=== PATIENT | male | born 1940 | race Caucasian/White ===

== ENCOUNTER 2017-06-03 12:07 | Emergency (ER) | payer MEDICARE, BC ==
[2017-06-03 12:39] VITALS: BP 119/81
--- NOTE | 2017-06-03 12:39 | ED Physician Documentation ---
PD HPI SKIN - Stated complaint Stated Complaint: IV PORT CHECK/REMOVAL - History obtained from History obtained from: Patient - History of Present Illness Timing - onset: How many days ago (couple days ago was at [facility] for other complaint and got discharged with right forearm IV still in place. Here to get it out.) Timing - details: Abrupt onset, Still present Location[place] [facility] [place] Review of Systems Unable to obtain: Unresponsive Constitutional: denies: Fever, Chills Ears: denies: Ear pain Nose: denies: Foreign Body Throat: denies: Sore throat Cardiac: denies: Chest pain / pressure Respiratory: reports: Wheezing. denies: Cough GI: reports: Vomiting Skin: denies: Rash, Lesions PD PAST MEDICAL HISTORY - Past Medical History Cardiovascular: None Respiratory: None - Allergies Allergies/Adverse Reactions: Allergies Allergy/AdvReac Type Severity Reaction Status Date / Time No Known Drug Allergies Allergy Verified 06/03/17 12:28 PD ED PE NORMAL - Vitals Vital signs reviewed: Yes - General General: Alert and oriented X 3, No acute distress, Well developed/nourished - Neck Neck: Supple, no meningeal sign, No bony TTP, No JVD, No bruit - Cardiac Cardiac: RRR, No murmur - Respiratory Respiratory: Clear bilaterally - Abdomen Abdomen: Soft, Non tender - Derm Derm: Normal color, Warm and dry - Neuro Neuro: Alert and oriented X 3, agricultural extension specialist 2-12 intact, No motor deficit, No sensory deficit Eye Opening: To Voice Motor: Localizes to Pain Verbal: Confused GCS Score: 12 Results - Vitals Vitals: Vital Signs - 24 hr 06/03/17 12:29 Temperature 36.6 C Heart Rate 97 Respiratory 18 Rate Blood Pressure 119/81 H O2 Saturation 98 Oxygen O2 Source Room air PD MEDICAL DECISION MAKING - ED course Complexity details: considered differential, d/w patient, d/w legal consultant Departure - Departure Disposition: 01 Home, Self Care Clinical Impression: Intravenous catheter in place Condition: Stable Record reviewed to determine appropriate education?: Yes Comments: Follow-up with your primary care regarding treatment plans from prior ER visit. Return as needed. Discharge Date/Time: 06/03/17 12:50
== END 2017-06-03 12:50 | disposition home or self-care (01) ==
LOC: ED 12:07
DX: Z45.2 Encounter for adjustment and management of vascular access device (principal)
CPT/HCPCS: 99282

== ENCOUNTER 2017-10-04 13:26 | Outpatient (CLI) | payer MEDICARE, BC ==
--- NOTE | 2017-10-04 14:28 | XRAY Report ---
THREE VIEW LEFT KNEE: 10/04/2017 CLINICAL INDICATION: Pain. FINDINGS: AP, lateral, sunrise views of the left knee demonstrate moderate osteoarthritis. There is no evidence of acute fracture. No effusion is present. IMPRESSION: MODERATE OSTEOARTHRITIS. TD: 10/04/2017 14:00
== END 2017-10-04 13:27 | disposition home or self-care (01) ==
LOC: DI 13:26
PROVIDERS: ATTEND Registered Nurse
DX: M25.562 Pain in left knee (principal); R29.898 Other symptoms and signs involving the musculoskeletal system; M17.12 Unilateral primary osteoarthritis, left knee

== ENCOUNTER 2017-11-25 08:32 | Outpatient (CLI) | payer MEDICARE, BC ==
--- NOTE | 2017-11-25 10:29 | Ultrasound Report ---
Procedure Date: 11/25/2017 Accession Number: [id number] / [id number] Procedure: US - Breast Unilateral Limited CPT Code: FULL RESULT: EXAM: Breast Unilateral Limited DATE: 11/25/2017 10:07 AM CLINICAL HISTORY: RIGHT BREAST TECHNIQUE: Real-time scanning, with metals sales representative static images obtained. COMPARISON: Mammogram same day FINDINGS: In the right subareolar region, gynecomastia is present. No suspicious mass or architectural distortion is seen. IMPRESSION: Benign findings, with right retroareolar gynecomastia. Recommendation: Continued clinical management. BI-RADS Category 2 benign findings.
--- NOTE | 2017-11-25 13:12 | Mammography Report ---
Procedure Date: 11/25/2017 Accession Number: [id number] / [id number] Procedure: JACKLYN - Diagnostic Dig Bilat CPT Code: FULL RESULT: EXAM: Diagnostic Dig Bilat DATE: 11/25/2017 9:03 AM CLINICAL HISTORY: Palpable abnormality right subareolar region, tender TECHNIQUE: Bilateral CC and MLO views. A marker was placed at the site of the palpable abnormality identified by the patient. COMPARISON: None FINDINGS: The breasts demonstrate diffuse fatty replacement bilaterally. There is asymmetric gynecomastia, right greater than left. No mass or architectural distortion is identified. Please also refer to right breast ultrasound of the same day. IMPRESSION: Benign findings RECOMMENDATION: Continued clinical management. BIRADS CATEGORY 2: Benign findings STANDARD QUALIFYING STATEMENTS: 1. This examination was reviewed with the aid of Computer-Aided Detection (CAD). 2. A negative or benign imaging report should not delay biopsy if clinically suspicious findings are present. Consider surgical consultation if warrented. More than 5% of cancers are not identified by imaging. 3. Dense breasts may obscure an underlying neoplasm.
== END 2017-11-25 08:33 | disposition home or self-care (01) ==
LOC: DI 08:32
PROVIDERS: ATTEND Registered Nurse
DX: N62 Hypertrophy of breast (principal)
CPT/HCPCS: 76642; 77066

== ENCOUNTER 2018-06-01 12:18 | Outpatient (CLI) | payer MEDICARE, BC | END 2018-06-01 12:19 | disposition home or self-care (01) | LOC: LAB.F 12:18 | PROVIDERS: ATTEND Registered Nurse | DX: Z79.01 Long term (current) use of anticoagulants (principal) | CPT/HCPCS: 85610 ==

== ENCOUNTER 2018-06-06 12:39 | Outpatient (CLI) | payer MEDICARE, BC | END 2018-06-06 12:40 | disposition home or self-care (01) | LOC: LAB 12:39 | PROVIDERS: ATTEND Registered Nurse | DX: Z79.01 Long term (current) use of anticoagulants (principal) | CPT/HCPCS: 85610 ==

== ENCOUNTER 2018-06-13 13:00 | Outpatient (CLI) | payer MEDICARE, BC | END 2018-06-13 13:01 | disposition home or self-care (01) | LOC: LAB 13:00 | PROVIDERS: ATTEND Registered Nurse | DX: Z79.01 Long term (current) use of anticoagulants (principal) | CPT/HCPCS: 85610 ==

== ENCOUNTER 2018-07-11 09:29 | Outpatient (CLI) | payer MEDICARE, BC ==
--- NOTE | 2018-07-11 15:13 | XRAY Report ---
Reason: PLEURODYNIA Procedure Date: 07/11/2018 Accession Number: [id number] / [id number] Procedure: XR - Ribs Bilat w/Chest 4 View CPT Code: FULL RESULT: EXAM: BILATERAL RIB RADIOGRAPHY EXAM DATE: 07/11/2018 11:48 AM. CLINICAL HISTORY: Pleurodynia. COMPARISON: None. TECHNIQUE: 1 view of the chest and 2 views of the ribs for each side. FINDINGS: Bones: Normal. No fracture or bone lesion. Lungs: There is a 0.8 cm nodule projecting over the lung apex on the right, possibly calcified. A separate 8 mm nodule is seen projecting over the right mid lung. No consolidation. No pneumothorax. No pleural effusions. Mediastinum: Heart and mediastinal contours are unremarkable. Other: None. IMPRESSION: No fracture is detected. Pulmonary nodules as described warrant chest CT. RADIA
== END 2018-07-11 09:30 | disposition home or self-care (01) ==
LOC: DI 09:29
PROVIDERS: ATTEND Nurse Practitioner Family
DX: R07.81 Pleurodynia (principal)
CPT/HCPCS: 71111

== ENCOUNTER 2018-07-13 11:27 | Outpatient (CLI) | payer MEDICARE, BC | END 2018-07-13 11:28 | disposition home or self-care (01) | LOC: LAB 11:27 | PROVIDERS: ATTEND Registered Nurse | DX: Z79.01 Long term (current) use of anticoagulants (principal) | CPT/HCPCS: 85610 ==

== ENCOUNTER 2018-08-15 13:30 | Outpatient (CLI) | payer MEDICARE, BC | END 2018-08-15 13:31 | disposition home or self-care (01) | LOC: LAB 13:30 | PROVIDERS: ATTEND Registered Nurse | DX: Z79.01 Long term (current) use of anticoagulants (principal) | CPT/HCPCS: 85610 ==

== ENCOUNTER 2018-08-31 12:34 | Outpatient (CLI) | payer MEDICARE, BC | END 2018-08-31 12:35 | disposition home or self-care (01) | LOC: LAB 12:34 | PROVIDERS: ATTEND Registered Nurse | DX: Z79.01 Long term (current) use of anticoagulants (principal) | CPT/HCPCS: 85610 ==

== ENCOUNTER 2018-10-10 12:54 | Outpatient (CLI) | payer MEDICARE, BC | END 2018-10-10 12:55 | disposition home or self-care (01) | LOC: LAB 12:54 | PROVIDERS: ATTEND Registered Nurse | DX: Z51.81 Encounter for therapeutic drug level monitoring (principal); Z79.01 Long term (current) use of anticoagulants | CPT/HCPCS: 85610 ==

== ENCOUNTER 2018-10-19 11:51 | Outpatient (CLI) | payer MEDICARE, BC | END 2018-10-19 11:52 | disposition home or self-care (01) | LOC: LAB 11:51 | PROVIDERS: ATTEND Registered Nurse | DX: Z79.01 Long term (current) use of anticoagulants (principal) | CPT/HCPCS: 85610 ==

== ENCOUNTER 2018-11-07 08:00 | Outpatient (CLI) | payer MEDICARE, BC | END 2018-11-07 23:19 | disposition home or self-care (01) | LOC: LAB 08:00 | PROVIDERS: ATTEND Registered Nurse | DX: Z51.81 Encounter for therapeutic drug level monitoring (principal); Z79.01 Long term (current) use of anticoagulants | CPT/HCPCS: 85610 ==

== ENCOUNTER 2018-11-28 14:30 | Outpatient (CLI) | payer MEDICARE, BC | END 2018-11-28 14:31 | disposition home or self-care (01) | LOC: LAB 14:30 | PROVIDERS: ATTEND Registered Nurse | DX: Z79.01 Long term (current) use of anticoagulants (principal) | CPT/HCPCS: 85610 ==

== ENCOUNTER 2019-01-16 14:00 | Outpatient (CLI) | payer MEDICARE, BC | END 2019-01-16 14:01 | disposition home or self-care (01) | LOC: LAB 14:00 | PROVIDERS: ATTEND Registered Nurse | DX: Z51.81 Encounter for therapeutic drug level monitoring (principal); Z79.01 Long term (current) use of anticoagulants | CPT/HCPCS: 85610 ==

== ENCOUNTER 2019-03-06 12:47 | Outpatient (CLI) | payer MEDICARE, BC | END 2019-03-06 12:48 | disposition home or self-care (01) | LOC: LAB 12:47 | PROVIDERS: ATTEND Registered Nurse | DX: Z79.01 Long term (current) use of anticoagulants (principal) | CPT/HCPCS: 85610 ==

== ENCOUNTER 2019-03-07 09:52 | Outpatient (CLI) | payer MEDICARE, BC ==
--- NOTE | 2019-03-08 05:16 | Ultrasound Report ---
Reason: LOWER URINARY TRACT SYMPTOMS DUE TO BENIGN PROSTAT Procedure Date: 03/07/2019 Accession Number: [id number] / [id number] Procedure: US - Bladder CPT Code: FULL RESULT: EXAM: PELVIS ULTRASOUND, LIMITED EXAM DATE: 03/07/2019 10:29 AM. CLINICAL HISTORY: LOWER URINARY TRACT SYMPTOMS DUE TO BENIGN PROSTAT. COMPARISON: None. TECHNIQUE: Real-time scanning was performed with static images obtained. FINDINGS: Bladder: Prevoid bladder volume measures 95.7 mL. Postvoid bladder volume measures 17.7 mL. No bladder mass. Thick-walled bladder with trabeculation Prostate: Measures 4.6 x 4.6 x 5.2 cm for an ellipsoid volume of 57.6 mL, with nodular mass-effect on the bladder apex, with a nodular protrusion at the apex measuring 2.4 x 1.6 x 1.7 cm. IMPRESSION: 1. Thick-walled bladder with trabeculation indicating chronic outlet obstruction. 2. Prostatomegaly with nodular mass-effect on the bladder apex RADIA
== END 2019-03-07 09:53 | disposition home or self-care (01) ==
LOC: DI 09:52
PROVIDERS: ATTEND Family Medicine
DX: N40.1 Benign prostatic hyperplasia with lower urinary tract symptoms (principal); R33.9 Retention of urine, unspecified; N32.89 Other specified disorders of bladder
CPT/HCPCS: 76857

== ENCOUNTER 2019-05-22 12:43 | Outpatient (CLI) | payer MEDICARE, BC | END 2019-05-22 12:44 | disposition home or self-care (01) | LOC: LAB 12:43 | PROVIDERS: ATTEND Registered Nurse | DX: Z79.01 Long term (current) use of anticoagulants (principal) | CPT/HCPCS: 85610 ==

== ENCOUNTER 2019-06-28 12:07 | Outpatient (CLI) | payer MEDICARE, BC | END 2019-06-28 12:08 | disposition home or self-care (01) | LOC: LAB 12:07 | PROVIDERS: ATTEND Registered Nurse | DX: Z79.01 Long term (current) use of anticoagulants (principal) | CPT/HCPCS: 85610 ==

== ENCOUNTER 2019-08-16 18:25 | Outpatient (CLI) | payer MEDICARE, BC | END 2019-08-16 23:59 | disposition EMS.NT | LOC: EMS 18:25 | PROVIDERS: ATTEND Surgery | DX: R42 Dizziness and giddiness (principal); R06.02 Shortness of breath; R20.2 Paresthesia of skin ==

== ENCOUNTER 2019-08-20 15:24 | Outpatient (CLI) | payer MEDICARE, BC | END 2019-08-20 15:25 | disposition EMS.NT | LOC: EMS 15:24 | PROVIDERS: ATTEND Surgery | DX: R46.89 Other symptoms and signs involving appearance and behavior (principal) ==

== ENCOUNTER 2019-08-20 16:28 | Emergency (ER) | payer MEDICARE, BC ==
--- NOTE | 2019-08-20 17:14 | ED Physician Documentation ---
History of Present Illness - Stated complaint Stated Complaint: UNRESPONSIVE, SHALLOW BREATHING - Chief complaint Chief Complaint: Neuro - Additonal information Additional information: Mr. Gomez is a 79 year old male with a history of a-fib and dementia. He is here with his sister who states she has POA. His sister states she found him standing in a hallway in her home leaning against a wall just prior to their arrival. His eyes were shut and he was not responding to questions, this lasted about 1-3 minutes. He was ambulating. Patient states he was in the home at that time. He states the area was dark and he felt confused at that time. He denies any recent illness. He denies any current symptoms. No falls or injuries. No recent illness. No headache or focal areas of weakness. No congestion, cough, or fevers. No chills. No chest pain or back pain. No abdominal pain, nausea, or vomiting. No urinary complaints. He lives home alone with his sister. He is on coumadin. Review of Systems Constitutional: denies: Fever, Chills, Myalgias, Fatigue, Weight Loss, Sweats, Other Eyes: denies: Loss of vision, Decreased vision, Photophobia, Discharge, Irritation, Reviewed and negative, Other Ears: denies: Loss of hearing, Ear pain, Drainage/discharge, Tinnitus/ringing, Foreign body, Reviewed and negative, Other Nose: denies: Rhinorrhea / runny nose, Congestion, Epistaxis, Sinus pressure / pain, Foreign Body, Reviewed and negative, Other Throat: denies: Dental pain / toothache, Oral lesions / sores, Sore throat, Swollen tonsils, Swallowed foreign body, Reviewed and negative, Other Cardiac: denies: Chest pain / pressure, Palpitations, Pedal edema, Calf pain, Reviewed and negative, Other Respiratory: denies: Dyspnea, Cough, Hemoptysis, Wheezing, Reviewed and negative, Other GI: denies: Abdominal Pain, Abdominal Swelling, Nausea, Vomiting, Constipation, Diarrhea, Hematemesis, Bloody / black stool, Reviewed and negative, Other : denies: Dysuria, Frequency, Hesitancy, Unable to Void, Incontinent, Hematuria, Discharge, LMP, Vaginal bleeding, Irregular menses, Missed period, Now EGA, Control, Hysterectomy, Testicular pain, Testicular mass, Morales Problem, Reviewed and negative, Other Musculoskeletal: denies: Neck pain, Back pain, Extremity pain, Joint pain, Extremity swelling, Joint swelling, Pain with weight bearing, Reviewed and ne pete, Other Neurologic: reports: Other (see HPI) PD PAST MEDICAL HISTORY - Past Medical History Cardiovascular: None Respiratory: None - Past Surgical History Past Surgical History: No - Present Medications Home Medications: Ambulatory Orders Medication Instructions Recorded Confirmed Citalopram [CeleXA] 10 mg PO ONCE 07/24/19 07/24/19 Diltiazem HCl [Diltiazem ER] 180 mg PO 07/24/19 LORazepam [Lorazepam] 1 - 2 mg PO QPM PRN #10 tablet 07/24/19 Lisinopril [Prinivil] 5 mg PO 07/24/19 Quetiapine Fumarate 25 mg PO 07/24/19 Tamsulosin [Flomax] 0.4 mg PO ONCE 07/24/19 07/24/19 Warfarin [Coumadin] 5 mg PO 1400 07/24/19 07/24/19 - Allergies Allergies/Adverse Reactions: Allergies Allergy/AdvReac Type Severity Reaction Status Date / Time No Known Drug Allergies Allergy Verified 07/24/19 19:42 - Social History Does the pt smoke?: No Smoking Status: Never smoker Does the pt drink ETOH?: No Does the pt have substance abuse?: No - Immunizations Immunizations are current?: No - POLST Patient has POLST: No PD ED PE NORMAL - Vitals Vital signs reviewed: Yes - General General: No acute distress, Other (Alert to self and situation. He thinks it is March. This is his baseline. ) - HEENT HEENT: Atraumatic, PERRL, Moist mucous membranes, Pharynx benign - Neck Neck: Supple, no meningeal sign - Cardiac Cardiac: No murmur, Strong equal pulses - Respiratory Respiratory: No respiratory distress, Clear bilaterally - Abdomen Abdomen: Non distended - Derm Derm: Normal color, Warm and dry - Extremities Extremities: No deformity - Neuro Neuro: ceo & founder 2-12 intact, No motor deficit, No sensory deficit, Normal speech Eye Opening: Spontaneous Motor: Obeys Commands Verbal: Oriented GCS Score: 15 - Psych Psych: Normal mood, Normal affect Results - Vitals Vitals: Vital Signs - 24 hr 08/20/19 08/20/19 16:36 16:43 Temperature 37.7 C H Heart Rate 81 79 Respiratory 16 18 Rate Blood Pressure 122/59 L 142/88 H O2 Saturation 98 97 Oxygen O2 Source Room air - Labs Labs: Laboratory Tests 08/20/19 08/20/19 08/20/19 16:55 17:00 17:00 WBC 4.3 L RBC 4.55 L Hgb 13.8 L Hct 39.7 L MCV 87.3 MCH 30.3 MCHC 34.8 RDW 12.7 Plt Count 185 MPV 9.2 Neut # (Auto) 2.8 Lymph # (Auto) 0.9 L [place] # (Auto) 0.5 Eos # (Auto) 0.0 Baso # (Auto) 0.0 Absolute Nucleated RBC 0.00 Nucleated RBC % 0.0 Sodium 133 L Potassium 3.9 Chloride 99 L Carbon Dioxide 25 Anion Gap 9.0 BUN 17 Creatinine 1.1 Estimated GFR (MDRD) 65 L Glucose 96 Lactic Acid Calcium 9.2 Total Bilirubin 1.3 H AST 19 ALT 15 Alkaline Phosphatase 58 Total Protein 7.1 Albumin 4.6 Globulin 2.5 Albumin/Globulin Ratio 1.8 Urine Color YELLOW Urine Clarity CLEAR Urine pH 6.0 Ur Specific [place] <=1.005 Urine Protein NEGATIVE Urine Glucose (UA) NEGATIVE Urine Ketones NEGATIVE Urine Occult Blood SMALL H Urine Nitrite NEGATIVE Urine Bilirubin NEGATIVE Urine Urobilinogen 0.2 (NORMAL) Ur Leukocyte Esterase NEGATIVE Urine RBC 0-5 Urine WBC 0-3 Ur Squamous Epith Cells NONE SEEN Urine Bacteria None Seen Urine Culture Comments NOT INDICATED 08/20/19 17:22 WBC RBC Hgb Hct MCV MCH MCHC RDW Plt Count MPV Neut # (Auto) Lymph # (Auto) [place] # (Auto) Eos # (Auto) Baso # (Auto) Absolute Nucleated RBC Nucleated RBC % Sodium Potassium Chloride Carbon Dioxide Anion Gap BUN Creatinine Estimated GFR (MDRD) Glucose Lactic Acid 1.1 Calcium Total Bilirubin AST ALT Alkaline Phosphatase Total Protein Albumin Globulin Albumin/Globulin Ratio Urine Color Urine Clarity Urine pH Ur Specific [place] Urine Protein Urine Glucose (UA) Urine Ketones Urine Occult Blood Urine Nitrite Urine Bilirubin Urine Urobilinogen Ur Leukocyte Esterase Urine RBC Urine WBC Ur Squamous Epith Cells Urine Bacteria Urine Culture Comments PD MEDICAL DECISION MAKING - ED course Complexity details: d/w family (Discussed work up results with Mr. Gomez and his sister. No intervention at this time. Dicussed contact precautions due to the covid outbreak. They will maintain hydration. Return for any emergent changes as needed ), other (discusse the differential diagnosis with patient and his sister. This included but was not limted to CVA, seizure, and infection. He is a DNR. We will perform minmal work up.) Departure - Departure Disposition: 01 Home, Self Care Clinical Impression: Altered mental status Condition: Stable Comments: Maintain oral hydration. Return for emergent changes or worsening symptoms needed.
[2019-08-20 17:23] LABS: BASOPHILS % (AUTO) 0.7 %; EOSINOPHILS % (AUTO) 0.7 %; HGB - HEMOGLOBIN 13.8 g/dL (14.0-18.0); LYMPHOCYTES # (AUTO) 0.9 10^3/uL (1.5-3.5); LYMPHOCYTES % (AUTO) 21.1 %; MEAN CORPUSCULAR HEMOGLOBIN 30.3 pg (27.0-31.0); MEAN CORPUSCULAR HGB CONC 34.8 g/dL (32.0-36.0); MEAN CORPUSCULAR VOLUME 87.3 fL (80.0-94.0); MEAN PLATELET VOLUME 9.2 fL (7.4-11.4); MONOCYTES # (AUTO) 0.5 10^3/uL (0.0-1.0); MONOCYTES % (AUTO) 11.8 %; NEUTROPHILS # (AUTO) 2.8 10^3/uL (1.5-6.6); NEUTROPHILS % (AUTO) 65.2 %; PLT - PLATELET COUNT 185 10^3/uL (130-450); RED BLOOD COUNT 4.55 10^6/uL (4.70-6.10); RED CELL DISTRIBUTION WIDTH 12.7 % (12.0-15.0); WHITE BLOOD COUNT 4.3 x10^3/uL (4.8-10.8)
[2019-08-20 17:28] LABS: BILIRUBIN,URINE NEGATIVE (NEGATIVE); GLUCOSE, URINE (UA) NEGATIVE (NEGATIVE); KETONES,URINE (UA) NEGATIVE (NEGATIVE); LEUKOCYTE ESTERASE, URINE NEGATIVE (NEGATIVE); NITRITE,URINE NEGATIVE (NEGATIVE); OCCULT BLOOD,URINE SMALL (NEGATIVE); PROTEIN,URINE NEGATIVE (NEGATIVE); UROBILINOGEN,URINE 0.2 (NORMAL) E.U./dL (NORMAL)
[2019-08-20 17:36] LABS: BACTERIA,URINE None Seen /HPF (None Seen); CLARITY,URINE CLEAR (CLEAR); RBC,URINE 0-5 /HPF (0-5); SQUAMOUS EPITHELIAL CELL,UR NONE SEEN (<= Few)
[2019-08-20 17:38] LABS: ALBUMIN 4.6 g/dL (3.2-5.5); ALBUMIN/GLOBULIN RATIO 1.8 (1.0-2.2); BILIRUBIN,TOTAL 1.3 mg/dL (0.2-1.0); CALCIUM 9.2 mg/dL (8.5-10.3); CREATININE 1.1 mg/dL (0.6-1.2); TOTAL PROTEIN 7.1 g/dL (6.7-8.2)
[2019-08-20 18:22] VITALS: BP 133/82
== END 2019-08-20 18:24 | disposition home or self-care (01) ==
LOC: ED 16:28
DX: R41.82 Altered mental status, unspecified (principal); F03.90 Unspecified dementia, unspecified severity, without behavioral disturbance, psychotic disturbance, mood disturbance, and anxiety
CPT/HCPCS: 36415; 80053; 81001; 83605; 85025; 87086; 99283; 99284

== ENCOUNTER 2019-08-25 11:05 | Outpatient (CLI) | payer MEDICARE, BC ==
--- NOTE | 2019-08-25 12:00 | CT Report ---
Reason: ALZHEIMER DISEASE Procedure Date: 08/25/2019 Accession Number: [id number] / [id number] Procedure: CT - HEAD WO CPT Code: Final Report FULL RESULT: EXAM: CT HEAD EXAM DATE: 08/25/2019 11:30 AM. CLINICAL HISTORY: 79-year-old man with Alzheimer's disease. COMPARISON: None. TECHNIQUE: Multiaxial CT images were obtained from the foramen magnum to the vertex. Reformats: Sagittal and coronal. IV contrast: None. In accordance with CT protocol optimization, one or more of the following dose reduction techniques were utilized for this exam: automated exposure control, adjustment of mA and/or KV based on patient size, or use of iterative reconstructive technique. FINDINGS: Parenchyma: No evidence of acute infarct, hemorrhage, or mass lesion. Parenchyma demonstrates moderate, patchy hypoattenuation in the deep cerebral white matter, most consistent with sequelae of chronic small vessel ischemic disease. Ventricles and Extra-axial Spaces: The ventricles are symmetric. No evidence of hydrocephalus, but there is prominent dilation of the temporal horns of the lateral ventricles bilaterally. No extra-axial hemorrhage or fluid collection. Orbits: Unremarkable except for bilateral lens replacement surgery. Sinuses: Scattered mucosal thickening is present in the visualized paranasal sinuses. Status post left sided mastoidectomy. Right mastoid air cells are clear. Extracranial Soft Tissues and Bones: Soft tissues are unremarkable. No fractures. IMPRESSION: 1. No acute intracranial abnormality. Specifically, no evidence of acute infarct, hemorrhage, or mass lesion. 2. Moderate white matter changes, most consistent with sequelae of chronic small vessel ischemic disease. 3. Temporal horn of the lateral ventricles are prominently dilated, consistent with temporal lobe volume loss greater than expected for age. RADIA
== END 2019-08-25 11:06 | disposition home or self-care (01) ==
LOC: DI 11:05
PROVIDERS: ATTEND Registered Nurse
DX: R41.82 Altered mental status, unspecified (principal)
CPT/HCPCS: 70450

== ENCOUNTER 2019-08-26 12:29 | Outpatient (CLI) | payer MEDICARE, BC | END 2019-08-26 12:30 | disposition EMS.NT | LOC: EMS 12:29 | PROVIDERS: ATTEND Surgery | DX: R45.1 Restlessness and agitation (principal); F41.9 Anxiety disorder, unspecified ==

== ENCOUNTER 2019-08-27 10:51 | Outpatient (CLI) | payer MEDICARE, BC | END 2019-08-27 10:52 | disposition EMS.NT | LOC: EMS 10:51 | PROVIDERS: ATTEND Surgery | DX: R56.9 Unspecified convulsions (principal) ==

== ENCOUNTER 2019-08-28 17:33 | Outpatient (CLI) | payer MEDICARE, BC | END 2019-08-28 23:59 | disposition EMS.NT | LOC: EMS 17:33 | PROVIDERS: ATTEND Surgery | DX: R06.89 Other abnormalities of breathing (principal) ==

== ENCOUNTER 2019-09-09 11:12 | Outpatient (CLI) | payer MEDICARE, BC | END 2019-09-09 11:13 | disposition critical access hospital (66) | LOC: EMS 11:12 | PROVIDERS: ATTEND Surgery | DX: R41.82 Altered mental status, unspecified (principal) ==

== ENCOUNTER 2019-09-09 11:25 | Emergency (ER) | payer MEDICARE, BC ==
--- NOTE | 2019-09-09 11:52 | ED Physician Documentation ---
PD HPI ALTERED MENTAL STATUS - Stated complaint Stated Complaint: AMS - Chief complaint Chief Complaint: Neuro - History obtained from History obtained from: Family, EMS - History of Present Illness Timing - onset: Enter time (2029), Last night Timing - duration: Hours Timing - details: Abrupt onset, Still present Quality / character: Less responsive, Disoriented Associated symptoms: Other (wandering last night) Contributing factors: Anticoagulated Basline status: Ambulatory, Confused Similar symptoms before: Has not had sx before Recently seen: Emergency Dept - Additional information Additional information: 79-year-old male who lives with his sister and has a history of advanced dementia was last seen in his room at 8:30 PM last night in his normal state of health and this morning the sister is found him outside wandering and confused. He was talking to the medics when they arrived he is no longer talking to us. Review of Systems Unable to obtain: Confused, Dementia PD PAST MEDICAL HISTORY - Past Medical History Cardiovascular: None Respiratory: None Neuro: Dementia Psych: Anxiety - Past Surgical History Past Surgical History: No - Present Medications Home Medications: Ambulatory Orders Medication Instructions Recorded Confirmed Citalopram [CeleXA] 10 mg PO DAILY 07/24/19 09/09/19 Diltiazem HCl [Diltiazem ER] 180 mg PO DAILY 07/24/19 09/09/19 Lisinopril [Prinivil] 5 mg PO DAILY 07/24/19 09/09/19 Tamsulosin [Flomax] 0.4 mg PO QPM 07/24/19 09/09/19 Warfarin [Coumadin] 5 mg PO 1400 07/24/19 09/09/19 LORazepam [Lorazepam] 1 mg PO DAILY PRN 09/09/19 09/09/19 Quetiapine Fumarate 50 mg PO BID 09/09/19 09/09/19 - Allergies Allergies/Adverse Reactions: Allergies Allergy/AdvReac Type Severity Reaction Status Date / Time No Known Drug Allergies Allergy Verified 07/24/19 19:42 - Social History Does the pt smoke?: No Smoking Status: Never smoker Does the pt drink ETOH?: No Does the pt have substance abuse?: No - Immunizations Immunizations are current?: No - POLST Patient has POLST: No PD ED PE NORMAL - Vitals Vital signs reviewed: Yes (tachy and hypertensive ) - General General: No acute distress, Well developed/nourished - HEENT HEENT: Atraumatic, PERRL, EOMI, Other (left TM is not visible secondary to debries in canal. ) - Neck Neck: Supple, no meningeal sign, No bony TTP - Cardiac Cardiac: No murmur, Other (Irregularly irregular tachycardic rate) - Respiratory Respiratory: No respiratory distress, Clear bilaterally - Abdomen Abdomen: Soft, Non tender - Back Back: No CVA TTP, No spinal TTP - Derm Derm: Normal color, Warm and dry, No rash, Other (There is an abrasion to the anterior abdominal wall suprapubic area. There are abrasions to both knees.) - Extremities Extremities: No deformity, Normal ROM s pain, No edema - Neuro Neuro: No motor deficit, No sensory deficit Eye Opening: To Voice Motor: Obeys Commands Verbal: Inappropriate GCS Score: 12 - Psych Psych: Other (withdrawn with flat affect. ) Results - Vitals Vitals: Vital Signs - 24 hr 09/09/19 09/09/19 09/09/19 11:29 12:22 13:28 Temperature 36 C L 37.1 C Heart Rate 135 H 85 111 H Respiratory 19 18 20 Rate Blood Pressure 144/95 H 139/79 H 129/85 H O2 Saturation 100 99 100 09/09/19 09/09/19 14:30 15:21 Temperature Heart Rate 114 H 124 H Respiratory 18 18 Rate Blood Pressure 122/74 130/87 H O2 Saturation 97 98 Oxygen O2 Source Room air - EKG (time done) 1136 Rate: Rate (enter#) (127) Rhythm: Atrial fibrillation [place]: LAD QRS: Low voltage Ischemia: Non specific changes Compare to prior EKG: Changed from prior EKG (SPT 08-28-2019 the rate has increased. ) Computer interpretation: Agree with computer - Labs Labs: Laboratory Tests 09/09/19 09/09/19 09/09/19 12:16 12:16 12:16 WBC 7.8 RBC 4.58 L Hgb 14.0 Hct 39.5 L MCV 86.2 MCH 30.6 MCHC 35.4 RDW 12.7 Plt Count 194 MPV 9.2 Neut # (Auto) 6.5 Lymph # (Auto) 0.4 L [place] # (Auto) 0.8 Eos # (Auto) 0.0 Baso # (Auto) 0.0 Absolute Nucleated RBC 0.00 Nucleated RBC % 0.0 PT INR Sodium 130 L Potassium 4.3 Chloride 99 L Carbon Dioxide 19 L Anion Gap 12.0 BUN 17 Creatinine 1.2 Estimated GFR (MDRD) 59 L Glucose 116 H Calcium 8.9 Total Bilirubin 2.4 H AST 25 ALT 16 Alkaline Phosphatase 60 Total Creatine Kinase CK-MB (CK-2) Troponin I High Sens 18.1 Total Protein 6.8 Albumin 4.3 Globulin 2.5 Albumin/Globulin Ratio 1.7 Lipase 25 09/09/19 09/09/19 09/09/19 12:16 12:16 12:16 WBC RBC Hgb Hct MCV MCH MCHC RDW Plt Count MPV Neut # (Auto) Lymph # (Auto) [place] # (Auto) Eos # (Auto) Baso # (Auto) Absolute Nucleated RBC Nucleated RBC % PT 22.2 H INR 2.0 H Sodium Potassium Chloride Carbon Dioxide Anion Gap BUN Creatinine Estimated GFR (MDRD) Glucose Calcium Total Bilirubin AST ALT Alkaline Phosphatase Total Creatine Kinase 452 H CK-MB (CK-2) 12.3 H Troponin I High Sens Total Protein Albumin Globulin Albumin/Globulin Ratio Lipase - Rads (name of study) CT head w/o Radiology: Prelim report reviewed (Impression: 1. No acute intracranial abnormality is identified. No acute fracture. 2. Parenchymal volume loss and chronic white matter changes with prominent temporal horns of the lateral ventricles stable.), EMP read indepedently, See rad report Procedures - IVC sono (time) 1145 Bedside IVC sono: IVC measures (cm) (1.47), Other (proximal vessel is enlarged consistent with reflux and elevated CVP) PD MEDICAL DECISION MAKING - ED course Complexity details: reviewed old records, reviewed results, re-evaluated patient, considered differential, d/w family ED course: 79-year-old male with advanced dementia has been wandering last night he arrives to the emergency department with diminished level of consciousness and atrial fibrillation with rapid ventricular rate with a rate in the 130 range. He does appear to have some intolerance to this rhythm and he is administered diltiazem 20 mg intravenously as well as saline. The patient remains with his eyes closed and minimal verbal response. He does seem to be able to cooperate with deep breathing. Despite nearly 4 hours in the emergency department the patient does not clear and eventually he does become agitated requiring sedation with Ativan. He is not able to stand even with assistance. I have asked our hospitalist Dr. Choi to evaluate the patient for admission for observation with intention of fci placement as the disposition. He is not a candidate to return home in his current state. We are not able to get urine from the patient he has urinary retention now and we were unsuccessful and multiple attempts at catheterization with coud of various sizes and various operators. I have contacted the urology PA at [facility] and she recommends we transfer the patient to the emergency department at [facility] for urologic consultation. The patient will still need further services as above. He is given a second dose of diltiazem intravenously. Arrangements are made for transfer to [facility] emergency department with Dr. Kee gaspar. Departure - Departure Disposition: 02 Transfer Acute Care Hosp Clinical Impression: Atrial fibrillation with RVR, Urinary retention Altered mental status Qualifiers: Altered mental status type: stupor Qualified Code(s): R40.1 - Stupor
[2019-09-09] MEDS ORDERED: DILTIAZEM 50 MG/10 ML VIAL ONE (11:54)
[2019-09-09] MEDS: diltiaZEM INJ 5 MG/ML VIAL IVP STA (12:27)
[2019-09-09] MEDS: SODIUM CHLORIDE 0.9% 1,000 ML IV ONE (12:28)
[2019-09-09 12:34] LABS: BASOPHILS % (AUTO) 0.3 %; LYMPHOCYTES # (AUTO) 0.4 10^3/uL (1.5-3.5); LYMPHOCYTES % (AUTO) 5.6 %; MEAN CORPUSCULAR HEMOGLOBIN 30.6 pg (27.0-31.0); MEAN CORPUSCULAR HGB CONC 35.4 g/dL (32.0-36.0); MEAN CORPUSCULAR VOLUME 86.2 fL (80.0-94.0); MEAN PLATELET VOLUME 9.2 fL (7.4-11.4); MONOCYTES # (AUTO) 0.8 10^3/uL (0.0-1.0); MONOCYTES % (AUTO) 10.4 %; NEUTROPHILS # (AUTO) 6.5 10^3/uL (1.5-6.6); NEUTROPHILS % (AUTO) 83.3 %; PLT - PLATELET COUNT 194 10^3/uL (130-450); RED BLOOD COUNT 4.58 10^6/uL (4.70-6.10); RED CELL DISTRIBUTION WIDTH 12.7 % (12.0-15.0); WHITE BLOOD COUNT 7.8 x10^3/uL (4.8-10.8)
[2019-09-09 12:46] LABS: PT - PROTHROMBIN TIME 22.2 secs (9.9-12.6)
[2019-09-09 12:49] LABS: ALBUMIN 4.3 g/dL (3.2-5.5); ALBUMIN/GLOBULIN RATIO 1.7 (1.0-2.2); BILIRUBIN,TOTAL 2.4 mg/dL (0.2-1.0); CALCIUM 8.9 mg/dL (8.5-10.3); CREATININE 1.2 mg/dL (0.6-1.2); TOTAL PROTEIN 6.8 g/dL (6.7-8.2)
--- NOTE | 2019-09-09 12:56 | CT Report ---
Reason: AMS on coumadin Procedure Date: 09/09/2019 Accession Number: [id number] / [id number] Procedure: CT - HEAD WO CPT Code: Final Report FULL RESULT: EXAM: CT HEAD EXAM DATE: 09/09/2019 12:10 PM. CLINICAL HISTORY: AMS on coumadin. COMPARISON: HEAD W/O 08/25/2019 11:25 AM. TECHNIQUE: Multiaxial CT images were obtained from the foramen magnum to the vertex. Reformats: Sagittal and coronal. IV contrast: None. In accordance with CT protocol optimization, one or more of the following dose reduction techniques were utilized for this exam: automated exposure control, adjustment of mA and/or KV based on patient size, or use of iterative reconstructive technique. FINDINGS: Parenchyma: No evidence of an acute vascular insult or acute parenchymal hemorrhage. No midline shift. No mass effect. Parenchymal volume loss with periventricular regions of low attenuation. Temporal lobe volume loss more focally again seen. Extraaxial Spaces: Extra-axial spaces are prominent, as before. No subdural or epidural collections identified. Ventricles: Prominent lateral ventricles. The temporal horns again seen without significant change. Sinuses and Orbits: Right maxillary sinus mucous retention cyst again seen with other mucous retention cyst present, as before. There is mild mucosal thickening. Left mastoidectomy again evident. Small right mastoid effusion. Bones: No evidence of fracture or calvarial defect. Other: Changes are seen from bilateral lens surgery. Vascular calcifications. IMPRESSION: 1. No acute intracranial abnormality is identified. 2. No acute fracture. 3. Parenchymal volume loss and chronic white matter changes with prominent temporal horns of the lateral ventricles, stable. RADIA
[2019-09-09] MEDS: LIDOCAINE 2% URO-JET 5 ML SYRINGE UR STA (14:25)
[2019-09-09] MEDS: LORazepam 1 MG TABLET PO STA (15:02)
[2019-09-09] MEDS ORDERED: diltiaZEM INJ 5 MG/ML VIAL IVP STA (16:01)
[2019-09-09] MEDS: DILTIAZEM 50 MG/10 ML VIAL IVP STA (16:40)
[2019-09-09] MEDS: MORPHINE 2 MG/ML CARPUJECT IVP STA (16:58)
[2019-09-09 17:22] VITALS: BP 140/74
== END 2019-09-09 17:23 | disposition short-term general hospital (02) ==
LOC: EDUNIT# → EDBD → ED 11:25
DX: I48.91 Unspecified atrial fibrillation (principal); Z79.01 Long term (current) use of anticoagulants; R33.9 Retention of urine, unspecified; F03.90 Unspecified dementia, unspecified severity, without behavioral disturbance, psychotic disturbance, mood disturbance, and anxiety; F41.9 Anxiety disorder, unspecified; R40.1 Stupor
CPT/HCPCS: 36415; 70450; 80053; 82550; 82553; 83690; 84484; 85025; 85610; 93005; 96361; 96374; 96375; 96376; 99284; 99285; J8499

== ENCOUNTER 2019-09-09 17:35 | Outpatient (CLI) | payer MEDICARE, BC | END 2019-09-09 17:36 | disposition short-term general hospital (02) | LOC: EMS 17:35 | PROVIDERS: ATTEND Surgery | DX: R41.82 Altered mental status, unspecified (principal); I48.91 Unspecified atrial fibrillation; R33.9 Retention of urine, unspecified; R53.83 Other fatigue | CPT/HCPCS: A0425; A0426; A0429 ==

== ENCOUNTER 2020-02-23 16:16 | Outpatient (CLI) | payer MEDICARE, BC | END 2020-02-23 16:17 | disposition critical access hospital (66) | LOC: EMS 16:16 | PROVIDERS: ATTEND Surgery | DX: R55 Syncope and collapse (principal); R10.9 Unspecified abdominal pain | CPT/HCPCS: A0425; A0429 ==

== ENCOUNTER 2020-02-23 16:36 | Emergency (ER) | payer MEDICARE, BC ==
--- NOTE | 2020-02-23 16:55 | ED Physician Documentation ---
History of Present Illness - Stated complaint Stated Complaint: ABD PAIN - Chief complaint Chief Complaint: Abd Pain - History obtained from History obtained from: Patient, EMS - Additonal information Additional information: Patient with a chronic indwelling Morales catheter. This was removed 2 days ago. Unable to urinate today. Nothing makes it better or worse. No fevers. No vomiting. Has frontotemporal dementia. Review of Systems Unable to obtain: Dementia Constitutional: denies: Fever, Chills GI: denies: Vomiting, Diarrhea Skin: denies: Rash Musculoskeletal: denies: Neck pain, Back pain Neurologic: denies: Headache PD PAST MEDICAL HISTORY - Past Medical History Cardiovascular: None Respiratory: None Neuro: Dementia Endocrine/Autoimmune: None GI: None Psych: Anxiety Derm: None - Past Surgical History Past Surgical History: No - Present Medications Home Medications: Ambulatory Orders Medication Instructions Recorded Confirmed Citalopram [CeleXA] 10 mg PO DAILY 07/24/19 09/09/19 Diltiazem HCl [Diltiazem ER] 180 mg PO DAILY 07/24/19 09/09/19 Lisinopril [Prinivil] 5 mg PO DAILY 07/24/19 09/09/19 Tamsulosin [Flomax] 0.4 mg PO QPM 07/24/19 09/09/19 Warfarin [Coumadin] 5 mg PO 1400 07/24/19 09/09/19 LORazepam [Lorazepam] 1 mg PO DAILY PRN 09/09/19 09/09/19 Quetiapine Fumarate 50 mg PO BID 09/09/19 09/09/19 - Allergies Allergies/Adverse Reactions: Allergies Allergy/AdvReac Type Severity Reaction Status Date / Time No Known Drug Allergies Allergy Verified 02/23/20 16:49 - Social History Does the pt smoke?: No Smoking Status: Never smoker Does the pt drink ETOH?: No Does the pt have substance abuse?: No - Immunizations Immunizations are current?: No - POLST Patient has POLST: No PD ED PE NORMAL - Vitals Vital signs reviewed: Yes - General General: No acute distress, Other (alert, oriented to person and place. not to time) - HEENT HEENT: Moist mucous membranes - Neck Neck: Supple, no meningeal sign - Cardiac Cardiac: RRR - Respiratory Respiratory: No respiratory distress, Clear bilaterally - Abdomen Abdomen: Other (TTP suprapubic) - Derm Derm: Warm and dry - Extremities Extremities: No calf tenderness / cord Results - Vitals Vitals: Vital Signs - 24 hr 02/23/20 16:36 Temperature 36.8 C Heart Rate 60 Respiratory 20 Rate Blood Pressure 115/74 O2 Saturation 99 Oxygen O2 Source Room air PD MEDICAL DECISION MAKING - ED course Complexity details: considered differential, d/w patient ED course: Symptoms resolved after Morales catheter placement. We will leave the catheter in place and have him follow-up with his doctor. This document was made in part using voice recognition software. While efforts are made to proofread this document, sound alike and grammatical errors may occur. Departure - Departure Disposition: 01 Home, Self Care Clinical Impression: Urinary retention Condition: Good Instructions: ED Catheter Care Morales Follow-Up: your,doctor in 1 week [Other] Comments: The catheter should be left in place. Return if you worsen.
--- NOTE | 2020-02-23 17:22 | ED Physician Documentation ---
ED Addendum - Addendum Addendum: 02/23/20 17:21 Brandi beckford called and reported several new complaints after the patient was discharged. The nurse states that they have noticed increased swelling in his feet. They are concerned about heart failure. He is not having any difficulty breathing. The nurse also states that he "passed out". There is no further detail available about this. She was not there. She did not witness the event. Unclear if he actually lost consciousness. Unclear if he was just lightheaded. Unclear if he was out unconscious for longer than a few seconds to a few minutes. Patient is unable to give any history regarding this. Therefore labs, EKG and chest x-ray were ordered. No acute findings on laboratory testing, chest x-ray, EKG. Minimal edema on examination of his lower extremities. No dyspnea. No hypoxia. We will have him follow-up with his doctor for further care. Patient was given Ativan for agitation, this is his normal medication. This document was made in part using voice recognition software. While efforts are made to proofread this document, sound alike and grammatical errors may occur. Departure - Departure Disposition: 01 Home, Self Care Clinical Impression: Urinary retention Condition: Good Instructions: ED Catheter Care Morales Follow-Up: your,doctor in 1 week [Other] Comments: The catheter should be left in place. Return if you worsen. He does not have any significant lab or EKG abnormalities today. He can follow- up with his doctor for further care. Discharge Date/Time: 02/23/20 20:05 Results - Vitals Vitals: Vital Signs - 24 hr 02/23/20 16:36 Temperature 36.8 C Heart Rate 60 Respiratory 20 Rate Blood Pressure 115/74 O2 Saturation 99 Oxygen O2 Source Room air - EKG (time done) 1718 Rate: Rate (enter#) (81) Rhythm: Atrial fibrillation [place]: Normal QRS: Normal Ischemia: Normal ST segments - Rads (name of study) cxr Radiology: Prelim report reviewed, EMP read contemporaneously, See rad report (no acute disease)
[2020-02-23 17:42] LABS: BASOPHILS % (AUTO) 0.8 %; EOSINOPHILS # (AUTO) 0.1 10^3/uL (0.0-0.7); EOSINOPHILS % (AUTO) 1.4 %; HGB - HEMOGLOBIN 12.5 g/dL (14.0-18.0); LYMPHOCYTES # (AUTO) 1.1 10^3/uL (1.5-3.5); LYMPHOCYTES % (AUTO) 31.8 %; MEAN CORPUSCULAR HEMOGLOBIN 30.3 pg (27.0-31.0); MEAN CORPUSCULAR HGB CONC 34.7 g/dL (32.0-36.0); MEAN CORPUSCULAR VOLUME 87.4 fL (80.0-94.0); MEAN PLATELET VOLUME 9.2 fL (7.4-11.4); MONOCYTES # (AUTO) 0.5 10^3/uL (0.0-1.0); MONOCYTES % (AUTO) 13.1 %; NEUTROPHILS # (AUTO) 1.9 10^3/uL (1.5-6.6); NEUTROPHILS % (AUTO) 52.9 %; PLT - PLATELET COUNT 167 10^3/uL (130-450); RED BLOOD COUNT 4.12 10^6/uL (4.70-6.10); RED CELL DISTRIBUTION WIDTH 12.3 % (12.0-15.0); WHITE BLOOD COUNT 3.6 x10^3/uL (4.8-10.8)
[2020-02-23 17:55] LABS: ALBUMIN 3.7 g/dL (3.2-5.5); ALBUMIN/GLOBULIN RATIO 1.4 (1.0-2.2); BILIRUBIN,TOTAL 1.8 mg/dL (0.2-1.0); CALCIUM 8.9 mg/dL (8.5-10.3); CREATININE 1.2 mg/dL (0.6-1.2); TOTAL PROTEIN 6.3 g/dL (6.7-8.2)
--- NOTE | 2020-02-23 18:08 | XRAY Report ---
PROCEDURE: Chest 1 View X-Ray INDICATIONS: syncope TECHNIQUE: One view of the chest was acquired. COMPARISON: Rib series dated 07/11/2018 FINDINGS: Surgical changes and devices: None. Lungs and pleura: No pleural effusions or pneumothorax. Lungs are clear. A stable hyperdense lesio n projecting over the right clavicle may represent a bone island or calcified granuloma. Mediastinum: Mediastinal contours appear normal. Heart size is normal. Bones and chest wall: No suspicious bony lesions. Overlying soft tissues appear unremarkable. Sever e degenerative changes are seen in the right glenohumeral joint. IMPRESSION: No acute cardiopulmonary abnormality. Reviewed by: Getachew Beck MD on 02/23/2020 6:07 PM PDT Approved by: Getachew Beck MD on 02/23/2020 6:07 PM PDT Station ID: [id number]
[2020-02-23] MEDS ORDERED: LORazepam 2 MG/ML VIAL IM STA (19:41)
[2020-02-23] MEDS ORDERED: LORazepam 2 MG/ML VIAL ONE (19:50)
[2020-02-23 20:06] VITALS: BP 126/70
== END 2020-02-23 20:05 | disposition home or self-care (01) ==
LOC: EDUNIT# → ED 16:36
DX: R33.9 Retention of urine, unspecified (principal); I48.91 Unspecified atrial fibrillation; Z79.01 Long term (current) use of anticoagulants; F03.90 Unspecified dementia, unspecified severity, without behavioral disturbance, psychotic disturbance, mood disturbance, and anxiety; R22.43 Localized swelling, mass and lump, lower limb, bilateral
CPT/HCPCS: 36415; 51702; 71045; 80053; 83690; 83880; 84484; 85025; 93005; 96372; 99282; 99284; J2060

== ENCOUNTER 2020-03-19 10:54 | Outpatient (CLI) | payer MEDICARE, BC | END 2020-03-19 10:55 | disposition critical access hospital (66) | LOC: EMS 10:54 | PROVIDERS: ATTEND Surgery | DX: R45.1 Restlessness and agitation (principal) | CPT/HCPCS: A0425; A0429 ==

== ENCOUNTER 2020-03-19 11:13 | Emergency (ER) | payer MEDICARE, BC ==
--- NOTE | 2020-03-19 11:18 | ED Physician Documentation ---
History of Present Illness - Stated complaint Stated Complaint: AGGITAED - History obtained from History obtained from: EMS - Additonal information Additional information: 79-year-old gentleman presents by ambulance for agitation. He has a history of frontotemporal dementia and is brought in from assisted living because over the last hour or 2 he has been agitated. He was briefly fighting with EMS on the way in. On arrival he is calm. He is oriented to person but not place or events. He is on quetiapine 3 times a day and his MAR says he did receive it this morning. Also he gets scheduled Ativan and as needed Ativan. He got his scheduled Ativan this morning but no as needed Ativan. He started cefdinir for UTI 2 days ago. Review of RN notes from [facility] show issues with agitation on and off for days. Review of Systems Unable to obtain: Dementia PD PAST MEDICAL HISTORY - Present Medications Home Medications: Ambulatory Orders Medication Instructions Recorded Confirmed Acetaminophen [Tylenol] 650 mg PO Q6H PRN 03/19/20 03/19/20 Bisacodyl Supp [Dulcolax Supp] 10 mg [place] PRN PRN 03/19/20 03/19/20 Cefdinir 300 mg PO BID 03/19/20 03/19/20 Citalopram [CeleXA] 10 mg PO DAILY 03/19/20 03/19/20 Diltiazem HCl [Diltiazem 12Hr ER] 240 mg PO QPM 03/19/20 03/19/20 LORazepam [Lorazepam] 0.5 mg PO Q8HR PRN 03/19/20 03/19/20 LORazepam [Lorazepam] 1 mg PO ONCE PRN 03/19/20 03/19/20 Lisinopril [Prinivil] 5 mg PO DAILY 03/19/20 03/19/20 Loperamide [Imodium] 2 mg PO QID PRN 03/19/20 03/19/20 Mag Hydrox/Aluminum Hyd/Simeth See Protocol PO Q4HR PRN 03/19/20 03/19/20 [Antacid-Antigas Suspension] Magnesium Hydroxide [Milk of 30 ml PO DAILY PRN 03/19/20 03/19/20 Magnesia] Melatonin 3 mg PO QPM 03/19/20 03/19/20 Memantine [Namenda] 5 mg PO QPM 03/19/20 03/19/20 Nitrofurantoin [Macrobid] 100 mg PO BID 03/19/20 03/19/20 Phenazopyridine [Pyridium] 100 mg PO TID 03/19/20 03/19/20 QUEtiapine [SEROquel] 25 mg PO TID 03/19/20 03/19/20 Tamsulosin [Flomax] 0.4 mg PO QPM 03/19/20 03/19/20 haloperidoL [Haloperidol] 2 mg PO BID #60 tablet 03/19/20 - Allergies Allergies/Adverse Reactions: Allergies Allergy/AdvReac Type Severity Reaction Status Date / Time No Known Drug Allergies Allergy Verified 03/19/20 11:25 PD ED PE NORMAL - Vitals Vital signs reviewed: Yes - General General: No acute distress, Other (A/O x1) - Neck Neck: Supple, no meningeal sign, No bony TTP - Cardiac Cardiac: Other (irregular) - Respiratory Respiratory: No respiratory distress, Clear bilaterally - Abdomen Abdomen: Non tender - Extremities Extremities: No deformity, No tenderness to palpate - Neuro Neuro: No motor deficit, No sensory deficit Eye Opening: Spontaneous Motor: Obeys Commands Verbal: Confused GCS Score: 14 Results - Vitals Vitals: Vital Signs - 24 hr 03/19/20 03/19/20 03/19/20 11:18 11:22 11:30 Temperature 36.6 C Heart Rate 76 115 H 82 Respiratory 20 18 19 Rate Blood Pressure 115/69 111/79 131/70 H O2 Saturation 95 100 03/19/20 03/19/20 03/19/20 12:00 12:46 14:14 Temperature 36.4 C L Heart Rate 100 86 103 H Respiratory 24 16 18 Rate Blood Pressure 114/74 109/68 129/79 O2 Saturation 99 96 98 Oxygen O2 Source Room air - EKG (time done) 1222 Rate: Rate (enter#) (96) Rhythm: Atrial fibrillation Intervals: Normal [place] QRS: Low voltage Ischemia: Normal ST segments Computer interpretation: Agree with computer - Labs Labs: Laboratory Tests 03/19/20 03/19/20 12:25 12:25 WBC 4.3 L RBC 4.35 L Hgb 12.9 L Hct 38.2 L MCV 87.8 MCH 29.7 MCHC 33.8 RDW 12.4 Plt Count 166 MPV 9.7 Neut # (Auto) 3.2 Lymph # (Auto) 0.8 L [place] # (Auto) 0.3 Eos # (Auto) 0.0 Baso # (Auto) 0.0 Absolute Nucleated RBC 0.00 Nucleated RBC % 0.0 Sodium 137 Potassium 3.6 Chloride 102 Carbon Dioxide 20 L Anion Gap 15.0 H BUN 22 H Creatinine 1.2 Estimated GFR (MDRD) 59 L Glucose 95 Calcium 9.2 PD MEDICAL DECISION MAKING - ED course ED course: 79-year-old gentleman just started antibiotics for UTI, he has a Morales catheter in place. He presents for agitation but here at least initially he is calm and cooperative. He did become agitated here and given ativan/haldol IM with improvement. Head CT NAD. Labs unremarkable. Telepsych done (Dr Hardy) for med review and recommends PRN haldol and less benzos. He seemed calm/cooperative p haldol Departure - Departure Disposition: 01 Home, Self Care Clinical Impression: Agitation due to dementia Atrial fibrillation Qualifiers: Atrial fibrillation type: longstanding persistent Qualified Code(s): I48.11 - Longstanding persistent atrial fibrillation Condition: Stable Record reviewed to determine appropriate education?: Yes Instructions: Atrial Fibrillation Dc, ED Dementia Alzheimer Prescriptions: haloperidoL [Haloperidol] 2 mg PO BID #60 tablet Comments: Telepsychiatric consult done. Recommends haldol as needed for agitation. Recommends less or no benzodiazepines (lorazepam). Return if worse.
[2020-03-19] MEDS ORDERED: LORazepam 2 MG/ML VIAL IM STA (11:22)
[2020-03-19] MEDS ORDERED: HALOPERIDOL 5 MG/ML VIAL IM STA (11:42)
[2020-03-19 12:28] LABS: BASOPHILS % (AUTO) 0.7 %; EOSINOPHILS % (AUTO) 0.2 %; HGB - HEMOGLOBIN 12.9 g/dL (14.0-18.0); LYMPHOCYTES # (AUTO) 0.8 10^3/uL (1.5-3.5); LYMPHOCYTES % (AUTO) 18.2 %; MEAN CORPUSCULAR HEMOGLOBIN 29.7 pg (27.0-31.0); MEAN CORPUSCULAR HGB CONC 33.8 g/dL (32.0-36.0); MEAN CORPUSCULAR VOLUME 87.8 fL (80.0-94.0); MEAN PLATELET VOLUME 9.7 fL (7.4-11.4); MONOCYTES # (AUTO) 0.3 10^3/uL (0.0-1.0); MONOCYTES % (AUTO) 7.8 %; NEUTROPHILS # (AUTO) 3.2 10^3/uL (1.5-6.6); NEUTROPHILS % (AUTO) 72.6 %; PLT - PLATELET COUNT 166 10^3/uL (130-450); RED BLOOD COUNT 4.35 10^6/uL (4.70-6.10); RED CELL DISTRIBUTION WIDTH 12.4 % (12.0-15.0); WHITE BLOOD COUNT 4.3 x10^3/uL (4.8-10.8)
[2020-03-19 12:38] LABS: CALCIUM 9.2 mg/dL (8.5-10.3); CREATININE 1.2 mg/dL (0.6-1.2)
--- NOTE | 2020-03-19 12:51 | CT Report ---
PROCEDURE: HEAD WO INDICATIONS: altered TECHNIQUE: Noncontrast 4.5 mm thick angled axial sections acquired from the foramen magnum to the vertex. For r adiation dose reduction, the following was used: automated exposure control, adjustment of mA and/or kV according to patient size. COMPARISON: 08/25/2019, 09/09/2019 FINDINGS: Image quality: Excellent. CSF spaces: Basal cisterns are patent. No extra-axial fluid collections. Ventricles are normal in size and shape. Brain: No midline shift. No intracranial masses or hemorrhage. Odonnell-white matter interface is norm al. Skull and face: Calvarium and visualized facial bones are intact, without suspicious lesions. Sinuses: There is partial visualization of a right maxillary sinus mucus retention cyst. Focal promi nent opacification can be seen involving a left lateral inferior posterior ethmoid air cell, with mil d to moderate mucosal thickening seen elsewhere within the ethmoid air cells. Small mucous retention cysts are seen involving the frontal sinuses. Visualized sinuses and mastoids are otherwise clear. IMPRESSION: Unremarkable intracranial study for age, with note made of brain parenchymal volume loss and chronic small vessel ischemic change. Paranasal sinus disease is noted. Reviewed by: Ted Jaime MD on 03/19/2020 11:50 AM JOVANNI Approved by: Ted Jaime MD on 03/19/2020 11:50 AM JOVANNI Station ID: [id number]
[2020-03-19] MEDS ORDERED: diltiaZEM 30 MG TABLET PO STA (13:04)
[2020-03-19 14:17] VITALS: BP 129/79
== END 2020-03-19 14:55 | disposition home or self-care (01) ==
LOC: MERGE 11:13 → ED 11:13
DX: F03.91 Unspecified dementia, unspecified severity, with behavioral disturbance (principal); R45.1 Restlessness and agitation; I48.11 Longstanding persistent atrial fibrillation
CPT/HCPCS: 36415; 70450; 80048; 85025; 93005; 96372; 99281; 99285; A9270; J2060

== ENCOUNTER 2020-03-19 14:57 | Outpatient (CLI) | payer MEDICARE, BC | END 2020-03-19 14:58 | disposition home or self-care (01) | LOC: EMS 14:57 | PROVIDERS: ATTEND Surgery | DX: F03.90 Unspecified dementia, unspecified severity, without behavioral disturbance, psychotic disturbance, mood disturbance, and anxiety (principal) | CPT/HCPCS: A0425; A0428 ==

== ENCOUNTER 2020-04-11 21:25 | Outpatient (CLI) | payer MEDICARE, BC | END 2020-04-11 21:26 | disposition critical access hospital (66) | LOC: EMS 21:25 | PROVIDERS: ATTEND Surgery | DX: T83.028A Displacement of other urinary catheter, initial encounter (principal) | CPT/HCPCS: A0425; A0429 ==

== ENCOUNTER 2020-04-11 21:42 | Emergency (ER) | payer MEDICARE, BC ==
--- NOTE | 2020-04-11 21:48 | ED Physician Documentation ---
History of Present Illness - Stated complaint Stated Complaint: CATH ISSUE - History obtained from History obtained from: EMS - Additonal information Additional information: 79-year-old man with history of Alzheimer's dementia and BPH pulled out his Morales catheter at his Alzheimer's skilled nursing. He was sent here for Morales replacement. No other issues at this time Review of Systems Unable to obtain: Dementia PD PAST MEDICAL HISTORY - Past Medical History Cardiovascular: Congestive heart failure, Hypertension Respiratory: None Neuro: Dementia Endocrine/Autoimmune: None GI: None Psych: Anxiety Derm: None - Past Surgical History Past Surgical History: No - Present Medications Home Medications: Ambulatory Orders Medication Instructions Recorded Confirmed Citalopram [CeleXA] 10 mg PO DAILY 07/24/19 09/09/19 Diltiazem HCl [Diltiazem ER] 180 mg PO DAILY 07/24/19 09/09/19 Lisinopril [Prinivil] 5 mg PO DAILY 07/24/19 09/09/19 Tamsulosin [Flomax] 0.4 mg PO QPM 07/24/19 09/09/19 Warfarin [Coumadin] 5 mg PO 1400 07/24/19 09/09/19 LORazepam [Lorazepam] 1 mg PO DAILY PRN 09/09/19 09/09/19 Quetiapine Fumarate 50 mg PO BID 09/09/19 09/09/19 Acetaminophen [Tylenol] 650 mg PO Q6H PRN 03/19/20 03/19/20 Bisacodyl Supp [Dulcolax Supp] 10 mg [place] PRN PRN 03/19/20 03/19/20 Cefdinir 300 mg PO BID 03/19/20 03/19/20 Citalopram [CeleXA] 10 mg PO DAILY 03/19/20 03/19/20 Diltiazem HCl [Diltiazem 12Hr ER] 240 mg PO QPM 03/19/20 03/19/20 LORazepam [Lorazepam] 0.5 mg PO Q8HR PRN 03/19/20 03/19/20 LORazepam [Lorazepam] 1 mg PO ONCE PRN 03/19/20 03/19/20 Lisinopril [Prinivil] 5 mg PO DAILY 03/19/20 03/19/20 Loperamide [Imodium] 2 mg PO QID PRN 03/19/20 03/19/20 Mag Hydrox/Aluminum Hyd/Simeth See Protocol PO Q4HR PRN 03/19/20 03/19/20 [Antacid-Antigas Suspension] Magnesium Hydroxide [Milk of 30 ml PO DAILY PRN 03/19/20 03/19/20 Magnesia] Melatonin 3 mg PO QPM 03/19/20 03/19/20 Memantine [Namenda] 5 mg PO QPM 03/19/20 03/19/20 Nitrofurantoin [Macrobid] 100 mg PO BID 03/19/20 03/19/20 Phenazopyridine [Pyridium] 100 mg PO TID 03/19/20 03/19/20 QUEtiapine [SEROquel] 25 mg PO TID 03/19/20 03/19/20 Tamsulosin [Flomax] 0.4 mg PO QPM 03/19/20 03/19/20 haloperidoL [Haloperidol] 2 mg PO BID #60 tablet 03/19/20 - Allergies Allergies/Adverse Reactions: Allergies Allergy/AdvReac Type Severity Reaction Status Date / Time No Known Drug Allergies Allergy Verified 03/21/20 09:12 - Social History Does the pt smoke?: No Smoking Status: Never smoker Does the pt drink ETOH?: No Does the pt have substance abuse?: No - Immunizations Immunizations are current?: No - POLST Patient has POLST: No PD ED PE NORMAL - Vitals Vital signs reviewed: Yes - General General: No acute distress - HEENT HEENT: Atraumatic, PERRL, EOMI - Abdomen Abdomen: Non tender (Normal external male genitalia. Bilateral cremaster's.) - Male Male : Other - Rectal Rectal: Deferred - Back Back: No CVA TTP - Derm Derm: Normal color, Warm and dry - Extremities Extremities: No deformity - Psych Psych: Other (Calm and cooperative) Results - Vitals Vitals: Oxygen O2 Source Room air PD MEDICAL DECISION MAKING - ED course ED course: 79-year-old man presented for Morales replacement. Morales replaced without issue. Sent back via BLS to skilled nursing. Departure - Departure Disposition: 01 Home, Self Care Clinical Impression: Morales catheter problem Condition: Good Instructions: Leg Bag Care Dc Comments: You have been seen for Morales catheter placement. Please follow-up with your primary doctor. Return for any new or worsening symptoms.
[2020-04-11 21:50] VITALS: BP 112/73
== END 2020-04-11 21:58 | disposition home or self-care (01) ==
LOC: EDUNIT# → EDBD → ED 21:42
DX: Z46.6 Encounter for fitting and adjustment of urinary device (principal); N40.1 Benign prostatic hyperplasia with lower urinary tract symptoms; R33.8 Other retention of urine; G30.9 Alzheimer's disease, unspecified; F02.80 Dementia in other diseases classified elsewhere, unspecified severity, without behavioral disturbance, psychotic disturbance, mood disturbance, and anxiety; I10 Essential (primary) hypertension; Z79.01 Long term (current) use of anticoagulants
CPT/HCPCS: 51702; 99281; 99283

== ENCOUNTER 2020-04-11 21:59 | Outpatient (CLI) | payer MEDICARE, BC | END 2020-04-11 22:00 | disposition home or self-care (01) | LOC: EMS 21:59 | PROVIDERS: ATTEND Surgery | DX: F03.90 Unspecified dementia, unspecified severity, without behavioral disturbance, psychotic disturbance, mood disturbance, and anxiety (principal) | CPT/HCPCS: A0425; A0428 ==

== ENCOUNTER 2020-05-22 08:50 | Outpatient (CLI) | payer MEDICARE, BC | END 2020-05-22 08:51 | disposition critical access hospital (66) | LOC: EMS 08:50 | PROVIDERS: ATTEND Surgery | DX: T83.021A Displacement of indwelling urethral catheter, initial encounter (principal) | CPT/HCPCS: A0425; A0429 ==

== ENCOUNTER 2020-05-22 09:08 | Emergency (ER) | payer MEDICARE, BC ==
[2020-05-22 09:18] VITALS: BP 120/74
--- NOTE | 2020-05-22 09:19 | ED Physician Documentation ---
History of Present Illness - Stated complaint Stated Complaint: CATHETER ISSUES - History obtained from History obtained from: Patient - Additonal information Additional information: Patient is brought to the emergency department by EMS after his catheter got pulled out at his assisted living facility. Patient has a history of Alzheimer's disease and is not able to give a clear history as to exactly what happened. He denies pain. No bleeding from his penis. No other complaints at this time. It is not clear why the patient has a chronic indwelling Morales catheter. Review of Systems Ten Systems: 10 systems reviewed and negative Constitutional: reports: Reviewed and negative Eyes: reports: Reviewed and negative Ears: reports: Reviewed and negative Nose: reports: Reviewed and negative Throat: reports: Reviewed and negative Cardiac: reports: Reviewed and negative Respiratory: reports: Reviewed and negative GI: reports: Reviewed and negative : reports: Reviewed and negative Skin: reports: Reviewed and negative Musculoskeletal: reports: Reviewed and negative Neurologic: reports: Reviewed and negative Psychiatric: reports: Reviewed and negative Endocrine: reports: Reviewed and negative Immunocompromised: reports: Reviewed and negative PD PAST MEDICAL HISTORY - Past Medical History Cardiovascular: Congestive heart failure, Hypertension Respiratory: None Neuro: Dementia Endocrine/Autoimmune: None GI: None Psych: Anxiety Derm: None - Past Surgical History Past Surgical History: No - Present Medications Home Medications: Ambulatory Orders Medication Instructions Recorded Confirmed Citalopram [CeleXA] 10 mg PO DAILY 07/24/19 09/09/19 Diltiazem HCl [Diltiazem ER] 180 mg PO DAILY 07/24/19 09/09/19 Lisinopril [Prinivil] 5 mg PO DAILY 07/24/19 09/09/19 Tamsulosin [Flomax] 0.4 mg PO QPM 07/24/19 09/09/19 Warfarin [Coumadin] 5 mg PO 1400 07/24/19 09/09/19 LORazepam [Lorazepam] 1 mg PO DAILY PRN 09/09/19 09/09/19 Quetiapine Fumarate 50 mg PO BID 09/09/19 09/09/19 Acetaminophen [Tylenol] 650 mg PO Q6H PRN 03/19/20 03/19/20 Bisacodyl Supp [Dulcolax Supp] 10 mg [place] PRN PRN 03/19/20 03/19/20 Cefdinir 300 mg PO BID 03/19/20 03/19/20 Citalopram [CeleXA] 10 mg PO DAILY 03/19/20 03/19/20 Diltiazem HCl [Diltiazem 12Hr ER] 240 mg PO QPM 03/19/20 03/19/20 LORazepam [Lorazepam] 0.5 mg PO Q8HR PRN 03/19/20 03/19/20 LORazepam [Lorazepam] 1 mg PO ONCE PRN 03/19/20 03/19/20 Lisinopril [Prinivil] 5 mg PO DAILY 03/19/20 03/19/20 Loperamide [Imodium] 2 mg PO QID PRN 03/19/20 03/19/20 Mag Hydrox/Aluminum Hyd/Simeth See Protocol PO Q4HR PRN 03/19/20 03/19/20 [Antacid-Antigas Suspension] Magnesium Hydroxide [Milk of 30 ml PO DAILY PRN 03/19/20 03/19/20 Magnesia] Melatonin 3 mg PO QPM 03/19/20 03/19/20 Memantine [Namenda] 5 mg PO QPM 03/19/20 03/19/20 Nitrofurantoin [Macrobid] 100 mg PO BID 03/19/20 03/19/20 Phenazopyridine [Pyridium] 100 mg PO TID 03/19/20 03/19/20 QUEtiapine [SEROquel] 25 mg PO TID 03/19/20 03/19/20 Tamsulosin [Flomax] 0.4 mg PO QPM 03/19/20 03/19/20 haloperidoL [Haloperidol] 2 mg PO BID #60 tablet 03/19/20 - Allergies Allergies/Adverse Reactions: Allergies Allergy/AdvReac Type Severity Reaction Status Date / Time No Known Drug Allergies Allergy Verified 04/11/20 21:49 - Social History Does the pt smoke?: No Smoking Status: Never smoker Does the pt drink ETOH?: No Does the pt have substance abuse?: No - Immunizations Immunizations are current?: No - POLST Patient has POLST: No PD ED PE NORMAL - Vitals Vital signs reviewed: Yes - General General: No acute distress, Other (Patient is alert and oriented to self.) - HEENT HEENT: PERRL - Neck Neck: Supple, no meningeal sign - Cardiac Cardiac: RRR, No murmur - Respiratory Respiratory: Clear bilaterally - Abdomen Abdomen: Soft, Non tender, Non distended - Male Male : Other (Normal male genitalia, circumcised. No periurethral trauma. No penile trauma that is evident. No tenderness around the base of the penis.) - Derm Derm: Normal color, Warm and dry, No rash - Extremities Extremities: No deformity, No edema - Neuro Neuro: Other (Alert and conversant; confused.) - Psych Psych: Normal mood, Normal affect Results - Vitals Vitals: Oxygen O2 Source Room air PD MEDICAL DECISION MAKING - ED course Complexity details: reviewed old records, considered differential, d/w patient ED course: Patient's Morales catheter was replaced without difficulty. Leg bag was placed. The patient was otherwise doing well and had no complaints, and I feel he was stable for discharge home. He was transferred back to his facility via ambulance. Departure - Departure Disposition: 01 Home, Self Care Clinical Impression: Morales catheter problem Qualifiers: Encounter type: initial encounter Qualified Code(s): T83.9XXA - Unspecified co mplication of genitourinary prosthetic device, implant and graft, initial encounter Condition: Stable Instructions: ED Catheter Care Morales
== END 2020-05-22 11:12 | disposition home or self-care (01) ==
LOC: EDUNIT# → ED 09:08
DX: T83.021A Displacement of indwelling urethral catheter, initial encounter (principal); Y84.6 Urinary catheterization as the cause of abnormal reaction of the patient, or of later complication, without mention of misadventure at the time of the procedure; Y92.099 Unspecified place in other non-institutional residence as the place of occurrence of the external cause; G30.9 Alzheimer's disease, unspecified; F02.80 Dementia in other diseases classified elsewhere, unspecified severity, without behavioral disturbance, psychotic disturbance, mood disturbance, and anxiety; I10 Essential (primary) hypertension; Z79.01 Long term (current) use of anticoagulants
CPT/HCPCS: 51702; 99282; 99283

== ENCOUNTER 2020-05-22 11:11 | Outpatient (CLI) | payer MEDICARE, BC | END 2020-05-22 11:12 | disposition home or self-care (01) | LOC: EMS 11:11 | PROVIDERS: ATTEND Surgery | DX: T83.021A Displacement of indwelling urethral catheter, initial encounter (principal); R53.83 Other fatigue; R41.0 Disorientation, unspecified | CPT/HCPCS: A0425; A0428 ==

== ENCOUNTER 2020-06-13 13:20 | Outpatient (CLI) | payer MEDICARE, BC ==
[2020-06-13 18:12] LABS: BILIRUBIN,URINE NEGATIVE (NEGATIVE); GLUCOSE, URINE (UA) NEGATIVE (NEGATIVE); KETONES,URINE (UA) NEGATIVE (NEGATIVE); LEUKOCYTE ESTERASE, URINE LARGE (NEGATIVE); NITRITE,URINE POSITIVE (NEGATIVE); OCCULT BLOOD,URINE MODERATE (NEGATIVE); PROTEIN,URINE TRACE mg/dL (NEGATIVE); UROBILINOGEN,URINE 1 (NORMAL) E.U./dL (NORMAL)
[2020-06-13 18:16] LABS: CLARITY,URINE HAZY (CLEAR)
[2020-06-13 18:38] LABS: BACTERIA,URINE Few /HPF (None Seen); SQUAMOUS EPITHELIAL CELL,UR RARE Squamous (<= Few)
== END 2020-06-13 23:59 | disposition home or self-care (01) ==
LOC: LAB.R 13:20
PROVIDERS: ATTEND Nurse Practitioner Adult Health
DX: N39.0 Urinary tract infection, site not specified (principal)
CPT/HCPCS: 81001; 81003; 87077; 87086; 87181

== ENCOUNTER 2020-07-30 11:30 | Outpatient (CLI) | payer MEDICARE, BC ==
[2020-07-30 19:44] LABS: BILIRUBIN,URINE NEGATIVE (NEGATIVE); GLUCOSE, URINE (UA) NEGATIVE (NEGATIVE); KETONES,URINE (UA) NEGATIVE (NEGATIVE); LEUKOCYTE ESTERASE, URINE SMALL (NEGATIVE); NITRITE,URINE NEGATIVE (NEGATIVE); OCCULT BLOOD,URINE TRACE-INTA (NEGATIVE); PH,URINE 6.5 PH (5.0-7.5); PROTEIN,URINE NEGATIVE (NEGATIVE); UROBILINOGEN,URINE 0.2 (NORMAL) E.U./dL (NORMAL)
[2020-07-30 19:47] LABS: CLARITY,URINE CLEAR (CLEAR)
[2020-07-30 20:07] LABS: BACTERIA,URINE Rare /HPF (None Seen); SQUAMOUS EPITHELIAL CELL,UR NONE SEEN (<= Few); WBC,URINE >25 /HPF (0-3)
== END 2020-07-30 23:59 | disposition home or self-care (01) ==
LOC: LAB.R 11:30
PROVIDERS: ATTEND Nurse Practitioner Adult Health
DX: N39.0 Urinary tract infection, site not specified (principal)
CPT/HCPCS: 81001; 81003; 87086

== ENCOUNTER 2020-10-26 13:10 | Outpatient (CLI) | payer MEDICARE, BC | END 2020-10-26 13:11 | disposition critical access hospital (66) | LOC: EMS 13:10 | DX: R45.1 Restlessness and agitation (principal) | CPT/HCPCS: A0425; A0429 ==

== ENCOUNTER 2020-10-26 13:27 | Emergency (ER) | payer MEDICARE, BC ==
[2020-10-26] MEDS ORDERED: OLANZapine ODT 5 MG TABLET TL STA (13:32)
--- NOTE | 2020-10-26 13:34 | ED Physician Documentation ---
History of Present Illness - Stated complaint Stated Complaint: CATH ISSUE - History obtained from History obtained from: Patient, EMS - Additonal information Additional information: 80-year-old gentleman with dementia presents by ambulance having pulled out his Morales catheter 3 times today. He has a chronic indwelling Morales catheter related to urinary retention. Patient is an unreliable historian but admits to suprapubic pressure. Does not remember pulling out his Morales. Review of Systems Unable to obtain: Dementia PD PAST MEDICAL HISTORY - Past Medical History Cardiovascular: Congestive heart failure, Hypertension Respiratory: None Neuro: Dementia Endocrine/Autoimmune: None GI: None : None HEENT: None Psych: Anxiety Musculoskeletal: None Derm: None - Past Surgical History Past Surgical History: No - Present Medications Home Medications: Ambulatory Orders Medication Instructions Recorded Confirmed Citalopram [CeleXA] 10 mg PO DAILY 07/24/19 09/09/19 Diltiazem HCl [Diltiazem ER] 180 mg PO DAILY 07/24/19 09/09/19 Tamsulosin [Flomax] 0.4 mg PO QPM 07/24/19 09/09/19 Warfarin [Coumadin] 5 mg PO 1400 07/24/19 09/09/19 lisinopriL [Prinivil] 5 mg PO DAILY 07/24/19 09/09/19 LORazepam [Lorazepam] 1 mg PO DAILY PRN 09/09/19 09/09/19 Quetiapine Fumarate 50 mg PO BID 09/09/19 09/09/19 Acetaminophen [Tylenol] 650 mg PO Q6H PRN 03/19/20 03/19/20 Bisacodyl Supp [Dulcolax Supp] 10 mg [place] PRN PRN 03/19/20 03/19/20 Cefdinir 300 mg PO BID 03/19/20 03/19/20 Citalopram [CeleXA] 10 mg PO DAILY 03/19/20 03/19/20 Diltiazem HCl [Diltiazem 12Hr ER] 240 mg PO QPM 03/19/20 03/19/20 LORazepam [Lorazepam] 0.5 mg PO Q8HR PRN 03/19/20 03/19/20 LORazepam [Lorazepam] 1 mg PO ONCE PRN 03/19/20 03/19/20 Loperamide [Imodium] 2 mg PO QID PRN 03/19/20 03/19/20 Mag Hydrox/Aluminum Hyd/Simeth See Protocol PO Q4HR PRN 03/19/20 03/19/20 [Antacid-Antigas Suspension] Magnesium Hydroxide [Milk of 30 ml PO DAILY PRN 03/19/20 03/19/20 Magnesia] Melatonin 3 mg PO QPM 03/19/20 03/19/20 Memantine [Namenda] 5 mg PO QPM 03/19/20 03/19/20 Nitrofurantoin [Macrobid] 100 mg PO BID 03/19/20 03/19/20 Phenazopyridine [Pyridium] 100 mg PO TID 03/19/20 03/19/20 QUEtiapine [SEROquel] 25 mg PO TID 03/19/20 03/19/20 Tamsulosin [Flomax] 0.4 mg PO QPM 03/19/20 03/19/20 haloperidoL [Haloperidol] 2 mg PO BID #60 tablet 03/19/20 lisinopriL [Prinivil] 5 mg PO DAILY 03/19/20 03/19/20 - Allergies Allergies/Adverse Reactions: Allergies Allergy/AdvReac Type Severity Reaction Status Date / Time No Known Drug Allergies Allergy Verified 10/26/20 13:33 - Social History Does the pt smoke?: No Smoking Status: Never smoker Does the pt drink ETOH?: No Does the pt have substance abuse?: No - Immunizations Immunizations are current?: No - POLST Patient has POLST: No PD ED PE NORMAL - Vitals Vital signs reviewed: Yes - General General: No acute distress, Well developed/nourished - Abdomen Abdomen: Normal bowel sounds, Soft, Other (Suprapubic fullness and tenderness consistent with full bladder) - Extremities Extremities: No edema, No calf tenderness / cord - Neuro Eye Opening: Spontaneous Motor: Obeys Commands Verbal: Confused GCS Score: 14 Results - Vitals Vitals: Vital Signs - 24 hr 10/26/20 13:33 Temperature 36.5 C Heart Rate 83 Respiratory 18 Rate Blood Pressure 102/74 O2 Saturation 98 Oxygen O2 Source Room air PD MEDICAL DECISION MAKING - ED course ED course: 80-year-old with dementia presents after pulling out his own Morales catheter. It was easily replaced by the nurse here and he was given Zyprexa prior to this being done. He is being given as needed Ativan at the memory care facility and I called and left a voicemail for his prescriber to discuss medication management as this may not be the best choice since that may make him paradoxically agitated. Departure - Departure Disposition: 01 Home, Self Care Clinical Impression: Urinary retention, Agitation due to dementia Condition: Stable Record reviewed to determine appropriate education?: Yes Instructions: ED Catheter Care Morales Comments: I left a voicemail for his prescriber to discuss medication management. She did not immediately call me back. From [employer]: "Drugs to avoid Benzodiazepines are not recommended for the management of neuropsychiatric symptoms of dementia. One randomized controlled trial of a benzodiazepine for neuropsychiatric symptoms of dementia found benefit for either intramuscular lorazepam or intramuscular olanzapine compared with placebo assessed two hours after treatment; the benefit of lorazepam was not sustained at 24 hours on one outcome scale [76]. Benzodiazepine side effects include worsening gait, potential paradoxic agitation, and possible physical dependence. Benzodiazepine use should be limited to brief stressful episodes, such as a change in residence or an anx iety-provoking medical event [77]. When used in this fashion, those with shorter half-lives should be preferred."
[2020-10-26] MEDS ORDERED: LIDOCAINE 2% URO-JET 5 ML SYRINGE UR STA (13:43)
[2020-10-26 14:51] VITALS: BP 110/72
== END 2020-10-26 14:50 | disposition home or self-care (01) ==
LOC: EDUNIT# → ED 13:27
DX: R33.9 Retention of urine, unspecified (principal); R45.1 Restlessness and agitation; F03.90 Unspecified dementia, unspecified severity, without behavioral disturbance, psychotic disturbance, mood disturbance, and anxiety; I10 Essential (primary) hypertension; Z79.01 Long term (current) use of anticoagulants
CPT/HCPCS: 51701; 99281; 99283; A9270

== ENCOUNTER 2020-10-26 14:50 | Outpatient (CLI) | payer MEDICARE, BC | END 2020-10-26 14:51 | disposition home or self-care (01) | LOC: EMS 14:50 | PROVIDERS: ATTEND Emergency Medicine | DX: F03.90 Unspecified dementia, unspecified severity, without behavioral disturbance, psychotic disturbance, mood disturbance, and anxiety (principal); R41.0 Disorientation, unspecified | CPT/HCPCS: A0425; A0428 ==

== ENCOUNTER 2020-10-27 09:21 | Outpatient (CLI) | payer MEDICARE, BC | END 2020-10-27 09:22 | disposition critical access hospital (66) | LOC: EMS 09:21 | DX: R46.89 Other symptoms and signs involving appearance and behavior (principal) | CPT/HCPCS: A0425; A0429 ==

== ENCOUNTER 2020-10-27 09:39 | Emergency (ER) | payer MEDICARE, BC ==
--- NOTE | 2020-10-27 09:48 | ED Physician Documentation ---
PD HPI MALE - Stated complaint Stated Complaint: PULLED CATH - History obtained from History obtained from: Patient, EMS - History of Present Illness Timing - onset: Today Timing - duration: Days (1) Pain level max: 0 Pain level now: 0 - Additional information Additional information: 80-year-old male with a longstanding history of dementia and chronic urinary retention requiring a chronic Morales catheter, presents to the emergency department after pulling out his catheter at home place today. No other complaints at this time. He was sent in for catheter replacement. Review of Systems Unable to obtain: Dementia PD PAST MEDICAL HISTORY - Past Medical History Cardiovascular: Congestive heart failure, Hypertension Respiratory: None Neuro: Dementia Endocrine/Autoimmune: None GI: None : None HEENT: None Psych: Anxiety Musculoskeletal: None Derm: None - Past Surgical History Past Surgical History: No - Present Medications Home Medications: Ambulatory Orders Medication Instructions Recorded Confirmed lisinopriL [Prinivil] 5 mg PO DAILY 07/24/19 10/27/20 Quetiapine Fumarate 50 mg PO TID 09/09/19 10/27/20 Acetaminophen [Tylenol] 650 mg PO Q6H PRN 03/19/20 10/27/20 Bisacodyl Supp [Dulcolax Supp] 10 mg IN PRN PRN 03/19/20 10/27/20 Diltiazem HCl [Diltiazem 12Hr ER] 240 mg PO QPM 03/19/20 10/27/20 LORazepam [Lorazepam] 0.5 mg PO Q8HR PRN 03/19/20 10/27/20 LORazepam [Lorazepam] 1 mg PO ONCE PRN 03/19/20 10/27/20 Loperamide [Imodium] 2 mg PO QID PRN 03/19/20 10/27/20 Mag Hydrox/Aluminum Hyd/Simeth See Protocol PO Q4HR PRN 03/19/20 10/27/20 [Antacid-Antigas Suspension] Magnesium Hydroxide [Milk of 30 ml PO DAILY PRN 03/19/20 10/27/20 Magnesia] Melatonin 3 mg PO QPM 03/19/20 10/27/20 Memantine [Namenda] 5 mg PO QPM 03/19/20 10/27/20 Tamsulosin [Flomax] 0.4 mg PO QPM 03/19/20 10/27/20 haloperidoL [Haloperidol] 2 mg PO BID #60 tablet 03/19/20 10/27/20 lisinopriL [Prinivil] 5 mg PO DAILY 03/19/20 10/27/20 Cyanocobalamin (Vitamin B-12) 1,000 mcg SL DAILY 10/27/20 10/27/20 [Vitamin B-12 (1000 mcg sublingual)] Divalproex Dr [Depakote Dr] 125 mg PO BID 10/27/20 10/27/20 Folic Acid 1 mg PO DAILY 10/27/20 10/27/20 Sulfamethox/Trimeth 800/160 1 tablet PO BID 10/27/20 10/27/20 [Bactrim Ds] - Allergies Allergies/Adverse Reactions: Allergies Allergy/AdvReac Type Severity Reaction Status Date / Time No Known Drug Allergies Allergy Verified 10/27/20 09:53 - Social History Does the pt smoke?: No Smoking Status: Never smoker Does the pt drink ETOH?: No Does the pt have substance abuse?: No - Immunizations Immunizations are current?: No - POLST Patient has POLST: No PD ED PE NORMAL - Vitals Vital signs reviewed: Yes - General General: No acute distress, Well developed/nourished, Other (alert) - HEENT HEENT: Moist mucous membranes - Neck Neck: Supple, no meningeal sign - Cardiac Cardiac: RRR - Respiratory Respiratory: No respiratory distress, Clear bilaterally - Abdomen Abdomen: Soft, Non tender, Non distended - Derm Derm: Warm and dry - Extremities Extremities: No calf tenderness / cord - Neuro Neuro: Other (alert, oriented to person only) Results - Vitals Vitals: Vital Signs - 24 hr 10/27/20 10/27/20 09:49 11:11 Temperature 37.0 C 36.4 C L Heart Rate 102 H 97 Respiratory 16 16 Rate Blood Pressure 111/70 113/80 O2 Saturation 97 95 Oxygen O2 Source Room air PD MEDICAL DECISION MAKING - ED course Complexity details: reviewed old records, considered differential, d/w patient ED course: Morales catheter was replaced. No complications. Patient to follow-up with PCP for further care. This document was made in part using voice recognition software. While efforts are made to proofread this document, sound alike and grammatical errors may occur. Departure - Departure Disposition: 01 Home, Self Care Clinical Impression: Morales catheter problem Qualifiers: Encounter type: initial encounter Qualified Code(s): T83.9XXA - Unspecified complication of genitourinary prosthetic device, implant and graft, initial encounter Condition: Good Instructions: ED Catheter Care Morales Follow-Up: your,doctor within 3 days [Other] Comments: The catheter was replaced. Follow-up with his doctor for any medication adjustments or further care. Discharge Date/Time: 10/27/20 11:16
[2020-10-27 11:12] VITALS: BP 113/80
== END 2020-10-27 11:16 | disposition home or self-care (01) ==
LOC: EDUNIT# → ED 09:39
DX: T83.028A Displacement of other urinary catheter, initial encounter (principal); Y84.6 Urinary catheterization as the cause of abnormal reaction of the patient, or of later complication, without mention of misadventure at the time of the procedure; Z46.6 Encounter for fitting and adjustment of urinary device; F03.90 Unspecified dementia, unspecified severity, without behavioral disturbance, psychotic disturbance, mood disturbance, and anxiety; I10 Essential (primary) hypertension
CPT/HCPCS: 51702; 99281; 99283

== ENCOUNTER 2020-10-27 11:16 | Outpatient (CLI) | payer MEDICARE, BC | END 2020-10-27 11:17 | disposition home or self-care (01) | LOC: EMS 11:16 | PROVIDERS: ATTEND Emergency Medicine | DX: F03.90 Unspecified dementia, unspecified severity, without behavioral disturbance, psychotic disturbance, mood disturbance, and anxiety (principal); R41.0 Disorientation, unspecified | CPT/HCPCS: A0425; A0428 ==

== ENCOUNTER 2020-10-28 17:34 | Outpatient (CLI) | payer MEDICARE, BC | END 2020-10-28 17:35 | disposition critical access hospital (66) | LOC: EMS 17:34 | DX: T83.028A Displacement of other urinary catheter, initial encounter (principal) | CPT/HCPCS: A0425; A0429 ==

== ENCOUNTER 2020-10-28 17:51 | Emergency (ER) | payer MEDICARE, BC ==
--- NOTE | 2020-10-28 17:55 | ED Physician Documentation ---
History of Present Illness - Stated complaint Stated Complaint: REMOVED CATH - History obtained from History obtained from: Patient, EMS - History of Present Illness Timing: Today Pain level max: 0 Pain level now: 0 - Additonal information Additional information: Patient with a chronic indwelling Morales catheter for chronic urinary retention. He pulled out his urinary catheter today. Sent in for replacement of the catheter. No other complaints. Review of Systems Unable to obtain: Dementia PD PAST MEDICAL HISTORY - Past Medical History Cardiovascular: Congestive heart failure, Hypertension Respiratory: None Neuro: Dementia Endocrine/Autoimmune: None GI: None : None HEENT: None Psych: Anxiety Musculoskeletal: None Derm: None - Past Surgical History Past Surgical History: No - Present Medications Home Medications: Ambulatory Orders Medication Instructions Recorded Confirmed lisinopriL [Prinivil] 5 mg PO DAILY 07/24/19 10/27/20 Quetiapine Fumarate 50 mg PO TID 09/09/19 10/27/20 Acetaminophen [Tylenol] 650 mg PO Q6H PRN 03/19/20 10/27/20 Bisacodyl Supp [Dulcolax Supp] 10 mg [place] PRN PRN 03/19/20 10/27/20 Diltiazem HCl [Diltiazem 12Hr ER] 240 mg PO QPM 03/19/20 10/27/20 LORazepam [Lorazepam] 0.5 mg PO Q8HR PRN 03/19/20 10/27/20 LORazepam [Lorazepam] 1 mg PO ONCE PRN 03/19/20 10/27/20 Loperamide [Imodium] 2 mg PO QID PRN 03/19/20 10/27/20 Mag Hydrox/Aluminum Hyd/Simeth See Protocol PO Q4HR PRN 03/19/20 10/27/20 [Antacid-Antigas Suspension] Magnesium Hydroxide [Milk of 30 ml PO DAILY PRN 03/19/20 10/27/20 Magnesia] Melatonin 3 mg PO QPM 03/19/20 10/27/20 Memantine [Namenda] 5 mg PO QPM 03/19/20 10/27/20 Tamsulosin [Flomax] 0.4 mg PO QPM 03/19/20 10/27/20 haloperidoL [Haloperidol] 2 mg PO BID #60 tablet 03/19/20 10/27/20 lisinopriL [Prinivil] 5 mg PO DAILY 03/19/20 10/27/20 Cyanocobalamin (Vitamin B-12) 1,000 mcg SL DAILY 10/27/20 10/27/20 [Vitamin B-12 (1000 mcg sublingual)] Divalproex Dr [Depakote Dr] 125 mg PO BID 10/27/20 10/27/20 Folic Acid 1 mg PO DAILY 10/27/20 10/27/20 Sulfamethox/Trimeth 800/160 1 tablet PO BID 10/27/20 10/27/20 [Bactrim Ds] - Allergies Allergies/Adverse Reactions: Allergies Allergy/AdvReac Type Severity Reaction Status Date / Time No Known Drug Allergies Allergy Verified 10/28/20 17:56 - Social History Does the pt smoke?: No Smoking Status: Never smoker Does the pt drink ETOH?: No Does the pt have substance abuse?: No - Immunizations Immunizations are current?: No - POLST Patient has POLST: No PD ED PE NORMAL - Vitals Vital signs reviewed: Yes - General General: No acute distress, Well developed/nourished - Cardiac Cardiac: RRR - Respiratory Respiratory: No respiratory distress, Clear bilaterally - Abdomen Abdomen: Soft, Non tender, Non distended - Male Male : Other (No blood at the urethral meatus) - Derm Derm: Warm and dry - Extremities Extremities: No edema - Neuro Neuro: Other (Alert, oriented to person only) Results - Vitals Vitals: Vital Signs - 24 hr 10/28/20 10/28/20 17:56 18:08 Temperature 37.2 C 37 C Heart Rate 60 63 Respiratory 16 18 Rate Blood Pressure 141/115 H 130/85 H O2 Saturation 97 100 Oxygen O2 Source Room air PD MEDICAL DECISION MAKING - ED course Complexity details: considered differential, d/w patient ED course: Morales catheter replaced. Patient will be discharged back to home place. This document was made in part using voice recognition software. While efforts are made to proofread this document, sound alike and grammatical errors may occur. Departure - Departure Disposition: 01 Home, Self Care Clinical Impression: Morales catheter problem Qualifiers: Encounter type: initial encounter Qualified Code(s): T83.9XXA - Unspecified complication of genitourinary prosthetic device, implant and graft, initial encounter Condition: Good Instructions: ED Catheter Care Morales Follow-Up: your,doctor in 1 week [Other] Comments: The catheter was replaced today. Discharge Date/Time: 10/28/20 18:11
[2020-10-28 18:09] VITALS: BP 130/85
== END 2020-10-28 18:11 | disposition home or self-care (01) ==
LOC: EDUNIT# → ED 17:51
DX: T83.028A Displacement of other urinary catheter, initial encounter (principal); Y84.6 Urinary catheterization as the cause of abnormal reaction of the patient, or of later complication, without mention of misadventure at the time of the procedure; Z46.6 Encounter for fitting and adjustment of urinary device; I10 Essential (primary) hypertension; F03.90 Unspecified dementia, unspecified severity, without behavioral disturbance, psychotic disturbance, mood disturbance, and anxiety
CPT/HCPCS: 51702; 99281; 99283

== ENCOUNTER 2020-10-28 18:25 | Outpatient (CLI) | payer MEDICARE, BC | END 2020-10-28 18:26 | disposition home or self-care (01) | LOC: EMS 18:25 | PROVIDERS: ATTEND Emergency Medicine | DX: F03.90 Unspecified dementia, unspecified severity, without behavioral disturbance, psychotic disturbance, mood disturbance, and anxiety (principal); R41.0 Disorientation, unspecified; Z74.01 Bed confinement status | CPT/HCPCS: A0425; A0428 ==

== ENCOUNTER 2020-10-31 16:41 | Outpatient (CLI) | payer MEDICARE, BC | END 2020-10-31 16:42 | disposition critical access hospital (66) | LOC: EMS 16:41 | DX: R45.1 Restlessness and agitation (principal) | CPT/HCPCS: A0425; A0429 ==

== ENCOUNTER 2020-10-31 17:00 | Emergency (ER) | payer MEDICARE, BC ==
--- OUTSIDE RECORDS SUMMARY | 2020-10-31 17:15 | EXTERNAL MEDICAL SUMMARY RPT | Continuity of Care Document ---
:1940 Demographics Phone Unavailable Preferred Language Unknown Marital Status Unknown L[employer] Affiliation Unknown Race Unknown Ethnic Group Unknown Author Organization [facility] Address [address] [place] [address] Phone Allergies Encounters Medications Problems Results
[2020-10-31 17:26] LABS: BASOPHILS % (AUTO) 0.4 %; EOSINOPHILS % (AUTO) 0.1 %; HCT - HEMATOCRIT 39.8 % (42.0-52.0); HGB - HEMOGLOBIN 13.5 g/dL (14.0-18.0); LYMPHOCYTES # (AUTO) 1.1 10^3/uL (1.5-3.5); LYMPHOCYTES % (AUTO) 15.3 %; MEAN CORPUSCULAR HEMOGLOBIN 30.8 pg (27.0-31.0); MEAN CORPUSCULAR HGB CONC 33.9 g/dL (32.0-36.0); MEAN CORPUSCULAR VOLUME 90.9 fL (80.0-94.0); MEAN PLATELET VOLUME 9.6 fL (7.4-11.4); MONOCYTES # (AUTO) 0.7 10^3/uL (0.0-1.0); MONOCYTES % (AUTO) 10.1 %; NEUTROPHILS # (AUTO) 5.1 10^3/uL (1.5-6.6); PLT - PLATELET COUNT 180 10^3/uL (130-450); RED BLOOD COUNT 4.38 10^6/uL (4.70-6.10); RED CELL DISTRIBUTION WIDTH 12.7 % (12.0-15.0); WHITE BLOOD COUNT 6.9 x10^3/uL (4.8-10.8)
[2020-10-31 17:39] LABS: INR 1.2 (0.8-1.2); PT - PROTHROMBIN TIME 12.8 secs (9.9-12.6)
--- NOTE | 2020-10-31 17:39 | ED Physician Documentation ---
History of Present Illness - Stated complaint Stated Complaint: AGITATION - Chief complaint Chief Complaint: MHE - Additonal information Additional information: 80-year-old gentleman who has a history of dementia presents the emergency department for evaluation of worsening agitation and increasingly combative behaviors while at his care facility. Per the [facility] care staff he has been locking hiumself in the bathroom, refusing meds and food, pulling at his low catheter which is in place due to chronic urianry obstruction. He has had 2 ER visits recently for Low catheter removal and placement. I spoke with his .nitric acid plant operator who reported that she has been tryng to manage his agitation with depakote, seroquel and PRN ativan. However his increasingly agitated behaviors have been make him unsafe to remain at [facility] therefore he was advised to come to the ER. It is reported to me that he also recently completed treatment for a urinary tract infection with a course of Bactrim. Due to his history of dementia he is unable to participate in history meaningfully. PT is a DNAR Does arrive with a POLST in place Past medical history: Dementia, heart failure with an EF of 35%, atrial fibrillation, hypertension, BPH, history of former alcoholism. Chronic urinary retention with Low catheter in place Meds include: Diltiazem, folic acid, lisinopril, melatonin, Flomax, vitamin B12, valproic acid, memantine, seroquel, prn ativan Review of Systems Unable to obtain: Dementia, Other (chart review, associate professor of psychology, [facility] staff) PD PAST MEDICAL HISTORY - Past Medical History Past Medical History: Yes Cardiovascular: Congestive heart failure, Hypertension Respiratory: None Neuro: Dementia Endocrine/Autoimmune: None GI: None : Indwelling catheter HEENT: None Psych: Anxiety Musculoskeletal: None Derm: None - Past Surgical History Past Surgical History: No - Present Medications Home Medications: Ambulatory Orders Medication Instructions Recorded Confirmed Quetiapine Fumarate 50 mg PO TID 09/09/19 10/31/20 Acetaminophen [Tylenol] 650 mg PO Q6H PRN 03/19/20 10/31/20 Bisacodyl Supp [Dulcolax Supp] 10 mg [place] PRN PRN 03/19/20 10/31/20 Diltiazem HCl [Diltiazem 12Hr ER] 240 mg PO QPM 03/19/20 10/31/20 LORazepam [Lorazepam] 0.5 mg PO Q8HR PRN 03/19/20 10/31/20 LORazepam [Lorazepam] 1 mg PO ONCE PRN 03/19/20 10/31/20 Loperamide [Imodium] 2 mg PO QID PRN 03/19/20 10/31/20 Mag Hydrox/Aluminum Hyd/Simeth See Protocol PO Q4HR PRN 03/19/20 10/31/20 [Antacid-Antigas Suspension] Magnesium Hydroxide [Milk of 30 ml PO DAILY PRN 03/19/20 10/31/20 Magnesia] Melatonin 3 mg PO QPM 03/19/20 10/31/20 Memantine [Namenda] 10 mg PO QPM 03/19/20 10/31/20 Tamsulosin [Flomax] 0.4 mg PO QPM 03/19/20 10/31/20 lisinopriL [Prinivil] 5 mg PO DAILY 03/19/20 10/31/20 Cyanocobalamin (Vitamin B-12) 1,000 mcg SL DAILY 10/27/20 10/31/20 [Vitamin B-12 (1000 mcg sublingual)] Divalproex Dr [Depakote Dr] 125 mg PO BID 10/27/20 10/31/20 Folic Acid 1 mg PO DAILY 10/27/20 10/31/20 - Allergies Allergies/Adverse Reactions: Allergies Allergy/AdvReac Type Severity Reaction Status Date / Time No Known Drug Allergies Allergy Verified 10/31/20 17:06 - Social History Does the pt smoke?: No Smoking Status: Never smoker Does the pt drink ETOH?: No Does the pt have substance abuse?: No - Immunizations Immunizations are current?: No - POLST Patient has POLST: No PD ED PE EXPANDED - General General: Alert, Well developed/nourished, Anxious - Cardiac Cardiac: Irregularly irregular, Murmur Present, Radial strong equal, Cap refill < 2 sec, Prolonged cap refill - Respiratory Respiratory: Clear to ausultation bandar. No: Distress, Labored - Abdomen Abdomen: Normal Bowel sounds. No: Tender to palpation - Male Male : Circumcised, Tenderness (Indwelling Low catheter with dark yellow urine.) - Derm Derm: Other (Skin tear to left forearm) - Extremities Extremities: Normal, Other (multipel superficial skin tears on BUR). No: Deformity, Tenderness - Neuro Neuro: Other (Follows commands without obvious cranial nerve deficit.) - GCS Eye Opening: To Voice Motor: Obeys Commands Verbal: Confused Total: 13 - Psych Psych: Other (dementia, confused) Results - Vitals Vitals: Vital Signs - 24 hr 10/31/20 10/31/20 10/31/20 17:03 18:45 19:10 Temperature 36.5 C Heart Rate 88 112 H 107 H Respiratory 16 20 20 Rate Blood Pressure 122/68 133/105 H 118/75 O2 Saturation 96 95 94 10/31/20 10/31/20 10/31/20 19:15 19:19 19:31 Temperature Heart Rate 97 100 104 H Respiratory 18 20 14 Rate Blood Pressure 117/76 113/79 113/79 O2 Saturation 95 98 96 10/31/20 10/31/20 10/31/20 19:55 20:19 20:25 Temperature Heart Rate 112 H 106 H 108 H Respiratory 24 21 24 Rate Blood Pressure 124/82 H 130/80 155/82 H O2 Saturation 96 99 96 10/31/20 10/31/20 10/31/20 20:55 21:30 22:46 Temperature Heart Rate 106 H 122 H 120 H Respiratory 25 H 19 21 Rate Blood Pressure 126/80 125/74 149/85 H O2 Saturation 99 99 100 10/31/20 10/31/20 10/31/20 23:01 23:30 23:53 Temperature Heart Rate 110 H 77 96 Respiratory 15 20 16 Rate Blood Pressure 124/97 H 133/87 H 131/74 H O2 Saturation 100 100 98 11/01/20 11/01/20 11/01/20 01:44 03:00 05:00 Temperature 36.4 C L 36.4 C L Heart Rate 109 H 108 H 95 Respiratory 17 24 17 Rate Blood Pressure 123/82 H 120/84 H 115/81 H O2 Saturation 100 100 100 11/01/20 06:56 Temperature Heart Rate 113 H Respiratory 20 Rate Blood Pressure 133/82 H O2 Saturation 95 Oxygen O2 Source Room air - EKG (time done) 1950 Rate: Rate (enter#) (132) Rhythm: Atrial fibrillation [place]: Other Intervals: Other QRS: Low voltage Ischemia: Normal ST segments Compare to prior EKG: Old EKG unavailable Computer interpretation: Agree with computer - Labs Labs: Laboratory Tests 10/31/20 10/31/20 10/31/20 17:20 17:20 17:20 WBC 6.9 RBC 4.38 L Hgb 13.5 L Hct 39.8 L MCV 90.9 MCH 30.8 MCHC 33.9 RDW 12.7 Plt Count 180 MPV 9.6 Neut # (Auto) 5.1 Lymph # (Auto) 1.1 L [place] # (Auto) 0.7 Eos # (Auto) 0.0 Baso # (Auto) 0.0 Absolute Nucleated RBC 0.00 Nucleated RBC % 0.0 PT 12.8 H INR 1.2 Sodium 137 Potassium 4.3 Chloride 103 Carbon Dioxide 24 Anion Gap 10.0 BUN 29 H Creatinine 1.4 H Estimated GFR (MDRD) 49 L Glucose 90 Calcium 9.3 Phosphorus 3.5 Magnesium 2.5 Total Bilirubin 1.6 H AST 20 ALT 14 Alkaline Phosphatase 66 B-Natriuretic Peptide Total Protein 7.0 Albumin 4.5 Globulin 2.5 Albumin/Globulin Ratio 1.8 Lipase 24 Last Dose Date Not Reportable Last Dose Time Not Reportable Valproic Acid 20.3 10/31/20 17:20 WBC RBC Hgb Hct MCV MCH MCHC RDW Plt Count MPV Neut # (Auto) Lymph # (Auto) [place] # (Auto) Eos # (Auto) Baso # (Auto) Absolute Nucleated RBC Nucleated RBC % PT INR Sodium Potassium Chloride Carbon Dioxide Anion Gap BUN Creatinine Estimated GFR (MDRD) Glucose Calcium Phosphorus Magnesium Total Bilirubin AST ALT Alkaline Phosphatase B-Natriuretic Peptide 91 Total Protein Albumin Globulin Albumin/Globulin Ratio Lipase Last Dose Date Last Dose Time Valproic Acid PD MEDICAL DECISION MAKING - ED course ED course: 80-year-old man who has a history of dementia, atrial fibrillation and chronic indwelling Low catheter secondary to urinary retention/BPH comes to the emergency department with worsening agitation and combative behavior at his care facility [facility]. Staff has reported he is locked himself in the bathroom, had been physically aggressive hitting them, refusing to take his medications, eat or drink. He was seen by associate professor of psychology who also requested ER evaluation and medical stabilization of his agitated behavior. There has been reported history of urinary tract infection for which she recently completed a course of Bactrim. On presentation this gentleman is confused but consistent with dementia he often needs to be redirected in the room and was noted to get aggressive with staff when they attempted to prevent him from exiting the bed. He did lash out flailing his arms. he also required chemical restraints as documented below. Screening labs revealed no significant leukocytosis. He does appear dehydrated as noted by dry mucous membranes, elevated BUN and creatinine. I have ordered a total of 2 L of IV fluids. Chest x-ray does not show any focal opacities. There is a question whether he may have pulmonary edema however pulmonary auscultation is unremarkable and BNP not elevated. There is no hypoxia. He does have a history of atrial fibrillation and this is noted on his EKG. He was given his p.m. dose of long-acting Cardizem. The source of his increased combative behaviors is not yet clear. This may be a long-term side effect of dementia. However benzodiazepine use in the elderly can certainly contribute to worsening behavior and cognitive issues. Though it is reported that he recently was treated for urinary tract infection, urinalysis has been deferred here in the ER as he has a chronic indwelling catheter and evaluating for urine Infection will be difficult at best. Reassuringly he has a normal male exam with a Low catheter. There is no fever or leukocytosis. No abdominal pain was elicited. Head CT is pending but needs to be timed appropriately based on his agitation. no obvious focal neuro deficits. I have also requested a telepsych consultation to help with medication adjustments. Pt will be signed out to [facility] time colleague Dr. Roberts to f/u on telepsych recs. Spocial work is pending for the am. Safe discharge has not yet been established. [facility] requesting medical stabilization of his behavior before returning Timing events below indicate when opt became agitated and medication ordered as well as repeat face to face evaluation. 1635: Notified by nurses the patient increasingly agitated and combative unable to be redirected pulling out Low catheter and disoriented. 2 mg of Haldol IM ordered under chemical restraint protocol. 1910: The patient appeared to initially respond to the 2 mg of Haldol given intramuscularly he quickly became agitated again attempting to crawl out of the bed and could not be redirected. 5 mg of Zyprexa ordered IM. Will reinitiate chemical restraints with [id number] evaluation. 1944: [id number] reassessment completed. Patient is asleep and calm at the bedside. Vital signs appear stable with an atrial fibrillation heart rate in the 110s. CT of the head is pending. 2109: Nursing staff has alerted to me that the patient has become acutely agitated unable to be redirected attempting to crawl out of bed. Went to the bedside and evaluated patient he appeared more lucid than before. Reported that he was nauseated and that his arms hurt at the site of his skin tear. CT of the head is pending. I will prescribe Droperidol for nausea. Pt is able to be redirected at this time. a 1:1 sitter has been ordered. He was able to take his night time dose of seroquel and cardizem. 2144: on reassessment, nausea has improved. pt remains intermittently agitated, needs frequent redirection. he will be calm and sleep for a few minutes, before rousing, attempting to get oout of bed and pull and low, IV line. 2208: non violent 4 point soft restraints ordered to help with agitation and reduce risk of pulling at IV, low catheter Face to Face for Restraints - Immediate Situation Face to Face Evaluation Date: 10/31/20 Face to Face Evaluation Time: 16:45 Restraint Situation: Chemical Patient's Reactions to the Intervention: Physically safe, Resting quietly - Behavioral Condition Attitude: Other Behavior: Other (sleeping) Orientation: Not oriented to person, place, time, and situation Mood: Other (dementia) Behavioral Condition Comments: history of dementia, worsening agitation recently, combative behaviors - Evaluation Review of Systems: increased agitation, combative behavior, refusal of meds in th esetting of dementia and recent UTI no cough, fevers, abdominal pain, vomiting Pertinent History/Illicit Drugs/Medications/Results: history of dementia, CHF - Plan Need to Continue or Terminate Violent or Chemical Restraint: continue to monitor. may need additional medication if behaviors worsens and can not be re-directed
[2020-10-31 17:50] LABS: ALBUMIN 4.5 g/dL (3.2-5.5); ALBUMIN/GLOBULIN RATIO 1.8 (1.0-2.2); ALKALINE PHOSPHATASE 66 IU/L (42-121); ALT ALANINE AMINOTRANSFERASE 14 IU/L (10-60); AST ASPARTATE AMINOTRANSFERASE 20 IU/L (10-42); BILIRUBIN,TOTAL 1.6 mg/dL (0.2-1.0); BUN - BLOOD UREA NITROGEN 29 mg/dL (6-20); CALCIUM 9.3 mg/dL (8.5-10.3); CARBON DIOXIDE - CO2 24 mmol/L (21-32); CHLORIDE 103 mmol/L (101-111); CREATININE 1.4 mg/dL (0.6-1.2); GFR - MDRD 49 (>89); GLUCOSE 90 mg/dL (70-100); LIPASE 24 U/L (22-51); MAGNESIUM 2.5 mg/dL (1.7-2.8); PHOSPHORUS 3.5 mg/dL (2.5-4.6); POTASSIUM 4.3 mmol/L (3.5-5.0); SODIUM 137 mmol/L (135-145); VALPROIC ACID (DEPAKOTE) 20.3 ug/mL
[2020-10-31] MEDS ORDERED: HALOPERIDOL 5 MG/ML VIAL IM STA (18:34)
[2020-10-31] MEDS ORDERED: OLANZapine 10 MG VIAL IM STA (19:10)
[2020-10-31] MEDS ORDERED: SODIUM CHLORIDE 0.9% 1,000 ML IV STA ×2 (19:13→21:44)
--- NOTE | 2020-10-31 20:02 | XRAY Report ---
PROCEDURE: Chest 1 View X-Ray INDICATIONS: chest pain TECHNIQUE: One view of the chest was acquired. COMPARISON: 02/23/2020 similar chest FINDINGS: Surgical changes and devices: None. Lungs and pleura: No pleural effusions or pneumothorax. Lungs are mildly edematous. Mediastinum: Mediastinal contours appear normal. Heart size is at the upper limits of normal. Bones and chest wall: No suspicious bony lesions. Overlying soft tissues appear unremarkable. IMPRESSION: Suspect cardiogenic pulmonary edema, mild in severity. Heart size is at the upper limits of normal. Reviewed by: Jorge Garcia MD on 10/31/2020 8:00 PM PDT Approved by: Jorge Garcia MD on 10/31/2020 8:00 PM PDT Station ID: [id number]
[2020-10-31] MEDS ORDERED: diltiaZEM CD 120 MG CAPSULE PO STA (20:50)
[2020-10-31] MEDS ORDERED: QUEtiapine 25 MG TABLET PO STA ×2 (20:50→22:22)
[2020-10-31] MEDS ORDERED: PROCHLORPERAZINE 10 MG/2 ML VIAL IVP STA (21:12)
[2020-10-31] MEDS ORDERED: HYDROmorphone 1 MG/ML CARPUJECT IVP STA (21:13)
[2020-10-31] MEDS ORDERED: DROPERIDOL 5 MG/2 ML VIAL IVP STA (21:17)
[2020-10-31] MEDS: MEMANTINE 5 MG TABLET PO SCH (23:26)
--- NOTE | 2020-11-01 03:19 | TELEPSYCH PHYS NOTE ---
Telepsych Note - CHIEF COMPLAINT/HX OF PRESENT ILLNESS Chief Complaint and History of Present Illness: 80y/o wm with h/o dementia [facility] due to increased agitation and aggression with staff. Pt reported to be combative, will lock himself in the bathroom, refuse meds and pull out his low cath. Pt recently treated for UTI, now medically cleared. Pt reported to be aggressive with staff, required prns and restraints for safety. Pt was sleeping and had difficult waking to participate in the assessment. STaff was at bedside to assist and pt would just mumble incoherently. Staff report pt able to ask for things such as a glass of water but is overall not communicating. - SI/HI/SELF HARM SI/HI/Self Harm Text (Current or History of):: Pt has been reported to be pulling on his low cath - VIOLENCE/LEGAL/COLLATERAL Violence - Legal - Collateral: PT reported to be increasingly combative and aggressive with staff. - PSYCHIATRIC HX/TREATMENT HX Psychiatric: Anxiety, Other Psychiatric/Treatment Hx Other: dementia Pt is seen by an PHYSICIAN'S AIDE who has been adjusting his meds. Pt remains aggressive and noncompliant with meds [facility]. - DRUG/ALCOHOL HX Substance use/abuse/alcohol text: Pt was reportedly an alcoholic in the past. - MEDICAL HX Does the pt have a hx of MRSA?: No Neurological History: Dementia Eyes, Ears, Nose, Throat: None Cardiovascular: Congestive heart failure, Hypertension Respiratory: None Skin: None Endocrine/Autoimmune: None Gastrointestinal: None Urinary: Indwelling catheter Musculoskeletal: None Blood Disorders: None PMH Other: Dementia, heart failure with an EF of 35%, atrial fibrillation, hypertension, BPH, history of former alcoholism. Chronic urinary retention with Low catheter in place - HOME MEDICATIONS Home Meds (as last confirmed): Patient History Medication Instructions Recorded Confirmed Quetiapine Fumarate 50 mg PO TID 09/09/19 10/31/20 Acetaminophen [Tylenol] 650 mg PO Q6H PRN 03/19/20 10/31/20 Bisacodyl Supp [Dulcolax Supp] 10 mg [place] PRN PRN 03/19/20 10/31/20 Diltiazem HCl [Diltiazem 12Hr ER] 240 mg PO QPM 03/19/20 10/31/20 LORazepam [Lorazepam] 0.5 mg PO Q8HR PRN 10/28/20 06/11/21 LORazepam [Lorazepam] 1 mg PO ONCE PRN 03/19/20 10/31/20 Loperamide [Imodium] 2 mg PO QID PRN 03/19/20 10/31/20 Mag Hydrox/Aluminum Hyd/Simeth See Protocol PO Q4HR PRN 03/19/20 10/31/20 [Antacid-Antigas Suspension] Magnesium Hydroxide [Milk of 30 ml PO DAILY PRN 03/19/20 10/31/20 Magnesia] Melatonin 3 mg PO QPM 03/19/20 10/31/20 Memantine [Namenda] 10 mg PO QPM 03/19/20 10/31/20 Tamsulosin [Flomax] 0.4 mg PO QPM 03/19/20 10/31/20 lisinopriL [Prinivil] 5 mg PO DAILY 03/19/20 10/31/20 Cyanocobalamin (Vitamin B-12) 1,000 mcg SL DAILY 10/27/20 10/31/20 [Vitamin B-12 (1000 mcg sublingual)] Divalproex Dr [Depakote Dr] 125 mg PO BID 10/27/20 10/31/20 Folic Acid 1 mg PO DAILY 10/27/20 10/31/20 - ALLERGIES Allergies (as last confirmed): Allergies Allergy/AdvReac Type Severity Reaction Status Date / Time No Known Drug Allergies Allergy Verified 10/31/20 17:06 - FAMILY PSYCH/SUICIDE/SOCIAL HX-MENTAL Family - Suicide - Social Hx and Mental Status Exam: FH: unknown and patient unable to provide SH: [facility]. No further hx known MSE: Pt was in bed, groggy and difficult to awaken. He did not open his eyes with prompting from staff but was mumbling incoherent. Pt was thin and unkempt. insight and judgment were poor - TREATMENT/PHARMACOLOGICAL RECOMMENDATION Treatment - Pharmacological - Therapy Recommendations: Pt is a 80y/o wm with h/o dementia who was [facility] due to noncompliance with meds, agitation, aggression and self harm in the form of pulling out his low. Pt unable to participate in the assessment due to cognitive decline. He presented as thin, unkempt and mumbling incoherently. He had been aggressive with staff and required prns and soft restraints per records. given self harm, agitation, aggression with others, pt would meet criteria for inpatient care. 1. Recommend d/c ativan as benzo's may be disinhibiting further contributing to aggression and falls 2. Hepatic enzymes normal wnl and VPA level low at 20.3 Recommend increase Depakote to 125mg po qam and 250mg po qhs. continue to monitor LFTs and slowly titrate to VPA of 50 3. continue Seroquel at 50mg po tid 4. Seroquel 12.5mg po tid prn agitation 5. Zyprexa 2.5mg IM q 4h prn agitation/aggression with noncompliant with PO meds. 6. Maintain consistent staff and routine as much as possible. Keep room free of clutter and noise. Provide routine exercise to limit boredom. - TIME SPENT & PROVIDER LOCATION Telepsych consultation conducted via videoconferencing: Yes List names and roles of persons who participated in consult: Nursing staff, Padilla and Dr carrera Telepsych Provider Location: [place] Time Telepsych consult began: 06:00 Time Telepsych consult completed: 06:45
--- NOTE | 2020-11-01 06:05 | ED Physician Documentation ---
ED Addendum - Addendum Addendum: Talked with TelePsychiatry during the night and they listed some recommendations. Patient calm during the night without problems. I ordered the most jaramillo daily meds for today as scheduled. To discontinue use of benzos. His MAR showed regular use of Ativan, so I initially have BID dosing of Zyprexa, rather than the PRN per telepsych, as expect will need it. 11/01/20 06:03
[2020-11-01] MEDS ORDERED: lisinopriL 5 MG TABLET PO SCH (09:00)
[2020-11-01] MEDS ORDERED: OLANZapine ODT 5 MG TABLET TL SCH (09:00)
[2020-11-01 10:58] LABS: MUDS CUTOFF CONCENTRATIONS CUTOFF CONC BELOW:
[2020-11-01 11:13] LABS: BILIRUBIN,URINE NEGATIVE (NEGATIVE); GLUCOSE, URINE (UA) NEGATIVE (NEGATIVE); KETONES,URINE (UA) 40 mg/dL (NEGATIVE); LEUKOCYTE ESTERASE, URINE SMALL (NEGATIVE); NITRITE,URINE POSITIVE (NEGATIVE); OCCULT BLOOD,URINE LARGE (NEGATIVE); PROTEIN,URINE NEGATIVE (NEGATIVE); UROBILINOGEN,URINE 1 (NORMAL) E.U./dL (NORMAL)
[2020-11-01] MEDS: QUEtiapine 25 MG TABLET PO SCH ×2 (11:20→16:30)
[2020-11-01] MEDS: MEMANTINE 5 MG TABLET PO SCH (11:21)
[2020-11-01] MEDS: DIVALPROEX DR 125 MG TABLET PO SCH ×2 (11:21→11:22)
[2020-11-01 11:25] LABS: CLARITY,URINE SL. CLOUDY (CLEAR)
[2020-11-01 11:26] LABS: AMPHETAMINE SCREEN,URINE NEGATIVE (NEGATIVE); BACTERIA,URINE Rare /HPF (None Seen); BARBITURATE SCREEN,UR NEGATIVE (NEGATIVE); BENZODIAZEPINES SCREEN, URINE NEGATIVE (NEGATIVE); COCAINE SCREEN URINE NEGATIVE (NEGATIVE); METHADONE SCREEN, URINE NEGATIVE (NEGATIVE); METHAMPHETAMINES SCREEN, URINE NEGATIVE (NEGATIVE); OPIATE SCREEN, URINE NEGATIVE (NEGATIVE); OXYCODONE SCREEN, URINE NEGATIVE (NEGATIVE); SQUAMOUS EPITHELIAL CELL,UR NONE SEEN (<= Few); THC CANNABINOID SCREEN, URINE NEGATIVE (NEGATIVE); TRICYCLIC ANTIDEPRESSANT,URINE NEGATIVE (NEGATIVE)
[2020-11-01 11:27] LABS: PROPOXYPHENE SCREEN, URINE NEGATIVE (NEGATIVE)
[2020-11-01] MEDS ORDERED: cefTRIAXone 1 GM in SODIUM CHLORIDE 0.9% MINIBAG 100 ML IV STA (11:41)
--- NOTE | 2020-11-01 11:44 | ED Physician Documentation ---
ED Addendum - Addendum Addendum: 11/01/20 11:42 Patient has remained in the emergency department overnight. He has been seen by telepsych who made medication recommendations including a scheduled increased doses of his valproic acid. Currently Zyprexa is being scheduled twice daily. Ultimately a urine was obtained by the overnight and a.m. providers. Unfortunately Evita chronically catheterized male the urine is difficult to interpret for infection but in evaluation of it it does suggest chronic infection. Because social work is attempting to find new placement for this gentleman and his Morales catheter continues to be a source of discomfort the decision is now being made to treat the urine. I have ordered ceftriaxone to be given intravenously. I was notified by nursing staff that the patient pulled his Morales catheter out about 1 hour ago. I instructed the nursing staff that if the patient is unable to void on his own in 4 hours that the Morales is to be replaced. Patient has been evaluated by social work please refer to those notes. Throughout the course of the day the patient's agitation has been better controlled and was easily redirected. He has been able to require no extra doses of medication. His Morales catheter did suggest infection and he was given 1 g of ceftriaxone. When the catheter was replaced a repeat urinalysis was completed and it to suggest infection therefore he will be discharged with a prescription of cephalexin. [facility] has agreed to receive the patient back as his agitation has been improved here in the ER. They would like new prescriptions written for the Seroquel Zyprexa as well as the valproic acid.
[2020-11-01 12:18] LABS: B. PARAPERTUSSIS- RESP PCR PAN NOT DETECTED; B. PERTUSSIS- RESP PCR PANEL NOT DETECTED; C. PNEUMONIAE- RESP PCR PANEL NOT DETECTED; CORONAVIRUS 229E-RESP PCR NOT DETECTED; CORONAVIRUS HKU1-RESP PCR NOT DETECTED; CORONAVIRUS NL63-RESP PCR NOT DETECTED; CORONAVIRUS OC43-RESP PCR NOT DETECTED; HUMAN METAPNEUMOVIRUS NOT DETECTED; INFLUENZA A- RESP PCR PANEL NOT DETECTED; INFLUENZA B - RESP PCR PANEL NOT DETECTED; M. PNEUMONIAE- RESP PCR PANEL NOT DETECTED; PARAINFLUENZA VIRUS 1 NOT DETECTED; PARAINFLUENZA VIRUS 2 NOT DETECTED; PARAINFLUENZA VIRUS 3 NOT DETECTED; PARAINFLUENZA VIRUS 4 NOT DETECTED; RHINOVIRUS/ENTEROVIRUS NOT DETECTED; RSV- RESP PCR PANEL NOT DETECTED; SARS-CoV-2 -RESP PCR PANEL NOT DETECTED
[2020-11-01] MEDS ORDERED: diltiaZEM CD 240 MG CAPSULE PO ONE (17:00)
[2020-11-01 17:22] LABS: BILIRUBIN,URINE NEGATIVE (NEGATIVE); CLARITY,URINE CLOUDY (CLEAR); GLUCOSE, URINE (UA) NEGATIVE (NEGATIVE); KETONES,URINE (UA) 15 mg/dL (NEGATIVE); LEUKOCYTE ESTERASE, URINE MODERATE (NEGATIVE); NITRITE,URINE POSITIVE (NEGATIVE); OCCULT BLOOD,URINE MODERATE (NEGATIVE); PH,URINE 6.5 PH (5.0-7.5); PROTEIN,URINE TRACE mg/dL (NEGATIVE); UROBILINOGEN,URINE 2 E.U./dL (NORMAL)
[2020-11-01 17:36] LABS: BACTERIA,URINE Moderate /HPF (None Seen); SQUAMOUS EPITHELIAL CELL,UR FEW Squamous (<= Few); WBC,URINE >25 /HPF (0-3)
[2020-11-01 19:03] VITALS: BP 112/66
[2020-11-01] MEDS ORDERED: DIVALPROEX DR 250 MG TABLET PO SCH (21:00)
== END 2020-11-01 19:35 | disposition home or self-care (01) ==
LOC: EDUNIT# → SUPCPDRO 17:00 → ED 17:00
DX: F03.91 Unspecified dementia, unspecified severity, with behavioral disturbance (principal); Z78.1 Physical restraint status; T83.518A Infection and inflammatory reaction due to other urinary catheter, initial encounter; T83.021A Displacement of indwelling urethral catheter, initial encounter; Y84.6 Urinary catheterization as the cause of abnormal reaction of the patient, or of later complication, without mention of misadventure at the time of the procedure; E86.0 Dehydration; Z20.822 Contact with and (suspected) exposure to COVID-19; I48.91 Unspecified atrial fibrillation; I11.0 Hypertensive heart disease with heart failure; I50.9 Heart failure, unspecified; N40.1 Benign prostatic hyperplasia with lower urinary tract symptoms; R33.8 Other retention of urine; S51.812A Laceration without foreign body of left forearm, initial encounter; X58.XXXA Exposure to other specified factors, initial encounter; R01.1 Cardiac murmur, unspecified; Z66 Do not resuscitate; F10.21 Alcohol dependence, in remission
CPT/HCPCS: 36415; 51702; 71045; 80053; 80164; 80306; 81001; 83690; 83735; 83880; 84100; 85025; 85610; 87086; 87181; 87631; 93005; 96365; 96372; 96375; 99285; A9270; G0425; Q3014; 0202U; 81003; 87077

== ENCOUNTER 2020-11-01 19:39 | Outpatient (CLI) | payer MEDICARE, BC | END 2020-11-01 19:40 | disposition home or self-care (01) | LOC: EMS 19:39 | DX: F03.90 Unspecified dementia, unspecified severity, without behavioral disturbance, psychotic disturbance, mood disturbance, and anxiety (principal); R41.0 Disorientation, unspecified | CPT/HCPCS: A0425; A0428 ==

== ENCOUNTER 2021-03-05 15:12 | Outpatient (CLI) | payer MEDICARE, BC | END 2021-03-05 15:13 | disposition critical access hospital (66) | LOC: EMS 15:12 | DX: R45.6 Violent behavior (principal) | CPT/HCPCS: A0425; A0429 ==

== ENCOUNTER 2021-03-05 15:30 | Inpatient (IN) | payer MEDICARE, BC ==
[2021-03-05] MEDS ORDERED: OLANZapine 10 MG VIAL IM STA ×2 (15:37→23:52)
--- NOTE | 2021-03-05 15:44 | ED Physician Documentation ---
History of Present Illness - Stated complaint Stated Complaint: AMS - History obtained from History obtained from: Patient - History of Present Illness Timing: Today Pain level max: 0 Pain level now: 0 - Additonal information Additional information: Patient is a 80-year-old male brought in by medics for increasingly combative behavior at his memory care facility today. This is happened several times in the past. Unclear if the patient was in getting his medications as prescribed or not. Unclear if he has been utilizing any as needed medications from the [facility] that they have sent with the patient. No other history is available. Review of Systems Unable to obtain: Dementia, Uncooperative PD PAST MEDICAL HISTORY - Past Medical History Cardiovascular: Congestive heart failure, Hypertension Respiratory: None Neuro: Dementia Endocrine/Autoimmune: None GI: None : Indwelling catheter HEENT: None Psych: Anxiety Musculoskeletal: None Derm: None - Past Surgical History Past Surgical History: No - Present Medications Home Medications: Ambulatory Orders Medication Instructions Recorded Confirmed Quetiapine Fumarate 50 mg PO TID 09/09/19 10/31/20 Acetaminophen [Tylenol] 650 mg PO Q6H PRN 03/19/20 10/31/20 Bisacodyl Supp [Dulcolax Supp] [address] PRN PRN 03/19/20 10/31/20 Diltiazem HCl [Diltiazem 12Hr ER] 240 mg PO QPM 03/19/20 10/31/20 LORazepam [Lorazepam] 0.5 mg PO Q8HR PRN 03/19/20 10/31/20 LORazepam [Lorazepam] 1 mg PO ONCE PRN 03/19/20 10/31/20 Loperamide [Imodium] 2 mg PO QID PRN 03/19/20 10/31/20 Mag Hydrox/Aluminum Hyd/Simeth See Protocol PO Q4HR PRN 03/19/20 10/31/20 [Antacid-Antigas Suspension] Magnesium Hydroxide [Milk of 30 ml PO DAILY PRN 03/19/20 10/31/20 Magnesia] Melatonin 3 mg PO QPM 03/19/20 10/31/20 Memantine [Namenda] 10 mg PO QPM 03/19/20 10/31/20 Tamsulosin [Flomax] 0.4 mg PO QPM 03/19/20 10/31/20 lisinopriL [Prinivil] 5 mg PO DAILY 03/19/20 10/31/20 Cyanocobalamin (Vitamin B-12) 1,000 mcg SL DAILY 10/27/20 10/31/20 [Vitamin B-12 (1000 mcg sublingual)] Divalproex [Carlie Mims] 125 mg PO BID 10/27/20 10/31/20 Folic Acid 1 mg PO DAILY 10/27/20 10/31/20 Divalproex [Carlie Mims] 125 mg PO DAILY #30 tablet 11/01/[address] [Joete Dr] 250 mg PO DAILY #30 tablet 11/01/20 QUEtiapine [SEROquel] 12.5 mg PO TID #20 tablet 11/01/20 Quetiapine Fumarate [Seroquel] 50 mg PO TID #90 tablet 11/01/20 cephALEXin [Keflex] 500 mg PO Q8H #21 11/01/20 - Allergies Allergies/Adverse Reactions: Allergies Allergy/AdvReac Type Severity Reaction Status Date / Time No Known Drug Allergies Allergy Verified 03/05/21 15:38 - Social History Does the pt smoke?: No Smoking Status: Never smoker Does the pt drink ETOH?: No Does the pt have substance abuse?: No - Immunizations Immunizations are current?: No - POLST Patient has POLST: No PD ED PE NORMAL - Vitals Vital signs reviewed: Yes - General General: No acute distress, Other (alert, restless) - HEENT HEENT: Atraumatic, PERRL, Moist mucous membranes - Neck Neck: Supple, no meningeal sign - Cardiac Cardiac: RRR - Respiratory Respiratory: No respiratory distress, Clear bilaterally - Abdomen Abdomen: Soft, Non tender, Non distended - Back Back: No spinal TTP - Derm Derm: Warm and dry - Extremities Extremities: Other (MAEE) - Neuro Neuro: Other (alert) Results - Vitals Vitals: Vital Signs - 24 hr 03/05/21 03/05/21 15:50 15:58 Temperature 37.0 C Heart Rate 87 87 Respiratory 22 22 Rate Blood Pressure 96/64 96/64 O2 Saturation 100 100 Oxygen O2 Source Nasal cannula - Labs Labs: Laboratory Tests 03/05/21 03/05/21 03/05/21 16:17 16:17 16:17 WBC 6.4 RBC 4.36 L Hgb 13.6 L Hct 40.5 L MCV 92.9 MCH 31.2 H MCHC 33.6 RDW 12.2 Plt Count 154 MPV 10.0 Neut # (Auto) 4.3 Lymph # (Auto) 1.2 L Bel[place]ami # (Auto) 0.8 Eos # (Auto) 0.0 Baso # (Auto) 0.0 Absolute Nucleated RBC 0.00 Nucleated RBC % 0.0 Sodium 138 Potassium 4.3 Chloride 100 L Carbon Dioxide 25 Anion Gap 13.0 BUN 26 H Creatinine 1.2 Estimated GFR (MDRD) 59 L Glucose 119 H Calcium 9.5 Total Bilirubin 1.4 H AST 18 ALT 16 Alkaline Phosphatase 70 Total Protein 7.1 Albumin 4.1 Globulin 3.0 Albumin/Globulin Ratio 1.4 Lipase 23 TSH 4.80 Salicylates < 6.0 Urine Opiates Screen Ur Oxycodone Screen Urine Methadone Screen Ur Propoxyphene Screen Acetaminophen < 10 L Ur Barbiturates Screen Ur Tricyclics Screen Ur Phencyclidine Scrn Ur Amphetamine Screen U Methamphetamines Scrn U Benzodiazepines Scrn Urine Cocaine Screen U Cannabinoids Screen Ethyl Alcohol < 5.0 03/05/21 17:36 WBC RBC Hgb Hct MCV MCH MCHC RDW Plt Count MPV Neut # (Auto) Lymph # (Auto) Beltrami # (Auto) Eos # (Auto) Baso # (Auto) Absolute Nucleated RBC Nucleated RBC % Sodium Potassium Chloride Carbon Dioxide Anion Gap BUN Creatinine Estimated GFR (MDRD) Glucose Calcium Total Bilirubin AST ALT Alkaline Phosphatase Total Protein Albumin Globulin Albumin/Globulin Ratio Lipase TSH Salicylates Urine Opiates Screen NEGATIVE Ur Oxycodone Screen NEGATIVE Urine Methadone Screen NEGATIVE Ur Propoxyphene Screen NEGATIVE Acetaminophen Ur Barbiturates Screen NEGATIVE Ur Tricyclics Screen NEGATIVE Ur Phencyclidine Scrn NEGATIVE Ur Amphetamine Screen NEGATIVE U Methamphetamines Scrn NEGATIVE U Benzodiazepines Scrn NEGATIVE Urine Cocaine Screen NEGATIVE U Cannabinoids Screen NEGATIVE Ethyl Alcohol PD MEDICAL DECISION MAKING - ED course Complexity details: reviewed old records, reviewed results, re-evaluated patient, considered differential, d/w patient ED course: Patient is uncooperative in the emergency department. Aggressive towards staff. He was restrained for his safety and that of the staff. Given Zyprexa and Seroquel. Patient remained agitated for several hours. Awaiting telepsychiatry consult for possible medication adjustment. It does appear that he had been on Seroquel in the past but this was stopped for an unknown reason. Patient will be signed out to the oncoming emergency department physician for telepsychiatry consult for medication adjustment, if this is performed and patient remained stable, he appears stable to be discharged back to his memory care facility. This document was made in part using voice recognition software. While efforts are made to proofread this document, sound alike and grammatical errors may occur. Departure - Departure Clinical Impression: Agitation due to dementia Condition: Stable
[2021-03-05] MEDS: QUEtiapine 25 MG TABLET PO STA (16:03)
[2021-03-05 16:27] LABS: BASOPHILS % (AUTO) 0.6 %; EOSINOPHILS % (AUTO) 0.2 %; HCT - HEMATOCRIT 40.5 % (42.0-52.0); HGB - HEMOGLOBIN 13.6 g/dL (14.0-18.0); LYMPHOCYTES # (AUTO) 1.2 10^3/uL (1.5-3.5); LYMPHOCYTES % (AUTO) 19.3 %; MEAN CORPUSCULAR HEMOGLOBIN 31.2 pg (27.0-31.0); MEAN CORPUSCULAR HGB CONC 33.6 g/dL (32.0-36.0); MEAN CORPUSCULAR VOLUME 92.9 fL (80.0-94.0); MONOCYTES # (AUTO) 0.8 10^3/uL (0.0-1.0); MONOCYTES % (AUTO) 11.8 %; NEUTROPHILS # (AUTO) 4.3 10^3/uL (1.5-6.6); NEUTROPHILS % (AUTO) 67.8 %; PLT - PLATELET COUNT 154 10^3/uL (130-450); RED BLOOD COUNT 4.36 10^6/uL (4.70-6.10); RED CELL DISTRIBUTION WIDTH 12.2 % (12.0-15.0); WHITE BLOOD COUNT 6.4 x10^3/uL (4.8-10.8)
[2021-03-05 16:37] LABS: ACETAMINOPHEN < 10 ug/mL (10-30); ALBUMIN 4.1 g/dL (3.2-5.5); ALBUMIN/GLOBULIN RATIO 1.4 (1.0-2.2); ALKALINE PHOSPHATASE 70 IU/L (42-121); ALT ALANINE AMINOTRANSFERASE 16 IU/L (10-60); AST ASPARTATE AMINOTRANSFERASE 18 IU/L (10-42); BILIRUBIN,TOTAL 1.4 mg/dL (0.2-1.0); BUN - BLOOD UREA NITROGEN 26 mg/dL (6-20); CALCIUM 9.5 mg/dL (8.5-10.3); CARBON DIOXIDE - CO2 25 mmol/L (21-32); CHLORIDE 100 mmol/L (101-111); CREATININE 1.2 mg/dL (0.6-1.2); ETOH - ETHANOL < 5.0 mg/dL; GFR - MDRD 59 (>89); GLUCOSE 119 mg/dL (70-100); LIPASE 23 U/L (22-51); POTASSIUM 4.3 mmol/L (3.5-5.0); SALICYLATE < 6.0 mg/dL; SODIUM 138 mmol/L (135-145); TOTAL PROTEIN 7.1 g/dL (6.7-8.2)
--- NOTE | 2021-03-05 16:46 | ED Physician Documentation ---
Face to Face for Restraints - Immediate Situation Face to Face Evaluation Date: 03/05/21 Face to Face Evaluation Time: 16:44 Restraint Situation: Locking (soft restraints) Patient's Reactions to the Intervention: Physically safe, Fighting restraints, Other (restless, agitated) - Behavioral Condition Attitude: Indifferent Behavior: Uncooperative, Agitated Orientation: Not oriented to person, place, time, and situation (dementia) Mood: Angry - Evaluation Review of Systems: see chart Pertinent History/Illicit Drugs/Medications/Results: see chart - Plan Need to Continue or Terminate Violent or Chemical Restraint: continue until cooperative and calm
[2021-03-05 18:09] LABS: MUDS CUTOFF CONCENTRATIONS CUTOFF CONC BELOW:
[2021-03-05 18:24] LABS: AMPHETAMINE SCREEN,URINE NEGATIVE (NEGATIVE); BARBITURATE SCREEN,UR NEGATIVE (NEGATIVE); BENZODIAZEPINES SCREEN, URINE NEGATIVE (NEGATIVE); COCAINE SCREEN URINE NEGATIVE (NEGATIVE); METHADONE SCREEN, URINE NEGATIVE (NEGATIVE); METHAMPHETAMINES SCREEN, URINE NEGATIVE (NEGATIVE); OPIATE SCREEN, URINE NEGATIVE (NEGATIVE); OXYCODONE SCREEN, URINE NEGATIVE (NEGATIVE); PROPOXYPHENE SCREEN, URINE NEGATIVE (NEGATIVE); THC CANNABINOID SCREEN, URINE NEGATIVE (NEGATIVE); TRICYCLIC ANTIDEPRESSANT,URINE NEGATIVE (NEGATIVE)
--- NOTE | 2021-03-05 22:30 | ED Physician Documentation ---
ED Addendum - Addendum Addendum: 03/05/21 22:29 Dr. Paulson with telepsych recommends continuing 2.5mg zyprexa once a day prn and to increase the standing zyprexa from 5 bid to 7.5 bid. 03/05/21 23:53 Patient pulling at restraints, still mildly agitated. ordered IM zyprexa and will reevaluate to see if we can remove restraints shortly. 03/06/21 01:14 patient still agitated. attempted to remove restraints and was agitated and attempting to leave, confused, given oral zyprexa but then he tried to kick staff. Patient is back in physical restraints. 03/06/21 03:04 Patient febrile 100.3 rectal per staff cytotechnologist. will send u/a, cultures, treat with fluids, tylenol. mildly tachycardic. still confused, agitated intermittently yelling, requiring restraints. 03/06/21 03:13 EKG 121 afib with RVR. 03/06/21 03:54 patient HR dropping to 40s and then back up to 100s on monitor worker. d/w Dr. Charles for admission for urosepsis. will obtain CT abd/cxr to r/o septic stones or other pathology. 03/06/21 04:19 patient unable to stay still for CT. Bedside POCUS kidneys without evidence of hydronephrosis. 03/06/21 05:05 Impression 1. afib with RVR 2. sepsis 3. urinary tract infection 4. delirium 03/06/21 05:23 d/w telepsych who is providing updated recs given medical issues.
--- NOTE | 2021-03-05 23:10 | TELEPSYCH PHYS NOTE ---
Telepsych Note - CHIEF COMPLAINT/HX OF PRESENT ILLNESS Chief Complaint and History of Present Illness: Chief Complaint: SI HPI: The patient is a 80-year-old male with a history of dementia who was sent to the ER from his memory care unit due to agitation. The memory care unit would not ask the patient back without a psychiatric evaluation. When interviewed, the patient was confused and oriented only to self. He denied hallucinations, SI, or HI. Patient stated he felt safe in the ER but did not know he was in hospital until told by the psychiatrist. The patient was evaluated in the ER weeks ago and was prescribed Zyprexa and pauma at that time. The reason are unclear, pauma was removed the patient is currently prescribed Zyprexa only. - SI/HI/SELF HARM SI/HI/Self Harm Text (Current or History of):: none - VIOLENCE/LEGAL/COLLATERAL Violence - Legal - Collateral: Violence: Patient was aggressive in the ER and at one point placed in restraints. He responded to Zyprexa 5 mg PO . Legal: Patient denies Collateral: Unavailable - PSYCHIATRIC HX/TREATMENT HX Psychiatric: Anxiety Psychiatric/Treatment Hx Other: No prior inpatient treatment - DRUG/ALCOHOL HX Substance use/abuse/alcohol text: none - MEDICAL HX Does the pt have a hx of MRSA?: No Neurological History: Dementia Eyes, Ears, Nose, Throat: None Cardiovascular: Congestive heart failure, Hypertension Respiratory: None Skin: None Endocrine/Autoimmune: None Gastrointestinal: None Urinary: Indwelling catheter Musculoskeletal: None Blood Disorders: None - HOME MEDICATIONS Home Meds (as last confirmed): Patient History Medication Instructions Recorded Confirmed Quetiapine Fumarate 50 mg PO TID 09/09/19 10/31/20 Acetaminophen [Tylenol] 650 mg PO Q6H PRN 03/19/20 10/31/20 Bisacodyl Supp [Dulcolax Supp] 10 mg HI PRN PRN 03/19/20 10/31/20 Diltiazem HCl [Diltiazem 12Hr ER] 240 mg PO QPM 03/19/20 10/31/20 LORazepam [Lorazepam] 0.5 mg PO Q8HR PRN 03/19/20 10/31/20 LORazepam [Lorazepam] 1 mg PO ONCE PRN 03/19/20 10/31/20 Loperamide [Imodium] 2 mg PO QID PRN 03/19/20 10/31/20 Mag Hydrox/Aluminum Hyd/Simeth See Protocol PO Q4HR PRN 03/19/20 10/31/20 [Antacid-Antigas Suspension] Magnesium Hydroxide [Milk of 30 ml PO DAILY PRN 03/19/20 10/31/20 Magnesia] Melatonin 3 mg PO QPM 03/19/20 10/31/20 Memantine [Namenda] 10 mg PO QPM 03/19/20 10/31/20 Tamsulosin [Flomax] 0.4 mg PO QPM 03/19/20 10/31/20 lisinopriL [Prinivil] 5 mg PO DAILY 03/19/20 10/31/20 Cyanocobalamin (Vitamin B-12) 1,000 mcg SL DAILY 10/27/20 10/31/20 [Vitamin B-12 (1000 mcg sublingual)] Divalproex Dr [Depakote Dr] 125 mg PO BID 10/27/20 10/31/20 Folic Acid 1 mg PO DAILY 10/27/20 10/31/20 - ALLERGIES Allergies (as last confirmed): Allergies Allergy/AdvReac Type Severity Reaction Status Date / Time No Known Drug Allergies Allergy Verified 03/05/21 15:38 - FAMILY PSYCH/SUICIDE/SOCIAL HX-MENTAL Family - Suicide - Social Hx and Mental Status Exam: Family Psychiatric History: Unknown Social History: Single Employment: retired Education: High school grad, no college Stressors: see HPI History: none Abuse: Unknown Mental Status Examination: Attitude and behavior: cooperative Speech: WNL Affect and mood: flat affect and ok mood Association and thought processes: [place] Thought content: no delusions, no SI, no HI Perception: hallucinations Sensorium, memory, and orientation: AAOx1 Intellectual functioning: average Insight and judgment: impaired - PATIENT PROBLEM LIST (1) Adjustment disorder Qualifiers: Adjustment disorder type: unspecified type Qualified Code(s): F43.20 - Adjustment disorder, unspecified Impression: Patient is a 80-year-old male with history of dementia who presented to the ER due to agitation. Patient shows no signs of psychosis and he responded well to PO medication. There is no indication inpatient psychiatric care. Outpatient care recommended. - TREATMENT/PHARMACOLOGICAL RECOMMENDATION Treatment - Pharmacological - Therapy Recommendations: Start Zyprexa 7.5 mg PO BID. Continue Zyprexa 2.5 mg PO daily PRN agitation. Refer back to memory care unit. - TIME SPENT & PROVIDER LOCATION Telepsych consultation conducted via videoconferencing: Yes List names and roles of persons who participated in consult: Guillermo Paulson M.D. [facility] Telepsych Provider Location: [place] Time Telepsych consult began: 22:10 Time Telepsych consult completed: 22:35
--- NOTE | 2021-03-05 23:56 | ED Physician Documentation ---
Face to Face for Restraints - Immediate Situation Face to Face Evaluation Date: 03/05/21 Face to Face Evaluation Time: 11:55 Restraint Situation: Chemical Patient's Reactions to the Intervention: Physically safe, Resting quietly - Behavioral Condition Attitude: Other (dementia) Behavior: Agitated Orientation: Not oriented to person, place, time, and situation (disoriented, dementia at baseline) Mood: Other (moderate agitation) - Evaluation Review of Systems: see chart Pertinent History/Illicit Drugs/Medications/Results: see chart - Plan Need to Continue or Terminate Violent or Chemical Restraint: need to continue physical restraints for now. redosing chemical restraints and will reevaluate.
[2021-03-06] MEDS: QUEtiapine 25 MG TABLET PO STA (00:14)
[2021-03-06] MEDS ORDERED: OLANZapine ODT 5 MG TABLET TL ONE (00:49)
[2021-03-06] MEDS ORDERED: SODIUM CHLORIDE 0.9% 500 ML IV STA (02:40)
[2021-03-06 02:59] LABS: BILIRUBIN,URINE NEGATIVE (NEGATIVE); GLUCOSE, URINE (UA) NEGATIVE (NEGATIVE); KETONES,URINE (UA) 15 mg/dL (NEGATIVE); LEUKOCYTE ESTERASE, URINE LARGE (NEGATIVE); NITRITE,URINE POSITIVE (NEGATIVE); OCCULT BLOOD,URINE LARGE (NEGATIVE); PROTEIN,URINE 30 mg/dL (NEGATIVE); UROBILINOGEN,URINE 0.2 (NORMAL) E.U./dL (NORMAL)
[2021-03-06 03:01] LABS: CLARITY,URINE SL. CLOUDY (CLEAR)
[2021-03-06 03:06] LABS: BACTERIA,URINE Few /HPF (None Seen); SQUAMOUS EPITHELIAL CELL,UR RARE Squamous (<= Few); WBC,URINE >25 /HPF (0-3)
[2021-03-06] MEDS ORDERED: cefTRIAXone 1 GM in SODIUM CHLORIDE 0.9% MINIBAG 100 ML IV STA (03:12)
[2021-03-06] MEDS ORDERED: ACETAMINOPHEN 325 MG TABLET PO STA (03:13)
[2021-03-06] MEDS ORDERED: cefTRIAXone 1 GM VIAL ONE (03:24)
[2021-03-06 05:12] LABS: B. PARAPERTUSSIS- RESP PCR PAN NOT DETECTED; B. PERTUSSIS- RESP PCR PANEL NOT DETECTED; C. PNEUMONIAE- RESP PCR PANEL NOT DETECTED; CORONAVIRUS 229E-RESP PCR NOT DETECTED; CORONAVIRUS HKU1-RESP PCR NOT DETECTED; CORONAVIRUS NL63-RESP PCR NOT DETECTED; CORONAVIRUS OC43-RESP PCR NOT DETECTED; HUMAN METAPNEUMOVIRUS NOT DETECTED; INFLUENZA A- RESP PCR PANEL NOT DETECTED; INFLUENZA B - RESP PCR PANEL NOT DETECTED; M. PNEUMONIAE- RESP PCR PANEL NOT DETECTED; PARAINFLUENZA VIRUS 1 NOT DETECTED; PARAINFLUENZA VIRUS 2 NOT DETECTED; PARAINFLUENZA VIRUS 3 NOT DETECTED; PARAINFLUENZA VIRUS 4 NOT DETECTED; RHINOVIRUS/ENTEROVIRUS NOT DETECTED; RSV- RESP PCR PANEL NOT DETECTED; SARS-CoV-2 -RESP PCR PANEL NOT DETECTED
[2021-03-06] MEDS ORDERED: ONDANSETRON 4 MG/2 ML VIAL IVP PRN (05:22)
[2021-03-06] MEDS ORDERED: SODIUM CHLORIDE FLUSH 0.9% 10 ML SYRINGE IVP PRN (05:22)
[2021-03-06] MEDS ORDERED: ONDANSETRON ODT 4 MG TABLET TL PRN (05:22)
[2021-03-06] MEDS ORDERED: ACETAMINOPHEN 325 MG TABLET PO PRN (05:22)
--- NOTE | 2021-03-06 05:29 | TELEPSYCH PHYS NOTE ---
Telepsych Consultation Note Consult: [employer] Name: Padilla Gomez :1940 Date: 03/06/21 Time:07:59 Location of patient: [facility] ED Location of doctor:[facility] Length of consult:20min This evaluation was conducted via telepsychiatry with the assistance of onsite staff. Reason for consult: AMS/Agitation Follow Up Requested by: ED Attending History of Present Illness: 80yo male with unspecified dementia and anxiety disorder who was admitted from SNF/Memory Care due to AMS with increased agitation. He is found to have UTI in the setting of having an indwelling Morales catheter. UDS is negative. Patient is known per initial evaluation by Dr. Paulson yesterday (please see his note for further detailed histories), and routine follow up is requested today. Per his RN, he has been rather agitated, paranoid, and overly confused. He feels like people are out to kill him and responding to internal stimuli. Mr. Gomez states that he is not good. When asked if he was feeling depressed, he states right now I do. Well Im just working on it. Collateral contacted (Y/N) NO. Mental Status Exam: Appearance and attire: CM appearing stated age, lying in bed Attitude and behavior: minimally cooperative Speech: spontaneous, fluent Affect and mood: confused Association and thought processes: + disorganized Thought content: no paranoia or delusions Safety: UNABLE TO FULLY ASSESS Perception: UNABLE TO FULLY ASSESS Sensorium, memory, and orientation: ALERT, POOR ATTENTION Intellectual functioning: SEVERE IMPAIRMENT Insight and judgment: POOR Impression/Risk Assessment: Current Suicide Risk (Elevated? Y/N): NO Current Violence Risk (Elevated? Y/N): NO Ability to care for self: Y/N NO Summary: 80yo male with dementia and anxiety admitted from Memory Care due to delirium r/t UTI resulting in increased agitation. Anticipate some mental status improvement will occur with treatment for UTI. However, he should be reevaluated once medically cleared for need for behavioral health admission. Diagnosis: Delirium due to Another Medical Condition, Acute, with Mixed Level of Activity Major Neurocognitive Disorder, likely Vascular, with Behavioral Disturbance CPT code: 83081 Treatment Plan Level of Care: CONTINUE CURRENT CARE Psychiatric Clearance: Y/N - NO, WILL NEED REEVALUATION ONCE MEDICALLY CLEARED. Observation level 1:1 needed?: Y/N, N/A Pharmacological: Scheduled: STOP ZYPREXA. INITIATE SEROQUEL 25MG TID. PRN: FOR MILD AGITATION, USE SEROQUEL 50MG Q8 HOURS. FOR SEVERE AGITATION, USE HALDOL 2MG Q6 HOURS NEEDED. Patient psychotic? Y/N if Y was standing antipsychotic medication started Y/N Y/Y Therapy: SUPPORTIVE Follow up needed while in hospital?: Y/N/NA if Y then frequency Y, UPON MEDICAL CLEARANCE Discussed plan with onsite produce team lead, who? (Y/N): ED ATTENDING. SPOKE WITH DR. PAULSON. PATIENT NOW HAS FEVER ALONG WITH UTI, HE WILL BE MEDICALLY ADMITTED. Thank you for allowing us to participate in the care of this patient. List names and roles of persons who participated in consult: Ike Johnson MD, MPH
[2021-03-06] MEDS ORDERED: VANCOMYCIN INJ 1.25 GM in SODIUM CHLORIDE 0.9% 250 ML IV SCH (06:00)
--- NOTE | 2021-03-06 06:05 | ED Physician Documentation ---
Face to Face for Restraints - Immediate Situation Face to Face Evaluation Date: 03/06/21 Face to Face Evaluation Time: 04:00 Restraint Situation: Locking Patient's Reactions to the Intervention: Physically safe - Behavioral Condition Attitude: Other (agitated) Behavior: Agitated Orientation: Not oriented to person, place, time, and situation Mood: Other (delirious) - Evaluation Review of Systems: see chart Pertinent History/Illicit Drugs/Medications/Results: see chart - Plan Need to Continue or Terminate Violent or Chemical Restraint: attempted to dc restraints but patient tried to assault staff therefore had to continue restraints.
--- NOTE | 2021-03-06 07:02 | HISTORY & PHYSICAL EXAMINATION ---
Chief Complaint - Chief Complaint Chief Complaint: Agitation History of Present Illness - Admitted From Admitted From:: ER - History Obtained From Records Reviewed: Yes History obtained from: ER Physician, EMR Exam Limitations: Patient is demented and unable to provide a history. - History of Present Illness HPI Comment/Other: This is a 80-year-old male with a history of dementia with behavioral disturbance, chronic indwelling Morales catheter, ablation who presented to the emergency department yesterday due to increasing agitation and combative behavior. He was reportedly using issue in Morales catheter bag to hit staff. Per the emergency department physician, the patient was reportedly taking Seroquel but this was recently switched to Zyprexa. Telepsych was consulted yesterday evening who recommended continuing Zyprexa and increasing the dose to 7.5 mg twice daily and to add 2.5 mg as needed. The patient was still quite agitated and pulling at restraints. It was then noted overnight that the patient became febrile with a temperature of 100.4 degrees. Labs revealed no white count and normal lactic acid. A urine was obtained which is of infection although the patient does have a chronic indwelling Morales catheter. Given his worsening agitation and fever, the concern was for a urinary tract infection co ntributing to his agitation. Telepsych was contacted again by the emergency department who recommended discontinuing Zyprexa and starting him on Seroquel. Given this, medicine was consulted for admission. The patient himself is unable to verbalize how he is feeling. When asked where he is or if he has pain, he just mumbles. I am unable to discuss goals of care the patient due to his dementia/altered mental status. Review of prior records reveal that he has a POLST form stating he is a DNR. History - Past Medical History Cardiovascular: reports: Congestive heart failure, Hypertension Respiratory: reports: None Neuro: reports: Dementia Endocrine/Autoimmune: reports: None GI: reports: None : reports: Indwelling catheter HEENT: reports: None Psych: reports: Anxiety Musculoskeletal: reports: None Derm: reports: None MRSA Hx?: No Other Past Medical History: Unable to complete thoroughly as patient is severely confused. - Family & Social History Family History Comment/Other: Unable to obtain due to his dementia/altered mental status. Social History Notes: Unable to obtain due to his dementia/altered mental status. - POLST Patient has POLST: No Meds/Allgy - Home Medications Home Medications: Ambulatory Orders Medication Instructions Recorded Confirmed Bisacodyl Supp [Dulcolax Supp] 10 mg UT PRN PRN 03/19/20 03/06/21 Loperamide [Imodium] 2 mg PO QID PRN 03/19/20 03/06/21 Mag Hydrox/Aluminum Hyd/Simeth 30 ml PO Q4HR PRN 03/19/20 03/06/21 [Antacid-Antigas Suspension] Magnesium Hydroxide [Milk of 30 ml PO DAILY PRN 03/19/20 03/06/21 Magnesia] Melatonin 3 mg PO QPM 03/19/20 03/06/21 Memantine [Namenda] 10 mg PO QPM 03/19/20 03/06/21 Tamsulosin [Flomax] 0.4 mg PO QPM 03/19/20 03/06/21 lisinopriL [Prinivil] 5 mg PO DAILY 03/19/20 03/06/21 Cyanocobalamin (Vitamin B-12) 1,000 mcg SL DAILY 10/27/20 03/06/21 [Vitamin B-12 (1000 mcg sublingual)] Folic Acid 1 mg PO DAILY 10/27/20 03/06/21 Acetaminophen [Acetaminophen Extra 1,000 mg PO BID 03/06/21 03/06/21 Strength] Acetaminophen [Acetaminophen Extra 500 mg PO BID PRN 03/06/21 03/06/21 Strength] Divalproex [Carlie Mims] 125 mg PO QDLUNCH 03/06/21 03/06/[address] Susi Mims] 375 mg PO BID 03/06/21 03/06/21 OLANZapine [Zyprexa] 2.5 mg PO DAILY PRN 03/06/21 03/06/21 OLANZapine [Zyprexa] 5 mg PO BID 03/06/21 03/06/21 dilTIAZem HCL [Diltiazem 24Hr ER 240 mg PO QPM 03/06/21 03/06/21 (Xr)] - Allergies Allergies/Adverse Reactions: Allergies Allergy/AdvReac Type Severity Reaction Status Date / Time No Known Drug Allergies Allergy Verified 03/05/21 15:38 Review of Systems - All Other Systems All Other Systems: reports: Other (Unable to obtain due to dementia/altered mental status.) Prior Level of Functionality: He is dependent on his ADL's. Exam - Vital Signs Reviewed Vital Signs: Yes Vital Signs: Vital Signs x48h Temp Pulse Resp BP Pulse Ox 03/06/21 04:59 38.0 C H 110 H 03/06/21 02:56 37.9 C 110 H 03/06/21 01:50 37.8 C 03/06/21 00:06 105 H 17 114/61 100 - Physical Exam General Appearance: positive: Other (He appears in mild distress and is restless at times.) Eyes Bilateral: positive: Conjunctivae nml ENT: positive: ENT inspection nml Neck: positive: Nml inspection Respiratory: positive: No respiratory distress. negative: Wheezes, Rales Cardiovascular: positive: Irregularly irregular. negative: Tachycardia, Systolic murmur Abdomen: positive: Non-tender, No distention. negative: Tenderness Skin: positive: Warm, Dry Extremities: positive: No pedal edema, Other (In four point restraints.) Neurologic/Psychiatric: positive: Other (He is unable to follow commands and I am unable to perform a neurologic exam. He is moving all 4 extremities although they are in restraints.) Conclusion/Plan - Problem List (1) Catheter-associated urinary tract infection Conclusion/Plan: Concern is for an infection given he is now febrile. His white count is normal as well as lactic acid so there is is no concern for sepsis. He is demented/altered unable to provide a history and this may potentially be colonization but given the fever, we will treat presumptively. Prior cultures grew Enterococcus and Pseudomonas. We will place him on cefepime and vancomycin. We will follow up blood cultures and urine culture. We will replace the Morales catheter. We will monitor for further fevers and trend his white count to ensure it does not rise. (2) Altered mental status Conclusion/Plan: He has dementia with behavioral disturbance at baseline and now he appears more altered likely due to sedatives he received. He had been receiving Zyprexa. He was seen by telepsych who recommended holding the Zyprexa initiating Seroquel. I suspect his delirium may be related to his underlying behavioral disturbance and potentially compounded by sedatives and the potential infection. We will try to limit the use of sedatives and we will start him on Seroquel 25 mg 3 times daily as recommended by psychiatry. Qualifiers: Altered mental status type: delirium Qualified Code(s): R41.0 - Diso rientation, unspecified (3) Dementia with behavioral disturbance Conclusion/Plan: He has dementia with behavioral disturbance at baseline and was recently changed from Seroquel to Zyprexa. I believe this change may have contributed to his worsening agitation. He was seen by psychiatry who recommended discontinuing Zyprexa and starting him on Seroquel as we will initiate this. We will continue two-point restraints as he is a harm to himself and staff. We will look to discontinue the restraints over the next 24 hours. (4) Atrial fibrillation with RVR Conclusion/Plan: His rates have been labile ranging from the 80s up to the 120s. This is not a new diagnosis for him and he is on diltiazem at home. Currently appears to be rate controlled with rates in the 80s she will monitor for the time being. We will look to resume his oral diltiazem if he can take p.o. consistently otherwise he will need IV diltiazem or Lopressor to control his heart rate. (5) Chronic indwelling Morales catheter Conclusion/Plan: He is a chronic indwelling Morales catheter for chronic urinary retention. This will be replaced given the concern for catheter associated UTI. - Lab Results Lab results reviewed: Yes Nic Bones: 03/06/21 08:52 03/06/21 08:52 - Diagnostic Imaging Results Diagnostic Imaging Results: positive: Prelim report reviewed Core Measures - Anticipated LOS I expect patient to be DC'd or transferred within 96 hours.: Yes - Issues Hospital Issues and Management Plan: 80-year-old male with history of dementia and behavioral disturbances presents today with agitation found to have a fever and concern for potential UTI. Will be admitted for IV antibiotics and we will adjust his home medications. - DVT/VTE - Prophylaxis VTE/DVT Device ordered at admit?: Yes VTE/DVT Prophylaxis med ordered at admit?: Yes
[2021-03-06] MEDS: LACTATED RINGERS 1,000 ML IV SCH (07:45)
--- NOTE | 2021-03-06 07:51 | XRAY Report ---
PROCEDURE: Chest 1 View X-Ray INDICATIONS: fever, tachycardia TECHNIQUE: One view of the chest was acquired. COMPARISON: October 31, 2020 FINDINGS: SUPPORT DEVICES: None. LUNG/PLEURA: Mildly coarsened interstitial markings with evidence of granulomatous change. No focal c onsolidation or pulmonary edema. No pleural effusion or space-occupying pneumothorax. MEDIASTINUM: Enlargement the cardiac silhouette, partially exaggerated by technique. BONES/SOFT TISSUES: No acute abnormality. IMPRESSION: 1.No acute cardiopulmonary abnormality. Concordant interpretation with the pulmonary report. Reviewed by: Inocencio Porter MD on 03/06/2021 7:50 AM PDT Approved by: Inocencio Porter MD on 03/06/2021 7:50 AM PDT Station ID: [id number]
[2021-03-06] MEDS ORDERED: VANCOMYCIN INJ 2 GM in SODIUM CHLORIDE 0.9% 500 ML IV SCH (09:00)
[2021-03-06 09:11] LABS: BASOPHILS % (AUTO) 0.3 %; CALCIUM 8.7 mg/dL (8.5-10.3); CREATININE 1.1 mg/dL (0.6-1.2); EOSINOPHILS % (AUTO) 0.2 %; HCT - HEMATOCRIT 37.8 % (42.0-52.0); HGB - HEMOGLOBIN 12.9 g/dL (14.0-18.0); LYMPHOCYTES # (AUTO) 0.6 10^3/uL (1.5-3.5); MEAN CORPUSCULAR HEMOGLOBIN 31.8 pg (27.0-31.0); MEAN CORPUSCULAR HGB CONC 34.1 g/dL (32.0-36.0); MEAN CORPUSCULAR VOLUME 93.1 fL (80.0-94.0); MONOCYTES # (AUTO) 0.9 10^3/uL (0.0-1.0); MONOCYTES % (AUTO) 13.2 %; NEUTROPHILS # (AUTO) 4.9 10^3/uL (1.5-6.6); NEUTROPHILS % (AUTO) 75.8 %; PLT - PLATELET COUNT 125 10^3/uL (130-450); POTASSIUM 3.8 mmol/L (3.5-5.0); RED BLOOD COUNT 4.06 10^6/uL (4.70-6.10); RED CELL DISTRIBUTION WIDTH 12.3 % (12.0-15.0); WHITE BLOOD COUNT 6.4 x10^3/uL (4.8-10.8)
[2021-03-06] MEDS: CEFEPIME 2 GM in SODIUM CHLORIDE 0.9% MINIBAG 100 ML IV SCH ×2 (09:14→21:11)
[2021-03-06] MEDS: ENOXAPARIN 40 MG/0.4 ML SYRINGE SUBQ SCH (09:18)
--- NOTE | 2021-03-06 09:26 | Ultrasound Report ---
PROCEDURE: Retroperitoneal INDICATIONS: UTI. Fever. Chronic low. TECHNIQUE: Real-time scanning was performed of the retroperitoneal organs, with image documentation. COMPARISON: None. FINDINGS: Kidneys: Kidneys are normal in size. Right kidney measures 11.4 cm long; left kidney measures 11.7 cm long. Right renal cortical thickness is 0.8 cm; left renal cortical thickness is 1.4 cm. No andree d masses, hydronephrosis, or nephrolithiasis. 1.5 x 1.4 x 1.2 cm simple cyst is seen in lower pole o f right kidney. Low catheter is seen in a decompressed urinary bladder. Prostate gland is enlarged and measures 5.4 x 4.3 x 5.5 cm in size with volume of 65 cc. IMPRESSION: 1. Small right renal cyst. No solid-appearing renal lesion. No hydronephrosis or nephrolithiasis. 2. Enlarged prostate gland with mass effect on the floor of urinary bladder. Low catheter in a deco mpressed urinary bladder. Reviewed by: Dewayne Rubi MD on 03/06/2021 9:24 AM PDT Approved by: Dewayne Rubi MD on 03/06/2021 9:24 AM PDT Station ID: [id number]
[2021-03-06] MEDS: SODIUM CHLORIDE FLUSH 0.9% 10 ML SYRINGE IVP SCH ×2 (09:27→18:40)
[2021-03-06] MEDS: QUEtiapine 25 MG TABLET PO SCH ×3 (09:27→21:19)
[2021-03-06] MEDS: diltiaZEM CD 240 MG CAPSULE PO SCH (11:02)
--- NOTE | 2021-03-06 11:08 | PHARMACY PROGRESS NOTE ---
- Therapy Status Vancomycin regimen day #: 1 Therapy status: Awaiting steady state Basis for treatment: Empirical Treatment indication: Catheter associated UTI; suspected multi-drug resistant organism Trough goal: 15-20 Concurrent antibiotics: Cefepime - MAGALI Risk Risk level for Acute Kidney Injury: Moderate Acute Kidney Injury risk factors: Goal trough >15, Chronic baseline hypertension - Monitoring and Recommendation Clinical response to treatment: I&O Previous 24 hours 03/04/21 03/05/21 03/06/21 23:59 23:59 23:59 Intake Total 700 Balance 700 Lab Results 03/06/21 03/05/21 08:52 16:17 BUN 24 H 26 H Creatinine 1.1 1.2 Estimated GFR (MDRD) 65 L 59 L Cultures 03/06/21 02:52 Urine,Clean Catch Urine Culture - Preliminary CULTURE IN PROGRESS. RESULTS TO FOLLOW. Monitoring plan: Daily serum creatinine, Suggest ongoing fluid replacement Next trough due prior to maintenance dose #: 4 Next trough due (date/time): 03/09/21 @ 0930 Areas for additional monitoring: IV to PO when appropriate, Therapy de- escalation based on culture results Pharmacy recommendation: Continue current regime
--- NOTE | 2021-03-06 12:29 | PHARMACY PROGRESS NOTE ---
- Best Possible Medication History Admit Date and Time: 03/06/21 0522 Processed by: Pharmacy Medication History completed: Yes Patient Interview: Pt unable to participate Secondary Source(s): Facility MAR as ONLY source As the person ultimately responsible for medication therapy, providers are able to order a medication from an existing home medication list in [facility] via the "Reconcile Routine" prior to Confirmation of that medication by office support clerk. Such practice is discouraged except when the physician, in their clinical judgment, deems that a medical need exists for a medication without regard to previous use.
[2021-03-06] MEDS ORDERED: QUEtiapine 25 MG TABLET PO PRN (16:11)
[2021-03-07] MEDS: VANCOMYCIN INJ 1 GM in SODIUM CHLORIDE 0.9% 250 ML IV SCH ×2 (05:01→21:23)
[2021-03-07] MEDS: SODIUM CHLORIDE FLUSH 0.9% 10 ML SYRINGE IVP SCH ×3 (05:02→15:55)
[2021-03-07 05:09] LABS: BASOPHILS # (AUTO) 0.1 10^3/uL (0.0-0.1); BASOPHILS % (AUTO) 0.8 %; EOSINOPHILS # (AUTO) 0.1 10^3/uL (0.0-0.7); EOSINOPHILS % (AUTO) 1.1 %; HCT - HEMATOCRIT 42.5 % (42.0-52.0); HGB - HEMOGLOBIN 14.9 g/dL (14.0-18.0); LYMPHOCYTES # (AUTO) 2.2 10^3/uL (1.5-3.5); LYMPHOCYTES % (AUTO) 33.3 %; MEAN CORPUSCULAR HEMOGLOBIN 31.8 pg (27.0-31.0); MEAN CORPUSCULAR HGB CONC 35.1 g/dL (32.0-36.0); MEAN CORPUSCULAR VOLUME 90.6 fL (80.0-94.0); MEAN PLATELET VOLUME 9.9 fL (7.4-11.4); MONOCYTES # (AUTO) 0.9 10^3/uL (0.0-1.0); MONOCYTES % (AUTO) 14.4 %; NEUTROPHILS # (AUTO) 3.2 10^3/uL (1.5-6.6); NEUTROPHILS % (AUTO) 50.1 %; PLT - PLATELET COUNT 145 10^3/uL (130-450); RED BLOOD COUNT 4.69 10^6/uL (4.70-6.10); RED CELL DISTRIBUTION WIDTH 12.4 % (12.0-15.0); WHITE BLOOD COUNT 6.5 x10^3/uL (4.8-10.8)
[2021-03-07 05:14] LABS: CALCIUM 8.9 mg/dL (8.5-10.3); CREATININE 1.1 mg/dL (0.6-1.2); POTASSIUM 3.7 mmol/L (3.5-5.0)
[2021-03-07] MEDS: LACTATED RINGERS 1,000 ML IV SCH (06:43)
[2021-03-07] MEDS: QUEtiapine 25 MG TABLET PO SCH ×3 (06:48→21:23)
[2021-03-07] MEDS: DIVALPROEX DR 125 MG TABLET PO SCH ×3 (09:08→20:35)
[2021-03-07] MEDS: CEFEPIME 2 GM in SODIUM CHLORIDE 0.9% MINIBAG 100 ML IV SCH ×2 (09:08→20:35)
[2021-03-07] MEDS: diltiaZEM CD 240 MG CAPSULE PO SCH (09:08)
[2021-03-07] MEDS: DIVALPROEX DR 250 MG TABLET PO SCH ×2 (09:08→20:36)
[2021-03-07] MEDS: ENOXAPARIN 40 MG/0.4 ML SYRINGE SUBQ SCH (09:08)
[2021-03-07] MEDS ORDERED: HALOPERIDOL 5 MG/ML VIAL IVP ONE (15:39)
--- NOTE | 2021-03-07 17:40 | PROVIDER PROGRESS NOTE ---
Subjective - Prog Note Date Prog Note Date: 03/07/21 Prog Note Time: 17:33 Current Medications - Current Medications Current Medications: Active Medications Acetaminophen (Acetaminophen 325 Mg Tablet) 650 mg PO Q4HR PRN PRN Reason: Pain 1 to 4 Diltiazem HCl (Diltiazem Cd 240 Mg Capsule) 240 mg PO DAILY [facility] Last Admin: 03/07/21 09:08 Dose: 240 mg Documented by: Divalproex Sodium (Divalproex Dr 125 Mg Tablet) 125 mg PO 0900,1200,2100 [facility] Last Admin: 03/07/21 12:10 Dose: 125 mg Documented by: Divalproex Sodium (Divalproex Dr 250 Mg Tablet) 250 mg PO BID [facility] Last Admin: 03/07/21 09:08 Dose: 250 mg Documented by: Enoxaparin Sodium (Enoxaparin 40 Mg/0.4 Ml Syringe) 40 mg SUBQ DAILY [facility] Last Admin: 03/07/21 09:08 Dose: 40 mg Documented by: Cefepime HCl 2 gm/ Sodium (Chloride) 100 mls @ 200 mls/hr IV BID [facility] Last Infusion: 03/07/21 09:41 Dose: Infused Documented by: Vancomycin HCl 1 gm/ Sodium (Chloride) 250 mls @ 167 mls/hr IV Q18H [facility] Last Admin: 03/07/21 05:01 Dose: 167 mls/hr Documented by: Ondansetron HCl (Ondansetron Odt 4 Mg Tablet) 4 mg TL Q6HR PRN PRN Reason: Nausea / Vomiting Ondansetron HCl (Ondansetron 4 Mg/2 Ml Vial) 4 mg IVP Q6HR PRN PRN Reason: Nausea / Vomiting Quetiapine Fumarate (Quetiapine 25 Mg Tablet) 50 mg PO TID PRN PRN Reason: Agitation Last Admin: 03/06/21 16:32 Dose: 50 mg Documented by: Quetiapine Fumarate (Quetiapine 25 Mg Tablet) 25 mg PO TID [facility] Last Admin: 03/07/21 14:18 Dose: 25 mg Documented by: Sodium Chloride (Sodium Chloride Flush 0.9% 10 Ml Syringe) 10 ml IVP PRN PRN PRN Reason: NEEDED PER PROVIDER ORDERS Sodium Chloride (Sodium Chloride Flush 0.9% 10 Ml Syringe) 10 ml IVP 0100,0900,1700 [facility] Last Admin: 03/07/21 15:55 Dose: 10 ml Documented by: Bisacodyl Supp [Dulcolax Supp] 10 mg MS PRN PRN 03/19/20 Loperamide [Imodium] 2 mg PO QID PRN 03/19/20 Mag Hydrox/Aluminum Hyd/Simeth [Antacid-Antigas Suspension] 30 ml PO Q4HR PRN 03/19/20 Magnesium Hydroxide [Milk of Magnesia] 30 ml PO DAILY PRN 03/19/20 Melatonin 3 mg PO QPM 03/19/20 Memantine [Namenda] 10 mg PO QPM 03/19/20 Tamsulosin [Flomax] 0.4 mg PO QPM 03/19/20 lisinopriL [Prinivil] 5 mg PO DAILY 03/19/20 Cyanocobalamin (Vitamin B-12) [Vitamin B-12 (1000 mcg sublingual)] 1,000 mcg SL DAILY 10/27/20 Folic Acid 1 mg PO DAILY 10/27/20 Acetaminophen [Acetaminophen Extra Strength] 1,000 mg PO BID 03/06/21 Acetaminophen [Acetaminophen Extra Strength] 500 mg PO BID PRN 03/06/21 Divalproex [Carlie Mims] 125 mg PO QDLUNCH 03/06/21 Divalproex [Carlie Mims] 375 mg PO BID 03/06/21 OLANZapine [Zyprexa] 2.5 mg PO DAILY PRN 03/06/21 OLANZapine [Zyprexa] 5 mg PO BID 03/06/21 dilTIAZem HCL [Diltiazem 24Hr ER (Xr)] 240 mg PO QPM 03/06/21 Objective - Vital Signs/Intake & Output Reviewed Vital Signs: Yes Vital Signs: Vital Signs x48h Temp Pulse Resp BP BP Pulse Ox 03/07/21 16:56 36.2 C L 56 L 127/71 100 03/07/21 13:00 36.6 C 96 21 119/77 95 Intake & Output: Intake & Output 03/04/21 03/05/21 03/06/21 03/07/21 23:59 23:59 23:59 23:59 Intake Total 2440 540 Output Total 2150 2425 Balance 290 -1885 - Objective General Appearance: positive: Alert, Other (In lanky elderly gentleman. This morning sitting up in bed, eating breakfast as the aide fed him. Over the course of the day I examined him twice as he was taken around [facility] in a wheelchair. Alert, completely disoriented but very happy to be out and about in the hallways) Eyes Bilateral: positive: PERRL ENT: positive: No signs of dehydration Neck: positive: No JVD. negative: Stiff neck Respiratory: positive: No respiratory distress. negative: Wheezes, Rales, Rhonchi Cardiovascular: positive: Regular rate & rhythm. negative: Gallop/S4, Friction rub Abdomen: positive: Non-tender, No organomegaly, Nml bowel sounds, No distention Skin: positive: Warm, Dry Extremities: positive: No pedal edema Neurologic/Psychiatric: positive: CN's nml (2-12), Motor nml, Disoriented to person, Disoriented to place, Disoriented to time, Other (Speech is truncated. I will ask him a question such as where he is from and he will answer [place]. I will ask him what he did for living and he will be they can say "this and that". I asked him how he got here and he does not know. He does not know where he is, what day it is. Cannot tell me if) - Lab Results Fish Bones: 03/07/21 04:59 03/07/21 04:59 Other Labs: Lab Results x24hrs 03/07/21 03/07/21 Range/Units 04:59 04:59 WBC 6.5 (4.8-10.8) x10^3/uL RBC 4.69 L (4.70-6.10) 10^6/uL Hgb 14.9 (14.0-18.0) g/dL Hct 42.5 (42.0-52.0) % MCV 90.6 (80.0-94.0) fL MCH 31.8 H (27.0-31.0) pg MCHC 35.1 (32.0-36.0) g/dL RDW 12.4 (12.0-15.0) % Plt Count 145 (130-450) 10^3/uL MPV 9.9 (7.4-11.4) fL Neut # (Auto) 3.2 (1.5-6.6) 10^3/uL Lymph # (Auto) 2.2 (1.5-3.5) 10^3/uL Young # (Auto) 0.9 (0.0-1.0) 10^3/uL Eos # (Auto) 0.1 (0.0-0.7) 10^3/uL Baso # (Auto) 0.1 (0.0-0.1) 10^3/uL Absolute Nucleated RBC 0.00 x10^3/uL Nucleated RBC % 0.0 /100WBC Sodium 144 (135-145) mmol/L Potassium 3.7 (3.5-5.0) mmol/L Chloride 107 (101-111) mmol/L Carbon Dioxide 24 (21-32) mmol/L Anion Gap 13.0 (6-13) BUN 16 (6-20) mg/dL Creatinine 1.1 (0.6-1.2) mg/dL Estimated GFR (MDRD) 65 L (>89) Glucose 101 H (70-100) mg/dL Calcium 8.9 (8.5-10.3) mg/dL ABX Reporting Has patient been on IV antibiotics over the past 48 hours?: Yes Assessment/Plan - Problem List (1) Catheter-associated urinary tract infection Impression: He was in the emergency room for 24 hours with in retrospect was most likely acute delirium. He has chronic cognitive deficit with behavioral disorder and is on Seroquel. Failed Zyprexa in the outpatient setting. Taken to the emergency room. Once in the emergency room was on Zyprexa but also spiked a fever and has a probable UTI. Concern is for an infection given was febrile. His white count was normal as well as lactic acid so there was no concern for sepsis. He is demented/altered unable to provide a history and this may potentially be colonization but given the fever, we will treat presumptively. Prior cultures grew Enterococcus and Pseudomonas. We have replaced the Morales catheter. Start of antibiotics. He had actually started to clear by yesterday evening so that restraints were down to 2 upper extremity restraints. Today he was out of restraints completely. He was very happy to be put in a wheelchair and taken around [facility] to look out the window, to interact with everyone else. No behavioral issues until late this afternoon when he again started yelling, becoming belligerent, threatening staff.I had to give him Haldol. Plan: We have place him on cefepime and vancomycin. Day #2 Follow up blood cultures and urine culture. We will monitor for further fevers and trend his white count to ensure it does not rise. (2) acute delirium superimposed on dementis with behavioral disturbance. Conclusion/Plan: He has dementia with behavioral disturbance at baseline and now he appears more altered likely due to sedatives he received. He had been receiving Zyprexa. He was seen by telepsych who recommended holding the Zyprexa initiating Seroquel. Suspect his delirium may be related to his underlying behavioral disturbance and potentially compounded by sedatives and the potential infection. We will try to limit the use of sedatives and we started him on Seroquel 25 mg 3 times daily as recommended by psychiatry. Also with 50 mg tid prn. I have given one dose of haldol for this afternoon's outburst. Qualifiers: Altered mental status type: delirium Qualified Code(s): R41.0 - Disorienta tion, unspecified (3) Dementia with behavioral disturbance Conclusion/Plan: He has dementia with behavioral disturbance at baseline and was recently changed from Seroquel to Zyprexa. I believe this change may have contributed to his worsening agitation. He was seen by psychiatry who recommended discontinuing Zyprexa and starting him on Seroquel as we will initiate this. We will continue two-point restraints as he is a harm to himself and staff. We did discontinue the restraints but will need to resume this afternoon. try again in 12 hours to see how he does. (4) Atrial fibrillation with RVR Conclusion/Plan: His rates range from the 80s up to the 120s. This is not a new diagnosis for him and he is on diltiazem at home. Currently appears to be rate controlled with rates in the 80s we will continue to monitor for the time being. We will look to resume his oral diltiazem if he can take p.o. consistently otherwise he will need IV diltiazem or Lopressor to control his heart rate. (5) Chronic indwelling Morales catheter Conclusion/Plan: He is a chronic indwelling Morales catheter for chronic urinary retention. This was replaced given the concern for catheter associated UTI.
[2021-03-08] MEDS: SODIUM CHLORIDE FLUSH 0.9% 10 ML SYRINGE IVP SCH ×3 (01:16→17:41)
[2021-03-08] MEDS: QUEtiapine 25 MG TABLET PO SCH ×3 (06:05→21:36)
[2021-03-08 06:24] LABS: BASOPHILS % (AUTO) 0.7 %; EOSINOPHILS # (AUTO) 0.1 10^3/uL (0.0-0.7); HCT - HEMATOCRIT 38.3 % (42.0-52.0); HGB - HEMOGLOBIN 13.2 g/dL (14.0-18.0); LYMPHOCYTES # (AUTO) 1.3 10^3/uL (1.5-3.5); LYMPHOCYTES % (AUTO) 23.7 %; MEAN CORPUSCULAR HEMOGLOBIN 32.1 pg (27.0-31.0); MEAN CORPUSCULAR HGB CONC 34.5 g/dL (32.0-36.0); MEAN CORPUSCULAR VOLUME 93.2 fL (80.0-94.0); MONOCYTES # (AUTO) 0.8 10^3/uL (0.0-1.0); NEUTROPHILS # (AUTO) 3.2 10^3/uL (1.5-6.6); NEUTROPHILS % (AUTO) 58.4 %; PLT - PLATELET COUNT 125 10^3/uL (130-450); RED BLOOD COUNT 4.11 10^6/uL (4.70-6.10); RED CELL DISTRIBUTION WIDTH 12.3 % (12.0-15.0); WHITE BLOOD COUNT 5.5 x10^3/uL (4.8-10.8)
[2021-03-08 06:31] LABS: CALCIUM 8.7 mg/dL (8.5-10.3); POTASSIUM 3.5 mmol/L (3.5-5.0)
[2021-03-08] MEDS: ENOXAPARIN 40 MG/0.4 ML SYRINGE SUBQ SCH (08:22)
[2021-03-08] MEDS: CEFEPIME 2 GM in SODIUM CHLORIDE 0.9% MINIBAG 100 ML IV SCH ×2 (08:22→21:35)
[2021-03-08] MEDS: DIVALPROEX DR 250 MG TABLET PO SCH ×2 (10:41→21:36)
[2021-03-08] MEDS: DIVALPROEX DR 125 MG TABLET PO SCH ×3 (10:41→21:36)
[2021-03-08] MEDS: diltiaZEM CD 240 MG CAPSULE PO SCH (10:41)
--- NOTE | 2021-03-08 18:55 | PROVIDER PROGRESS NOTE ---
Subjective - Prog Note Date Prog Note Date: 03/08/21 Prog Note Time: 18:51 - Subjective Subjective: He does not have much appetite today. But he has been getting up and sitting in a chair. Quite. Has not needed restraints today. Current Medications - Current Medications Current Medications: Active Medications Acetaminophen (Acetaminophen 325 Mg Tablet) 650 mg PO Q4HR PRN PRN Reason: Pain 1 to 4 Last Admin: 03/07/21 22:58 Dose: 650 mg Documented by: Diltiazem HCl (Diltiazem Cd 240 Mg Capsule) 240 mg PO DAILY [facility] Last Admin: 03/08/21 10:41 Dose: 240 mg Documented by: Divalproex Sodium (Divalproex Dr 125 Mg Tablet) 125 mg PO 0900,1200,2100 [facility] Last Admin: 03/08/21 12:20 Dose: 125 mg Documented by: Divalproex Sodium (Divalproex Dr 250 Mg Tablet) 250 mg PO BID [facility] Last Admin: 03/08/21 10:41 Dose: 250 mg Documented by: Enoxaparin Sodium (Enoxaparin 40 Mg/0.4 Ml Syringe) 40 mg SUBQ DAILY [facility] Last Admin: 03/08/21 08:22 Dose: 40 mg Documented by: Cefepime HCl 2 gm/ Sodium (Chloride) 100 mls @ 200 mls/hr IV BID [facility] Last Infusion: 03/08/21 08:59 Dose: Infused Documented by: Ondansetron HCl (Ondansetron Odt 4 Mg Tablet) 4 mg TL Q6HR PRN PRN Reason: Nausea / Vomiting Ondansetron HCl (Ondansetron 4 Mg/2 Ml Vial) 4 mg IVP Q6HR PRN PRN Reason: Nausea / Vomiting Quetiapine Fumarate (Quetiapine 25 Mg Tablet) 50 mg PO TID PRN PRN Reason: Agitation Last Admin: 03/06/21 16:32 Dose: 50 mg Documented by: Quetiapine Fumarate (Quetiapine 25 Mg Tablet) 25 mg PO TID [facility] Last Admin: 03/08/21 13:02 Dose: 25 mg Documented by: Sodium Chloride (Sodium Chloride Flush 0.9% 10 Ml Syringe) 10 ml IVP PRN PRN PRN Reason: NEEDED PER PROVIDER ORDERS Sodium Chloride (Sodium Chloride Flush 0.9% 10 Ml Syringe) 10 ml IVP 0100,0900,1700 [facility] Last Admin: 03/08/21 17:41 Dose: 10 ml Documented by: Bisacodyl Supp [Dulcolax Supp] 10 mg [place] PRN PRN 03/19/20 Loperamide [Imodium] 2 mg PO QID PRN 03/19/20 Mag Hydrox/Aluminum Hyd/Simeth [Antacid-Antigas Suspension] 30 ml PO Q4HR PRN 03/19/20 Magnesium Hydroxide [Milk of Magnesia] 30 ml PO DAILY PRN 03/19/20 Melatonin 3 mg PO QPM 03/19/20 Memantine [Namenda] 10 mg PO QPM 03/19/20 Tamsulosin [Flomax] 0.4 mg PO QPM 03/19/20 lisinopriL [Prinivil] 5 mg PO DAILY 03/19/20 Cyanocobalamin (Vitamin B-12) [Vitamin B-12 (1000 mcg sublingual)] 1,000 mcg SL DAILY 10/27/20 Folic Acid 1 mg PO DAILY 10/27/20 Acetaminophen [Acetaminophen Extra Strength] 1,000 mg PO BID 03/06/21 Acetaminophen [Acetaminophen Extra Strength] 500 mg PO BID PRN 03/06/21 Divalproex [Carlie Mims] 125 mg PO QDLUNCH 03/06/21 Divalproex [Carlie Mims] 375 mg PO BID 03/06/21 OLANZapine [Zyprexa] 2.5 mg PO DAILY PRN 03/06/21 OLANZapine [Zyprexa] 5 mg PO BID 03/06/21 dilTIAZem HCL [Diltiazem 24Hr ER (Xr)] 240 mg PO QPM 03/06/21 Objective - Vital Signs/Intake & Output Reviewed Vital Signs: Yes Vital Signs: Vital Signs x48h Temp Pulse Resp BP Pulse Ox 03/08/21 14:00 36.8 C 68 18 109/61 98 Intake & Output: Intake & Output 03/05/21 03/06/21 03/07/21 03/08/21 23:59 23:59 23:59 23:59 Intake Total 2440 1580 1420 Output Total 2150 2775 1800 Balance 290 -1195 -380 - Objective General Appearance: positive: No acute distress, Alert, Other (Does not make any sense. Does not know where he is, why he is here. But he is cooperative. Smiling.) Eyes Bilateral: positive: PERRL, EOMI ENT: positive: No signs of dehydration Neck: positive: No JVD Respiratory: positive: No respiratory distress. negative: Wheezes, Rales, Rhonchi Cardiovascular: positive: Regular rate & rhythm. negative: Gallop/S4, Friction rub Abdomen: positive: Non-tender, No organomegaly, Nml bowel sounds, No distention Skin: positive: Warm, Dry Extremities: positive: Non-tender, Full ROM, No pedal edema Neurologic/Psychiatric: positive: CN's nml (2-12), Disoriented to person, Disoriented to place, Disoriented to time, Other (Ataxia, off balance.). negative: Motor nml - Lab Results Fish Bones: 03/08/21 05:50 03/08/21 05:50 Other Labs: Lab Results x24hrs 03/08/21 03/08/21 Range/Units 05:50 05:50 WBC 5.5 (4.8-10.8) x10^3/uL RBC 4.11 L (4.70-6.10) 10^6/uL Hgb 13.2 L (14.0-18.0) g/dL Hct 38.3 L (42.0-52.0) % MCV 93.2 (80.0-94.0) fL MCH 32.1 H (27.0-31.0) pg MCHC 34.5 (32.0-36.0) g/dL RDW 12.3 (12.0-15.0) % Plt Count 125 L (130-450) 10^3/uL MPV 10.0 (7.4-11.4) fL Neut # (Auto) 3.2 (1.5-6.6) 10^3/uL Lymph # (Auto) 1.3 L (1.5-3.5) 10^3/uL Davis # (Auto) 0.8 (0.0-1.0) 10^3/uL Eos # (Auto) 0.1 (0.0-0.7) 10^3/uL Baso # (Auto) 0.0 (0.0-0.1) 10^3/uL Absolute Nucleated RBC 0.00 x10^3/uL Nucleated RBC % 0.0 /100WBC Sodium 141 (135-145) mmol/L Potassium 3.5 (3.5-5.0) mmol/L Chloride 105 (101-111) mmol/L Carbon Dioxide 28 (21-32) mmol/L Anion Gap 8.0 (6-13) BUN 11 (6-20) mg/dL Creatinine 1.0 (0.6-1.2) mg/dL Estimated GFR (MDRD) 72 L (>89) Glucose 85 (70-100) mg/dL Calcium 8.7 (8.5-10.3) mg/dL ABX Reporting Has patient been on IV antibiotics over the past 48 hours?: Yes Assessment/Plan - Problem List (1) Catheter-associated urinary tract infection Impression: He was in the emergency room for 24 hours with in retrospect was most likely acute delirium. He has chronic cognitive deficit with behavioral disorder and is on Seroquel. Failed Zyprexa in the outpatient setting. Taken to the emergency room. Once in the emergency room was on Zyprexa but also spiked a fever and has a probable UTI. Concern is for an infection given was febrile. His white count was normal as well as lactic acid so there was no concern for sepsis. He is demented/altered unable to provide a history and this may potentially be colonization but given the fever, we will treat presumptively. Prior cultures grew Enterococcus and Pseudomonas. We have replaced the Morales catheter. Start of antibiotics. He is urine grew out ESBL E. coli. Resistant to ampicillin, cefazolin, ceftriaxone, ciprofloxacin, levofloxacin, nitrofurantoin. It is sensitive to Bactrim, imipenem, ertapenem, cefepime, and Unasyn. Plan: Vancomycin stopped, Day #3 of Cefipime There is no good coverage for him. His skin have to be cefepime for probably 5 to 7 days. (2) acute delirium superimposed on dementis with behavioral disturbance. Conclusion/Plan: He has dementia with behavioral disturbance at baseline and now he appears more altered likely due to sedatives he received. He had been receiving Zyprexa. He was seen by telepsych who recommended holding the Zyprexa initiating Seroquel. Suspect his delirium may be related to his underlying behavioral disturbance and potentially compounded by sedatives and the potential infection. We will try to limit the use of sedatives and we started him on Seroquel 25 mg 3 times daily as recommended by psychiatry. Also with 50 mg tid prn. He had actually started to clear by 03/06 evening so that restraints were down to 2 upper extremity restraints. 03/07 he was out of restraints completely. He was very happy to be put in a wheelchair and taken around [facility] to look out the window, to interact with everyone else. No behavioral issues until late in afternoon when he again started yelling, becoming belligerent, threatening staff.I had to give him Haldol. He slept the night and this am was sleepy but arouseable. NO problems in behavior today. Plan is to continue seroquel. Qualifiers: Altered mental status type: delirium Qualified Code(s): R41.0 - Disorientation, unspecified (3) Dementia with behavioral disturbance Conclusion/Plan: He has dementia with behavioral disturbance at baseline and was recently changed from Seroquel to Zyprexa. I believe this change may have contributed to his worsening agitation. He was seen by psychiatry who recommended discontinuing Zyprexa and starting him on Seroquel as we will initiate this. We will continue two-point restraints as he is a harm to himself and staff. We did discontinue the restraints but will need to resume Wrist restraints on March 07 afternoon. (4) Atrial fibrillation with RVR Conclusion/Plan: His rates range from the 80s up to the 120s. This is not a new diagnosis for him and he is on diltiazem at home. Currently appears to be rate controlled with rates in the 80s we will continue to monitor for the time being. He is resumed on diltiazem p.o. Rate is controlled. (5) Chronic indwelling Morales catheter Conclusion/Plan: He is a chronic indwelling Morales catheter for chronic urinary retention. This was replaced given the concern for catheter associated UTI.
[2021-03-09] MEDS: SODIUM CHLORIDE FLUSH 0.9% 10 ML SYRINGE IVP SCH ×3 (00:50→17:09)
[2021-03-09 05:43] LABS: BASOPHILS % (AUTO) 0.6 %; EOSINOPHILS # (AUTO) 0.1 10^3/uL (0.0-0.7); EOSINOPHILS % (AUTO) 2.5 %; HCT - HEMATOCRIT 38.6 % (42.0-52.0); HGB - HEMOGLOBIN 13.5 g/dL (14.0-18.0); LYMPHOCYTES # (AUTO) 1.3 10^3/uL (1.5-3.5); MEAN CORPUSCULAR HEMOGLOBIN 32.1 pg (27.0-31.0); MEAN CORPUSCULAR VOLUME 91.7 fL (80.0-94.0); MEAN PLATELET VOLUME 9.8 fL (7.4-11.4); MONOCYTES # (AUTO) 0.6 10^3/uL (0.0-1.0); MONOCYTES % (AUTO) 11.6 %; NEUTROPHILS # (AUTO) 3.2 10^3/uL (1.5-6.6); NEUTROPHILS % (AUTO) 60.9 %; PLT - PLATELET COUNT 140 10^3/uL (130-450); RED BLOOD COUNT 4.21 10^6/uL (4.70-6.10); RED CELL DISTRIBUTION WIDTH 12.4 % (12.0-15.0); WHITE BLOOD COUNT 5.3 x10^3/uL (4.8-10.8)
[2021-03-09 05:54] LABS: CALCIUM 8.9 mg/dL (8.5-10.3); CREATININE 0.9 mg/dL (0.6-1.2); POTASSIUM 3.8 mmol/L (3.5-5.0)
[2021-03-09] MEDS: QUEtiapine 25 MG TABLET PO SCH ×3 (05:58→20:35)
[2021-03-09] MEDS: CEFEPIME 2 GM in SODIUM CHLORIDE 0.9% MINIBAG 100 ML IV SCH ×2 (09:30→20:21)
[2021-03-09] MEDS: diltiaZEM CD 240 MG CAPSULE PO SCH ×2 (09:44→11:09)
[2021-03-09] MEDS: DIVALPROEX DR 250 MG TABLET PO SCH ×3 (09:44→20:35)
[2021-03-09] MEDS: ENOXAPARIN 40 MG/0.4 ML SYRINGE SUBQ SCH (09:44)
[2021-03-09] MEDS: DIVALPROEX DR 125 MG TABLET PO SCH ×4 (09:44→20:35)
[2021-03-09 10:23] LABS: VANCOMYCIN,TROUGH 7.4 ug/mL (10.0-20.0)
--- NOTE | 2021-03-09 18:42 | PROVIDER PROGRESS NOTE ---
Progress Note March 09, 2021 6:35 PM He has been very sleepy today. Has not needed more restraints. But very impulsive. Walks around the room, system of the chair, gets back in bed. Then gets up and does it all over again. Active Medications Acetaminophen (Acetaminophen 325 Mg Tablet) 650 mg PO Q4HR PRN PRN Reason: Pain 1 to 4 Last Admin: 03/07/21 22:58 Dose: 650 mg Documented by: Diltiazem HCl (Diltiazem Cd 240 Mg Capsule) 240 mg PO DAILY [facility] Last Admin: 03/09/21 11:09 Dose: Not Given Documented by: Divalproex Sodium (Divalproex Dr 125 Mg Tablet) 125 mg PO 0900,1200,2100 [facility] Last Admin: 03/09/21 13:28 Dose: 125 mg Documented by: Divalproex Sodium (Divalproex Dr 250 Mg Tablet) 250 mg PO BID [facility] Last Admin: 03/09/21 11:10 Dose: Not Given Documented by: Enoxaparin Sodium (Enoxaparin 40 Mg/0.4 Ml Syringe) 40 mg SUBQ DAILY [facility] Last Admin: 03/09/21 09:44 Dose: 40 mg Documented by: Cefepime HCl 2 gm/ Sodium (Chloride) 100 mls @ 200 mls/hr IV BID [facility] Last Infusion: 03/09/21 10:00 Dose: Infused Documented by: Ondansetron HCl (Ondansetron Odt 4 Mg Tablet) 4 mg TL Q6HR PRN PRN Reason: Nausea / Vomiting Ondansetron HCl (Ondansetron 4 Mg/2 Ml Vial) 4 mg IVP Q6HR PRN PRN Reason: Nausea / Vomiting Quetiapine Fumarate (Quetiapine 25 Mg Tablet) 50 mg PO TID PRN PRN Reason: Agitation Last Admin: 03/06/21 16:32 Dose: 50 mg Documented by: Quetiapine Fumarate (Quetiapine 25 Mg Tablet) 25 mg PO TID [facility] Last Admin: 03/09/21 14:35 Dose: 25 mg Documented by: Sodium Chloride (Sodium Chloride Flush 0.9% 10 Ml Syringe) 10 ml IVP PRN PRN PRN Reason: NEEDED PER PROVIDER ORDERS Sodium Chloride (Sodium Chloride Flush 0.9% 10 Ml Syringe) 10 ml IVP 0100,0900,1700 [facility] Last Admin: 03/09/21 17:09 Dose: 10 ml Documented by: Bisacodyl Supp [Dulcolax Supp] 10 mg [place] PRN PRN 03/19/20 Loperamide [Imodium] 2 mg PO QID PRN 03/19/20 Mag Hydrox/Aluminum Hyd/Simeth [Antacid-Antigas Suspension] 30 ml PO Q4HR PRN 03/19/20 Magnesium Hydroxide [Milk of Magnesia] 30 ml PO DAILY PRN 03/19/20 Melatonin 3 mg PO QPM 03/19/20 Memantine [Namenda] 10 mg PO QPM 03/19/20 Tamsulosin [Flomax] 0.4 mg PO QPM 03/19/20 lisinopriL [Prinivil] 5 mg PO DAILY 03/19/20 Cyanocobalamin (Vitamin B-12) [Vitamin B-12 (1000 mcg sublingual)] 1,000 mcg SL DAILY 10/27/20 Folic Acid 1 mg PO DAILY 10/27/20 Acetaminophen [Acetaminophen Extra Strength] 1,000 mg PO BID 03/06/21 Acetaminophen [Acetaminophen Extra Strength] 500 mg PO BID PRN 03/06/21 Divalproex [Carlie Mims] 125 mg PO QDLUNCH 03/06/21 Divalproex [Carlie Mims] 375 mg PO BID 03/06/21 OLANZapine [Zyprexa] 2.5 mg PO DAILY PRN 03/06/21 OLANZapine [Zyprexa] 5 mg PO BID 03/06/21 dilTIAZem HCL [Diltiazem 24Hr ER (Xr)] 240 mg PO QPM 03/06/21 Temperature is 36.7. Heart rate 60. Blood pressure 113/73. Respirations 18. 98% on room air. Alert elderly male, cooperative. Completely disoriented. While words are distinct, he cannot string them together to make sense in a sentence. He is from "somewhere". I am here "because". He does tell me he is not in any pain. Neck is supple. Lungs are clear. No respiratory distress. No crackles rhonchi wheezing. Abdomen is nontender, no fluid wave, normal bowel sounds. Skin is warm and dry No pedal edema Completely disoriented. He cannot tell me where he is, why he is here, who we are. Cranial nerves appear intact. He can be ataxic and get off balance and needs constant one-on-one setting. CMP is normal today. CBC is normal except for slight drop in hemoglobin of 13.5. Urine culture from admission is ESBL E. coli sensitive to cefepime. While it is sensitive to certain oral antibiotics such as Bactrim probably not a good choice. Assessment/plan 1. catheter associated urinary tract infection. He has a chronic indwelling Morales catheter present on admission. Plan: Was started on vancomycin on admission. He is is also started on cefepime. Vancomycin was stopped March 08 and today is day 4 of cefepime. Will need 5 to 7 days to clear his current urinary tract infection and then he can return to his intermediate facility. 2. Acute delirium superimposed on dementia with behavioral disturbance. Resolved. He did need extremity restraints at times, Zyprexa, Seroquel. We did a telepsych consult. Currently we are following telepsych recommendations with Patricio. 3. Dementia with behavioral disturbance. Treatment as above. 4. A. fib with RVR. Rate has been in the 60s to 80s all day long. Currently controlled. 5. History of seizure disorder on Depakote. That is currently being used.
[2021-03-10] MEDS: SODIUM CHLORIDE FLUSH 0.9% 10 ML SYRINGE IVP SCH ×2 (02:42→08:33)
[2021-03-10 05:47] LABS: BASOPHILS % (AUTO) 0.4 %; EOSINOPHILS # (AUTO) 0.1 10^3/uL (0.0-0.7); EOSINOPHILS % (AUTO) 2.2 %; HCT - HEMATOCRIT 40.6 % (42.0-52.0); LYMPHOCYTES # (AUTO) 1.2 10^3/uL (1.5-3.5); LYMPHOCYTES % (AUTO) 24.9 %; MEAN CORPUSCULAR HEMOGLOBIN 31.6 pg (27.0-31.0); MEAN CORPUSCULAR HGB CONC 34.5 g/dL (32.0-36.0); MEAN CORPUSCULAR VOLUME 91.6 fL (80.0-94.0); MEAN PLATELET VOLUME 9.6 fL (7.4-11.4); MONOCYTES # (AUTO) 0.7 10^3/uL (0.0-1.0); MONOCYTES % (AUTO) 13.5 %; NEUTROPHILS # (AUTO) 2.9 10^3/uL (1.5-6.6); NEUTROPHILS % (AUTO) 58.6 %; PLT - PLATELET COUNT 143 10^3/uL (130-450); RED BLOOD COUNT 4.43 10^6/uL (4.70-6.10); RED CELL DISTRIBUTION WIDTH 12.2 % (12.0-15.0)
[2021-03-10 05:56] LABS: CALCIUM 8.9 mg/dL (8.5-10.3); CREATININE 0.9 mg/dL (0.6-1.2); POTASSIUM 3.8 mmol/L (3.5-5.0)
[2021-03-10] MEDS: QUEtiapine 25 MG TABLET PO SCH (05:58)
[2021-03-10 07:37] VITALS: BP 121/78
[2021-03-10] MEDS: DIVALPROEX DR 250 MG TABLET PO SCH (08:21)
[2021-03-10] MEDS: DIVALPROEX DR 125 MG TABLET PO SCH (08:21)
[2021-03-10] MEDS: diltiaZEM CD 240 MG CAPSULE PO SCH (08:21)
[2021-03-10] MEDS: CEFEPIME 2 GM in SODIUM CHLORIDE 0.9% MINIBAG 100 ML IV SCH (08:30)
[2021-03-10] MEDS: ENOXAPARIN 40 MG/0.4 ML SYRINGE SUBQ SCH (08:37)
[2021-03-10] MEDS ORDERED: polyethylene glycoL 3350 17 GM PACKET PO SCH (09:00)
[2021-03-10 12:09] LABS: CORONAVIRUS 229E-RESP PCR NOT DETECTED; CORONAVIRUS HKU1-RESP PCR NOT DETECTED; CORONAVIRUS NL63-RESP PCR NOT DETECTED; CORONAVIRUS OC43-RESP PCR NOT DETECTED; HUMAN METAPNEUMOVIRUS NOT DETECTED; INFLUENZA A- RESP PCR PANEL NOT DETECTED; INFLUENZA B - RESP PCR PANEL NOT DETECTED; PARAINFLUENZA VIRUS 1 NOT DETECTED; PARAINFLUENZA VIRUS 2 NOT DETECTED; PARAINFLUENZA VIRUS 3 NOT DETECTED; PARAINFLUENZA VIRUS 4 NOT DETECTED; RHINOVIRUS/ENTEROVIRUS NOT DETECTED; SARS-CoV-2 -RESP PCR PANEL NOT DETECTED
[2021-03-10 12:10] LABS: B. PARAPERTUSSIS- RESP PCR PAN NOT DETECTED; B. PERTUSSIS- RESP PCR PANEL NOT DETECTED; C. PNEUMONIAE- RESP PCR PANEL NOT DETECTED; M. PNEUMONIAE- RESP PCR PANEL NOT DETECTED; RSV- RESP PCR PANEL NOT DETECTED
--- NOTE | 2021-03-10 13:11 | Discharge Plan ---
Discharge Plan Problem Reviewed?: Yes Disposition: Home, Self Care Condition: Stable Prescriptions: QUEtiapine [SEROquel] 50 mg PO TID PRN #60 tablet PRN Reason: Agitation QUEtiapine [SEROquel] 25 mg PO TID #60 tablet Diet: Regular Activity Restrictions: Activity as Tolerated Shower Restrictions: No (fall precaution) Instruction Topics: Quetiapine tablets, Delirium Care, UTI, Delirium Health Concerns: UTI, Delirium Plan of Treatment: pt Was found to have UTI. patient finished treatment course in hospital. pt may Continue catheter care, Follow-up with urologist as outpatient. Patient was found to have acute delirium in the hospital. Patient had tele psychiatrist consulted in the hospital. Patient is prescribed a new medicine Seroquel. Per psychiatrist's recommendation, hold his ZYPREXA. now patient return to his baseline. Patient may continue to have nurse support and nursing care in [facility], Patient may follow-up with his PCP to continue medical management, Patient may follow-up with psychiatrist as outpatient. Care Goals: Stabilization and improvement of his medical conditions Additional Instructions or Follow Up instructions: Patient may follow-up with his PCP in 1 week, Patient may follow-up with psyc hiatrist and urologist as outpatient. No Smoking: If you smoke, Please STOP! Call for help. Follow-up with: Sayra Branch ARNP [Primary Care Provider] -
--- NOTE | 2021-03-10 13:30 | DISCHARGE SUMMARY ---
"Discharge Summary Admit Date: 03/06/21 Discharge Date: 03/10/21 Discharging Provider: Rigo Gandara Primary Care Provider: Sayra Moody Condition at Discharge: Stable Discharge Disposition: 01 Home, Self Care Discharge Facility Name: [facility] - DIAGNOSES Discharge Diagnoses with Status of Each Condition: (1) Catheter-associated urinary tract infection pt finished the treatment course for his UTI in hospital. Pt Was found to have ESBL Urinary tract infection. (2) acute delirium superimposed on dementis with behavioral disturbance. return to pt's basal line. pt's acute delirium is controlled and resolved. pt was consulted with tele psychiatrist. pt is prescribed Seroquel per tele psychiatrist's Recommendation. Patient's home medication Zyprexa Is hold now. Patient may follow-up with psychiatrist as outpatient (3) Dementia with behavioral disturbance As patient's baseline, patient may follow-up with his PCP to continue management (4) Atrial fibrillation with RVR Stable, HR Rate is controlled. Resume home medications (5) Chronic indwelling Morales catheter Patient's Morales catheter was replaced given the concern for catheter associated UTI In hospital, Patient may continue to have Morales care in nurse facility and follow-up with urologist as outpatient - HPI History of Present Illness: refer from Dr. Charles's HPI on 03/06/21 This is a 80-year-old male with a history of dementia with behavioral disturbance, chronic indwelling Morales catheter, ablation who presented to the emergency department yesterday due to increasing agitation and combative behavior. He was reportedly using issue in Morales catheter bag to hit staff. Per the emergency department physician, the patient was reportedly taking Seroquel but this was recently switched to Zyprexa. Telepsych was consulted yesterday evening who recommended continuing Zyprexa and increasing the dose to 7.5 mg twice daily and to add 2.5 mg as needed. The patient was still quite agitated and pulling at restraints. It was then noted overnight that the patient became febrile with a temperature of 100.4 degrees. Labs revealed no white count and normal lactic acid. A urine was obtained which is of infection although the patient does have a chronic indwelling Morales catheter. Given his worsening agitation and fever, the concern was for a urinary tract infection contributing to his agitation. [facility] was contacted again by the emergency department who recommended discontinuing Zyprexa and starting him on Seroquel. Given this, medicine was consulted for admission. The patient himself is unable to verbalize how he is feeling. When asked where he is or if he has pain, he just mumbles. I am unable to discuss goals of care the patient due to his dementia/altered mental status. Review of prior records reveal that he has a POLST form stating he is a DNR. - CONSULTS | PROCEDURES Consultations: Tele psychiatrist consult - HOSPITAL COURSE Hospital Course: Patient was admitted for increasing agitation and combative behavior. Patient was found to have urinary tract infection As well. Patient had tele psychiatrist consult. Seroquel medication was recommended by telemetry psychiatrist for patient. Patient was found to have ESBL urinary tract infection. Patient was treated with intravenous antibiotics according to sensitivity study. Patient finished the antibiotics treatment course. After treatment patient's acute delirium and agitation is controlled, Patient's behaviours return to his baseline.Patient was discharged and [facility] to [facility]. - ALLERGIES Allergies/Adverse Reactions: Allergies Allergy/AdvReac Type Severity Reaction Status Date / Time No Known Drug Allergies Allergy Verified 03/05/21 15:38 - MEDICATIONS Home Medications: Ambulatory Orders Medication Instructions Recorded Confirmed Bisacodyl Supp [Dulcolax Supp] 10 mg [place] PRN PRN 03/19/20 03/06/21 Loperamide [Imodium] 2 mg PO QID PRN 03/19/20 03/06/21 Mag Hydrox/Aluminum Hyd/Simeth 30 ml PO Q4HR PRN 03/19/20 03/06/21 [Antacid-Antigas Suspension] Magnesium Hydroxide [Milk of 30 ml PO DAILY PRN 03/19/20 03/06/21 Magnesia] Melatonin 3 mg PO QPM 03/19/20 03/06/21 Memantine [Namenda] 10 mg PO QPM 03/19/20 03/06/21 Tamsulosin [Flomax] 0.4 mg PO QPM 03/19/20 03/06/21 lisinopriL [Prinivil] 5 mg PO DAILY 03/19/20 03/06/21 Cyanocobalamin (Vitamin B-12) 1,000 mcg SL DAILY 10/27/20 03/06/21 [Vitamin B-12 (1000 mcg sublingual)] Folic Acid 1 mg PO DAILY 10/27/20 03/06/21 Acetaminophen [Acetaminophen Extra 1,000 mg PO BID 03/06/21 03/06/21 Strength] Acetaminophen [Acetaminophen Extra 500 mg PO BID PRN 03/06/21 03/06/21 Strength] Divalproex [Carlie Mims] 125 mg PO QDLUNCH 03/06/21 03/06/21 Divalproex [Carlie Mims] 375 mg PO BID 03/06/21 03/06/21 dilTIAZem HCL [Diltiazem 24Hr ER 240 mg PO QPM 03/06/21 03/06/21 (Xr)] QUEtiapine [SEROquel] 25 mg PO TID #60 tablet 03/10/21 QUEtiapine [SEROquel] 50 mg PO TID PRN #60 tablet 03/10/21 - PHYSICAL EXAM AT DISCHARGE General Appearance: positive: No acute distress, Alert. negative: Lethargic Eyes Bilateral: positive: Normal inspection, No lid inflammation ENT: positive: ENT inspection nml, No signs of dehydration. negative: Purulent nasal drainage Neck: positive: Nml inspection, Trachea midline. negative: Thyromegaly, Tracheal deviation Respiratory: positive: Chest non-tender, No respiratory distress. negative: Wheezes Cardiovascular: positive: Regular rate & rhythm, No murmur. negative: Tachycardia, Bradycardia, Systolic murmur Peripheral Pulses: positive: 2+ Abdomen: positive: Non-tender, Nml bowel sounds, No distention. negative: Tenderness Back: positive: Nml inspection Skin: positive: Color nml, Warm, Dry. negative: Cyanosis Extremities: positive: Non-tender, Full ROM, Nml appearance. negative: Calf tenderness Neurologic/Psychiatric: positive: Motor nml, Sensation nml. negative: Weakness, Sensory loss, Facial droop, Slurred/abnml speech - LABS Result Diagrams: 03/10/21 05:39 03/10/21 05:39 - FOLLOW UP Follow Up: pt Was found to have UTI. patient finished treatment course in hospital. pt may Continue catheter care, Follow-up with urologist as outpatient. Patient was found to have acute delirium in the hospital. Patient had tele psychiatrist consulted in the hospital. Patient is prescribed a new medicine Seroquel. Per psychiatrist's recommendation, hold his ZYPREXA. now patient return to his baseline. Patient may continue to have nurse support and nursing care in [facility], Patient may follow-up with his PCP to continue medical management, Patient may follow-up with psychiatrist as outpatient. Patient may follow-up with his PCP in 1 week, Patient may follow-up with psychiatrist and urologist as outpatient. - TIME SPENT Time Spent in Discharge (Minutes): 30"
[2021-03-10 13:58] LABS: VALPROIC ACID (DEPAKOTE) 47.2 ug/mL
== END 2021-03-10 14:47 | disposition home or self-care (01) | DRG 699 ==
LOC: EDBD → EDUNIT# → SUPCPDRO 15:30 → ED 15:30 → ICU 03-06 05:22 → MS3 03-07 14:32 → OBSVTOIN 03-07 17:32
PROVIDERS: ADMIT Internal Medicine; ATTEND Nurse Practitioner Gerontology
DX: T83.518A Infection and inflammatory reaction due to other urinary catheter, initial encounter (principal); F03.91 Unspecified dementia, unspecified severity, with behavioral disturbance; F05 Delirium due to known physiological condition; N39.0 Urinary tract infection, site not specified; I48.91 Unspecified atrial fibrillation; I11.0 Hypertensive heart disease with heart failure; I50.9 Heart failure, unspecified; B96.20 Unspecified Escherichia coli [E. coli] as the cause of diseases classified elsewhere; Z20.822 Contact with and (suspected) exposure to COVID-19; F41.9 Anxiety disorder, unspecified; Z66 Do not resuscitate; Z78.1 Physical restraint status; Z79.899 Other long term (current) drug therapy
CPT/HCPCS: 36415; 71045; 76770; 80048; 80053; 80164; 80202; 80306; 80307; 81001; 83605; 83690; 84443; 85025; 87040; 87086; 87181; 87631; 93005; 96365; 96366; 96367; 96372; 96375; 96376; 99285; A9270; G0378; G0425; G0480; J1650; J3370; Q3014; 0202U; 80320; 80329

== ENCOUNTER 2021-03-10 14:45 | Outpatient (CLI) | payer MEDICARE, BC | END 2021-03-10 14:46 | disposition home or self-care (01) | LOC: EMS 14:45 | PROVIDERS: ATTEND Nurse Practitioner Gerontology | DX: R41.0 Disorientation, unspecified (principal) | CPT/HCPCS: A0425; A0428 ==

== ENCOUNTER 2021-04-10 21:53 | Outpatient (CLI) | payer MEDICARE, BC | END 2021-04-10 21:54 | disposition critical access hospital (66) | LOC: EMS 21:53 | DX: T83.091A Other mechanical complication of indwelling urethral catheter, initial encounter (principal); R33.9 Retention of urine, unspecified | CPT/HCPCS: A0425; A0429 ==

== ENCOUNTER 2021-04-10 22:09 | Emergency (ER) | payer MEDICARE, BC ==
[2021-04-10 22:22] VITALS: BP 116/66
--- NOTE | 2021-04-10 22:29 | ED Physician Documentation ---
History of Present Illness - Stated complaint Stated Complaint: - Chief complaint Chief Complaint: Abd Pain - History obtained from History obtained from: Patient, EMS - History of Present Illness Timing: Today Pain level max: 0 Pain level now: 0 - Additonal information Additional information: Patient with dementia sent over from the [facility] today for no urine output from his Morales catheter for the past 12 hours. They do not have anyone there to change the catheter tonight. Patient has no complaints. Review of Systems Unable to obtain: Dementia PD PAST MEDICAL HISTORY - Past Medical History Past Medical History: Yes Cardiovascular: Congestive heart failure, Hypertension Respiratory: None Neuro: Dementia Endocrine/Autoimmune: None GI: None : Indwelling catheter HEENT: None Psych: Anxiety Musculoskeletal: None Derm: None - Past Surgical History Past Surgical History: No - Present Medications Home Medications: Ambulatory Orders Medication Instructions Recorded Confirmed Melatonin 3 mg PO QPM 03/19/20 04/10/21 Memantine [Namenda] 10 mg PO QPM 03/19/20 04/10/21 Tamsulosin [Flomax] 0.4 mg PO QPM 03/19/20 04/10/21 lisinopriL [Prinivil] 5 mg PO DAILY 03/19/20 04/10/21 Cyanocobalamin (Vitamin B-12) 1,000 mcg SL DAILY 10/27/20 04/10/21 [Vitamin B-12 (1000 mcg sublingual)] Folic Acid 1 mg PO DAILY 10/27/20 04/10/21 Acetaminophen [Acetaminophen Extra 1,000 mg PO BID 03/06/21 04/10/21 Strength] Divalproex Dr Susi Mims] 125 mg PO QDLUNCH 03/06/21 04/10/[address] Susi Mims] 375 mg PO BID 03/06/21 04/10/21 dilTIAZem HCL [Diltiazem 24Hr ER 240 mg PO QPM 03/06/21 04/10/21 (Xr)] QUEtiapine [SEROquel] 25 mg PO TID #60 tablet 03/10/21 04/10/21 Furosemide [Lasix] 20 mg PO DAILY 04/10/21 04/10/21 - Allergies Allergies/Adverse Reactions: Allergies Allergy/AdvReac Type Severity Reaction Status Date / Time No Known Drug Allergies Allergy Verified 03/05/21 15:38 - Social History Does the pt smoke?: No Smoking Status: Never smoker Does the pt drink ETOH?: No Does the pt have substance abuse?: No - Immunizations Immunizations are current?: No - POLST Patient has POLST: No PD ED PE NORMAL - Vitals Vital signs reviewed: Yes - General General: No acute distress, Well developed/nourished - HEENT HEENT: PERRL - Cardiac Cardiac: RRR - Respiratory Respiratory: No respiratory distress, Clear bilaterally - Abdomen Abdomen: Soft, Non tender, Non distended - Derm Derm: Warm and dry - Extremities Extremities: No edema Results - Vitals Vitals: Vital Signs - 24 hr 04/10/21 22:16 Temperature 36 C L Heart Rate 54 L Respiratory 18 Rate Blood Pressure 116/66 O2 Saturation 100 Oxygen O2 Source Room air PD MEDICAL DECISION MAKING - ED course Complexity details: considered differential ED course: Morales catheter was replaced. Draining urine freely. The old catheter appeared to be clogged. This document was made in part using voice recognition software. While efforts are made to proofread this document, sound alike and grammatical errors may occur. Departure - Departure Disposition: 01 Home, Self Care Clinical Impression: Urinary retention Morales catheter problem Qualifiers: Encounter type: initial encounter Qualified Code(s): T83.9XXA - Unspecified complication of genitourinary prosthetic device, implant and graft, initial encounter Condition: Good Instructions: ED Catheter Care Morales Follow-Up: your,doctor as needed [Other] Comments: Your catheter was replaced tonight. Please follow-up with your doctor as needed for further care. Discharge Date/Time: 04/10/21 22:45
== END 2021-04-10 22:45 | disposition home or self-care (01) ==
LOC: EDUNIT# → ED 22:09
DX: R33.9 Retention of urine, unspecified (principal); T83.091A Other mechanical complication of indwelling urethral catheter, initial encounter
CPT/HCPCS: 51702; 99281; 99283

== ENCOUNTER 2021-04-10 22:43 | Outpatient (CLI) | payer MEDICARE, BC | END 2021-04-10 22:44 | disposition home or self-care (01) | LOC: EMS 22:43 | PROVIDERS: ATTEND Emergency Medicine | DX: F03.90 Unspecified dementia, unspecified severity, without behavioral disturbance, psychotic disturbance, mood disturbance, and anxiety (principal) | CPT/HCPCS: A0425; A0428 ==

== ENCOUNTER 2021-05-03 14:47 | Outpatient (CLI) | payer MEDICARE, BC | END 2021-05-03 14:48 | disposition critical access hospital (66) | LOC: EMS 14:47 | DX: R45.6 Violent behavior (principal) | CPT/HCPCS: A0425; A0429 ==

== ENCOUNTER 2021-05-03 15:12 | Emergency (ER) | payer MEDICARE, BC ==
--- NOTE | 2021-05-03 15:36 | ED Physician Documentation ---
PD HPI ALTERED MENTAL STATUS - Stated complaint Stated Complaint: AGGRESSIVE - History obtained from History obtained from: Patient, Caregiver - History of Present Illness Timing - onset: Today (per report to medics from [facility], the patient was aggressive and seemed unhappy, threw a chair to the side. Was not given any extra medications from his PRN list.) Timing - details: Gradual onset (reportedly he was irritable and verbal to staff today.), Waxing and waning Quality / character: Memory Loss (chronic due to dementia), Agitated (today), Combative Associated symptoms: No: Fever, Headache, NVD Contributing factors: No: Anticoagulated, Recent med change, Recent illness Basline status: Ambulatory, Confused Treatment [employer]: Accucheck Similar symptoms before: Diagnosis (dementia with some behavioral disturbance. On regular meds. No reported change.) Recently seen: Emergency Dept (couple months ago with some trouble with low.) Review of Systems Unable to obtain: Dementia (though is aware of and can verbalize current symptoms), Other (info from [facility] delivered through EMS) Constitutional: denies: Fever Cardiac: denies: Chest pain / pressure Respiratory: denies: Cough GI: reports: Abdominal Pain (cramping pain lower abd midline.). denies: Vomiting Neurologic: denies: Near syncope, Headache PD PAST MEDICAL HISTORY - Past Medical History Cardiovascular: Congestive heart failure, Hypertension Respiratory: None Neuro: Dementia Endocrine/Autoimmune: None GI: None : Indwelling catheter HEENT: None Psych: Anxiety Musculoskeletal: None Derm: None - Past Surgical History Past Surgical History: No - Present Medications Home Medications: Ambulatory Orders Medication Instructions Recorded Confirmed Melatonin 3 mg PO QPM 03/19/20 04/10/21 Memantine [Namenda] 10 mg PO QPM 03/19/20 04/10/21 Tamsulosin [Flomax] 0.4 mg PO QPM 03/19/20 04/10/21 lisinopriL [Prinivil] 5 mg PO DAILY 03/19/20 04/10/21 Cyanocobalamin (Vitamin B-12) 1,000 mcg SL DAILY 10/27/20 04/10/21 [Vitamin B-12 (1000 mcg sublingual)] Folic Acid 1 mg PO DAILY 10/27/20 04/10/21 Acetaminophen [Acetaminophen Extra 1,000 mg PO BID 03/06/21 04/10/21 Strength] Divalproex [Depana luisate ] 125 mg PO QDLUNCH 03/06/21 04/10/[address] [Depakote ] 375 mg PO BID 03/06/21 04/10/21 dilTIAZem HCL [Diltiazem 24Hr ER 240 mg PO QPM 03/06/21 04/10/21 (Xr)] QUEtiapine [SEROquel] 25 mg PO TID #60 tablet 03/10/21 04/10/21 Furosemide [Lasix] 20 mg PO DAILY 04/10/21 04/10/21 Sulfamethox/Trimeth 800/160 1 each PO BID 5 Days #10 tablet 05/03/21 [Bactrim Ds 800/160] - Allergies Allergies/Adverse Reactions: Allergies Allergy/AdvReac Type Severity Reaction Status Date / Time No Known Drug Allergies Allergy Verified 05/03/21 15:51 - Social History Does the pt smoke?: No Smoking Status: Never smoker Does the pt drink ETOH?: No Does the pt have substance abuse?: No - Immunizations Immunizations are current?: No - POLST Patient has POLST: No PD ED PE NORMAL - Vitals Vital signs reviewed: Yes - General General: No: Alert and oriented X 3 (alert and conversant. Not oriented to place nor time. Present in the moment so able to give current symptoms. ) - Neck Neck: Supple, no meningeal sign, No adenopathy - Cardiac Cardiac: RRR, No murmur - Respiratory Respiratory: Clear bilaterally - Abdomen Abdomen: Normal bowel sounds, Soft, Non distended, No organomegaly, Other (some tenderness lower abd in suprapubic area. No guarding nor percussion tenderness. Low from penis and appears draining to legbag well. ) - Male Male : Other (normal genitalia with low in place. ) - Rectal Rectal: Deferred - Back Back: No CVA TTP - Derm Derm: Normal color, Warm and dry - Extremities Extremities: Normal ROM s pain, No edema - Neuro Neuro: No motor deficit, Normal speech - Psych Psych: No: Normal mood (he seems fidgety and wanting to walk around in room. Cooperative here and follow directions easily. Does seem a bit grumpy to me. ) Results - Vitals Vitals: Vital Signs - 24 hr 05/03/21 15:51 Temperature 36.4 C L Heart Rate 63 Respiratory 18 Rate Blood Pressure 156/82 H O2 Saturation 100 Oxygen O2 Source Room air - Labs Labs: Laboratory Tests 05/03/21 05/03/21 05/03/21 16:00 16:00 16:00 WBC 4.9 RBC 4.21 L Hgb 13.3 L Hct 38.9 L MCV 92.4 MCH 31.6 H MCHC 34.2 RDW 12.5 Plt Count 146 MPV 9.5 Neut # (Auto) 3.5 Lymph # (Auto) 0.8 L [place] # (Auto) 0.5 Eos # (Auto) 0.0 Baso # (Auto) 0.0 Absolute Nucleated RBC 0.00 Nucleated RBC % 0.0 Sodium 137 Potassium 4.4 Chloride 101 Carbon Dioxide 26 Anion Gap 10.0 BUN 32 H Creatinine 1.5 H Estimated GFR (MDRD) 45 L Glucose 108 H Calcium 9.2 Magnesium 2.2 Total Bilirubin 1.1 H AST 14 ALT 16 Alkaline Phosphatase 69 Total Protein 7.1 Albumin 4.0 Globulin 3.1 Albumin/Globulin Ratio 1.3 Lipase 26 TSH 5.18 Urine Color Urine Clarity Urine pH Ur Specific [place] Urine Protein Urine Glucose (UA) Urine Ketones Urine Occult Blood Urine Nitrite Urine Bilirubin Urine Urobilinogen Ur Leukocyte Esterase Urine RBC Urine WBC Ur Squamous Epith Cells Urine Bacteria Urine Mucus Ur Microscopic Review Urine Culture Comments Last Dose Date Last Dose Time Valproic Acid 05/03/21 05/03/21 16:00 16:00 WBC RBC Hgb Hct MCV MCH MCHC RDW Plt Count MPV Neut # (Auto) Lymph # (Auto) [place] # (Auto) Eos # (Auto) Baso # (Auto) Absolute Nucleated RBC Nucleated RBC % Sodium Potassium Chloride Carbon Dioxide Anion Gap BUN Creatinine Estimated GFR (MDRD) Glucose Calcium Magnesium Total Bilirubin AST ALT Alkaline Phosphatase Total Protein Albumin Globulin Albumin/Globulin Ratio Lipase TSH Urine Color DARK YELLOW Urine Clarity HAZY Urine pH 6.0 Ur Specific [place] >=1.030 H Urine Protein TRACE Urine Glucose (UA) NEGATIVE Urine Ketones TRACE Urine Occult Blood MODERATE H Urine Nitrite POSITIVE H Urine Bilirubin NEGATIVE Urine Urobilinogen 0.2 (NORMAL) Ur Leukocyte Esterase SMALL H Urine RBC 11-25 H Urine WBC >25 H Ur Squamous Epith Cells RARE Squamous Urine Bacteria Moderate H Urine Mucus Moderate Strands Ur Microscopic Review INDICATED Urine Culture Comments INDICATED Last Dose Date Not Reportable Last Dose Time Not Reportable Valproic Acid 49.3 PD MEDICAL DECISION MAKING - ED course Complexity details: reviewed results (has catheter and prior frequent UTIs/positive cultures. Got UA mainly due to complain of lower abd cramping and some "grumpy" mood. ), considered differential (reportedly aggressive earlier. Was not given any extra meds. He also seemed uncomfortable with lower abd discomfort. He is cooperative here though wanting to wander in room/herrera. ), d/w patient Departure - Departure Disposition: 01 Home, Self Care Clinical Impression: Catheter-associated urinary tract infection, Dementia with behavioral disturbance Condition: Stable Prescriptions: Sulfamethox/Trimeth 800/160 [Bactrim Ds 800/160] 1 each PO BID 5 Days #10 tablet Comments: Continue your usual medications. There is a as needed order for Seroquel that could be used if needed for agitation. We gave that dose of the medicine here and he seems to be doing more relaxed. He does have suggestion of urinary tract infection. This is fairly common within indwelling Low but given his behavior change and also some complaint of lower abdominal cramping, we can treat it with an antibiotic Bactrim twice daily for 5 days. He should have his basic chemistry panel of electrolytes and kidney function reassessed in 3 to 5 days. Discharge Date/Time: 05/03/21 18:47
[2021-05-03] MEDS ORDERED: QUEtiapine 25 MG TABLET PO STA (15:49)
[2021-05-03 15:53] VITALS: BP 156/82
[2021-05-03 16:08] LABS: BASOPHILS % (AUTO) 0.8 %; EOSINOPHILS % (AUTO) 0.4 %; HCT - HEMATOCRIT 38.9 % (42.0-52.0); HGB - HEMOGLOBIN 13.3 g/dL (14.0-18.0); LYMPHOCYTES # (AUTO) 0.8 10^3/uL (1.5-3.5); LYMPHOCYTES % (AUTO) 16.4 %; MEAN CORPUSCULAR HEMOGLOBIN 31.6 pg (27.0-31.0); MEAN CORPUSCULAR HGB CONC 34.2 g/dL (32.0-36.0); MEAN CORPUSCULAR VOLUME 92.4 fL (80.0-94.0); MEAN PLATELET VOLUME 9.5 fL (7.4-11.4); MONOCYTES # (AUTO) 0.5 10^3/uL (0.0-1.0); MONOCYTES % (AUTO) 10.9 %; NEUTROPHILS # (AUTO) 3.5 10^3/uL (1.5-6.6); NEUTROPHILS % (AUTO) 71.3 %; PLT - PLATELET COUNT 146 10^3/uL (130-450); RED BLOOD COUNT 4.21 10^6/uL (4.70-6.10); RED CELL DISTRIBUTION WIDTH 12.5 % (12.0-15.0); WHITE BLOOD COUNT 4.9 x10^3/uL (4.8-10.8)
[2021-05-03 16:16] LABS: BILIRUBIN,URINE NEGATIVE (NEGATIVE); GLUCOSE, URINE (UA) NEGATIVE (NEGATIVE); KETONES,URINE (UA) TRACE mg/dL (NEGATIVE); LEUKOCYTE ESTERASE, URINE SMALL (NEGATIVE); NITRITE,URINE POSITIVE (NEGATIVE); OCCULT BLOOD,URINE MODERATE (NEGATIVE); PROTEIN,URINE TRACE mg/dL (NEGATIVE); UROBILINOGEN,URINE 0.2 (NORMAL) E.U./dL (NORMAL)
[2021-05-03 16:22] LABS: ALBUMIN/GLOBULIN RATIO 1.3 (1.0-2.2); BILIRUBIN,TOTAL 1.1 mg/dL (0.2-1.0); CALCIUM 9.2 mg/dL (8.5-10.3); CREATININE 1.5 mg/dL (0.6-1.2); MAGNESIUM 2.2 mg/dL (1.7-2.8); POTASSIUM 4.4 mmol/L (3.5-5.0); TOTAL PROTEIN 7.1 g/dL (6.7-8.2)
[2021-05-03 16:24] LABS: CLARITY,URINE HAZY (CLEAR)
[2021-05-03 16:31] LABS: BACTERIA,URINE Moderate /HPF (None Seen); MUCUS,URINE Moderate Strands; SQUAMOUS EPITHELIAL CELL,UR RARE Squamous (<= Few); WBC,URINE >25 /HPF (0-3)
[2021-05-03 16:34] LABS: VALPROIC ACID (DEPAKOTE) 49.3 ug/mL
[2021-05-03] MEDS ORDERED: SULFAMETH/TRIMETH DS 800/160 MG TABLET PO STA (16:38)
== END 2021-05-03 18:47 | disposition home or self-care (01) ==
LOC: ED 15:12
DX: T83.511A Infection and inflammatory reaction due to indwelling urethral catheter, initial encounter (principal); N39.0 Urinary tract infection, site not specified; F03.91 Unspecified dementia, unspecified severity, with behavioral disturbance; I10 Essential (primary) hypertension
CPT/HCPCS: 36415; 80053; 80164; 81001; 83690; 83735; 84443; 85025; 87086; 87181; 99283; A9270; 81003

== ENCOUNTER 2021-05-03 18:36 | Outpatient (CLI) | payer MEDICARE, BC | END 2021-05-03 18:37 | disposition home or self-care (01) | LOC: EMS 18:36 | PROVIDERS: ATTEND Emergency Medicine | DX: F03.90 Unspecified dementia, unspecified severity, without behavioral disturbance, psychotic disturbance, mood disturbance, and anxiety (principal); R41.0 Disorientation, unspecified | CPT/HCPCS: A0425; A0428 ==

== ENCOUNTER 2021-07-27 19:20 | Outpatient (CLI) | payer MEDICARE, BC | END 2021-07-27 19:21 | disposition critical access hospital (66) | LOC: EMS 19:20 | DX: R46.89 Other symptoms and signs involving appearance and behavior (principal) | CPT/HCPCS: A0425; A0429 ==

== ENCOUNTER 2021-07-27 19:38 | Inpatient (IN) | payer MEDICARE, BC ==
[2021-07-27] MEDS ORDERED: QUEtiapine 25 MG TABLET PO STA (20:52)
[2021-07-27 20:58] LABS: BILIRUBIN,URINE NEGATIVE (NEGATIVE); GLUCOSE, URINE (UA) NEGATIVE (NEGATIVE); KETONES,URINE (UA) TRACE mg/dL (NEGATIVE); LEUKOCYTE ESTERASE, URINE LARGE (NEGATIVE); NITRITE,URINE POSITIVE (NEGATIVE); OCCULT BLOOD,URINE SMALL (NEGATIVE); PROTEIN,URINE 30 mg/dL (NEGATIVE); UROBILINOGEN,URINE 1 (NORMAL) E.U./dL (NORMAL)
[2021-07-27] MEDS ORDERED: diltiaZEM INJ 5 MG/ML VIAL IVP STA ×2 (21:21→22:44)
[2021-07-27 21:22] LABS: BACTERIA,URINE Many /HPF (None Seen); CLARITY,URINE SL. CLOUDY (CLEAR); SQUAMOUS EPITHELIAL CELL,UR RARE Squamous (<= Few); WBC,URINE >25 /HPF (0-3)
[2021-07-27] MEDS ORDERED: SODIUM CHLORIDE 0.9% 500 ML IV STA (21:30)
--- NOTE | 2021-07-27 21:31 | ED Physician Documentation ---
History of Present Illness - Stated complaint Stated Complaint: AGITATED/UTI - Chief complaint Chief Complaint: MHE - History obtained from History obtained from: EMS - Additonal information Additional information: Patient presenting for evaluation for increased agitation this evening. He has a history of dementia and resides at a memory care unit. Per triage note, patient became agitated at the facility and they were unable to redirect him or give him a as needed dose of his Seroquel.He has had previous ED visits for similar presentations. He does have a chronic indwelling Morales and does have a history of recurrent UTIs. Patient is not able to provide any history. Patient's RN, no other concerns were noted from EMS. Review of Systems Unable to obtain: Dementia PD PAST MEDICAL HISTORY - Past Medical History Cardiovascular: Congestive heart failure, Hypertension Respiratory: None Neuro: Dementia Endocrine/Autoimmune: None GI: None : Indwelling catheter HEENT: None Psych: Anxiety Musculoskeletal: None Derm: None - Past Surgical History Past Surgical History: No - Present Medications Home Medications: Ambulatory Orders Medication Instructions Recorded Confirmed Melatonin 3 mg PO QPM 03/19/20 04/10/21 Memantine [Namenda] 10 mg PO QPM 03/19/20 04/10/21 Tamsulosin [Flomax] 0.4 mg PO QPM 03/19/20 04/10/21 lisinopriL [Prinivil] 5 mg PO DAILY 03/19/20 04/10/21 Cyanocobalamin (Vitamin B-12) 1,000 mcg SL DAILY 10/27/20 04/10/21 [Vitamin B-12 (1000 mcg sublingual)] Folic Acid 1 mg PO DAILY 10/27/20 04/10/21 Acetaminophen [Acetaminophen Extra 1,000 mg PO BID 03/06/21 04/10/21 Strength] Divalproex [Carlie Mims] 125 mg PO QDLUNCH 03/06/21 04/10/21 Divalproex [Carlie Mims] 375 mg PO BID 03/06/21 04/10/21 dilTIAZem HCL [Diltiazem 24Hr ER 240 mg PO QPM 03/06/21 04/10/21 (Xr)] QUEtiapine [SEROquel] 25 mg PO TID #60 tablet 03/10/21 04/10/21 Furosemide [Lasix] 20 mg PO DAILY 04/10/21 04/10/21 Sulfamethox/Trimeth 800/160 1 each PO BID 5 Days #10 tablet 05/03/21 [Bactrim Ds 800/160] - Allergies Allergies/Adverse Reactions: Allergies Allergy/AdvReac Type Severity Reaction Status Date / Time No Known Drug Allergies Allergy Verified 07/27/21 19:56 - Social History Does the pt smoke?: No Smoking Status: Never smoker Does the pt drink ETOH?: No Does the pt have substance abuse?: No - Immunizations Immunizations are current?: No - POLST Patient has POLST: No PD ED PE NORMAL - General General: No acute distress, Well developed/nourished, Other (Soft wrist restraints) - HEENT HEENT: Atraumatic, PERRL - Neck Neck: Supple, no meningeal sign - Cardiac Cardiac: No murmur, Other (Tachycardic, irregularly irregular) - Respiratory Respiratory: No respiratory distress, Clear bilaterally - Abdomen Abdomen: Normal bowel sounds, Soft, Non tender - Male Male : Other (Morales catheter present) - Extremities Extremities: No deformity - Neuro Neuro: Other (Clear speech when he does answer a question although he is minimally cooperative, moves all extremities) Eye Opening: Spontaneous Results - Vitals Vitals: Vital Signs - 24 hr 07/27/21 07/27/21 07/27/21 19:45 19:50 21:48 Temperature 36.2 C L Heart Rate 92 120 H 106 H Respiratory 20 16 20 Rate Blood Pressure 134/86 H 134/86 H 133/98 H O2 Saturation 100 98 97 07/27/21 22:33 Temperature Heart Rate 150 H Respiratory Rate Blood Pressure O2 Saturation Oxygen O2 Source Room air - EKG (time done) 2104 Rate: Rate (enter#) (148) Rhythm: Atrial fibrillation Ischemia: No: ST elevation c/w ischemia - Labs Labs: Laboratory Tests 07/27/21 07/27/21 07/27/21 20:38 20:47 20:47 WBC 5.4 RBC 4.46 L Hgb 14.1 Hct 41.2 L MCV 92.4 MCH 31.6 H MCHC 34.2 RDW 12.8 Plt Count 172 MPV 10.4 Neut # (Auto) 3.8 Lymph # (Auto) 1.0 L [place] # (Auto) 0.5 Eos # (Auto) 0.0 Baso # (Auto) 0.0 Absolute Nucleated RBC 0.00 Nucleated RBC % 0.0 Sodium Potassium Chloride Carbon Dioxide Anion Gap BUN Creatinine Estimated GFR (MDRD) Glucose Calcium Magnesium Total Bilirubin AST ALT Alkaline Phosphatase Troponin I High Sens Total Protein Albumin Globulin Albumin/Globulin Ratio TSH 5.91 H Urine Color YELLOW Urine Clarity SL. CLOUDY Urine pH 7.0 Ur Specific [place] 1.020 Urine Protein 30 H Urine Glucose (UA) NEGATIVE Urine Ketones TRACE Urine Occult Blood SMALL H Urine Nitrite POSITIVE H Urine Bilirubin NEGATIVE Urine Urobilinogen 1 (NORMAL) Ur Leukocyte Esterase LARGE H Urine RBC 6-10 H Urine WBC >25 H Ur Squamous Epith Cells RARE Squamous Urine Bacteria Many H Ur Microscopic Review INDICATED Urine Culture Comments INDICATED 07/27/21 07/27/21 07/27/21 20:47 20:47 22:46 WBC RBC Hgb Hct MCV MCH MCHC RDW Plt Count MPV Neut # (Auto) Lymph # (Auto) [place] # (Auto) Eos # (Auto) Baso # (Auto) Absolute Nucleated RBC Nucleated RBC % Sodium 140 Potassium 4.0 Chloride 103 Carbon Dioxide 23 Anion Gap 14.0 H BUN 26 H Creatinine 1.1 Estimated GFR (MDRD) 65 L Glucose 108 H Calcium 9.3 Magnesium 2.1 Total Bilirubin 1.5 H AST 17 ALT 14 Alkaline Phosphatase 61 Troponin I High Sens 10.5 10.8 Total Protein 6.8 Albumin 4.0 Globulin 2.8 Albumin/Globulin Ratio 1.4 TSH Urine Color Urine Clarity Urine pH Ur Specific [place] Urine Protein Urine Glucose (UA) Urine Ketones Urine Occult Blood Urine Nitrite Urine Bilirubin Urine Urobilinogen Ur Leukocyte Esterase Urine RBC Urine WBC Ur Squamous Epith Cells Urine Bacteria Ur Microscopic Review Urine Culture Comments PD MEDICAL DECISION MAKING - ED course ED course: Patient with advanced dementia presenting for Increased agitation And refusing his home medications. Initial vital signs were stable But patient been noted to be in A. fib with RVR with rates up into the 150s. Patient was given a dose of IV Cardizem and fluids which he did respond to, however Heart rate went back up.Patient appeared to be more cooperative and was drinking water Answering a few questions from the nurse with one-word answers.I attempted to give him a dose of his home Cardizem which she is due for but he spit out the pills. Patient was additionally given Seroquel earlier but also spit these pills out. He was given 2 mg of IV Haldol as he was at times trying to swing at his nurse Despite wrist restraints and still pulling at his restraints and other monitoring devices. He was given a second bolus of IV CardizemDid not achieve rate control. I then discussed the case with the hospitalist who will admit the patient for observation for Atrial fibrillation with RVR and agitation. Dr. Barrera agrees that patient does not require a head CT at this time as his neurologic exam is nonfocal.I also do not suspect That he has a true urinary tract infection based on the appearance of the urine in the bag and lack of other symptoms. 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 - Critical Care Time(min): 31 Time Includes: Direct patient care, Review records, Reassess patient, Document care, Coordinate care Departure - Departure Disposition: ED Place in Observation Clinical Impression: Agitation due to dementia, Atrial fibrillation with RVR, Chronic indwelling Morales catheter Condition: Serious Discharge Date/Time: 07/28/21 00:07
[2021-07-27 21:40] LABS: BASOPHILS % (AUTO) 0.6 %; EOSINOPHILS % (AUTO) 0.7 %; HCT - HEMATOCRIT 41.2 % (42.0-52.0); HGB - HEMOGLOBIN 14.1 g/dL (14.0-18.0); LYMPHOCYTES % (AUTO) 18.8 %; MEAN CORPUSCULAR HEMOGLOBIN 31.6 pg (27.0-31.0); MEAN CORPUSCULAR HGB CONC 34.2 g/dL (32.0-36.0); MEAN CORPUSCULAR VOLUME 92.4 fL (80.0-94.0); MEAN PLATELET VOLUME 10.4 fL (7.4-11.4); MONOCYTES # (AUTO) 0.5 10^3/uL (0.0-1.0); MONOCYTES % (AUTO) 9.8 %; NEUTROPHILS # (AUTO) 3.8 10^3/uL (1.5-6.6); NEUTROPHILS % (AUTO) 69.7 %; PLT - PLATELET COUNT 172 10^3/uL (130-450); RED BLOOD COUNT 4.46 10^6/uL (4.70-6.10); RED CELL DISTRIBUTION WIDTH 12.8 % (12.0-15.0); WHITE BLOOD COUNT 5.4 x10^3/uL (4.8-10.8)
[2021-07-27 21:55] LABS: ALBUMIN/GLOBULIN RATIO 1.4 (1.0-2.2); BILIRUBIN,TOTAL 1.5 mg/dL (0.2-1.0); CALCIUM 9.3 mg/dL (8.5-10.3); CREATININE 1.1 mg/dL (0.6-1.2); MAGNESIUM 2.1 mg/dL (1.7-2.8); TOTAL PROTEIN 6.8 g/dL (6.7-8.2)
[2021-07-27] MEDS ORDERED: HALOPERIDOL 5 MG/ML VIAL IVP ONE (22:16)
--- NOTE | 2021-07-27 22:18 | ED Physician Documentation ---
Face to Face for Restraints - Immediate Situation Face to Face Evaluation Date: 07/27/21 Face to Face Evaluation Time: 22:18 Restraint Situation: Chemical Patient's Reactions to the Intervention: Fighting restraints - Behavioral Condition Attitude: Indifferent Behavior: Uncooperative Orientation: Not oriented to person, place, time, and situation Mood: Labile - Evaluation Review of Systems: Unable to obtain due to dementia Pertinent History/Illicit Drugs/Medications/Results: Advanced dementia - Plan Need to Continue or Terminate Violent or Chemical Restraint: Continue soft restraints and monitor effectiveness of chemical sedation. We will make attempts to remove soft restraints when clinically appropriate.
--- NOTE | 2021-07-27 22:25 | XRAY Report ---
PROCEDURE: Chest 1 View X-Ray INDICATIONS: AMS TECHNIQUE: One view of the chest was acquired. COMPARISON: 03/06/2021 FINDINGS: Surgical changes and devices: None. Lungs and pleura: No pleural effusions or pneumothorax. Lungs are clear. Mediastinum: Mediastinal contours appear normal. Heart size is borderline enlarged, which may be ex aggerated by portable supine technique. Bones and chest wall: No suspicious bony lesions. Overlying soft tissues appear unremarkable. Divya re right glenohumeral degenerative changes. IMPRESSION: No acute cardiopulmonary abnormality. Reviewed by: Getachew Beck MD on 07/27/2021 10:24 PM [facility] Approved by: Getachew Beck MD on 07/27/2021 10:24 PM [facility] Station ID: [id number]
[2021-07-27] MEDS: diltiaZEM CD 120 MG CAPSULE PO STA ×2 (22:36→22:40)
[2021-07-27] MEDS ORDERED: diltiaZEM INJ 125 MG in DEXTROSE 5% 100 ML IV STA (22:46)
[2021-07-27] MEDS ORDERED: ACETAMINOPHEN 325 MG TABLET PO PRN (23:25)
[2021-07-27] MEDS ORDERED: SODIUM CHLORIDE FLUSH 0.9% 10 ML SYRINGE IVP PRN (23:25)
[2021-07-27] MEDS ORDERED: ONDANSETRON ODT 4 MG TABLET TL PRN (23:25)
--- NOTE | 2021-07-27 23:33 | HISTORY & PHYSICAL EXAMINATION ---
Chief Complaint - Chief Complaint Chief Complaint: Agitation. History of Present Illness - Admitted From Admitted From:: Memory Care Unit - History Obtained From Records Reviewed: [facility] History obtained from: ER Physician, EMR Exam Limitations: Patient is demented and unable to provide a history. - History of Present Illness HPI Comment/Other: This is a 81-year-old male with a past medical history significant for dementia with behavioral disturbance, chronic indwelling Morales catheter, atrial fibrillation who presents today from memory care unit due to increasing agitation. He reportedly would not take his evening dose of Seroquel today. He has had similar episodes in the past which were attributed to urinary tract infection and so he was brought into the emergency department today for evaluation. The patient is unable to bite a history due to his dementia. Per the emergency department physician, the patient would not take his Seroquel or any p.o. medications. They tried Haldol in the emergency department without improvement in his agitation. He then went into atrial fibrillation with rapid ventricular response. They try to administer his oral diltiazem but the patient refused this. He was given diltiazem 10 mg IV followed by 15 mg IV but he remained tachycardic with heart rates in the 130s. Given this, medicine was consulted for admission. I am unable to discuss goals of care with the patient due to his dementia but prior review of records reveal that he has a POLST form stating he is a DNR. History - Past Medical History Cardiovascular: reports: Congestive heart failure, Hypertension, Atrial fibrillation Respiratory: reports: None Neuro: reports: Dementia Endocrine/Autoimmune: reports: None GI: reports: None : reports: Indwelling catheter HEENT: reports: None Psych: reports: Anxiety Musculoskeletal: reports: None Derm: reports: None MRSA Hx?: No - Family & Social History Family History Comment/Other: Unable to obtain due to his dementia. Social History Notes: Unable to obtain due to his dementia. - POLST Patient has POLST: No Meds/Allgy - Home Medications Home Medications: Ambulatory Orders Medication Instructions Recorded Confirmed Melatonin 3 mg PO QPM 03/19/20 04/10/21 Memantine [Namenda] 10 mg PO QPM 03/19/20 04/10/21 Tamsulosin [Flomax] 0.4 mg PO QPM 03/19/20 04/10/21 lisinopriL [Prinivil] 5 mg PO DAILY 03/19/20 04/10/21 Cyanocobalamin (Vitamin B-12) 1,000 mcg SL DAILY 10/27/20 04/10/21 [Vitamin B-12 (1000 mcg sublingual)] Folic Acid 1 mg PO DAILY 10/27/20 04/10/21 Acetaminophen [Acetaminophen Extra 1,000 mg PO BID 03/06/21 04/10/21 Strength] Divalproex [Carlie Mims] 125 mg PO QDLUNCH 03/06/21 04/10/21 Divalproex [Carlie Mims] 375 mg PO BID 03/06/21 04/10/21 dilTIAZem HCL [Diltiazem 24Hr ER 240 mg PO QPM 03/06/21 04/10/21 (Xr)] QUEtiapine [SEROquel] 25 mg PO TID #60 tablet 03/10/21 04/10/21 Furosemide [Lasix] 20 mg PO DAILY 04/10/21 04/10/21 Sulfamethox/Trimeth 800/160 1 each PO BID 5 Days #10 tablet 05/03/21 [Bactrim Ds 800/160] - Allergies Allergies/Adverse Reactions: Allergies Allergy/AdvReac Type Severity Reaction Status Date / Time No Known Drug Allergies Allergy Verified 07/27/21 19:56 Review of Systems - All Other Systems All Other Systems: reports: Other (Unable to obtain due to dementia.) Prior Level of Functionality: He is dependent on his ADL's. Exam - Vital Signs Reviewed Vital Signs: Yes Vital Signs: Vital Signs x48h Temp Pulse Resp BP Pulse Ox 07/27/21 22:33 150 H 07/27/21 21:48 106 H 20 133/98 H 97 07/27/21 19:50 120 H 16 134/86 H 98 07/27/21 19:45 36.2 C L 92 20 134/86 H 100 - Physical Exam General Appearance: positive: No acute distress, Alert, Other (He is awake but will not answer questions. Will sit in bed quietly. Appears comfortable and in no distress.) Eyes Bilateral: positive: Normal inspection, Conjunctivae nml ENT: positive: ENT inspection nml Neck: positive: Nml inspection Respiratory: positive: No respiratory distress. negative: Wheezes, Rales Cardiovascular: positive: Irregularly irregular. negative: Tachycardia, Systolic murmur Abdomen: positive: Non-tender, No distention. negative: Tenderness Skin: positive: Warm, Dry Extremities: positive: Pedal edema (+1 pitting edema in bilateral lower extremities.) Neurologic/Psychiatric: positive: Other (He will not follow commands but not appear to have any focal deficits.) Conclusion/Plan - Problem List (1) Atrial fibrillation with RVR Conclusion/Plan: This is likely secondary to him not taking his usual dose of diltiazem. His heart rate is improved in the 120s after receiving IV diltiazem. We we'll look to resume oral diltiazem 60 mg every 6 hours. If he still not willing to take p.o. then we will use IV Lopressor or diltiazem scheduled. Monitor on telemetry. (2) Dementia with behavioral disturbance Conclusion/Plan: This has been an ongoing problem for him and he resides at a memory care unit. He is now refusing his medications. This has been attributed in the past to urinary tract infections but at this time, I do not believe he has an infection. His urinalysis is abnormal but he has a chronic indwelling Morales catheter and I suspect is likely colonization. He has no white blood cell count or fever. We'll hold off on antibiotics for the time being. We will resume his oral Seroquel but if he does not take this we'll need to consider the use of IM Zyprexa. We will also need to consider a telepsych consult if there is no improvement. We did not order a CT of the head as he has no focal deficits. If he is a harm to himself or staff then he will need chemical sedation and restra ints but we will look to hold off on this as he is cooperative as of now. (3) Chronic indwelling Morales catheter Conclusion/Plan: He has a chronic indwelling Morales catheter and has been treated in the past for urinary tract infections. Prior cultures grew Enterococcus and Pseudomonas. Although his urinalysis is abnormal, we do not suspect infection as he has no fever or white blood cell count is likely colonization. We'll hold off on antibiotics unless his white blood cell count begins to increase or he were to become febrile. We have resumed home Flomax. - Lab Results Lab results reviewed: Yes Fish Bones: 07/28/21 04:31 07/28/21 04:31 - Diagnostic Imaging Results Diagnostic Imaging Results: positive: Final report reviewed - EKG Results EKG Interpreted Independently: Yes EKG Findings: EKG shows atrial fibrillation with rapid ventricular response with a heart rate in the 140s. Core Measures - Anticipated LOS I expect patient to be DC'd or transferred within 96 hours.: Yes - Issues Hospital Issues and Management Plan: 81-year-old male with a history of dementia behavioral disturbance, atrial fibrillation who presents today with increased agitation. He has been declining medications in the emergency department and is now in A. fib with RVR. He will be placed in observation to manage his agitation and RVR. - DVT/VTE - Prophylaxis VTE/DVT Device ordered at admit?: Yes VTE/DVT Prophylaxis med ordered at admit?: Yes
[2021-07-27] MEDS ORDERED: LACTATED RINGERS 1,000 ML IV SCH (23:45)
[2021-07-28] MEDS ORDERED: METOPROLOL 5 MG/5 ML VIAL IVP PRN ×2 (00:41→08:43)
[2021-07-28] MEDS: SODIUM CHLORIDE FLUSH 0.9% 10 ML SYRINGE IVP SCH ×3 (02:15→17:13)
[2021-07-28] MEDS: NYSTATIN POWDER 15 GM TOP SCH ×4 (02:35→22:03)
[2021-07-28 05:40] LABS: BASOPHILS % (AUTO) 0.4 %; EOSINOPHILS % (AUTO) 0.6 %; HGB - HEMOGLOBIN 13.3 g/dL (14.0-18.0); LYMPHOCYTES # (AUTO) 1.3 10^3/uL (1.5-3.5); MEAN CORPUSCULAR HEMOGLOBIN 31.7 pg (27.0-31.0); MEAN CORPUSCULAR HGB CONC 34.1 g/dL (32.0-36.0); MEAN CORPUSCULAR VOLUME 92.9 fL (80.0-94.0); MEAN PLATELET VOLUME 10.2 fL (7.4-11.4); MONOCYTES # (AUTO) 0.6 10^3/uL (0.0-1.0); MONOCYTES % (AUTO) 11.8 %; NEUTROPHILS # (AUTO) 3.5 10^3/uL (1.5-6.6); PLT - PLATELET COUNT 139 10^3/uL (130-450); RED CELL DISTRIBUTION WIDTH 12.6 % (12.0-15.0); WHITE BLOOD COUNT 5.4 x10^3/uL (4.8-10.8)
[2021-07-28 05:50] LABS: CALCIUM 8.7 mg/dL (8.5-10.3); POTASSIUM 3.8 mmol/L (3.5-5.0)
[2021-07-28] MEDS: QUEtiapine 25 MG TABLET PO SCH ×3 (07:55→22:03)
[2021-07-28] MEDS ORDERED: HALOPERIDOL 5 MG/ML VIAL IM STA (08:36)
[2021-07-28] MEDS ORDERED: MEROPENEM 1 GM in SODIUM CHLORIDE 0.9% MINIBAG 100 ML IV SCH (09:00)
[2021-07-28] MEDS ORDERED: DIVALPROEX DR 125 MG TABLET PO SCH ×2 (09:00→12:00)
[2021-07-28] MEDS ORDERED: HALOPERIDOL 5 MG/ML VIAL IM PRN ×2 (09:30→14:00)
[2021-07-28] MEDS ORDERED: FOSFOMYCIN TROMETHAMINE 3 GM PACKET PO ONE (10:00)
[2021-07-28] MEDS: FOLIC ACID 1 MG TABLET PO SCH ×2 (10:22→11:22)
[2021-07-28] MEDS: ENOXAPARIN 40 MG/0.4 ML SYRINGE SUBQ SCH ×2 (10:22→11:22)
--- NOTE | 2021-07-28 11:54 | PROVIDER PROGRESS NOTE ---
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 pt has hx of dementia with behaviour disturbance, now pt has UTI. pt has hx of UTI with Pseudomonas and ESBL infection, and chronic indwelling low catheter. after pt was given twice total 6mg haldol, his acute agitation is under control now. Plan: treat underline of UTI infection with PO fosfomycin once. resume home Seroque dosage to 50mg tid, depakote and check depakote serum dosage, and home dosage of memantin. PRN with low dosage of haldol now. EKG show QTCB 476. Unfortunately patient pulled off his telemetry. he also pulled off his IV line. we will add new IV line for pt. (2) Atrial fibrillation with RVR HR is controlled at 67 now. we will resume home Cardizem and add Metoprolol as needed. Unfortunately patient pulled off his telemetry because his confused. (3) UTI pt has hx of multiple times of UTI with Pseudomonas and ESBL infection which likely caused to his acute mental status change and agitation. pt has also hx of chronic indwelling low catheter. pt has PO fosfomycin once. (4) Chronic indwelling Low catheter Conclusion/Plan: we will continue Low care. - Current Meds Current Meds: Current Medications Generic Name Dose Route Start Last Admin Trade Name Freq PRN Reason Stop Dose Admin Diltiazem HCl 60 mg 07/28/21 00:00 07/28/21 07:55 Diltiazem 60 Mg Tablet PO 60 mg Q6HR ADALBERTO Administration Enoxaparin Sodium 40 mg 07/28/21 09:00 07/28/21 11:22 Enoxaparin 40 Mg/0.4 Ml Syringe SUBQ Not Given DAILY ADALBERTO Folic Acid 1 mg 07/28/21 09:00 07/28/21 11:22 Folic Acid 1 Mg Tablet PO Not Given DAILY ADALBERTO Nystatin 1 applic 07/28/21 01:00 07/28/21 11:22 Nystatin Powder 15 Gm TOP Not Given BID ADALBERTO Quetiapine Fumarate 25 mg 07/28/21 06:00 07/28/21 07:55 Quetiapine 25 Mg Tablet PO 25 mg TID ADALBERTO Administration Sodium Chloride 10 ml 07/28/21 01:00 07/28/21 10:23 Sodium Chloride Flush 0.9% 10 Ml Syringe IVP Not Given 0100,0900,1700 ADALBERTO - Lab Result Fish Bone Diagrams: 07/28/21 04:31 07/28/21 04:31 - Additional Planning My Orders: My Active Orders 07/28/21 08:43 Metoprolol Inj [Lopressor Inj] 5 mg IVP Q6H PRN 07/28/21 10:24 Admit [Admit \ Transfer \ Status] [RC] .ONCE 07/28/21 10:26 Neuro Check [RC] Q4H 07/28/21 14:00 Haloperidol Inj [Haldol Inj] 1 mg IM Q4H PRN Subjective - Subjective Nursing Reports: Confused Objective Vital Signs: Vital Signs - 24 hr 07/27/21 07/27/21 07/27/21 19:45 19:50 21:48 Temperature 36.2 C L Heart Rate 92 120 H 106 H Heart Rate [ Brachial] Heart Rate [ Monitoring electrodes] Respiratory 20 16 20 Rate Blood Pressure 134/86 H 134/86 H 133/98 H Blood Pressure [Right Brachial artery] O2 Saturation 100 98 97 07/27/21 07/28/21 07/28/21 22:33 00:30 04:37 Temperature 36.6 C 36.4 C L Heart Rate 150 H Heart Rate [ 83 Brachial] Heart Rate [ 108 H Monitoring electrodes] Respiratory 16 16 Rate Blood Pressure Blood Pressure 120/76 128/83 H [Right Brachial artery] O2 Saturation 98 98 07/28/21 07/28/21 07:51 07:55 Temperature 36.2 C L Heart Rate Heart Rate [ 104 H Brachial] Heart Rate [ Monitoring electrodes] Respiratory 20 Rate Blood Pressure 134/68 H Blood Pressure 134/68 H [Right Brachial artery] O2 Saturation 99 Oxygen O2 Source Room air I&O (Last 24 Hrs): Intake and Output Totals x24h 07/26/21 07/27/21 07/28/21 23:59 23:59 23:59 Intake Total 500 1263.333 Output Total 500 Balance 500 763.333 General: Alert, Other (confused.) HEENT: Atraumatic Neck: Supple Lymphatic: no adenopathy Neuro: Alert, Non Focal Cardiovascular: Regular rate, Normal S1, Normal S2 Respiratory: Chest non-tender, No respiratory distress Abdomen: Normal bowel sounds, Soft Extremities: Normal pulses - Results Results: Laboratory Results WBC 5.4 x10^3/uL (4.8-10.8) 07/28/21 04:31 RBC 4.20 10^6/uL (4.70-6.10) L 07/28/21 04:31 Hgb 13.3 g/dL (14.0-18.0) L 07/28/21 04:31 Hct 39.0 % (42.0-52.0) L 07/28/21 04:31 MCV 92.9 fL (80.0-94.0) 07/28/21 04:31 MCH 31.7 pg (27.0-31.0) H 07/28/21 04:31 MCHC 34.1 g/dL (32.0-36.0) 07/28/21 04:31 RDW 12.6 % (12.0-15.0) 07/28/21 04:31 Plt Count 139 10^3/uL (130-450) 07/28/21 04:31 MPV 10.2 fL (7.4-11.4) 07/28/21 04:31 Neut # (Auto) 3.5 10^3/uL (1.5-6.6) 07/28/21 04:31 Lymph # (Auto) 1.3 10^3/uL (1.5-3.5) L 07/28/21 04:31 Pratt # (Auto) 0.6 10^3/uL (0.0-1.0) 07/28/21 04:31 Eos # (Auto) 0.0 10^3/uL (0.0-0.7) 07/28/21 04:31 Baso # (Auto) 0.0 10^3/uL (0.0-0.1) 07/28/21 04:31 Absolute Nucleated RBC 0.00 x10^3/uL 07/28/21 04:31 Nucleated RBC % 0.0 /100WBC 07/28/21 04:31 Sodium 138 mmol/L (135-145) 07/28/21 04:31 Potassium 3.8 mmol/L (3.5-5.0) 07/28/21 04:31 Chloride 103 mmol/L (101-111) 07/28/21 04:31 Carbon Dioxide 25 mmol/L (21-32) 07/28/21 04:31 Anion Gap 10.0 (6-13) 07/28/21 04:31 BUN 23 mg/dL (6-20) H 07/28/21 04:31 Creatinine 1.0 mg/dL (0.6-1.2) 07/28/21 04:31 Estimated GFR (MDRD) 72 (>89) L 07/28/21 04:31 Glucose 78 mg/dL (70-100) 07/28/21 04:31 Calcium 8.7 mg/dL (8.5-10.3) 07/28/21 04:31 Magnesium 2.1 mg/dL (1.7-2.8) 07/27/21 20:47 Total Bilirubin 1.5 mg/dL (0.2-1.0) H 07/27/21 20:47 AST 17 IU/L (10-42) 07/27/21 20:47 ALT 14 IU/L (10-60) 07/27/21 20:47 Alkaline Phosphatase 61 IU/L (42-121) 07/27/21 20:47 Troponin I High Sens 10.8 ng/L (2.3-19.7) 07/27/21 22:46 Total Protein 6.8 g/dL (6.7-8.2) 07/27/21 20:47 Albumin 4.0 g/dL (3.2-5.5) 07/27/21 20:47 Globulin 2.8 g/dL (2.1-4.2) 07/27/21 20:47 Albumin/Globulin Ratio 1.4 (1.0-2.2) 07/27/21 20:47 Vitamin B12 839 pg/mL (180-914) 07/28/21 04:31 TSH 5.91 uIU/mL (0.34-5.60) H 07/27/21 20:47 Urine Color YELLOW 07/27/21 20:38 Urine Clarity SL. CLOUDY (CLEAR) 07/27/21 20:38 Urine pH 7.0 PH (5.0-7.5) 07/27/21 20:38 Ur Specific [place] 1.020 (1.002-1.030) 07/27/21 20:38 Urine Protein 30 mg/dL (NEGATIVE) H 07/27/21 20:38 Urine Glucose (UA) NEGATIVE mg/dL (NEGATIVE) 07/27/21 20:38 Urine Ketones TRACE mg/dL (NEGATIVE) 07/27/21 20:38 Urine Occult Blood SMALL (NEGATIVE) H 07/27/21 20:38 Urine Nitrite POSITIVE (NEGATIVE) H 07/27/21 20:38 Urine Bilirubin NEGATIVE (NEGATIVE) 07/27/21 20:38 Urine Urobilinogen 1 (NORMAL) E.U./dL (NORMAL) 07/27/21 20:38 Ur Leukocyte Esterase LARGE (NEGATIVE) H 07/27/21 20:38 Urine RBC 6-10 /HPF (0-5) H 07/27/21 20:38 Urine WBC >25 /HPF (0-3) H 07/27/21 20:38 Ur Squamous Epith Cells RARE Squamous (<= Few) 07/27/21 20:38 Urine Bacteria Many /HPF (None Seen) H 07/27/21 20:38 Ur Microscopic Review INDICATED 07/27/21 20:38 Urine Culture Comments INDICATED 07/27/21 20:38 SARS-CoV-2 (PCR) NOT DETECTED 07/27/21 23:26 ABX Reporting Has patient been on IV antibiotics over the past 48 hours?: Yes Current Medications - Current Medications Current Medications: Active Medications Acetaminophen (Acetaminophen 500 Mg Tablet) 1,000 mg PO BID [facility] Diltiazem HCl (Diltiazem Cd 240 Mg Capsule) 240 mg PO DAILY [facility] Enoxaparin Sodium (Enoxaparin 40 Mg/0.4 Ml Syringe) 40 mg SUBQ DAILY [facility] Last Admin: 07/28/21 11:22 Dose: Not Given Folic Acid (Folic Acid 1 Mg Tablet) 1 mg PO DAILY [facility] Last Admin: 07/28/21 11:22 Dose: Not Given Haloperidol (Haloperidol 5 Mg/Ml Vial) 1 mg IM Q4H PRN PRN Reason: Agitation Memantine (Memantine 5 Mg Tablet) 10 mg PO BID [facility] Metoprolol Tartrate (Metoprolol 5 Mg/5 Ml Vial) 5 mg IVP Q6H PRN PRN Reason: NEEDED PER PROVIDER ORDERS Non-Formulary Medication (Melatonin [Melatonin]) 3 mg PO QPM [facility] Nystatin (Nystatin Powder 15 Gm) 1 applic TOP BID [facility] Last Admin: 07/28/21 11:22 Dose: Not Given Ondansetron HCl (Ondansetron Odt 4 Mg Tablet) 4 mg TL Q6HR PRN PRN Reason: Nausea / Vomiting Quetiapine Fumarate (Quetiapine 25 Mg Tablet) 50 mg PO TID [facility] Sodium Chloride (Sodium Chloride Flush 0.9% 10 Ml Syringe) 10 ml IVP PRN PRN PRN Reason: NEEDED PER PROVIDER ORDERS Sodium Chloride (Sodium Chloride Flush 0.9% 10 Ml Syringe) 10 ml IVP 0100,0900,1700 [facility] Last Admin: 07/28/21 10:23 Dose: Not Given Tamsulosin HCl (Tamsulosin 0.4 Mg Capsule) 0.4 mg PO QPM [facility] Valproic Acid (Valproate 250 Mg/5 Ml Solution Udc) 375 mg PO BID [facility] Valproic Acid (Valproate 250 Mg/5 Ml Solution Udc) 125 mg PO QDLUNCH [facility] Memantine [Namenda] 10 mg PO BID 03/19/20 Tamsulosin [Flomax] 0.4 mg PO QPM 03/19/20 Cyanocobalamin (Vitamin B-12) [Vitamin B-12 (1000 mcg sublingual)] 1,000 mcg SL DAILY 10/27/20 Folic Acid 1 mg PO DAILY 10/27/20 Acetaminophen [Acetaminophen Extra Strength] 1,000 mg PO BID 03/06/21 Divalproex [Carlie Mims] 125 mg PO QDLUNCH 03/06/21 Divalproex [Carlie Mims] 375 mg PO BID 03/06/21 dilTIAZem HCL [Diltiazem 24Hr ER (Xr)] 240 mg PO QPM 03/06/21 Melatonin 3 mg PO QPM 07/28/21 QUEtiapine [SEROquel] 25 mg PO 1400,2000 07/28/21 QUEtiapine [SEROquel] 50 mg PO 0800 07/28/21 QUEtiapine [SEROquel] 50 mg PO TID PRN 07/28/21
[2021-07-28] MEDS ORDERED: VALPROATE 250 MG/5 ML SOLUTION UDC PO SCH (12:00)
--- NOTE | 2021-07-28 12:06 | PHARMACY PROGRESS NOTE ---
- Best Possible Medication History Admit Date and Time: 07/28/21 1024 Processed by: Pharmacy Medication History completed: Yes Patient Interview: Pt unable to participate Secondary Source(s): Facility MAR as ONLY source As the person ultimately responsible for medication therapy, providers are able to order a medication from an existing home medication list in [facility] via the "Reconcile Routine" prior to Confirmation of that medication by user support analyst supervisor. Such practice is discouraged except when the physician, in their clinical judgment, deems that a medical need exists for a medication without regard to previous use.
[2021-07-28] MEDS ORDERED: VALPROATE 250 MG/5 ML SOLUTION UDC PO ONE (13:30)
[2021-07-28 14:57] LABS: VALPROIC ACID (DEPAKOTE) 42.2 ug/mL
[2021-07-28] MEDS ORDERED: MEMANTINE 5 MG TABLET PO SCH (21:00)
[2021-07-28] MEDS ORDERED: DILTIAZEM HCL 240 MG PO SCH (21:00)
[2021-07-28] MEDS: ACETAMINOPHEN 500 MG TABLET PO SCH (22:03)
[2021-07-28] MEDS: TAMSULOSIN 0.4 MG CAPSULE PO SCH (22:03)
[2021-07-28] MEDS: diltiaZEM CD 240 MG CAPSULE PO SCH (22:03)
[2021-07-28] MEDS: MEMANTINE 5 MG TABLET PO SCH (22:03)
[2021-07-28] MEDS: VALPROATE 250 MG/5 ML SOLUTION UDC PO SCH (22:04)
[2021-07-29] MEDS: SODIUM CHLORIDE FLUSH 0.9% 10 ML SYRINGE IVP SCH ×4 (04:26→23:17)
[2021-07-29] MEDS: QUEtiapine 25 MG TABLET PO SCH ×3 (06:35→20:19)
[2021-07-29 09:07] LABS: BASOPHILS % (AUTO) 0.7 %; EOSINOPHILS # (AUTO) 0.1 10^3/uL (0.0-0.7); EOSINOPHILS % (AUTO) 1.8 %; HGB - HEMOGLOBIN 15.7 g/dL (14.0-18.0); LYMPHOCYTES # (AUTO) 1.8 10^3/uL (1.5-3.5); LYMPHOCYTES % (AUTO) 41.2 %; MEAN CORPUSCULAR HEMOGLOBIN 31.4 pg (27.0-31.0); MEAN CORPUSCULAR HGB CONC 34.1 g/dL (32.0-36.0); MEAN PLATELET VOLUME 9.9 fL (7.4-11.4); MONOCYTES # (AUTO) 0.5 10^3/uL (0.0-1.0); MONOCYTES % (AUTO) 10.8 %; NEUTROPHILS % (AUTO) 45.3 %; PLT - PLATELET COUNT 144 10^3/uL (130-450); RED CELL DISTRIBUTION WIDTH 12.7 % (12.0-15.0); WHITE BLOOD COUNT 4.4 x10^3/uL (4.8-10.8)
[2021-07-29 09:15] LABS: CALCIUM 9.4 mg/dL (8.5-10.3); POTASSIUM 4.4 mmol/L (3.5-5.0)
[2021-07-29] MEDS: MEMANTINE 5 MG TABLET PO SCH ×2 (09:24→20:19)
[2021-07-29] MEDS: VALPROATE 250 MG/5 ML SOLUTION UDC PO SCH ×3 (09:25→20:19)
[2021-07-29] MEDS: ACETAMINOPHEN 500 MG TABLET PO SCH ×2 (09:25→20:19)
[2021-07-29] MEDS: FOLIC ACID 1 MG TABLET PO SCH (09:25)
[2021-07-29] MEDS: diltiaZEM CD 240 MG CAPSULE PO SCH (09:25)
[2021-07-29] MEDS: ENOXAPARIN 40 MG/0.4 ML SYRINGE SUBQ SCH (09:25)
[2021-07-29] MEDS: NYSTATIN POWDER 15 GM TOP SCH ×2 (09:26→20:19)
--- NOTE | 2021-07-29 10:10 | PROVIDER PROGRESS NOTE ---
Assessment/Plan - Problem List (1) Dementia with behavioral disturbance Assessment/Plan: 07/29 improved. pt is comfortable sleep at the rn documentation specialist. Nurse report he then ate 100% of his breakfast. we will resume exact his home seroque, depakote, memantin dosage, continue monitor pt if he take his meds, because it is his chief complaints for admission. 07/28 pt is still confused and agitated at rn documentation specialist. pt has hx of dementia with behaviour disturbance, now pt has UTI. pt has hx of UTI with Pseudomonas and ESBL infection, and chronic indwelling low catheter. after pt was given twice total 6mg haldol, his acute agitation is under control now. Plan: treat underline of UTI infection with PO fosfomycin once. resume home Seroque dosage to 50mg tid, depakote and check depakote serum dosage, and home dosage of memantin. PRN with low dosage of haldol now. EKG show QTCB 476. Unfortunately patient pulled off his telemetry. he also pulled off his IV line. we will add new IV line for pt. (2) Atrial fibrillation with RVR 07/29 pt's HR 44 at morning when he is at sleep. pt pulled off his tele on yesterday. today pt's mental status is improved. we will put tele monitor back for pt, and reduce his Cardizem dosage to 180mb daily. pt may followup with his field technician as out-pt. HR is controlled at 67 now. we will resume home Cardizem and add Metoprolol as needed. Unfortunately patient pulled off his telemetry because his confused. (3) UTI pt has hx of multiple times of UTI with Pseudomonas and ESBL infection which likely caused to his acute mental status change and agitation. pt has also hx of chronic indwelling low catheter. pt has PO fosfomycin once at hospital. (4) Chronic indwelling Low catheter Conclusion/Plan: we will continue Low care. - Current Meds Current Meds: Current Medications Generic Name Dose Route Start Last Admin Trade Name Freq PRN Reason Stop Dose Admin Acetaminophen 1,000 mg 07/28/21 21:00 07/29/21 09:25 Acetaminophen 500 Mg Tablet PO 1,000 mg BID ADALBERTO Administration Diltiazem HCl 240 mg 07/28/21 21:00 07/29/21 09:25 Diltiazem Cd 240 Mg Capsule PO 240 mg DAILY ADALBERTO Administration Enoxaparin Sodium 40 mg 07/28/21 09:00 07/29/21 09:25 Enoxaparin 40 Mg/0.4 Ml Syringe SUBQ 40 mg DAILY ADALBERTO Administration Folic Acid 1 mg 07/28/21 09:00 07/29/21 09:25 Folic Acid 1 Mg Tablet PO 1 mg DAILY ADALBERTO Administration Memantine 10 mg 07/28/21 21:00 07/29/21 09:24 Memantine 5 Mg Tablet PO 10 mg BID ADALBERTO Administration Nystatin 1 applic 07/28/21 01:00 07/29/21 09:26 Nystatin Powder 15 Gm TOP 1 applic BID ADALBERTO Administration Melatonin 3 Mg 1 each 07/28/21 21:00 07/28/21 22:03 Tablet PO Not Given QPM ADALBERTO Sodium Chloride 10 ml 07/28/21 01:00 07/29/21 09:26 Sodium Chloride Flush 0.9% 10 Ml Syringe IVP 10 ml 0100,0900,1700 ADALBERTO Administration Tamsulosin HCl 0.4 mg 07/28/21 21:00 07/28/21 22:03 Tamsulosin 0.4 Mg Capsule PO 0.4 mg QPM ADALBERTO Administration Valproic Acid 375 mg 07/28/21 21:00 07/29/21 09:25 Valproate 250 Mg/5 Ml Solution Udc PO 375 mg BID ADALBERTO Administration - Lab Result Fish Bone Diagrams: 07/29/21 08:58 07/29/21 08:58 - Additional Planning My Orders: My Active Orders 07/28/21 10:26 Neuro Check [RC] Q4H 07/28/21 21:00 Acetaminophen [Tylenol] 1,000 mg PO BID Memantine [Namenda] 10 mg PO BID Patient Own Med [Patient Own Medication] 1 each PO QPM diltiaZEM CD [Cardizem Cd] 240 mg PO DAILY 07/29/21 14:00 QUEtiapine [SEROquel] 25 mg PO 1399,199907/30/21 08:00 QUEtiapine [SEROquel] 50 mg PO 0800 Subjective - Subjective Patient Reports: Resting Comfortably Objective Vital Signs: Vital Signs - 24 hr 07/28/21 07/28/21 07/28/21 12:43 12:47 16:23 Temperature 36.2 C L 36.7 C Heart Rate [ 67 95 Brachial] Respiratory 16 18 Rate Blood Pressure 144/87 H Blood Pressure 144/87 H 112/77 [Left Brachial artery] Blood Pressure [Right Brachial artery] O2 Saturation 99 97 07/29/21 08:25 Temperature 36.2 C L Heart Rate [ 44 L Brachial] Respiratory 18 Rate Blood Pressure Blood Pressure [Left Brachial artery] Blood Pressure 118/76 [Right Brachial artery] O2 Saturation 98 Oxygen O2 Source Room air I&O (Last 24 Hrs): Intake and Output Totals x24h 07/27/21 07/28/21 07/29/21 23:59 23:59 23:59 Intake Total 500 1581.333 400 Output Total 2175 1025 Balance 500 -593.667 -625 General: Alert, Cooperative, No acute distress HEENT: Atraumatic Neck: Supple Lymphatic: no adenopathy Neuro: Alert, Non Focal Cardiovascular: Regular rate, Normal S1, Normal S2 Respiratory: Chest non-tender, No respiratory distress Abdomen: Normal bowel sounds, Soft Extremities: Normal pulses - Results Results: Laboratory Results WBC 4.4 x10^3/uL (4.8-10.8) L 07/29/21 08:58 RBC 5.00 10^6/uL (4.70-6.10) 07/29/21 08:58 Hgb 15.7 g/dL (14.0-18.0) 07/29/21 08:58 Hct 46.0 % (42.0-52.0) 07/29/21 08:58 MCV 92.0 fL (80.0-94.0) 07/29/21 08:58 MCH 31.4 pg (27.0-31.0) H 07/29/21 08:58 MCHC 34.1 g/dL (32.0-36.0) 07/29/21 08:58 RDW 12.7 % (12.0-15.0) 07/29/21 08:58 Plt Count 144 10^3/uL (130-450) 07/29/21 08:58 MPV 9.9 fL (7.4-11.4) 07/29/21 08:58 Neut # (Auto) 2.0 10^3/uL (1.5-6.6) 07/29/21 08:58 Lymph # (Auto) 1.8 10^3/uL (1.5-3.5) 07/29/21 08:58 Mayes # (Auto) 0.5 10^3/uL (0.0-1.0) 07/29/21 08:58 Eos # (Auto) 0.1 10^3/uL (0.0-0.7) 07/29/21 08:58 Baso # (Auto) 0.0 10^3/uL (0.0-0.1) 07/29/21 08:58 Absolute Nucleated RBC 0.00 x10^3/uL 07/29/21 08:58 Nucleated RBC % 0.0 /100WBC 07/29/21 08:58 Sodium 143 mmol/L (135-145) 07/29/21 08:58 Potassium 4.4 mmol/L (3.5-5.0) 07/29/21 08:58 Chloride 105 mmol/L (101-111) 07/29/21 08:58 Carbon Dioxide 27 mmol/L (21-32) 07/29/21 08:58 Anion Gap 11.0 (6-13) 07/29/21 08:58 BUN 17 mg/dL (6-20) 07/29/21 08:58 Creatinine 1.0 mg/dL (0.6-1.2) 07/29/21 08:58 Estimated GFR (MDRD) 72 (>89) L 07/29/21 08:58 Glucose 90 mg/dL (70-100) 07/29/21 08:58 Calcium 9.4 mg/dL (8.5-10.3) 07/29/21 08:58 Magnesium 2.1 mg/dL (1.7-2.8) 07/27/21 20:47 Total Bilirubin 1.5 mg/dL (0.2-1.0) H 07/27/21 20:47 AST 17 IU/L (10-42) 07/27/21 20:47 ALT 14 IU/L (10-60) 07/27/21 20:47 Alkaline Phosphatase 61 IU/L (42-121) 07/27/21 20:47 Troponin I High Sens 10.8 ng/L (2.3-19.7) 07/27/21 22:46 Total Protein 6.8 g/dL (6.7-8.2) 07/27/21 20:47 Albumin 4.0 g/dL (3.2-5.5) 07/27/21 20:47 Globulin 2.8 g/dL (2.1-4.2) 07/27/21 20:47 Albumin/Globulin Ratio 1.4 (1.0-2.2) 07/27/21 20:47 Vitamin B12 839 pg/mL (180-914) 07/28/21 04:31 TSH 5.91 uIU/mL (0.34-5.60) H 07/27/21 20:47 Free T4 1.08 ng/dL (0.58-1.64) 07/29/21 08:58 Urine Color YELLOW 07/27/21 20:38 Urine Clarity SL. CLOUDY (CLEAR) 07/27/21 20:38 Urine pH 7.0 PH (5.0-7.5) 07/27/21 20:38 Ur Specific [place] 1.020 (1.002-1.030) 07/27/21 20:38 Urine Protein 30 mg/dL (NEGATIVE) H 07/27/21 20:38 Urine Glucose (UA) NEGATIVE mg/dL (NEGATIVE) 07/27/21 20:38 Urine Ketones TRACE mg/dL (NEGATIVE) 07/27/21 20:38 Urine Occult Blood SMALL (NEGATIVE) H 07/27/21 20:38 Urine Nitrite POSITIVE (NEGATIVE) H 07/27/21 20:38 Urine Bilirubin NEGATIVE (NEGATIVE) 07/27/21 20:38 Urine Urobilinogen 1 (NORMAL) E.U./dL (NORMAL) 07/27/21 20:38 Ur Leukocyte Esterase LARGE (NEGATIVE) H 07/27/21 20:38 Urine RBC 6-10 /HPF (0-5) H 07/27/21 20:38 Urine WBC >25 /HPF (0-3) H 07/27/21 20:38 Ur Squamous Epith Cells RARE Squamous (<= Few) 07/27/21 20:38 Urine Bacteria Many /HPF (None Seen) H 07/27/21 20:38 Ur Microscopic Review INDICATED 07/27/21 20:38 Urine Culture Comments INDICATED 07/27/21 20:38 Last Dose Date 07-28-2021 07/28/21 14:35 Last Dose Time 132907/28/21 14:35 Valproic Acid 42.2 ug/mL 07/28/21 14:35 SARS-CoV-2 (PCR) NOT DETECTED 07/27/21 23:26 ABX Reporting Has patient been on IV antibiotics over the past 48 hours?: No Current Medications - Current Medications Current Medications: Active Medications Acetaminophen (Acetaminophen 500 Mg Tablet) 1,000 mg PO BID [facility] Last Admin: 07/29/21 09:25 Dose: 1,000 mg Diltiazem HCl (Diltiazem Cd 180 Mg Capsule) 180 mg PO DAILY [facility] Enoxaparin Sodium (Enoxaparin 40 Mg/0.4 Ml Syringe) 40 mg SUBQ DAILY [facility] Last Admin: 07/29/21 09:25 Dose: 40 mg Folic Acid (Folic Acid 1 Mg Tablet) 1 mg PO DAILY [facility] Last Admin: 07/29/21 09:25 Dose: 1 mg Memantine (Memantine 5 Mg Tablet) 10 mg PO BID [facility] Last Admin: 07/29/21 09:24 Dose: 10 mg Metoprolol Tartrate (Metoprolol 5 Mg/5 Ml Vial) 5 mg IVP Q6H PRN PRN Reason: NEEDED PER PROVIDER ORDERS Nystatin (Nystatin Powder 15 Gm) 1 applic TOP BID [facility] Last Admin: 07/29/21 09:26 Dose: 1 applic Ondansetron HCl (Ondansetron Odt 4 Mg Tablet) 4 mg TL Q6HR PRN PRN Reason: Nausea / Vomiting Melatonin 3 Mg (Tablet) 1 each PO QPM [facility] Last Admin: 07/28/21 22:03 Dose: Not Given Quetiapine Fumarate (Quetiapine 25 Mg Tablet) 25 mg PO 1400,2000 [facility] Quetiapine Fumarate (Quetiapine 25 Mg Tablet) 50 mg PO 0800 [facility] Sodium Chloride (Sodium Chloride Flush 0.9% 10 Ml Syringe) 10 ml IVP PRN PRN PRN Reason: NEEDED PER PROVIDER ORDERS Sodium Chloride (Sodium Chloride Flush 0.9% 10 Ml Syringe) 10 ml IVP 0100,0900,1700 [facility] Last Admin: 07/29/21 09:26 Dose: 10 ml Tamsulosin HCl (Tamsulosin 0.4 Mg Capsule) 0.4 mg PO QPM [facility] Last Admin: 07/28/21 22:03 Dose: 0.4 mg Valproic Acid (Valproate 250 Mg/5 Ml Solution Ud) 375 mg PO BID [facility] Last Admin: 07/29/21 09:25 Dose: 375 mg Valproic Acid (Valproate 250 Mg/5 Ml Solution Udc) 125 mg PO QDLUNCH [facility] Memantine [Namenda] 10 mg PO BID 03/19/20 Tamsulosin [Flomax] 0.4 mg PO QPM 03/19/20 Cyanocobalamin (Vitamin B-12) [Vitamin B-12 (1000 mcg sublingual)] 1,000 mcg SL DAILY 10/27/20 Folic Acid 1 mg PO DAILY 10/27/20 Acetaminophen [Acetaminophen Extra Strength] 1,000 mg PO BID 03/06/21 Divalproex [Carlie Mims] 125 mg PO QDLUNCH 03/06/21 Divalproex [Carlie Mims] 375 mg PO BID 03/06/21 dilTIAZem HCL [Diltiazem 24Hr ER (Xr)] 240 mg PO QPM 03/06/21 Melatonin 3 mg PO QPM 07/28/21 QUEtiapine [SEROquel] 25 mg PO 1400,2000 07/28/21 QUEtiapine [SEROquel] 50 mg PO 0800 07/28/21 QUEtiapine [SEROquel] 50 mg PO TID PRN 07/28/21
[2021-07-29] MEDS: TAMSULOSIN 0.4 MG CAPSULE PO SCH (20:19)
[2021-07-29] MEDS ORDERED: diltiaZEM CD 240 MG CAPSULE PO SCH (21:00)
[2021-07-30 06:08] LABS: BASOPHILS % (AUTO) 0.5 %; EOSINOPHILS # (AUTO) 0.1 10^3/uL (0.0-0.7); EOSINOPHILS % (AUTO) 2.7 %; HCT - HEMATOCRIT 39.7 % (42.0-52.0); HGB - HEMOGLOBIN 13.7 g/dL (14.0-18.0); LYMPHOCYTES # (AUTO) 1.5 10^3/uL (1.5-3.5); LYMPHOCYTES % (AUTO) 37.4 %; MEAN CORPUSCULAR HEMOGLOBIN 31.5 pg (27.0-31.0); MEAN CORPUSCULAR HGB CONC 34.5 g/dL (32.0-36.0); MEAN CORPUSCULAR VOLUME 91.3 fL (80.0-94.0); MEAN PLATELET VOLUME 10.1 fL (7.4-11.4); MONOCYTES # (AUTO) 0.5 10^3/uL (0.0-1.0); MONOCYTES % (AUTO) 12.8 %; NEUTROPHILS # (AUTO) 1.9 10^3/uL (1.5-6.6); NEUTROPHILS % (AUTO) 46.4 %; PLT - PLATELET COUNT 135 10^3/uL (130-450); RED BLOOD COUNT 4.35 10^6/uL (4.70-6.10); RED CELL DISTRIBUTION WIDTH 12.7 % (12.0-15.0); WHITE BLOOD COUNT 4.1 x10^3/uL (4.8-10.8)
[2021-07-30 06:16] LABS: CALCIUM 8.7 mg/dL (8.5-10.3); CREATININE 1.1 mg/dL (0.6-1.2); POTASSIUM 3.9 mmol/L (3.5-5.0)
[2021-07-30] MEDS ORDERED: QUEtiapine 25 MG TABLET PO SCH (08:00)
[2021-07-30] MEDS: ENOXAPARIN 40 MG/0.4 ML SYRINGE SUBQ SCH (08:21)
[2021-07-30] MEDS: MEMANTINE 5 MG TABLET PO SCH (08:21)
[2021-07-30] MEDS: ACETAMINOPHEN 500 MG TABLET PO SCH (08:21)
[2021-07-30] MEDS: VALPROATE 250 MG/5 ML SOLUTION UDC PO SCH ×2 (08:22→11:17)
[2021-07-30] MEDS: FOLIC ACID 1 MG TABLET PO SCH (08:22)
[2021-07-30] MEDS: NYSTATIN POWDER 15 GM TOP SCH (08:23)
[2021-07-30] MEDS: SODIUM CHLORIDE FLUSH 0.9% 10 ML SYRINGE IVP SCH (08:23)
[2021-07-30] MEDS ORDERED: diltiaZEM CD 180 MG CAPSULE PO SCH ×2 (09:00)
[2021-07-30] MEDS ORDERED: diltiaZEM CD 240 MG CAPSULE PO SCH (09:00)
--- NOTE | 2021-07-30 11:05 | Discharge Plan ---
"Discharge Plan for SNF / [facility] - Discharge Plan And Transition Orders Problem Reviewed?: Yes Disposition: 03 SNF DC/Xfer Condition: Stable Allergies and Adverse Reactions: Allergies Allergy/AdvReac Type Severity Reaction Status Date / Time No Known Drug Allergies Allergy Verified 07/27/21 19:56 Health Concerns: Dementia with behavioral disturbance, UTI with chronic indwelling Morales catheter Plan of Treatment: pt's acute behavioral disturbance is resolved. pt ate, and take all his medications now. pt follow all commands now. please keep pt hydration. Patient was found urinary tract infection. Patient finished antibiotic treatment in the hospital. Please keep pt hydration, continue Morales care and patient's personal hygiene in the nurse facility To prevent of urinary tract infection. May resume pt's home meds Care Goals: Stabilization and improvement of patient's medical conditions - SNF / [facility] Transition Orders Admit to (Facility): [facility] Under the care of (Name): Provider of home place Discharge Diagnosis: Dementia with behavioral disturbances, atrial fibrillation with RVR, UTI, chronic indwelling Morales catheter Medicare Certification Statement: I do not certify that [facility] prison care is medically necessary on a continuing basis for any of the conditions for which she/he is receiving care during hospitalization. Notify PCP of admission and forward orders to primary provider for signature. Weight on admission and: Weekly Call PCP immediately if weight increases by: 2 kg Other Notification Orders: Call PCP immediately if patient develops dyspnea, chest pain/tightness or edema. House Bowel Program: Yes Additional Bowel Program Orders: If no BM after 2 days, nurse may give M.O.M. 30ml PO PRN and/or ducolax Supp 1 MA and/or THOM 250mg P.O., and/or senna 1-2 tabs PO. On day 3 nurse may give repeat above order until residents constipation is resolved. Annual Influenza Vaccine (between Jan 21 and August 20): Yes Two-step PPD per [facility] [phone] or approved exception documents: Yes Treatments & Other Orders: pt's acute behavioral disturbance is resolved. pt ate, and take all his medications now. pt follow all commands now. please keep pt hydration. Patient was found urinary tract infection. Patient finished antibiotic treatment in the hospital. Please keep pt hydration, continue Morales care and patient's personal hygiene in the nurse facility To prevent of urinary tract infection. May resume pt's home meds Medication Orders: PLEASE REFER TO THE DISCHARGE MEDICATION LIST. Insulin Orders?: No - Diet Type: Geriatric Texture: Regular Liquids: Thin May have monthly special meal: Yes - Therapies | Activity Activity: Activity as Tolerated"
--- NOTE | 2021-07-30 11:11 | DISCHARGE SUMMARY ---
Discharge Summary Admit Date: 07/27/21 Discharge Date: 07/30/21 Discharging Provider: Rigo Gandara Condition at Discharge: Stable Discharge Disposition: SNF DC/Xfer Discharge Facility Name: [facility] - DIAGNOSES Discharge Diagnoses with Status of Each Condition: (1) Dementia with behavioral disturbance pt has no more behavioral disturbance. pt ate his meal by himself, took his scheduled medication. It was likely caused by pt's acute UTI infection. pt was treated with antibiotics for his UTI in the hospital (2) Atrial fibrillation with RVR stable and controlled. resume home (3) UTI UA culture is positive for Pseudomonas. Patient was treated with fosfomycin. (4) Chronic indwelling Low catheter pt refused to have new low catheter. RN informed [facility]. (5)Covid 19 positive pt's covid 19 test is positive. pt is Asymptomatic and No respiratory distress. patient walk in the hallway many times. Social work informed home place, patient was Covid 19 positive in the May 2021 - [facility] History of Present Illness: refer from Dr. Charles's HPI on 07/27/21 This is a 81-year-old male with a past medical history significant for dementia with behavioral disturbance, chronic indwelling Low catheter, atrial fibrillation who presents today from memory care unit due to increasing agitation. He reportedly would not take his evening dose of Seroquel today. He has had similar episodes in the past which were attributed to urinary tract infection and so he was brought into the emergency department today for evaluation. The patient is unable to bite a history due to his dementia. Per the emergency department physician, the patient would not take his Seroquel or any p.o. medications. They tried Haldol in the emergency department without improvement in his agitation. He then went into atrial fibrillation with rapid ventricular response. They try to administer his oral diltiazem but the patient refused this. He was given diltiazem 10 mg IV followed by 15 mg IV but he remained tachycardic with heart rates in the 130s. Given this, medicine was consulted for admission. I am unable to discuss goals of care with the patient due to his dementia but prior review of records reveal that he has a POLST form stating he is a DNR. - ALLERGIES Allergies/Adverse Reactions: Allergies Allergy/AdvReac Type Severity Reaction Status Date / Time No Known Drug Allergies Allergy Verified 07/27/21 19:56 - MEDICATIONS Home Medications: Ambulatory Orders Medication Instructions Recorded Confirmed Memantine [Namenda] 10 mg PO BID 03/19/20 07/28/21 Tamsulosin [Flomax] 0.4 mg PO QPM 03/19/20 07/28/21 Cyanocobalamin (Vitamin B-12) 1,000 mcg SL DAILY 10/27/20 07/28/21 [Vitamin B-12 (1000 mcg sublingual)] Folic Acid 1 mg PO DAILY 10/27/20 07/28/21 Acetaminophen [Acetaminophen Extra 1,000 mg PO BID 03/06/21 07/28/21 Strength] Divalproex [Carlie Mims] 125 mg PO QDLUNCH 03/06/21 07/28/21 Divalproex [Carlie Mims] 375 mg PO BID 03/06/21 07/28/21 dilTIAZem HCL [Diltiazem 24Hr ER 240 mg PO QPM 03/06/21 07/28/21 (Xr)] Melatonin 3 mg PO QPM 07/28/21 07/28/21 QUEtiapine [SEROquel] 25 mg PO 1400,2000 07/28/21 07/28/21 QUEtiapine [SEROquel] 50 mg PO 0800 07/28/21 07/28/21 QUEtiapine [SEROquel] 50 mg PO TID PRN 07/28/21 07/28/21 - PHYSICAL EXAM AT DISCHARGE General Appearance: positive: No acute distress, Alert. negative: Lethargic Eyes Bilateral: positive: Normal inspection, No lid inflammation ENT: positive: ENT inspection nml, No signs of dehydration Neck: positive: Nml inspection, Trachea midline. negative: Tracheal deviation Respiratory: positive: Chest non-tender, No respiratory distress. negative: Wheezes, Rales Cardiovascular: positive: Regular rate & rhythm. negative: Tachycardia, Bradycardia, Systolic murmur Peripheral Pulses: positive: 2+ Abdomen: positive: Non-tender, Nml bowel sounds, No distention. negative: Tenderness Back: positive: Nml inspection Skin: positive: Color nml, Warm, Dry. negative: Cyanosis Extremities: positive: Non-tender, Full ROM, Nml appearance Neurologic/Psychiatric: positive: Motor nml, Sensation nml. negative: Weakness, Sensory loss, Facial droop, Slurred/abnml speech - LABS Result Diagrams: 07/30/21 05:27 07/30/21 05:27 - FOLLOW UP Follow Up: pt's acute behavioral disturbance is resolved. pt ate, and take all his medications now. please keep pt hydration. Patient was found urinary tract infection. Patient finished antibiotic treatment in the hospital. Please keep pt hydration, continue Low care and patient's personal hygiene in the nurse facility To prevent of urinary tract infection. May resume pt's home meds - TIME SPENT Time Spent in Discharge (Minutes): 30
[2021-07-30 11:38] LABS: B. PARAPERTUSSIS- RESP PCR PAN NOT DETECTED; B. PERTUSSIS- RESP PCR PANEL NOT DETECTED; C. PNEUMONIAE- RESP PCR PANEL NOT DETECTED; CORONAVIRUS 229E-RESP PCR NOT DETECTED; CORONAVIRUS HKU1-RESP PCR NOT DETECTED; CORONAVIRUS NL63-RESP PCR NOT DETECTED; CORONAVIRUS OC43-RESP PCR NOT DETECTED; HUMAN METAPNEUMOVIRUS NOT DETECTED; INFLUENZA A- RESP PCR PANEL NOT DETECTED; INFLUENZA B - RESP PCR PANEL NOT DETECTED; M. PNEUMONIAE- RESP PCR PANEL NOT DETECTED; PARAINFLUENZA VIRUS 1 NOT DETECTED; PARAINFLUENZA VIRUS 2 NOT DETECTED; PARAINFLUENZA VIRUS 3 NOT DETECTED; PARAINFLUENZA VIRUS 4 NOT DETECTED; RHINOVIRUS/ENTEROVIRUS NOT DETECTED; RSV- RESP PCR PANEL NOT DETECTED
[2021-07-30 11:44] LABS: SARS-CoV-2 -RESP PCR PANEL DETECTED
[2021-07-30 11:57] VITALS: BP 123/73
[2021-07-30] MEDS: QUEtiapine 25 MG TABLET PO SCH (13:17)
== END 2021-07-30 14:10 | DRG 689 ==
LOC: EDUNIT# → ED 19:38 → MS2 23:25 → OBSVTOIN 07-28 10:24
PROVIDERS: ADMIT Internal Medicine; ATTEND Nurse Practitioner Gerontology
DX: N39.0 Urinary tract infection, site not specified (principal); U07.1 COVID-19; Z78.1 Physical restraint status; F03.91 Unspecified dementia, unspecified severity, with behavioral disturbance; I48.91 Unspecified atrial fibrillation; B96.5 Pseudomonas (aeruginosa) (mallei) (pseudomallei) as the cause of diseases classified elsewhere; Z87.440 Personal history of urinary (tract) infections; Z96.0 Presence of urogenital implants; Z20.822 Contact with and (suspected) exposure to COVID-19; Z66 Do not resuscitate; I11.0 Hypertensive heart disease with heart failure; I50.9 Heart failure, unspecified
CPT/HCPCS: 36415; 71045; 80048; 80053; 80164; 81001; 82607; 82746; 83735; 84439; 84443; 84484; 85025; 87077; 87086; 87181; 87631; 87635; 93005; 96372; 96374; 96375; 96376; 99285; 99291; A9270; G0378; J1650; J3490; J7120; J8499; 0202U; 81003; 81599

== ENCOUNTER 2021-07-30 13:58 | Outpatient (CLI) | payer MEDICARE, BC | END 2021-07-30 13:59 | disposition home or self-care (01) | LOC: EMS 13:58 | PROVIDERS: ATTEND Nurse Practitioner Gerontology | DX: F03.91 Unspecified dementia, unspecified severity, with behavioral disturbance (principal); N39.0 Urinary tract infection, site not specified | CPT/HCPCS: A0425; A0428 ==

== ENCOUNTER 2021-08-14 19:46 | Outpatient (CLI) | payer MEDICARE, BC | END 2021-08-14 19:47 | disposition critical access hospital (66) | LOC: EMS 19:46 | DX: R31.9 Hematuria, unspecified (principal); R45.1 Restlessness and agitation | CPT/HCPCS: A0425; A0429 ==

== ENCOUNTER 2021-08-14 20:03 | Emergency (ER) | payer MEDICARE, BC ==
[2021-08-14 20:34] LABS: BILIRUBIN,URINE NEGATIVE (NEGATIVE); GLUCOSE, URINE (UA) NEGATIVE (NEGATIVE); KETONES,URINE (UA) NEGATIVE (NEGATIVE); LEUKOCYTE ESTERASE, URINE LARGE (NEGATIVE); NITRITE,URINE POSITIVE (NEGATIVE); OCCULT BLOOD,URINE LARGE (NEGATIVE); PH,URINE 7.5 PH (5.0-7.5); PROTEIN,URINE 30 mg/dL (NEGATIVE); UROBILINOGEN,URINE 0.2 (NORMAL) E.U./dL (NORMAL)
[2021-08-14 20:35] LABS: CLARITY,URINE CLOUDY (CLEAR)
[2021-08-14 20:42] LABS: BACTERIA,URINE Few /HPF (None Seen); RBC,URINE 0-5 /HPF (0-5); SQUAMOUS EPITHELIAL CELL,UR NONE SEEN (<= Few); WBC,URINE >25 /HPF (0-3)
[2021-08-14 20:45] VITALS: BP 96/49
--- NOTE | 2021-08-14 20:52 | ED Physician Documentation ---
PD HPI MALE - Stated complaint Stated Complaint: MALE - Chief complaint Chief Complaint: Abd Pain - History obtained from History obtained from: EMS - Additional information Additional information: Patient is a 81-year-old male with a history of needing chronic Morales catheter Presenting for evaluation of difficult Morales insertion. [facility] and staff there was trying to change his Morales. They were unable to replace the Morales catheter and noted blood at his urethra and therefore he was transported to the emergency department. Patient has a history of Alzheimer's and does not talk much. Per report given he appears to be at his baseline. He is not currently answering any of my questions. Therefore history is very limited. Review of Systems Unable to obtain: Dementia PD PAST MEDICAL HISTORY - Past Medical History Past Medical History: Yes Cardiovascular: Congestive heart failure, Hypertension, Atrial fibrillation Respiratory: None Neuro: Dementia Endocrine/Autoimmune: None GI: None : Indwelling catheter HEENT: None Psych: Anxiety Musculoskeletal: None Derm: None - Past Surgical History Past Surgical History: No - Present Medications Home Medications: Ambulatory Orders Medication Instructions Recorded Confirmed Memantine [Namenda] 10 mg PO BID 03/19/20 07/28/21 Tamsulosin [Flomax] 0.4 mg PO QPM 03/19/20 07/28/21 Cyanocobalamin (Vitamin B-12) 1,000 mcg SL DAILY 10/27/20 07/28/21 [Vitamin B-12 (1000 mcg sublingual)] Folic Acid 1 mg PO DAILY 10/27/20 07/28/21 Acetaminophen [Acetaminophen Extra 1,000 mg PO BID 03/06/21 07/28/21 Strength] Divalproex Dr Susi Mims] 125 mg PO QDLUNCH 03/06/21 07/28/[address] Susi iMms] 375 mg PO BID 03/06/21 07/28/21 dilTIAZem HCL [Diltiazem 24Hr ER 240 mg PO QPM 03/06/21 07/28/21 (Xr)] Melatonin 3 mg PO QPM 07/28/21 07/28/21 QUEtiapine [SEROquel] 25 mg PO 1400,2000 07/28/21 07/28/21 QUEtiapine [SEROquel] 50 mg PO 0800 07/28/21 07/28/21 QUEtiapine [SEROquel] 50 mg PO TID PRN 07/28/21 07/28/21 Cefdinir 300 mg PO BID #14 cap 08/14/21 - Allergies Allergies/Adverse Reactions: Allergies Allergy/AdvReac Type Severity Reaction Status Date / Time No Known Drug Allergies Allergy Verified 08/14/21 20:13 - Social History Does the pt smoke?: No Smoking Status: Never smoker Does the pt drink ETOH?: No Does the pt have substance abuse?: No - Immunizations Immunizations are current?: No - POLST Patient has POLST: No PD ED PE NORMAL - General General: No acute distress, Other (Elderly, frail-appearing) - HEENT HEENT: Atraumatic - Neck Neck: Supple, no meningeal sign - Cardiac Cardiac: RRR, Strong equal pulses - Respiratory Respiratory: No respiratory distress, Clear bilaterally - Abdomen Abdomen: Normal bowel sounds, Soft, Non distended, Other (Mild suprapubic tenderness) - Derm Derm: Normal color - Extremities Extremities: No edema - Neuro Neuro: No motor deficit Results - Vitals Vitals: Vital Signs - 24 hr 08/14/21 08/14/21 20:00 20:44 Temperature 37.5 C Heart Rate 74 78 Respiratory 16 20 Rate Blood Pressure 106/62 96/49 L O2 Saturation 98 98 Oxygen O2 Source Room air - Labs Labs: Laboratory Tests 08/14/21 20:25 Urine Color YELLOW Urine Clarity CLOUDY Urine pH 7.5 Ur Specific [place] 1.020 Urine Protein 30 H Urine Glucose (UA) NEGATIVE Urine Ketones NEGATIVE Urine Occult Blood LARGE H Urine Nitrite POSITIVE H Urine Bilirubin NEGATIVE Urine Urobilinogen 0.2 (NORMAL) Ur Leukocyte Esterase LARGE H Urine RBC 0-5 Urine WBC >25 H Ur Squamous Epith Cells NONE SEEN Urine Bacteria Few Ur Microscopic Review INDICATED Urine Culture Comments INDICATED PD MEDICAL DECISION MAKING - ED course ED course: Patient with issue regarding his Morales catheter. Morales catheter was placed without difficulty. There was no blood noted. His bladder scan only had 75 mL in it. Urine obtained appeared cloudy. He did have mild suprapubic tenderness. As patient is a limited historian is difficult to ascertain whether he is having true UTI symptoms. Given the appearance of his urine from a new Morales and presence of suprapubic tenderness I will err on the side of caution and initiate treatment of possible urinary tract infection. Based on previous cultures I will initiate treatment with cefdinir.Patient does not appear septic or altered from his baseline. Departure - Departure Disposition: 01 Home, Self Care Clinical Impression: Morales catheter problem Qualifiers: Encounter type: initial encounter Qualified Code(s): T83.9XXA - Unspecified complication of genitourinary prosthetic device, implant and graft, initial encounter Condition: Stable Instructions: ED Catheter Care Morales, ED UTI Cystitis Male Prescriptions: Cefdinir 300 mg PO BID #14 cap Comments: Your Morales catheter was replaced today without a problem and is draining appropriately. There may be signs of an infection in your urine so you will be started on an antibiotic pending a urine culture. Please take the antibiotic as prescribed.A paper copy will also be provided to you if you are not able to get it from your pharmacy. Discharge Date/Time: 08/14/21 21:33
[2021-08-14] MEDS: CEFPODOXIME PROXETIL 100 MG TABLET PO ONE (21:33)
== END 2021-08-14 21:33 | disposition home or self-care (01) ==
LOC: EDUNIT# → ED 20:03
DX: T83.091A Other mechanical complication of indwelling urethral catheter, initial encounter (principal); Y84.9 Medical procedure, unspecified as the cause of abnormal reaction of the patient, or of later complication, without mention of misadventure at the time of the procedure; I11.0 Hypertensive heart disease with heart failure; I50.9 Heart failure, unspecified; I48.91 Unspecified atrial fibrillation
CPT/HCPCS: 51702; 51798; 81001; 81003; 87086; 87181; 99281; 99283

== ENCOUNTER 2021-08-14 21:38 | Outpatient (CLI) | payer MEDICARE, BC | END 2021-08-14 21:39 | disposition home or self-care (01) | LOC: EMS 21:38 | PROVIDERS: ATTEND Emergency Medicine | DX: N39.0 Urinary tract infection, site not specified (principal); G30.9 Alzheimer's disease, unspecified; F02.80 Dementia in other diseases classified elsewhere, unspecified severity, without behavioral disturbance, psychotic disturbance, mood disturbance, and anxiety | CPT/HCPCS: A0425; A0428 ==

== ENCOUNTER 2021-08-28 17:32 | Outpatient (CLI) | payer MEDICARE, BC | END 2021-08-28 17:33 | disposition critical access hospital (66) | LOC: EMS 17:32 | DX: N50.89 Other specified disorders of the male genital organs (principal) | CPT/HCPCS: A0425; A0429 ==

== ENCOUNTER 2021-08-28 17:48 | Inpatient (IN) | payer MEDICARE, BC ==
[2021-08-28] MEDS ORDERED: diltiaZEM INJ 5 MG/ML VIAL IVP STA ×2 (18:29→19:01)
--- NOTE | 2021-08-28 18:34 | ED Physician Documentation ---
History of Present Illness - Stated complaint Stated Complaint: SWOLLEN TESTES - Chief complaint Chief Complaint: Fever - Additonal information Additional information: 81-year-old male was brought To the emergency department from home place for evaluation of scrotal swelling edema and erythema of his perineal area. History is limited from the patient due to dementia. He does have a history of atrial fibrillation as well as hypertension. He has BPH and chronic urinary retention for which he has an indwelling Morales catheter. The staff was attempting to change the Morales and irrigate it but due to pain they were unable to. He presents alert though he is in A. fib with RVR sometimes approaching 170-180. He does have palpable pulses. He is maintaining his own airway. Modest temperature elevation 37.8. In review of chart it does appear that he has history of chronic congestive heart failure with a known EF of 35%. He arrives with paperwork indicating that he is a do not attempt resuscitation with limited interventions and selective treatment including sparing of antibiotics Review of Systems Unable to obtain: Dementia Constitutional: reports: Fever : reports: Unable to Void, Testicular pain PD PAST MEDICAL HISTORY - Past Medical History Cardiovascular: Congestive heart failure, Hypertension, Atrial fibrillation Respiratory: None Neuro: Dementia Endocrine/Autoimmune: None GI: None : Indwelling catheter HEENT: None Psych: Anxiety Musculoskeletal: None Derm: None - Past Surgical History Past Surgical History: No - Present Medications Home Medications: Ambulatory Orders Medication Instructions Recorded Confirmed Memantine [Namenda] 10 mg PO BID 03/19/20 07/28/21 Tamsulosin [Flomax] 0.4 mg PO QPM 03/19/20 07/28/21 Cyanocobalamin (Vitamin B-12) 1,000 mcg SL DAILY 10/27/20 07/28/21 [Vitamin B-12 (1000 mcg sublingual)] Folic Acid 1 mg PO DAILY 10/27/20 07/28/21 Acetaminophen [Acetaminophen Extra 1,000 mg PO BID 03/06/21 07/28/21 Strength] Divalproex [Carlie Mims] 125 mg PO QDLUNCH 03/06/21 07/28/21 Divalproex [Carlie Mims] 375 mg PO BID 03/06/21 07/28/21 dilTIAZem HCL [Diltiazem 24Hr ER 240 mg PO QPM 03/06/21 07/28/21 (Xr)] Melatonin 3 mg PO QPM 07/28/21 07/28/21 QUEtiapine [SEROquel] 25 mg PO 1400,2000 07/28/21 07/28/21 QUEtiapine [SEROquel] 50 mg PO 0800 07/28/21 07/28/21 QUEtiapine [SEROquel] 50 mg PO TID PRN 07/28/21 07/28/21 Cefdinir 300 mg PO BID #14 cap 08/14/21 - Allergies Allergies/Adverse Reactions: Allergies Allergy/AdvReac Type Severity Reaction Status Date / Time No Known Drug Allergies Allergy Verified 08/14/21 20:13 - Social History Does the pt smoke?: No Smoking Status: Never smoker Does the pt drink ETOH?: No Does the pt have substance abuse?: No - Immunizations Immunizations are current?: No - POLST Patient has POLST: No PD ED PE EXPANDED - General General: Alert, Disheveled, poorly kept - Cardiac Cardiac: Tachy, Irregularly irregular, Murmur Present, Other (2+ pitting edema bilateral lower extremities). No: Radial strong equal, Pedal strong equal (1+ pulses in radial and pedal. Brisk cap refill.) - Respiratory Respiratory: Clear to ausultation bandar. No: Distress, Labored - Abdomen Abdomen: Normal Bowel sounds. No: Tender to palpation - Male Male : Other (Indwelling Morales catheter with yellow sediment urine draining. Significant swelling and erythema of both scrotum and testes though left greater than right. Erythema extends into the left inguinal and perineal area) - Derm Derm: Warm and dry - Extremities Extremities: Pedal edema bilateral (2+ pedal edema bilateral lower extremities), Pedal Pulses Present. No: Deformity, Tenderness - Neuro Neuro: Alert and Oriented X 3, CNII-XII intact - GCS Eye Opening: Spontaneous Motor: Obeys Commands Verbal: Oriented Total: 15 Results - Vitals Vitals: Vital Signs - 24 hr 08/28/21 08/28/21 08/28/21 18:08 18:28 18:30 Temperature 37.8 C Heart Rate 160 H 153 H 149 H Respiratory 24 28 H 25 H Rate Blood Pressure 125/103 H 125/106 H 141/74 H O2 Saturation 98 100 99 08/28/21 08/28/21 08/28/21 18:34 18:35 18:40 Temperature Heart Rate 146 H 140 H 114 H Respiratory 25 H 27 H 23 Rate Blood Pressure 126/80 116/97 H 121/79 O2 Saturation 99 98 98 08/28/21 08/28/21 08/28/21 18:45 18:50 19:13 Temperature Heart Rate 119 H 125 H 113 H Respiratory 23 23 22 Rate Blood Pressure 118/77 135/88 H 132/75 H O2 Saturation 96 98 97 08/28/21 08/28/21 08/28/21 20:00 20:30 21:00 Temperature 37.9 C 38.0 C H Heart Rate 122 H 120 H 122 H Respiratory 22 20 20 Rate Blood Pressure 131/82 H 131/73 H 130/72 O2 Saturation 100 100 100 08/28/21 21:30 Temperature 36.8 C Heart Rate 120 H Respiratory 20 Rate Blood Pressure 120/60 O2 Saturation 100 Oxygen O2 Source Room air - EKG (time done) 1817 Rate: Rate (enter#) (148) Rhythm: Atrial fibrillation Intervals: Normal FL QRS: Low voltage Ischemia: ST elevation c/w repol Compare to prior EKG: Unchanged from prior EKG Computer interpretation: Agree with computer - Labs Labs: Laboratory Tests 08/28/21 08/28/21 08/28/21 18:25 18:25 18:25 WBC 11.2 H RBC 3.90 L Hgb 12.6 L Hct 36.2 L MCV 92.8 MCH 32.3 H MCHC 34.8 RDW 12.9 Plt Count 125 L MPV 10.1 Neut # (Auto) 8.8 H Lymph # (Auto) 1.1 L [place] # (Auto) 1.2 H Eos # (Auto) 0.0 Baso # (Auto) 0.0 Absolute Nucleated RBC 0.00 Nucleated RBC % 0.0 Sodium 137 Potassium 3.8 Chloride 102 Carbon Dioxide 24 Anion Gap 11.0 BUN 29 H Creatinine 1.1 Estimated GFR (MDRD) 65 L Glucose 95 Lactic Acid 1.6 Calcium 8.5 Total Bilirubin 1.8 H AST 12 ALT 11 Alkaline Phosphatase 52 Troponin I High Sens B-Natriuretic Peptide Total Protein 6.7 Albumin 3.5 Globulin 3.2 Albumin/Globulin Ratio 1.1 TSH Thyroxine (T4) Urine Color Urine Clarity Urine pH Ur Specific Queen Urine Protein Urine Glucose (UA) Urine Ketones Urine Occult Blood Urine Nitrite Urine Bilirubin Urine Urobilinogen Ur Leukocyte Esterase Urine RBC Urine WBC Ur Squamous Epith Cells Urine Bacteria Urine Culture Comments SARS-CoV-2 (PCR) 08/28/21 08/28/21 08/28/21 18:25 18:25 18:25 WBC RBC Hgb Hct MCV MCH MCHC RDW Plt Count MPV Neut # (Auto) Lymph # (Auto) [place] # (Auto) Eos # (Auto) Baso # (Auto) Absolute Nucleated RBC Nucleated RBC % Sodium Potassium Chloride Carbon Dioxide Anion Gap BUN Creatinine Estimated GFR (MDRD) Glucose Lactic Acid Calcium Total Bilirubin AST ALT Alkaline Phosphatase Troponin I High Sens 10.6 B-Natriuretic Peptide 187 H Total Protein Albumin Globulin Albumin/Globulin Ratio TSH 4.70 Thyroxine (T4) 7.88 Urine Color Urine Clarity Urine pH Ur Specific Queen Urine Protein Urine Glucose (UA) Urine Ketones Urine Occult Blood Urine Nitrite Urine Bilirubin Urine Urobilinogen Ur Leukocyte Esterase Urine RBC Urine WBC Ur Squamous Epith Cells Urine Bacteria Urine Culture Comments SARS-CoV-2 (PCR) 08/28/21 08/28/21 19:50 19:55 WBC RBC Hgb Hct MCV MCH MCHC RDW Plt Count MPV Neut # (Auto) Lymph # (Auto) [place] # (Auto) Eos # (Auto) Baso # (Auto) Absolute Nucleated RBC Nucleated RBC % Sodium Potassium Chloride Carbon Dioxide Anion Gap BUN Creatinine Estimated GFR (MDRD) Glucose Lactic Acid Calcium Total Bilirubin AST ALT Alkaline Phosphatase Troponin I High Sens B-Natriuretic Peptide Total Protein Albumin Globulin Albumin/Globulin Ratio TSH Thyroxine (T4) Urine Color YELLOW Urine Clarity HAZY Urine pH 6.0 Ur Specific Queen 1.020 Urine Protein 30 H Urine Glucose (UA) NEGATIVE Urine Ketones TRACE Urine Occult Blood MODERATE H Urine Nitrite POSITIVE H Urine Bilirubin NEGATIVE Urine Urobilinogen 0.2 (NORMAL) Ur Leukocyte Esterase MODERATE H Urine RBC 11-25 H Urine WBC >25 H Ur Squamous Epith Cells NONE SEEN Urine Bacteria Many H Urine Culture Comments INDICATED SARS-CoV-2 (PCR) DETECTED A - Rads (name of study) limited scrotal US Radiology: Final report received (No testicular torsion. Complex left scrotal fluid collection which represents a complex hydrocele versus pyocele. Trace right sided simple scrotal hydrocele. Left follow-up epididymitis.) cxr Radiology: Final report received (No acute cardiopulmonary process) abd CT Radiology: Final report received (Diffuse subcutaneous edema and skin thickening involving left scrotum consistent with cellulitis. No discrete abscess soft tissue gas identified. Small to moderate left hydrocele with asymmetric enhancement the left testicle and left hemiscrotum suggestive for epididymo orchitis. ) PD MEDICAL DECISION MAKING - ED course Complexity details: reviewed old records, reviewed results, re-evaluated patient, considered differential, d/w patient, d/w family, d/w [employer] consultant ([facility]) ED course: 81-year-old male who has a history of dementia as well as atrial fibrillation and chronic indwelling Morales catheter secondary to obstruction presents to the emergency department for evaluation of left scrotal edema erythema and pain that the care staff at home place noted when they were attempting to exchange his Morales catheter. On presentation to the emergency department he had a low-grade temperature elevation of 37.8 but presented in A. fib with RVR with a rapid rate approaching 170-180. Initially he was given 10 mg of Cardizem which only briefly slowed his heart rate. He was then repeated with an additional 10 mg of Cardizem which successfully slowed his heart rate into the 120-140 range. He remained normotensive. Sepsis screening work-up was implemented given the concern for sepsis. His white blood cell count was modestly elevated at 11.2. Lactate was negative. Subsequent ultrasound imaging of the left scrotum and testy do indicate the patient has developed left epididymitis as well as a hydrocele or early pyocele. A CT of the abdomen and pelvis confirms left scrotal cellulitis with left epididymo orchitis. This case was discussed with the on-call urologist Dr. Reid through [facility]. She suspects that the pyocele or hydrocele is reactive secondary to the epididymitis. At this time she did not feel the patient warranted emergent transfer but she would recommend broad- spectrum antibiotics be initiated with cefepime. If there is no clinical improvement after 48 to 72 hours she would recommend repeat ultrasound and reev aluation or consultation. Patient's UA appears to be consistent with infection and the CT scan does show cystitis of the bladder. However the patient's Morales catheter was not exchanged today as there was fear that we would not be able to reinsert the catheter given the erythema and swelling in the genital area. It will likely need to be replaced once the infection begins to resolve I did discuss with the patient's EDY Kerr (sister) ([phone]) the plan to admit the patient to the hospital for IV antibiotics and the treatment of scrotal cellulitis, epididymitis and hydrocele. Though he is a DNR the POLST form also indicates selective treatment and antibiotics. She is comfortable with the plan for admission here. She requests that we call her with any questions or concerns I discussed this case with our nighttime hospitalist Dr. Herzog who graciously agrees to admit the patient. Unfortunately COVID-19 screen is positive. Patient appears asymptomatic from a respiratory standpoint without any cough or abnormal lung findings on chest x-ray. - Critical Care Time(min): 15 Time Includes: Direct patient care, Review records Data interpretation: Prior EKG, See progress note (cc time induding initial management and evaluatuion fo a fib with rvr requiring repeat dosing of cardizem for HR control) Departure - Departure Disposition: 66 [facility] DC/Xfer Clinical Impression: Cellulitis of scrotum, Epididymitis, left, Left hydrocele, Atrial fibrillation with rapid ventricular response, COVID-19 Dementia Qualifiers: Dementia type: unspecified type Dementia behavioral disturbance: with behavioral disturbance Qualified Code(s): F03.91 - Unspecified dementia with behavioral disturbance Discharge Date/Time: 08/28/21 22:23
[2021-08-28 18:37] LABS: BASOPHILS % (AUTO) 0.2 %; EOSINOPHILS % (AUTO) 0.2 %; HCT - HEMATOCRIT 36.2 % (42.0-52.0); HGB - HEMOGLOBIN 12.6 g/dL (14.0-18.0); LYMPHOCYTES # (AUTO) 1.1 10^3/uL (1.5-3.5); LYMPHOCYTES % (AUTO) 9.4 %; MEAN CORPUSCULAR HEMOGLOBIN 32.3 pg (27.0-31.0); MEAN CORPUSCULAR HGB CONC 34.8 g/dL (32.0-36.0); MEAN CORPUSCULAR VOLUME 92.8 fL (80.0-94.0); MEAN PLATELET VOLUME 10.1 fL (7.4-11.4); MONOCYTES # (AUTO) 1.2 10^3/uL (0.0-1.0); MONOCYTES % (AUTO) 11.1 %; NEUTROPHILS # (AUTO) 8.8 10^3/uL (1.5-6.6); NEUTROPHILS % (AUTO) 78.6 %; PLT - PLATELET COUNT 125 10^3/uL (130-450); RED CELL DISTRIBUTION WIDTH 12.9 % (12.0-15.0); WHITE BLOOD COUNT 11.2 x10^3/uL (4.8-10.8)
[2021-08-28] MEDS ORDERED: IOVERSOL 320 100 ML VIAL IVP ONE ×2 (18:42→19:41)
[2021-08-28 18:56] LABS: ALBUMIN 3.5 g/dL (3.2-5.5); ALBUMIN/GLOBULIN RATIO 1.1 (1.0-2.2); BILIRUBIN,TOTAL 1.8 mg/dL (0.2-1.0); CALCIUM 8.5 mg/dL (8.5-10.3); CREATININE 1.1 mg/dL (0.6-1.2); POTASSIUM 3.8 mmol/L (3.5-5.0); TOTAL PROTEIN 6.7 g/dL (6.7-8.2)
[2021-08-28 19:08] LABS: T4 (THYROXINE) 7.88 ug/dL (6.09-12.23)
[2021-08-28 19:12] LABS: THYROID STIMULATING HORMONE 4.7 uIU/mL (0.34-5.60)
--- NOTE | 2021-08-28 19:36 | Ultrasound Report ---
PROCEDURE: Testicle w/Doppler Limited INDICATIONS: Scrotal swelling and edema L>R TECHNIQUE: Real-time scanning was performed of the scrotum and testicles, with image documentation. Color and p ulse Doppler interrogation was performed of both testicles. COMPARISON: None. FINDINGS: Image quality degraded by uncooperative patient and patient motion. Right: Testicle is normal in size at 4.7 x 2.9 x 2 point cm, and homogenous in echotexture. Epididy mis is normal in overall size and morphology. Trace right-sided hydrocele. No varicoceles. Overlyin g scrotal skin is thickened. Left: Testicle is normal in size at 4.3 x 2.9 x 2.5 cm, and homogeneous in echotexture. Epididymis is mildly enlarged and heterogeneous in echotexture. There is increased vascularity left epididymis. Moderate left scrotal complex fluid collection is noted which may represent complex hydrocele or pyoc prabhu. No varicoceles. Overlying scrotal skin is thickened. Doppler: Color and pulse Doppler demonstrate normal and symmetric arterial flow in both testicles. IMPRESSION: 1. No evidence of testicular torsion. Please note ultrasound cannot exclude intermittent testicular t orsion. 2. Complex left scrotal fluid collection which represent a complex hydrocele versus pyocele. 3. Trace right-sided simple scrotal hydrocele. 4. Left epididymitis. 5. Scrotal thickening. Finding is nonspecific but can be related to infectious cellulitis. Reviewed by: Kassandra Larkin MD, PhD on 08/28/2021 7:34 PM PDT Approved by: Kassandra Larkin MD, PhD on 08/28/2021 7:34 PM PDT Station ID: [id number]
--- NOTE | 2021-08-28 19:37 | XRAY Report ---
PROCEDURE: Chest 1 View X-Ray INDICATIONS: chest pain TECHNIQUE: One view of the chest was acquired. COMPARISON: FINDINGS: Surgical changes and devices: None. Lungs and pleura: No pleural effusions or pneumothorax. Lungs are clear. Mediastinum: Mediastinal contours appear normal. Heart size is normal. Bones and chest wall: No suspicious bony lesions. Overlying soft tissues appear unremarkable. IMPRESSION: No acute cardiopulmonary disease process. Reviewed by: Kassandra Larkin MD, PhD on 08/28/2021 7:36 PM PDT Approved by: Kassandra Larkin MD, PhD on 08/28/2021 7:36 PM PDT Station ID: [id number]
[2021-08-28 20:01] LABS: BILIRUBIN,URINE NEGATIVE (NEGATIVE); GLUCOSE, URINE (UA) NEGATIVE (NEGATIVE); KETONES,URINE (UA) TRACE mg/dL (NEGATIVE); LEUKOCYTE ESTERASE, URINE MODERATE (NEGATIVE); NITRITE,URINE POSITIVE (NEGATIVE); OCCULT BLOOD,URINE MODERATE (NEGATIVE); PROTEIN,URINE 30 mg/dL (NEGATIVE); UROBILINOGEN,URINE 0.2 (NORMAL) E.U./dL (NORMAL)
[2021-08-28] MEDS ORDERED: QUEtiapine 25 MG TABLET PO STA (20:04)
[2021-08-28 20:09] LABS: BACTERIA,URINE Many /HPF (None Seen); CLARITY,URINE HAZY (CLEAR); SQUAMOUS EPITHELIAL CELL,UR NONE SEEN (<= Few); WBC,URINE >25 /HPF (0-3)
--- NOTE | 2021-08-28 20:22 | CT Report ---
PROCEDURE: Abdomen/Pelvis W INDICATIONS: scrotal edema/cellulitis CONTRAST: IV CONTRAST: Optiray 320 ml: 100 PO CONTRAST: *NO PO CONTRAST TECHNIQUE: After the administration of intravenous contrast, 5 mm thick sections acquired from the diaphragms to the symphysis. 5 mm thick coronal and sagittal reformats were acquired. For radiation dose reducti on, the following was used: automated exposure control, adjustment of mA and/or kV according to raul ent size. COMPARISON: None. FINDINGS: Image quality: There is mild motion artifact and beam hardening artifact from patient's upper extremi ties. ABDOMEN: Lung bases: There is mild scarring and atelectasis in the lung bases. Within the inferior right middl e lobe, there are 2 small nodules on series 4 image 13 measuring up to 0.4 cm and 0.3 cm. Heart size is enlarged. Solid organs: There is a cyst in the left hepatic lobe. Gallbladder appears within normal limits with out calcified gallstones. Biliary system is non dilated. The spleen is normal in size. Multiple punc hawkins calcifications are demonstrated within the spleen consistent sequelae of old granulomatous disea se. Pancreas enhances normally without peripancreatic fat stranding or fluid collections. No adrenal nodules. Kidneys demonstrate no hydronephrosis. There are a few bilateral renal cysts as well as sm aller low-density foci in the kidneys which are too small to characterize but likely represent cysts. Peritoneum and bowel: Bowel loops demonstrate normal wall thickness and caliber. The appendix is nor mal in appearance. No free fluid or air. Nodes and vessels: No retroperitoneal or mesenteric adenopathy by size criteria. Aorta and inferior vena cava are normal in size. Miscellaneous: No ventral hernias. PELVIS: Genitourinary: There is a Morales catheter within a partially distended urinary bladder. There is paul ntric bladder wall thickening. Miscellaneous: There is diffuse subcutaneous edema and skin thickening along the scrotum. There is a small to moderate left hydrocele with asymmetric enhancement of the left hemiscrotum and left testic le suggestive of epididymoorchitis. No soft tissue gas identified. No discrete subcutaneous abscess. No inguinal hernias or adenopathy. Bones: No suspicious bony lesions. No vertebral body compression fractures. There are bilateral par s defects with grade 1 anterolisthesis at L5-S1 measuring approximately 0.7 cm. IMPRESSION: 1. Diffuse subcutaneous edema and skin thickening involving the left scrotum consistent with history of cellulitis. No discrete subcutaneous abscess or soft tissue gas identified. 2. Small to moderate left hydrocele with asymmetric enhancement of the left testicle and left hemiscr otum suggestive of epididymoorchitis. 3. Concentric bladder wall thickening suggestive of a cystitis. Reviewed by: Blu Amin MD on 08/28/2021 8:20 PM PDT Approved by: Blu Amin MD on 08/28/2021 8:20 PM PDT Station ID: [id number]
[2021-08-28] MEDS ORDERED: CEFEPIME 2 GM in SODIUM CHLORIDE 0.9% MINIBAG 100 ML IV STA (20:25)
[2021-08-28] MEDS ORDERED: ACETAMINOPHEN 325 MG TABLET PO PRN (21:35)
[2021-08-28] MEDS ORDERED: ONDANSETRON 4 MG/2 ML VIAL IVP PRN (21:35)
[2021-08-28] MEDS ORDERED: QUEtiapine 25 MG TABLET PO PRN (21:40)
[2021-08-28] MEDS ORDERED: ACETAMINOPHEN/CODEINE 300 MG/30 MG TABLET PO PRN (21:46)
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
[2021-08-28] MEDS: LACTATED RINGERS 1,000 ML IV SCH (22:56)
[2021-08-29] MEDS ORDERED: diltiaZEM INJ 5 MG/ML VIAL IVP ONE (00:06)
[2021-08-29] MEDS: MEMANTINE 5 MG TABLET PO SCH ×3 (00:44→21:04)
[2021-08-29] MEDS: TAMSULOSIN 0.4 MG CAPSULE PO SCH ×2 (00:44→20:53)
[2021-08-29] MEDS: METOPROLOL SUCCINATE 25 MG TABLET PO SCH ×3 (00:45→20:54)
[2021-08-29] MEDS: QUEtiapine 25 MG TABLET PO SCH ×4 (00:45→20:53)
[2021-08-29] MEDS: SODIUM CHLORIDE FLUSH 0.9% 10 ML SYRINGE IVP SCH ×3 (05:54→16:57)
[2021-08-29 06:14] LABS: BASOPHILS % (AUTO) 0.3 %; EOSINOPHILS % (AUTO) 0.4 %; HCT - HEMATOCRIT 35.5 % (42.0-52.0); HGB - HEMOGLOBIN 12.1 g/dL (14.0-18.0); LYMPHOCYTES # (AUTO) 0.9 10^3/uL (1.5-3.5); LYMPHOCYTES % (AUTO) 9.2 %; MEAN CORPUSCULAR HEMOGLOBIN 31.5 pg (27.0-31.0); MEAN CORPUSCULAR HGB CONC 34.1 g/dL (32.0-36.0); MEAN CORPUSCULAR VOLUME 92.4 fL (80.0-94.0); MEAN PLATELET VOLUME 10.1 fL (7.4-11.4); MONOCYTES # (AUTO) 1.1 10^3/uL (0.0-1.0); MONOCYTES % (AUTO) 11.2 %; NEUTROPHILS # (AUTO) 7.6 10^3/uL (1.5-6.6); NEUTROPHILS % (AUTO) 78.6 %; PLT - PLATELET COUNT 121 10^3/uL (130-450); RED BLOOD COUNT 3.84 10^6/uL (4.70-6.10); RED CELL DISTRIBUTION WIDTH 12.8 % (12.0-15.0); WHITE BLOOD COUNT 9.7 x10^3/uL (4.8-10.8)
[2021-08-29 06:23] LABS: CALCIUM 8.2 mg/dL (8.5-10.3); CREATININE 0.9 mg/dL (0.6-1.2); MAGNESIUM 1.9 mg/dL (1.7-2.8); PHOSPHORUS 3.1 mg/dL (2.5-4.6); POTASSIUM 3.5 mmol/L (3.5-5.0)
[2021-08-29] MEDS: CYANOCOBALAMIN 500 MCG TABLET PO SCH (08:51)
[2021-08-29] MEDS: CEFEPIME 2 GM in SODIUM CHLORIDE 0.9% MINIBAG 100 ML IV SCH ×2 (08:54→20:54)
[2021-08-29] MEDS: FOLIC ACID 1 MG TABLET PO SCH (08:55)
[2021-08-29] MEDS: DIVALPROEX DR 125 MG TABLET PO SCH ×3 (08:55→20:53)
[2021-08-29] MEDS ORDERED: [UNRECOGNIZED DRUG - OTHER] SL SCH (09:00)
[2021-08-29] MEDS ORDERED: CYANOCOBALAMIN SL SCH (09:00)
[2021-08-29] MEDS: LACTATED RINGERS 1,000 ML IV SCH ×2 (11:25→21:04)
--- NOTE | 2021-08-29 12:25 | PHARMACY PROGRESS NOTE ---
- Best Possible Medication History Admit Date and Time: 08/28/217 Processed by: Pharmacy Medication History completed: Yes Secondary Source(s): Previous admit records As the person ultimately responsible for medication therapy, providers are able to order a medication from an existing home medication list in [facility] via the "Reconcile Routine" prior to Confirmation of that medication by clinical support associate. Such practice is discouraged except when the physician, in their clinical judgment, deems that a medical need exists for a medication without regard to previous use.
--- NOTE | 2021-08-29 17:36 | PROVIDER PROGRESS NOTE ---
Assessment/Plan - Problem List (1) Epididymitis, left Assessment/Plan: CT of the abdomen pelvis showed diffuse subcutaneous edema and skin thickening involving the left scrotum consistent with cellulitis. There was no discrete subcutaneous abscess or soft tissue gas identified. It also reported small to moderate left hydrocele with asymmetric enhancement of the left testicle and left hemiscrotum suggestive of epididymorchitis. Concentric bladder wall thickening suggestive of cystitis Patient is on cefepime 2 g IV twice daily. Blood and urine cultures are no growth to date. Gentle IV hydration with lactated Ringer at 80 mL/h WBC improved from 11.2 down to 9.7. (2) Catheter-associated urinary tract infection Assessment/Plan: CT of the abdomen pelvis showed diffuse subcutaneous edema and skin thickening involving the left scrotum consistent with cellulitis. There was no discrete subcutaneous abscess or soft tissue gas identified. It also reported small to moderate left hydrocele with asymmetric enhancement of the left testicle and left hemiscrotum suggestive of epididymorchitis. Concentric bladder wall thickening suggestive of cystitis Patient is on cefepime 2 g IV twice daily. Blood and urine cultures are no growth to date. Gentle IV hydration with lactated Ringer at 80 mL/h WBC improved from 11.2 down to 9.7. Morales catheter was left in place for concern about urinary tract obstruction if removed. Urology concurred with decision to leave it in place for now. (3) Cellulitis of scrotum Assessment/Plan: CT of the abdomen pelvis showed diffuse subcutaneous edema and skin thickening involving the left scrotum consistent with cellulitis. There was no discrete subcutaneous abscess or soft tissue gas identified. It also reported small to moderate left hydrocele with asymmetric enhancement of the left testicle and left hemiscrotum suggestive of epididymorchitis. Concentric bladder wall thickening suggestive of cystitis Patient is on cefepime 2 g IV twice daily. Blood and urine cultures are no growth to date. Gentle IV hydration with lactated Ringer at 80 mL/h WBC improved from 11.2 down to 9.7. (4) Atrial fibrillation with RVR Assessment/Plan: On metoprolol succinate 25 mg p.o. twice daily. Diltiazem 60 mg p.o. 4 times daily. Heart rate this is a Test afternoon was 89. (5) Chronic systolic heart failure Assessment/Plan: Not in exacerbation. On metoprolol succinate 25 mg p.o. twice daily. Not on any diuretic. 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 On Namenda 10 mg p.o. twice daily. Seroquel 50 mg p.o. 3 times daily as needed, 50 mg p.o. q. 8 AM and 25 mg p.o. at 2 PM and 8 PM (7) Seizure disorder Assessment/Plan: On Depakote 375 mg p.o. twice daily and 125 mg p.o. q. lunch. (8) COVID-19 Assessment/Plan: Patient does not have acute disease. He does not have any respiratory or GI symptoms. He continues to test positive from an infection in May 2021. - Current Meds Current Meds: Current Medications Generic Name Dose Route Start Last Admin Trade Name Grahamq PRN Reason Stop Dose Admin Cyanocobalamin 1,000 mcg 08/29/21 09:00 08/29/21 08:51 Cyanocobalamin 500 Mcg Tablet PO 1,000 mcg DAILY ADALBERTO Administration Diltiazem HCl 60 mg 08/28/21 22:00 08/29/21 17:08 Diltiazem 60 Mg Tablet PO 60 mg QID ADALBERTO Administration Divalproex Sodium 125 mg 08/29/21 12:00 08/29/21 12:[address] 125 Mg Tablet PO 125 mg QDLUNCH ADALBERTO Administration Divalproex Sodium 375 mg 08/29/21 09:00 08/29/21 08:[address] 125 Mg Tablet PO 375 mg BID ADALBERTO Administration Folic Acid 1 mg 08/29/21 09:00 08/29/21 08:55 Folic Acid 1 Mg Tablet PO 1 mg DAILY ADALBERTO Administration Lactated Ringer's 1,000 mls @ 80 mls/hr 08/28/21 22:00 08/29/21 11:25 Lr IV 80 mls/hr .[id number] ADALBERTO Administration Cefepime HCl 2 gm/ Sodium 100 mls @ 200 mls/hr 08/29/21 09:00 08/29/21 09:34 Chloride IV Infused BID ADALBERTO Infusion Memantine 10 mg 08/28/21 22:00 08/29/21 12:13 Memantine 5 Mg Tablet PO 10 mg BID ADALBERTO Administration Metoprolol Succinate 25 mg 08/28/21 23:00 08/29/21 08:54 Metoprolol Succinate 25 Mg Tablet PO 25 mg BID ADALBERTO Administration Quetiapine Fumarate 25 mg 08/28/21 22:00 08/29/21 13:56 Quetiapine 25 Mg Tablet PO 25 mg 1400,2000 ADALBERTO Administration Quetiapine Fumarate 50 mg 08/29/21 08:00 08/29/21 08:51 Quetiapine 25 Mg Tablet PO 50 mg 0800 ADALBERTO Administration Sodium Chloride 10 ml 08/29/21 01:00 08/29/21 16:57 Sodium Chloride Flush 0.9% 10 Ml Syringe IVP Not Given 0100,0900,1700 [facility] Tamsulosin HCl 0.4 mg 08/28/21 21:42 08/29/21 00:44 Tamsulosin 0.4 Mg Capsule PO Not Given QPM ADALBERTO - Lab Result Fish Bone Diagrams: 08/29/21 06:03 08/29/21 06:03 - Additional Planning My Orders: My Active Orders 08/29/21 Lunch Soft Mechanical Diet [DIET] Subjective - Subjective Patient Reports: Other (He was resting comfortably in bed at time of exam. He w as awake but would not respond to any questions asked.) Objective Vital Signs: Vital Signs - 24 hr 08/28/21 08/28/21 08/28/21 18:08 18:28 18:30 Temperature 37.8 C Heart Rate 160 H 153 H 149 H Heart Rate [ Brachial] Respiratory 24 28 H 25 H Rate Blood Pressure 125/103 H 125/106 H 141/74 H Blood Pressure [Left Brachial artery] O2 Saturation 98 100 99 08/28/21 08/28/21 08/28/21 18:34 18:35 18:40 Temperature Heart Rate 146 H 140 H 114 H Heart Rate [ Brachial] Respiratory 25 H 27 H 23 Rate Blood Pressure 126/80 116/97 H 121/79 Blood Pressure [Left Brachial artery] O2 Saturation 99 98 98 08/28/21 08/28/21 08/28/21 18:45 18:50 19:13 Temperature Heart Rate 119 H 125 H 113 H Heart Rate [ Brachial] Respiratory 23 23 22 Rate Blood Pressure 118/77 135/88 H 132/75 H Blood Pressure [Left Brachial artery] O2 Saturation 96 98 97 0408/28/21 08/28/21 20:00 20:30 21:00 Temperature 37.9 C 38.0 C H Heart Rate 122 H 120 H 122 H Heart Rate [ Brachial] Respiratory 22 20 20 Rate Blood Pressure 131/82 H 131/73 H 130/72 Blood Pressure [Left Brachial artery] O2 Saturation 100 100 100 08/28/21 08/28/21 08/28/21 21:30 22:00 23:46 Temperature 36.8 C 37.1 C 37.1 C Heart Rate 120 H Heart Rate [ 114 H 115 H Brachial] Respiratory 20 21 16 Rate Blood Pressure 120/60 Blood Pressure 135/72 H 126/76 [Left Brachial artery] O2 Saturation 100 100 100 08/29/21 08/29/21 08/29/21 00:41 00:45 00:50 Temperature Heart Rate Heart Rate [ 110 H 100 Brachial] Respiratory Rate Blood Pressure 126/76 Blood Pressure 110/63 109/68 [Left Brachial artery] O2 Saturation 08/29/21 08/29/21 08/29/21 00:55 01:10 01:25 Temperature Heart Rate Heart Rate [ 98 88 90 Brachial] Respiratory Rate Blood Pressure Blood Pressure 102/72 108/62 106/71 [Left Brachial artery] O2 Saturation 08/29/21 08/29/21 08/29/21 05:00 06:41 08:00 Temperature 37.5 C Heart Rate Heart Rate [ 117 H 106 H Brachial] Respiratory 16 Rate Blood Pressure 122/70 Blood Pressure 121/77 [Left Brachial artery] O2 Saturation 100 08/29/21 08/29/21 08/29/21 08:06 08:52 10:00 Temperature 37.4 C Heart Rate Heart Rate [ 60 Brachial] Respiratory 16 Rate Blood Pressure 122/70 128/72 Blood Pressure 122/70 [Left Brachial artery] O2 Saturation 97 08/29/21 08/29/21 08/29/21 12:45 14:00 15:45 Temperature 36.7 C 36.7 C 36.7 C Heart Rate Heart Rate [ 80 89 Brachial] Respiratory 16 16 18 Rate Blood Pressure Blood Pressure 99/55 L 119/77 [Left Brachial artery] O2 Saturation 98 98 96 08/29/21 17:08 Temperature Heart Rate Heart Rate [ Brachial] Respiratory Rate Blood Pressure 119/77 Blood Pressure [Left Brachial artery] O2 Saturation Oxygen O2 Source Room air I&O (Last 24 Hrs): Intake and Output Totals x24h 08/27/21 08/28/21 08/29/21 23:59 23:59 23:59 Intake Total 100 1388.667 Output Total 400 1200 Balance -300 188.667 General: Alert, Oriented x3, No acute distress HEENT: PERRLA, EOMI Neck: Supple, No JVD Neuro: Alert, Other (awake. Oriented X3) Cardiovascular: Regular rate, Normal S1, Normal S2 Respiratory: Chest non-tender, No respiratory distress, Breath sounds nml Abdomen: Normal bowel sounds, Soft, No tenderness Genitourinary: Hydrocele, Other (scrotal erythema) - Results Results: Laboratory Results WBC 9.7 x10^3/uL (4.8-10.8) 08/29/21 06:03 RBC 3.84 10^6/uL (4.70-6.10) L 08/29/21 06:03 Hgb 12.1 g/dL (14.0-18.0) L 08/29/21 06:03 Hct 35.5 % (42.0-52.0) L 08/29/21 06:03 MCV 92.4 fL (80.0-94.0) 08/29/21 06:03 MCH 31.5 pg (27.0-31.0) H 08/29/21 06:03 MCHC 34.1 g/dL (32.0-36.0) 08/29/21 06:03 RDW 12.8 % (12.0-15.0) 08/29/21 06:03 Plt Count 121 10^3/uL (130-450) L 08/29/21 06:03 MPV 10.1 fL (7.4-11.4) 08/29/21 06:03 Neut # (Auto) 7.6 10^3/uL (1.5-6.6) H 08/29/21 06:03 Lymph # (Auto) 0.9 10^3/uL (1.5-3.5) L 08/29/21 06:03 Hubbard # (Auto) 1.1 10^3/uL (0.0-1.0) H 08/29/21 06:03 Eos # (Auto) 0.0 10^3/uL (0.0-0.7) 08/29/21 06:03 Baso # (Auto) 0.0 10^3/uL (0.0-0.1) 08/29/21 06:03 Absolute Nucleated RBC 0.00 x10^3/uL 08/29/21 06:03 Nucleated RBC % 0.0 /100WBC 08/29/21 06:03 Sodium 138 mmol/L (135-145) 08/29/21 06:03 Potassium 3.5 mmol/L (3.5-5.0) 08/29/21 06:03 Chloride 104 mmol/L (101-111) 08/29/21 06:03 Carbon Dioxide 26 mmol/L (21-32) 08/29/21 06:03 Anion Gap 8.0 (6-13) 08/29/21 06:03 BUN 19 mg/dL (6-20) 08/29/21 06:03 Creatinine 0.9 mg/dL (0.6-1.2) 08/29/21 06:03 Estimated GFR (MDRD) 81 (>89) L 08/29/21 06:03 Glucose 87 mg/dL (70-100) 08/29/21 06:03 Lactic Acid 0.9 mmol/L (0.5-2.2) 08/29/21 06:03 Calcium 8.2 mg/dL (8.5-10.3) L 08/29/21 06:03 Phosphorus 3.1 mg/dL (2.5-4.6) 08/29/21 06:03 Magnesium 1.9 mg/dL (1.7-2.8) 08/29/21 06:03 Total Bilirubin 1.8 mg/dL (0.2-1.0) H 08/28/21 18:25 AST 12 IU/L (10-42) 08/28/21 18:25 ALT 11 IU/L (10-60) 08/28/21 18:25 Alkaline Phosphatase 52 IU/L (42-121) 08/28/21 18:25 Troponin I High Sens 10.6 ng/L (2.3-19.7) 08/28/21 18:25 B-Natriuretic Peptide 226 pg/mL (5-100) H 08/29/21 06:03 Total Protein 6.7 g/dL (6.7-8.2) 08/28/21 18:25 Albumin 3.5 g/dL (3.2-5.5) 08/28/21 18:25 Globulin 3.2 g/dL (2.1-4.2) 08/28/21 18:25 Albumin/Globulin Ratio 1.1 (1.0-2.2) 08/28/21 18:25 TSH 4.70 uIU/mL (0.34-5.60) 08/28/21 18:25 Thyroxine (T4) 7.88 ug/dL (6.09-12.23) 08/28/21 18:25 Urine Color YELLOW 08/28/21 19:50 Urine Clarity HAZY (CLEAR) 08/28/21 19:50 Urine pH 6.0 PH (5.0-7.5) 08/28/21 19:50 Ur Specific [place] 1.020 (1.002-1.030) 08/28/21 19:50 Urine Protein 30 mg/dL (NEGATIVE) H 08/28/21 19:50 Urine Glucose (UA) NEGATIVE mg/dL (NEGATIVE) 08/28/21 19:50 Urine Ketones TRACE mg/dL (NEGATIVE) 08/28/21 19:50 Urine Occult Blood MODERATE (NEGATIVE) H 08/28/21 19:50 Urine Nitrite POSITIVE (NEGATIVE) H 08/28/21 19:50 Urine Bilirubin NEGATIVE (NEGATIVE) 08/28/21 19:50 Urine Urobilinogen 0.2 (NORMAL) E.U./dL (NORMAL) 08/28/21 19:50 Ur Leukocyte Esterase MODERATE (NEGATIVE) H 08/28/21 19:50 Urine RBC 11-25 /HPF (0-5) H 08/28/21 19:50 Urine WBC >25 /HPF (0-3) H 08/28/21 19:50 Ur Squamous Epith Cells NONE SEEN (<= Few) 08/28/21 19:50 Urine Bacteria Many /HPF (None Seen) H 08/28/21 19:50 Urine Culture Comments INDICATED 08/28/21 19:50 SARS-CoV-2 (PCR) DETECTED A 08/28/21 19:55 ABX Reporting Has patient been on IV antibiotics over the past 48 hours?: Yes
[2021-08-29] MEDS ORDERED: NON FORMULARY MED (Melatonin [Melatonin] 3 MG Tablet) PO SCH (21:00)
[2021-08-30] MEDS: SODIUM CHLORIDE FLUSH 0.9% 10 ML SYRINGE IVP SCH ×3 (00:30→16:32)
[2021-08-30 05:25] LABS: BASOPHILS % (AUTO) 0.4 %; EOSINOPHILS % (AUTO) 0.6 %; HCT - HEMATOCRIT 36.2 % (42.0-52.0); HGB - HEMOGLOBIN 12.4 g/dL (14.0-18.0); LYMPHOCYTES # (AUTO) 1.1 10^3/uL (1.5-3.5); LYMPHOCYTES % (AUTO) 15.3 %; MEAN CORPUSCULAR HEMOGLOBIN 31.1 pg (27.0-31.0); MEAN CORPUSCULAR HGB CONC 34.3 g/dL (32.0-36.0); MEAN CORPUSCULAR VOLUME 90.7 fL (80.0-94.0); MEAN PLATELET VOLUME 10.2 fL (7.4-11.4); MONOCYTES # (AUTO) 0.8 10^3/uL (0.0-1.0); MONOCYTES % (AUTO) 10.6 %; NEUTROPHILS # (AUTO) 5.3 10^3/uL (1.5-6.6); NEUTROPHILS % (AUTO) 72.8 %; PLT - PLATELET COUNT 139 10^3/uL (130-450); RED BLOOD COUNT 3.99 10^6/uL (4.70-6.10); RED CELL DISTRIBUTION WIDTH 12.4 % (12.0-15.0); WHITE BLOOD COUNT 7.3 x10^3/uL (4.8-10.8)
[2021-08-30 05:32] LABS: CALCIUM 8.5 mg/dL (8.5-10.3); CREATININE 0.9 mg/dL (0.6-1.2); POTASSIUM 3.6 mmol/L (3.5-5.0)
--- NOTE | 2021-08-30 07:36 | PROVIDER PROGRESS NOTE ---
Assessment/Plan - Problem List (1) Epididymitis, left Assessment/Plan: 08/30/21 Urine culture grew ESBL positive E. coli and Pseudomonas. Antibiotic was changed from cefepime to meropenem. Patient continues to be afebrile. White count continues to be normal at 7.3. Patient will likely need IV antibiotic for continued treatment upon discharge. We will discussed the possibility of swing bed for antibiotics at conference. We will change Morales catheter. 08/29/21 CT of the abdomen pelvis showed diffuse subcutaneous edema and skin thickening involving the left scrotum consistent with cellulitis. There was no discrete subcutaneous abscess or soft tissue gas identified. It also reported small to moderate left hydrocele with asymmetric enhancement of the left testicle and left hemiscrotum suggestive of epididymorchitis. Concentric bladder wall thickening suggestive of cystitis Patient is on cefepime 2 g IV twice daily. Blood and urine cultures are no growth to date. Gentle IV hydration with lactated Ringer at 80 mL/h WBC improved from 11.2 down to 9.7. (2) Catheter-associated urinary tract infection Assessment/Plan: 08/30/21 Urine culture grew ESBL positive E. coli and Pseudomonas. Antibiotic was changed from cefepime to meropenem. Patient continues to be afebrile. White count continues to be normal at 7.3. Patient will likely need IV antibiotic for continued treatment upon discharge. We will discussed the possibility of swing bed for antibiotics at conference. We will change Morales catheter. 08/29/21 CT of the abdomen pelvis showed diffuse subcutaneous edema and skin thickening involving the left scrotum consistent with cellulitis. There was no discrete subcutaneous abscess or soft tissue gas identified. It also reported small to moderate left hydrocele with asymmetric enhancement of the left testicle and left hemiscrotum suggestive of epididymorchitis. Concentric bladder wall thickening suggestive of cystitis Patient is on cefepime 2 g IV twice daily. Blood and urine cultures are no growth to date. Gentle IV hydration with lactated Ringer at 80 mL/h WBC improved from 11.2 down to 9.7. (3) Cellulitis of scrotum Assessment/Plan: 08/30/21 Urine culture grew ESBL positive E. coli and Pseudomonas. Antibiotic was changed from cefepime to meropenem. Patient continues to be afebrile. White count continues to be normal at 7.3. Patient will likely need IV antibiotic for continued treatment upon discharge. We will discussed the possibility of swing bed for antibiotics at conference. We will change Morales catheter. 08/29/21 CT of the abdomen pelvis showed diffuse subcutaneous edema and skin thickening involving the left scrotum consistent with cellulitis. There was no discrete subcutaneous abscess or soft tissue gas identified. It also reported small to moderate left hydrocele with asymmetric enhancement of the left testicle and left hemiscrotum suggestive of epididymorchitis. Concentric bladder wall thickening suggestive of cystitis Patient is on cefepime 2 g IV twice daily. Blood and urine cultures are no growth to date. Gentle IV hydration with lactated Ringer at 80 mL/h WBC improved from 11.2 down to 9.7. (4) Atrial fibrillation with RVR Assessment/Plan: On metoprolol succinate 25 mg p.o. twice daily. Diltiazem 60 mg p.o. 4 times daily. (5) Chronic systolic heart failure Assessment/Plan: Not in exacerbation. On metoprolol succinate 25 mg p.o. twice daily. Not on any diuretic. 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 On Namenda 10 mg p.o. twice daily. Seroquel 50 mg p.o. 3 times daily as needed, 50 mg p.o. q. 8 AM and 25 mg p.o. at 2 PM and 8 PM (7) Seizure disorder Assessment/Plan: On Depakote 375 mg p.o. twice daily and 125 mg p.o. q. lunch. (8) COVID-19 Assessment/Plan: Patient does not have acute disease. He does not have any respiratory or GI symptoms. He continues to test positive from an infection in May 2021. - Current Meds Current Meds: Current Medications Generic Name Dose Route Start Last Admin Trade Name Kia PRN Reason Stop Dose Admin Cyanocobalamin 1,000 mcg 08/29/21 09:00 08/29/21 08:51 Cyanocobalamin 500 Mcg Tablet PO 1,000 mcg DAILY ADALBERTO Administration Diltiazem HCl 60 mg 08/28/21 22:00 08/29/21 20:53 Diltiazem 60 Mg Tablet PO 60 mg QID ADALBERTO Administration Divalproex Sodium 125 mg 04/09/22 12:00 08/29/21 12:[address] 125 Mg Tablet PO 125 mg QDLUNCH ADALBERTO Administration Divalproex Sodium 375 mg 08/29/21 09:00 08/29/21 20:[address] 125 Mg Tablet PO 375 mg BID ADALBERTO Administration Folic Acid 1 mg 08/29/21 09:00 08/29/21 08:55 Folic Acid 1 Mg Tablet PO 1 mg DAILY ADALBERTO Administration Lactated Ringer's 1,000 mls @ 80 mls/hr 08/28/21 22:00 08/29/21 21:04 Lr IV 80 mls/hr .[id number] ADALBERTO Administration Cefepime HCl 2 gm/ Sodium 100 mls @ 200 mls/hr 08/29/21 09:00 08/29/21 21:34 Chloride IV Infused BID ADALBERTO Infusion Memantine 10 mg 08/28/21 22:00 08/29/21 21:04 Memantine 5 Mg Tablet PO 10 mg BID ADALBERTO Administration Metoprolol Succinate 25 mg 08/28/21 23:00 08/29/21 20:54 Metoprolol Succinate 25 Mg Tablet PO 25 mg BID ADALBERTO Administration Quetiapine Fumarate 25 mg 08/28/21 22:00 08/29/21 20:53 Quetiapine 25 Mg Tablet PO 25 mg 1400,2000 ADALBERTO Administration Quetiapine Fumarate 50 mg 08/29/21 08:00 08/29/21 08:51 Quetiapine 25 Mg Tablet PO 50 mg 0800 ADALBERTO Administration Sodium Chloride 10 ml 08/29/21 01:00 08/30/21 00:30 Sodium Chloride Flush 0.9% 10 Ml Syringe IVP Not Given 0100,0900,1700 [facility] Tamsulosin HCl 0.4 mg 08/28/21 21:42 08/29/21 20:53 Tamsulosin 0.4 Mg Capsule PO 0.4 mg QPM ADALBERTO Administration - Lab Result Fish Bone Diagrams: 08/30/21 04:47 08/30/21 04:47 - Additional Planning My Orders: My Active Orders 08/29/21 Lunch Soft Mechanical Diet [DIET] Subjective - Subjective Patient Reports: Other (Patient was more responsive today. Answered questions asked. Denied any complaints. Required restraints last night. Discontinued this morning. One-to-one observation currently.) Objective Vital Signs: Vital Signs - 24 hr 08/29/21 08/29/21 08/29/21 08:00 08:06 08:52 Temperature 37.4 C Heart Rate [ 60 Brachial] Respiratory 16 Rate Blood Pressure 122/70 122/70 Blood Pressure 122/70 [Left Brachial artery] Blood Pressure [Right Brachial artery] O2 Saturation 97 08/29/21 08/29/21 08/29/21 10:00 12:45 14:00 Temperature 36.7 C 36.7 C Heart Rate [ 80 Brachial] Respiratory 16 16 Rate Blood Pressure 128/72 Blood Pressure 99/55 L [Left Brachial artery] Blood Pressure [Right Brachial artery] O2 Saturation 98 98 08/29/21 08/29/21 08/29/21 15:45 17:08 20:48 Temperature 36.7 C 36.9 C Heart Rate [ 89 87 Brachial] Respiratory 18 19 Rate Blood Pressure 119/77 Blood Pressure 119/77 132/75 H [Left Brachial artery] Blood Pressure [Right Brachial artery] O2 Saturation 96 98 08/29/21 08/30/21 08/30/21 20:53 00:15 05:00 Temperature 36.3 C L 36.8 C Heart Rate [ 73 96 Brachial] Respiratory 20 18 Rate Blood Pressure 132/75 H Blood Pressure [Left Brachial artery] Blood Pressure 121/64 116/73 [Right Brachial artery] O2 Saturation 100 100 08/30/21 07:31 Temperature 36.5 C Heart Rate [ 90 Brachial] Respiratory 18 Rate Blood Pressure Blood Pressure [Left Brachial artery] Blood Pressure 124/70 [Right Brachial artery] O2 Saturation 99 Oxygen O2 Source Room air I&O (Last 24 Hrs): Intake and Output Totals x24h 08/28/21 08/29/21 08/30/21 23:59 23:59 23:59 Intake Total 100 2625.667 0 Output Total 400 1550 1500 Balance -300 1075.667 -1500 Comments/Notes: General: Alert, Oriented x3, No acute distress HEENT: PERRLA, EOMI Neck: Supple, No JVD Neuro: Alert, Other (awake. Oriented X3) Cardiovascular: Regular rate, Normal S1, Normal S2 Respiratory: Chest non-tender, No respiratory distress, Breath sounds nml Abdomen: Normal bowel sounds, Soft, No tenderness Genitourinary: Hydrocele, Other (scrotal erythema) - Results Results: Laboratory Results WBC 7.3 x10^3/uL (4.8-10.8) 08/30/21 04:47 RBC 3.99 10^6/uL (4.70-6.10) L 08/30/21 04:47 Hgb 12.4 g/dL (14.0-18.0) L 08/30/21 04:47 Hct 36.2 % (42.0-52.0) L 08/30/21 04:47 MCV 90.7 fL (80.0-94.0) 08/30/21 04:47 MCH 31.1 pg (27.0-31.0) H 08/30/21 04:47 MCHC 34.3 g/dL (32.0-36.0) 08/30/21 04:47 RDW 12.4 % (12.0-15.0) 08/30/21 04:47 Plt Count 139 10^3/uL (130-450) 08/30/21 04:47 MPV 10.2 fL (7.4-11.4) 08/30/21 04:47 Neut # (Auto) 5.3 10^3/uL (1.5-6.6) 08/30/21 04:47 Lymph # (Auto) 1.1 10^3/uL (1.5-3.5) L 08/30/21 04:47 [place] # (Auto) 0.8 10^3/uL (0.0-1.0) 08/30/21 04:47 Eos # (Auto) 0.0 10^3/uL (0.0-0.7) 08/30/21 04:47 Baso # (Auto) 0.0 10^3/uL (0.0-0.1) 08/30/21 04:47 Absolute Nucleated RBC 0.00 x10^3/uL 08/30/21 04:47 Nucleated RBC % 0.0 /100WBC 08/30/21 04:47 Sodium 137 mmol/L (135-145) 08/30/21 04:47 Potassium 3.6 mmol/L (3.5-5.0) 08/30/21 04:47 Chloride 102 mmol/L (101-111) 08/30/21 04:47 Carbon Dioxide 26 mmol/L (21-32) 08/30/21 04:47 Anion Gap 9.0 (6-13) 08/30/21 04:47 BUN 17 mg/dL (6-20) 08/30/21 04:47 Creatinine 0.9 mg/dL (0.6-1.2) 08/30/21 04:47 Estimated GFR (MDRD) 81 (>89) L 08/30/21 04:47 Glucose 85 mg/dL (70-100) 08/30/21 04:47 Lactic Acid 0.9 mmol/L (0.5-2.2) 08/29/21 06:03 Calcium 8.5 mg/dL (8.5-10.3) 08/30/21 04:47 Phosphorus 3.1 mg/dL (2.5-4.6) 08/29/21 06:03 Magnesium 1.9 mg/dL (1.7-2.8) 08/29/21 06:03 Total Bilirubin 1.8 mg/dL (0.2-1.0) H 08/28/21 18:25 AST 12 IU/L (10-42) 08/28/21 18:25 ALT 11 IU/L (10-60) 08/28/21 18:25 Alkaline Phosphatase 52 IU/L (42-121) 08/28/21 18:25 Troponin I High Sens 10.6 ng/L (2.3-19.7) 08/28/21 18:25 B-Natriuretic Peptide 226 pg/mL (5-100) H 08/29/21 06:03 Total Protein 6.7 g/dL (6.7-8.2) 08/28/21 18:25 Albumin 3.5 g/dL (3.2-5.5) 08/28/21 18:25 Globulin 3.2 g/dL (2.1-4.2) 08/28/21 18:25 Albumin/Globulin Ratio 1.1 (1.0-2.2) 08/28/21 18:25 TSH 4.70 uIU/mL (0.34-5.60) 08/28/21 18:25 Thyroxine (T4) 7.88 ug/dL (6.09-12.23) 08/28/21 18:25 Urine Color YELLOW 08/28/21 19:50 Urine Clarity HAZY (CLEAR) 08/28/21 19:50 Urine pH 6.0 PH (5.0-7.5) 08/28/21 19:50 Ur Specific [place] 1.020 (1.002-1.030) 08/28/21 19:50 Urine Protein 30 mg/dL (NEGATIVE) H 08/28/21 19:50 Urine Glucose (UA) NEGATIVE mg/dL (NEGATIVE) 08/28/21 19:50 Urine Ketones TRACE mg/dL (NEGATIVE) 08/28/21 19:50 Urine Occult Blood MODERATE (NEGATIVE) H 08/28/21 19:50 Urine Nitrite POSITIVE (NEGATIVE) H 08/28/21 19:50 Urine Bilirubin NEGATIVE (NEGATIVE) 08/28/21 19:50 Urine Urobilinogen 0.2 (NORMAL) E.U./dL (NORMAL) 08/28/21 19:50 Ur Leukocyte Esterase MODERATE (NEGATIVE) H 08/28/21 19:50 Urine RBC 11-25 /HPF (0-5) H 08/28/21 19:50 Urine WBC >25 /HPF (0-3) H 08/28/21 19:50 Ur Squamous Epith Cells NONE SEEN (<= Few) 08/28/21 19:50 Urine Bacteria Many /HPF (None Seen) H 08/28/21 19:50 Urine Culture Comments INDICATED 08/28/21 19:50 SARS-CoV-2 (PCR) DETECTED A 08/28/21 19:55 ABX Reporting Has patient been on IV antibiotics over the past 48 hours?: Yes
[2021-08-30] MEDS: DIVALPROEX DR 125 MG TABLET PO SCH ×3 (09:07→20:52)
[2021-08-30] MEDS: METOPROLOL SUCCINATE 25 MG TABLET PO SCH ×2 (09:07→20:52)
[2021-08-30] MEDS: FOLIC ACID 1 MG TABLET PO SCH (09:08)
[2021-08-30] MEDS: QUEtiapine 25 MG TABLET PO SCH ×3 (09:08→20:52)
[2021-08-30] MEDS: CYANOCOBALAMIN 500 MCG TABLET PO SCH (09:08)
[2021-08-30] MEDS: CEFEPIME 2 GM in SODIUM CHLORIDE 0.9% MINIBAG 100 ML IV SCH (09:09)
[2021-08-30] MEDS: MEMANTINE 5 MG TABLET PO SCH ×2 (09:17→20:52)
[2021-08-30] MEDS: MEROPENEM 1 GM in SODIUM CHLORIDE 0.9% MINIBAG 100 ML IV SCH ×2 (10:40→19:44)
[2021-08-30] MEDS: LACTATED RINGERS 1,000 ML IV SCH ×2 (10:41→21:11)
[2021-08-30] MEDS: TAMSULOSIN 0.4 MG CAPSULE PO SCH (20:53)
[2021-08-31] MEDS: SODIUM CHLORIDE FLUSH 0.9% 10 ML SYRINGE IVP SCH ×3 (02:22→16:15)
[2021-08-31] MEDS: MEROPENEM 1 GM in SODIUM CHLORIDE 0.9% MINIBAG 100 ML IV SCH ×3 (03:20→18:02)
[2021-08-31] MEDS: SODIUM CHLORIDE FLUSH 0.9% 10 ML SYRINGE IVP PRN (03:20)
[2021-08-31 05:24] LABS: BASOPHILS % (AUTO) 0.5 %; EOSINOPHILS % (AUTO) 0.1 %; HCT - HEMATOCRIT 35.9 % (42.0-52.0); HGB - HEMOGLOBIN 12.6 g/dL (14.0-18.0); LYMPHOCYTES # (AUTO) 0.9 10^3/uL (1.5-3.5); LYMPHOCYTES % (AUTO) 11.5 %; MEAN CORPUSCULAR HEMOGLOBIN 30.7 pg (27.0-31.0); MEAN CORPUSCULAR HGB CONC 35.1 g/dL (32.0-36.0); MEAN CORPUSCULAR VOLUME 87.3 fL (80.0-94.0); MONOCYTES % (AUTO) 12.9 %; NEUTROPHILS # (AUTO) 5.7 10^3/uL (1.5-6.6); NEUTROPHILS % (AUTO) 74.6 %; PLT - PLATELET COUNT 150 10^3/uL (130-450); RED BLOOD COUNT 4.11 10^6/uL (4.70-6.10); WHITE BLOOD COUNT 7.7 x10^3/uL (4.8-10.8)
[2021-08-31 05:39] LABS: CALCIUM 8.3 mg/dL (8.5-10.3); POTASSIUM 3.2 mmol/L (3.5-5.0)
[2021-08-31] MEDS ORDERED: POTASSIUM CHLORIDE 20 MEQ TABLET PO ONE (07:32)
--- NOTE | 2021-08-31 07:34 | PROVIDER PROGRESS NOTE ---
Assessment/Plan - Problem List (1) Epididymitis, left Assessment/Plan: 08/31/21 WBC continues to be normal today at 7.7. Patient remains afebrile. Vitals stable. Continue meropenem. 08/30/21 Urine culture grew ESBL positive E. coli and Pseudomonas. Antibiotic was changed from cefepime to meropenem. Patient continues to be afebrile. White count continues to be normal at 7.3. Patient will likely need IV antibiotic for continued treatment upon discharge. We will discussed the possibility of swing bed for antibiotics at conference. We will change Morales catheter. 08/29/21 CT of the abdomen pelvis showed diffuse subcutaneous edema and skin thickening involving the left scrotum consistent with cellulitis. There was no discrete subcutaneous abscess or soft tissue gas identified. It also reported small to moderate left hydrocele with asymmetric enhancement of the left testicle and left hemiscrotum suggestive of epididymorchitis. Concentric bladder wall thickening suggestive of cystitis Patient is on cefepime 2 g IV twice daily. Blood and urine cultures are no growth to date. Gentle IV hydration with lactated Ringer at 80 mL/h WBC improved from 11.2 down to 9.7. (2) Catheter-associated urinary tract infection Assessment/Plan: 08/31/21 WBC continues to be normal today at 7.7. Patient remains afebrile. Vitals stable. Continue meropenem. Morales catheter to be changed today 08/31/21 08/30/21 Urine culture grew ESBL positive E. coli and Pseudomonas. Antibiotic was changed from cefepime to meropenem. Patient continues to be afebrile. White count continues to be normal at 7.3. Patient will likely need IV antibiotic for continued treatment upon discharge. We will discussed the possibility of swing bed for antibiotics at conference. We will change Morales catheter. 08/29/21 CT of the abdomen pelvis showed diffuse subcutaneous edema and skin thickening involving the left scrotum consistent with cellulitis. There was no discrete subcutaneous abscess or soft tissue gas identified. It also reported small to moderate left hydrocele with asymmetric enhancement of the left testicle and left hemiscrotum suggestive of epididymorchitis. Concentric bladder wall thickening suggestive of cystitis Patient is on cefepime 2 g IV twice daily. Blood and urine cultures are no growth to date. Gentle IV hydration with lactated Ringer at 80 mL/h WBC improved from 11.2 down to 9.7. (3) Cellulitis of scrotum Assessment/Plan: 08/31/21 WBC continues to be normal today at 7.7. Patient remains afebrile. Vitals stable. Continue meropenem. 08/30/21 Urine culture grew ESBL positive E. coli and Pseudomonas. Antibiotic was changed from cefepime to meropenem. Patient continues to be afebrile. White count continues to be normal at 7.3. Patient will likely need IV antibiotic for continued treatment upon discharge. We will discussed the possibility of swing bed for antibiotics at conference. We will change Morales catheter. 08/29/21 CT of the abdomen pelvis showed diffuse subcutaneous edema and skin thickening involving the left scrotum consistent with cellulitis. There was no discrete subcutaneous abscess or soft tissue gas identified. It also reported small to moderate left hydrocele with asymmetric enhancement of the left testicle and left hemiscrotum suggestive of epididymorchitis. Concentric bladder wall thickening suggestive of cystitis Patient is on cefepime 2 g IV twice daily. Blood and urine cultures are no growth to date. Gentle IV hydration with lactated Ringer at 80 mL/h WBC improved from 11.2 down to 9.7. (4) Atrial fibrillation with RVR Assessment/Plan: On metoprolol succinate 25 mg p.o. twice daily. Diltiazem 60 mg p.o. 4 times daily. (5) Chronic systolic heart failure Assessment/Plan: Not in exacerbation. On metoprolol succinate 25 mg p.o. twice daily. Not on any diuretic. 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 On Namenda 10 mg p.o. twice daily. Seroquel 50 mg p.o. 3 times daily as needed, 50 mg p.o. q. 8 AM and 25 mg p.o. at 2 PM and 8 PM (7) Seizure disorder Assessment/Plan: On Depakote 375 mg p.o. twice daily and 125 mg p.o. q. lunch. (8) COVID-19 Assessment/Plan: Patient does not have acute disease. He does not have any respiratory or GI symptoms. He continues to test positive from an infection in May 2021. - Current Meds Current Meds: Current Medications Generic Name Dose Route Start Last Admin Trade Name Kia PRN Reason Stop Dose Admin Acetaminophen/Codeine Phosphate 1 tab 08/28/21 21:46 08/30/21 13:45 Acetaminophen/Codeine 300 Mg/30 Mg Tablet PO 1 tab Q8HR PRN Administration Severe Pain Cyanocobalamin 1,000 mcg 08/29/21 09:00 08/30/21 09:08 Cyanocobalamin 500 Mcg Tablet PO 1,000 mcg DAILY ADALBERTO Administration Diltiazem HCl 60 mg 08/28/21 22:00 08/30/21 20:53 Diltiazem 60 Mg Tablet PO 60 mg QID ADALBERTO Administration Divalproex Sodium 125 mg 08/29/21 12:00 08/30/21 12:[address] 125 Mg Tablet PO 125 mg QDLUNCH ADALBERTO Administration Divalproex Sodium 375 mg 08/29/21 09:00 08/30/21 20:[address] 125 Mg Tablet PO 375 mg BID ADALBERTO Administration Folic Acid 1 mg 08/29/21 09:00 08/30/21 09:08 Folic Acid 1 Mg Tablet PO 1 mg DAILY ADALBERTO Administration Lactated Ringer's 1,000 mls @ 80 mls/hr 08/28/21 22:00 08/30/21 21:11 Lr IV 80 mls/hr .[id number] ADALBERTO Administration Meropenem 1 gm/ Sodium 100 mls @ 200 mls/hr 08/30/21 11:00 08/31/21 03:50 Chloride IV Infused Q8H ADALBERTO Infusion Memantine 10 mg 08/28/21 22:00 08/30/21 20:52 Memantine 5 Mg Tablet PO 10 mg BID ADALBERTO Administration Metoprolol Succinate 25 mg 08/28/21 23:00 08/30/21 20:52 Metoprolol Succinate 25 Mg Tablet PO 25 mg BID ADALBERTO Administration Quetiapine Fumarate 25 mg 08/28/21 22:00 08/30/21 20:52 Quetiapine 25 Mg Tablet PO 25 mg 1400,2000 ADALBERTO Administration Quetiapine Fumarate 50 mg 08/29/21 08:00 08/30/21 09:08 Quetiapine 25 Mg Tablet PO 50 mg 0800 ADALBERTO Administration Sodium Chloride 10 ml 08/28/21 21:35 08/31/21 03:20 Sodium Chloride Flush 0.9% 10 Ml Syringe IVP 10 ml PRN PRN Administration NEEDED PER PROVIDER ORDERS Sodium Chloride 10 ml 08/29/21 01:00 08/31/21 02:22 Sodium Chloride Flush 0.9% 10 Ml Syringe IVP Not Given 0100,0900,1700 ADALBERTO Tamsulosin HCl 0.4 mg 08/28/21 21:42 08/30/21 20:53 Tamsulosin 0.4 Mg Capsule PO 0.4 mg QPM ADALBERTO Administration - Lab Result Fish Bone Diagrams: 08/31/21 04:58 08/31/21 04:58 - Additional Planning My Orders: My Active Orders 08/30/21 11:00 Meropenem [Merrem] 1 gm Sodium Chloride 0.9% Minibag [Normal Saline 0.9% Minibag] 100 ml IV Q8H 08/31/21 07:32 Potassium Chloride [K-Dur] 40 meq PO ONCE ONE Subjective - Subjective Patient Reports: Other (Resting comfortably in bed. Though awake and alert, minimally responsive to questions asked. Patient's response to questions/communicative minutes fluctuates depending on how he feels.No new complaints.) Objective Vital Signs: Vital Signs - 24 hr 08/30/21 08/30/21 08/30/21 09:09 12:02 12:29 Temperature 36.4 C L Heart Rate [ 96 Brachial] Respiratory 18 Rate Blood Pressure 124/70 107/78 Blood Pressure 129/85 H [Right Brachial artery] O2 Saturation 100 08/30/21 08/30/21 08/30/21 16:04 16:27 16:34 Temperature 36.6 C Heart Rate [ 85 72 Brachial] Respiratory 20 16 Rate Blood Pressure Blood Pressure 114/73 104/67 103/67 [Right Brachial artery] O2 Saturation 97 97 08/30/21 08/30/21 08/30/21 16:35 20:22 20:53 Temperature 37.1 C Heart Rate [ 94 Brachial] Respiratory 20 Rate Blood Pressure 103/64 133/88 H Blood Pressure 133/88 H [Right Brachial artery] O2 Saturation 97 08/30/21 08/31/21 23:13 03:30 Temperature 37.3 C 36.9 C Heart Rate [ 96 81 Brachial] Respiratory 20 20 Rate Blood Pressure Blood Pressure 120/74 133/60 H [Right Brachial artery] O2 Saturation 96 96 Oxygen O2 Source Room air I&O (Last 24 Hrs): Intake and Output Totals x24h 08/29/21 08/30/21 08/31/21 23:59 23:59 23:59 Intake Total 2625.667 3216.667 100 Output Total 1550 4665 2975 Balance 8585.667 -3652.722 -5971 - Results Results: Laboratory Results WBC 7.7 x10^3/uL (4.8-10.8) 08/31/21 04:58 RBC 4.11 10^6/uL (4.70-6.10) L 08/31/21 04:58 Hgb 12.6 g/dL (14.0-18.0) L 08/31/21 04:58 Hct 35.9 % (42.0-52.0) L 08/31/21 04:58 MCV 87.3 fL (80.0-94.0) 08/31/21 04:58 MCH 30.7 pg (27.0-31.0) 08/31/21 04:58 MCHC 35.1 g/dL (32.0-36.0) 08/31/21 04:58 RDW 12.0 % (12.0-15.0) 08/31/21 04:58 Plt Count 150 10^3/uL (130-450) 08/31/21 04:58 MPV 10.0 fL (7.4-11.4) 08/31/21 04:58 Neut # (Auto) 5.7 10^3/uL (1.5-6.6) 08/31/21 04:58 Lymph # (Auto) 0.9 10^3/uL (1.5-3.5) L 08/31/21 04:58 [place] # (Auto) 1.0 10^3/uL (0.0-1.0) 08/31/21 04:58 Eos # (Auto) 0.0 10^3/uL (0.0-0.7) 08/31/21 04:58 Baso # (Auto) 0.0 10^3/uL (0.0-0.1) 08/31/21 04:58 Absolute Nucleated RBC 0.00 x10^3/uL 08/31/21 04:58 Nucleated RBC % 0.0 /100WBC 08/31/21 04:58 Sodium 136 mmol/L (135-145) 08/31/21 04:58 Potassium 3.2 mmol/L (3.5-5.0) L 08/31/21 04:58 Chloride 104 mmol/L (101-111) 08/31/21 04:58 Carbon Dioxide 21 mmol/L (21-32) 08/31/21 04:58 Anion Gap 11.0 (6-13) 08/31/21 04:58 BUN 14 mg/dL (6-20) 08/31/21 04:58 Creatinine 1.0 mg/dL (0.6-1.2) 08/31/21 04:58 Estimated GFR (MDRD) 72 (>89) L 08/31/21 04:58 Glucose 100 mg/dL (70-100) 08/31/21 04:58 Lactic Acid 0.9 mmol/L (0.5-2.2) 08/29/21 06:03 Calcium 8.3 mg/dL (8.5-10.3) L 08/31/21 04:58 Phosphorus 3.1 mg/dL (2.5-4.6) 08/29/21 06:03 Magnesium 1.9 mg/dL (1.7-2.8) 08/29/21 06:03 Total Bilirubin 1.8 mg/dL (0.2-1.0) H 08/28/21 18:25 AST 12 IU/L (10-42) 08/28/21 18:25 ALT 11 IU/L (10-60) 08/28/21 18:25 Alkaline Phosphatase 52 IU/L (42-121) 08/28/21 18:25 Troponin I High Sens 10.6 ng/L (2.3-19.7) 08/28/21 18:25 B-Natriuretic Peptide 226 pg/mL (5-100) H 08/29/21 06:03 Total Protein 6.7 g/dL (6.7-8.2) 08/28/21 18:25 Albumin 3.5 g/dL (3.2-5.5) 08/28/21 18:25 Globulin 3.2 g/dL (2.1-4.2) 08/28/21 18:25 Albumin/Globulin Ratio 1.1 (1.0-2.2) 08/28/21 18:25 TSH 4.70 uIU/mL (0.34-5.60) 08/28/21 18:25 Thyroxine (T4) 7.88 ug/dL (6.09-12.23) 08/28/21 18:25 Urine Color YELLOW 08/28/21 19:50 Urine Clarity HAZY (CLEAR) 08/28/21 19:50 Urine pH 6.0 PH (5.0-7.5) 08/28/21 19:50 Ur Specific [place] 1.020 (1.002-1.030) 08/28/21 19:50 Urine Protein 30 mg/dL (NEGATIVE) H 08/28/21 19:50 Urine Glucose (UA) NEGATIVE mg/dL (NEGATIVE) 08/28/21 19:50 Urine Ketones TRACE mg/dL (NEGATIVE) 08/28/21 19:50 Urine Occult Blood MODERATE (NEGATIVE) H 08/28/21 19:50 Urine Nitrite POSITIVE (NEGATIVE) H 08/28/21 19:50 Urine Bilirubin NEGATIVE (NEGATIVE) 08/28/21 19:50 Urine Urobilinogen 0.2 (NORMAL) E.U./dL (NORMAL) 08/28/21 19:50 Ur Leukocyte Esterase MODERATE (NEGATIVE) H 08/28/21 19:50 Urine RBC 11-25 /HPF (0-5) H 08/28/21 19:50 Urine WBC >25 /HPF (0-3) H 08/28/21 19:50 Ur Squamous Epith Cells NONE SEEN (<= Few) 08/28/21 19:50 Urine Bacteria Many /HPF (None Seen) H 08/28/21 19:50 Urine Culture Comments INDICATED 08/28/21 19:50 SARS-CoV-2 (PCR) DETECTED A 08/28/21 19:55 ABX Reporting Has patient been on IV antibiotics over the past 48 hours?: Yes
[2021-08-31] MEDS: MEMANTINE 5 MG TABLET PO SCH ×2 (09:07→21:19)
[2021-08-31] MEDS: CYANOCOBALAMIN 500 MCG TABLET PO SCH (09:07)
[2021-08-31] MEDS: METOPROLOL SUCCINATE 25 MG TABLET PO SCH ×2 (09:08→21:18)
[2021-08-31] MEDS: QUEtiapine 25 MG TABLET PO SCH ×3 (09:08→21:18)
[2021-08-31] MEDS: DIVALPROEX DR 125 MG TABLET PO SCH ×3 (09:09→21:18)
[2021-08-31] MEDS: FOLIC ACID 1 MG TABLET PO SCH (09:09)
[2021-08-31] MEDS: LACTATED RINGERS 1,000 ML IV SCH (10:42)
[2021-08-31] MEDS ORDERED: SODIUM CHLORIDE 0.9% 250 ML IV PRN (11:03)
[2021-08-31] MEDS: CHOLECALCIFEROL 25 MCG TABLET PO SCH (13:37)
[2021-08-31] MEDS: SACCHAROMYCES BOULARDII 250 MG CAPSULE PO SCH (16:15)
[2021-08-31] MEDS: TAMSULOSIN 0.4 MG CAPSULE PO SCH (21:17)
[2021-08-31] MEDS: ZINC OXIDE 20% OINT 30 GM TUBE TOP PRN (22:09)
[2021-09-01] MEDS: LACTATED RINGERS 1,000 ML IV SCH (00:22)
[2021-09-01] MEDS: SODIUM CHLORIDE FLUSH 0.9% 10 ML SYRINGE IVP SCH ×3 (00:23→17:21)
[2021-09-01] MEDS: MEROPENEM 1 GM in SODIUM CHLORIDE 0.9% MINIBAG 100 ML IV SCH ×3 (04:02→19:22)
[2021-09-01] MEDS: SODIUM CHLORIDE FLUSH 0.9% 10 ML SYRINGE IVP PRN (04:03)
[2021-09-01] MEDS: ZINC OXIDE 20% OINT 30 GM TUBE TOP PRN ×2 (04:03→10:02)
[2021-09-01 06:11] LABS: BASOPHILS % (AUTO) 0.3 %; EOSINOPHILS # (AUTO) 0.1 10^3/uL (0.0-0.7); EOSINOPHILS % (AUTO) 0.6 %; HCT - HEMATOCRIT 39.2 % (42.0-52.0); HGB - HEMOGLOBIN 13.6 g/dL (14.0-18.0); LYMPHOCYTES # (AUTO) 0.8 10^3/uL (1.5-3.5); LYMPHOCYTES % (AUTO) 9.5 %; MEAN CORPUSCULAR HEMOGLOBIN 31.1 pg (27.0-31.0); MEAN CORPUSCULAR HGB CONC 34.7 g/dL (32.0-36.0); MEAN CORPUSCULAR VOLUME 89.5 fL (80.0-94.0); MEAN PLATELET VOLUME 9.5 fL (7.4-11.4); MONOCYTES # (AUTO) 1.1 10^3/uL (0.0-1.0); MONOCYTES % (AUTO) 12.2 %; NEUTROPHILS # (AUTO) 6.8 10^3/uL (1.5-6.6); NEUTROPHILS % (AUTO) 77.1 %; PLT - PLATELET COUNT 153 10^3/uL (130-450); RED BLOOD COUNT 4.38 10^6/uL (4.70-6.10); RED CELL DISTRIBUTION WIDTH 12.3 % (12.0-15.0); WHITE BLOOD COUNT 8.9 x10^3/uL (4.8-10.8)
[2021-09-01 06:22] LABS: CALCIUM 8.5 mg/dL (8.5-10.3); CREATININE 0.9 mg/dL (0.6-1.2); POTASSIUM 3.9 mmol/L (3.5-5.0)
[2021-09-01] MEDS: METOPROLOL SUCCINATE 25 MG TABLET PO SCH ×2 (10:02→22:07)
[2021-09-01] MEDS: FOLIC ACID 1 MG TABLET PO SCH (10:02)
[2021-09-01] MEDS: DIVALPROEX DR 125 MG TABLET PO SCH ×3 (10:02→22:01)
[2021-09-01] MEDS: MEMANTINE 5 MG TABLET PO SCH ×2 (10:03→22:04)
[2021-09-01] MEDS: CHOLECALCIFEROL 25 MCG TABLET PO SCH (10:03)
[2021-09-01] MEDS: ASPIRIN EC 81 MG TABLET PO SCH (10:03)
[2021-09-01] MEDS: CYANOCOBALAMIN 500 MCG TABLET PO SCH (10:03)
[2021-09-01] MEDS: QUEtiapine 25 MG TABLET PO SCH ×3 (10:22→20:24)
[2021-09-01] MEDS: SACCHAROMYCES BOULARDII 250 MG CAPSULE PO SCH ×2 (10:22→17:20)
--- NOTE | 2021-09-01 11:48 | PROVIDER PROGRESS NOTE ---
Subjective - Prog Note Date Prog Note Date: 09/01/21 - Subjective Subjective: He denies any shortness of breath or chest pain. When asked if he has any scrotal pain or tenderness he occasionally says yes and at other times says no. Current Medications - Current Medications Current Medications: Active Medications Acetaminophen (Acetaminophen 325 Mg Tablet) 650 mg PO Q4HR PRN PRN Reason: Pain 1 to 4, or Fever Acetaminophen/Codeine Phosphate (Acetaminophen/Codeine 300 Mg/30 Mg Tablet) 1 tab PO Q8HR PRN PRN Reason: Severe Pain Last Admin: 08/30/21 13:45 Dose: 1 tab Aspirin (Aspirin Ec 81 Mg Tablet) 81 mg PO DAILY [facility] Last Admin: 09/01/21 10:03 Dose: 81 mg Cholecalciferol (Cholecalciferol 25 Mcg Tablet) 50 mcg PO DAILY [facility] Last Admin: 09/01/21 10:03 Dose: 50 mcg Cyanocobalamin (Cyanocobalamin 500 Mcg Tablet) 1,000 mcg PO DAILY [facility] Last Admin: 09/01/21 10:03 Dose: 1,000 mcg Diltiazem HCl (Diltiazem 60 Mg Tablet) 60 mg PO QID [facility] Stop: 09/01/21 21:00 Last Admin: 09/01/21 10:03 Dose: 60 mg Diltiazem HCl (Diltiazem Cd 240 Mg Capsule) 240 mg PO QPM [facility] Divalproex Sodium (Divalproex Dr 125 Mg Tablet) 125 mg PO QDLUNCH [facility] Last Admin: 08/31/21 13:37 Dose: 125 mg Divalproex Sodium (Divalproex Dr 125 Mg Tablet) 375 mg PO BID [facility] Last Admin: 09/01/21 10:02 Dose: 375 mg Folic Acid (Folic Acid 1 Mg Tablet) 1 mg PO DAILY [facility] Last Admin: 09/01/21 10:02 Dose: 1 mg Meropenem 1 gm/ Sodium (Chloride) 100 mls @ 200 mls/hr IV Q8H [facility] Last Infusion: 09/01/21 10:55 Dose: Infused Sodium Chloride (Normal Saline 0.9%) 250 mls @ 20 mls/hr IV Q24H PRN PRN Reason: TKO RATE Last Infusion: 08/31/21 19:00 Dose: 0 mls/hr Memantine (Memantine 5 Mg Tablet) 10 mg PO BID [facility] Last Admin: 09/01/21 10:03 Dose: 10 mg Metoprolol Succinate (Metoprolol Succinate 25 Mg Tablet) 25 mg PO BID [facility] Last Admin: 09/01/21 10:02 Dose: 25 mg Multi-Ingredient Ointment (Zinc Oxide 20% Oint 30 Gm Tube) 1 applic TOP PRN PRN PRN Reason: Skin Care Last Admin: 09/01/21 10:02 Dose: 1 applic Ondansetron HCl (Ondansetron 4 Mg/2 Ml Vial) 4 mg IVP Q6HR PRN PRN Reason: Nausea / Vomiting Quetiapine Fumarate (Quetiapine 25 Mg Tablet) 25 mg PO 1400,2000 [facility] Last Admin: 08/31/21 21:18 Dose: 25 mg Quetiapine Fumarate (Quetiapine 25 Mg Tablet) 50 mg PO 0800 [facility] Last Admin: 09/01/21 10:22 Dose: 50 mg Quetiapine Fumarate (Quetiapine 25 Mg Tablet) 50 mg PO TID PRN PRN Reason: Agitation Saccharomyces Boulardii (Saccharomyces Boulardii 250 Mg Capsule) 250 mg PO BIDWM [facility] Last Admin: 09/01/21 10:22 Dose: 250 mg Sodium Chloride (Sodium Chloride Flush 0.9% 10 Ml Syringe) 10 ml IVP PRN PRN PRN Reason: NEEDED PER PROVIDER ORDERS Last Admin: 09/01/21 04:03 Dose: 10 ml Sodium Chloride (Sodium Chloride Flush 0.9% 10 Ml Syringe) 10 ml IVP 0100,0900,1700 [facility] Last Admin: 09/01/21 10:03 Dose: Not Given Tamsulosin HCl (Tamsulosin 0.4 Mg Capsule) 0.4 mg PO QPM [facility] Last Admin: 08/31/21 21:17 Dose: 0.4 mg Memantine [Namenda] 10 mg PO BID 03/19/20 Tamsulosin [Flomax] 0.4 mg PO QPM 03/19/20 Cyanocobalamin (Vitamin B-12) [Vitamin B-12 (1000 mcg sublingual)] 1,000 mcg SL DAILY 10/27/20 Folic Acid 1 mg PO DAILY 10/27/20 Acetaminophen [Acetaminophen Extra Strength] 1,000 mg PO BID 03/06/[address] [Depakote Dr] 125 mg PO QDLUNCH 03/06/[address] [Depakote Dr] 375 mg PO BID 03/06/21 dilTIAZem HCL [Diltiazem 24Hr ER (Xr)] 240 mg PO QPM 03/06/21 Melatonin 3 mg PO QPM 07/28/21 QUEtiapine [SEROquel] 25 mg PO 1400,2000 07/28/21 QUEtiapine [SEROquel] 50 mg PO 0800 07/28/21 QUEtiapine [SEROquel] 50 mg PO TID PRN 07/28/21 Objective - Vital Signs/Intake & Output Reviewed Vital Signs: Yes Vital Signs: Vital Signs x48h Temp Pulse Resp BP Pulse Ox 09/01/21 09:00 37.1 C 77 20 125/80 95 09/01/21 04:04 68 22 128/79 100 Intake & Output: Intake & Output 08/29/21 08/30/21 08/31/21 09/01/21 23:59 23:59 23:59 23:59 Intake Total 2625.667 3216.667 5166.545 0606.337 Output Total 1550 4675 4150 850 Balance 1075.667 -1458.333 -2250.332 547.337 - Objective General Appearance: positive: No acute distress, Alert Eyes Bilateral: positive: Normal inspection, Conjunctivae nml ENT: positive: ENT inspection nml Neck: positive: Nml inspection Respiratory: positive: No respiratory distress. negative: Wheezes, Rales Cardiovascular: positive: Irregularly irregular. negative: Tachycardia, Systolic murmur Abdomen: positive: Non-tender, No distention. negative: Tenderness Rectal: positive: Other (There is no scrotal erythema. Exam is limited due to his cooperation but it appears he is rendering equipment tender over the left scrotum.) Extremities: positive: No pedal edema Neurologic/Psychiatric: positive: Disoriented to place, Disoriented to time, Other (No focal deficits.). negative: Disoriented to person - Lab Results Fish Bones: 09/01/21 06:07 09/01/21 06:07 Other Labs: Lab Results x24hrs 09/01/21 09/01/21 08/31/21 Range/Units 06:07 06:07 11:39 WBC 8.9 (4.8-10.8) x10^3/uL RBC 4.38 L (4.70-6.10) 10^6/uL Hgb 13.6 L (14.0-18.0) g/dL Hct 39.2 L (42.0-52.0) % MCV 89.5 (80.0-94.0) fL MCH 31.1 H (27.0-31.0) pg MCHC 34.7 (32.0-36.0) g/dL RDW 12.3 (12.0-15.0) % Plt Count 153 (130-450) 10^3/uL MPV 9.5 (7.4-11.4) fL Neut # (Auto) 6.8 H (1.5-6.6) 10^3/uL Lymph # (Auto) 0.8 L (1.5-3.5) 10^3/uL [place] # (Auto) 1.1 H (0.0-1.0) 10^3/uL Eos # (Auto) 0.1 (0.0-0.7) 10^3/uL Baso # (Auto) 0.0 (0.0-0.1) 10^3/uL Absolute Nucleated RBC 0.00 x10^3/uL Nucleated RBC % 0.0 /100WBC Sodium 136 (135-145) mmol/L Potassium 3.9 (3.5-5.0) mmol/L Chloride 105 (101-111) mmol/L Carbon Dioxide 22 (21-32) mmol/L Anion Gap 9.0 (6-13) BUN 16 (6-20) mg/dL Creatinine 0.9 (0.6-1.2) mg/dL Estimated GFR (MDRD) 81 L (>89) Glucose 100 (70-100) mg/dL Calcium 8.5 (8.5-10.3) mg/dL 25-OH Vitamin D Total 10 L (30-100) ng/mL ABX Reporting Has patient been on IV antibiotics over the past 48 hours?: Yes Assessment/Plan - Problem List (1) Epididymitis, left Impression: Imaging on admission was suggestive of epididymoorchitis and scrotal cellulitis. There is evidence of erythema although this does appear to be improved. He still appears to be tender on exam but this is limited due to his cooperation. He has been on meropenem given urine cultures grew ESBL E. coli and Pseudomonas. We we will repeat ultrasound today given his tenderness to evaluate the presence of a pyocele or abscess. Based off of the ultrasound findings, will discuss with urology regarding potential need for transfer and length of treatment. Testicular ultrasound showed ongoing epididymitis which may be slightly worse compared to admission. There is also concern for a pyocele which may have slightly worsened since admission as well. I discussed this with urology on- call, Dr. Napier, who recommended ongoing antibiotics and felt there is no need for transfer. He recommended at least 2 weeks of treatment. (2) Cellulitis of scrotum Impression: The erythema is still present but does appear slightly improved compared to admission. His white blood cell count remains normal and he has been afebrile. Physical exam is limited due to his cooperation but he still is appear to be somewhat tender on exam. We will repeat a testicular ultrasound today as initial concern for a pyocele. If this is still present we will discuss with urology regarding length of treatment and if there is need for transfer for intervention. Continue meropenem IV. (3) Catheter-associated urinary tract infection Impression: Urine culture has grown ESBL E. coli and Pseudomonas. The Pseudomonas less than 50,000 colonies which makes me suspect that the E. coli is the cause of the infection. He is on meropenem IV and today is day 3. He will need at least 7 days of treatment depending on the epididymitis/scrotal cellulitis. The catheter was exchanged yesterday. (4) COVID-19 Impression: There is no evidence of active infection. He was positive in May 2021. (5) Chronic systolic heart failure Impression: This is not an exacerbation. His last echocardiogram revealed ejection fraction of about 30%. He appears euvolemic. We will continue his home metoprolol. (6) Seizure disorder Impression: Stable. Continue home Depakote. (7) Atrial fibrillation with RVR Impression: He is rate controlled now on metoprolol and diltiazem. We will look to potentially increase metoprolol and try and wean him off of the diltiazem given the chronic systolic heart failure. (8) Dementia with behavioral disturbance Impression: Stable. He has been cooperative at this time. We will continue his home Seroquel and Namenda.
[2021-09-01] MEDS ORDERED: HALOPERIDOL 5 MG/ML VIAL IVP ONE (12:46)
[2021-09-01] MEDS ORDERED: HALOPERIDOL 5 MG/ML VIAL ONE (13:00)
--- NOTE | 2021-09-01 14:17 | Ultrasound Report ---
PROCEDURE: Testicle w/Doppler INDICATIONS: Epididymitis. Cellulitis. Pyocele? TECHNIQUE: Real-time scanning was performed of the scrotum and testicles, with image documentation. Color and p ulse Doppler interrogation was performed of both testicles. COMPARISON: Testicular ultrasound 08/28/2021. FINDINGS: Right: Testicle is normal in size at 4.2 x 2.6 x 3.9 cm, and homogenous in echotexture. Epididymis is normal in overall size and morphology. Small right hydrocele. No varicocele.. Overlying scrotal s kin is normal in thickness. Left: Testicle is normal in size at 4.1 x 2.9 x 2.6 cm, and homogeneous in echotexture. The epididym is is thickened with increased vascularity, which appears mildly worse when compared to the ultrasoun d from 08/28/2021. Complex left scrotal fluid demonstrates increased internal echoes and compared to th e prior study. No varicoceles. Overlying scrotal skin appears thickened. Doppler: Color and pulse Doppler demonstrate normal and symmetric arterial flow in both testicles. IMPRESSION: 1.Thickening and heterogeneity of the left epididymis with increased vascularity is suspicious for ep ididymitis, which appears stable to mildly worsened when compared to the exam from 08/28/2021. 2.Heterogeneous nonvascular fluid within the left scrotum is suspicious for possible pyocele, mildly worsened. Reviewed by: Getachew Bekc MD on 09/01/2021 2:16 PM PDT Approved by: Getachew Beck MD on 09/01/2021 2:16 PM PDT Station ID: [id number]
[2021-09-01] MEDS ORDERED: diltiaZEM CD 240 MG CAPSULE PO SCH (21:00)
[2021-09-01] MEDS: TAMSULOSIN 0.4 MG CAPSULE PO SCH (22:05)
[2021-09-02] MEDS: SODIUM CHLORIDE FLUSH 0.9% 10 ML SYRINGE IVP SCH ×3 (01:15→16:59)
[2021-09-02] MEDS: MEROPENEM 1 GM in SODIUM CHLORIDE 0.9% MINIBAG 100 ML IV SCH ×3 (03:24→20:22)
[2021-09-02] MEDS: SODIUM CHLORIDE FLUSH 0.9% 10 ML SYRINGE IVP PRN (03:25)
[2021-09-02 05:26] LABS: BASOPHILS % (AUTO) 0.5 %; EOSINOPHILS # (AUTO) 0.1 10^3/uL (0.0-0.7); HCT - HEMATOCRIT 38.9 % (42.0-52.0); HGB - HEMOGLOBIN 13.5 g/dL (14.0-18.0); LYMPHOCYTES # (AUTO) 1.7 10^3/uL (1.5-3.5); LYMPHOCYTES % (AUTO) 20.9 %; MEAN CORPUSCULAR HEMOGLOBIN 30.9 pg (27.0-31.0); MEAN CORPUSCULAR HGB CONC 34.7 g/dL (32.0-36.0); MONOCYTES # (AUTO) 1.1 10^3/uL (0.0-1.0); MONOCYTES % (AUTO) 13.4 %; NEUTROPHILS # (AUTO) 5.3 10^3/uL (1.5-6.6); NEUTROPHILS % (AUTO) 63.7 %; PLT - PLATELET COUNT 183 10^3/uL (130-450); RED BLOOD COUNT 4.37 10^6/uL (4.70-6.10); RED CELL DISTRIBUTION WIDTH 12.2 % (12.0-15.0); WHITE BLOOD COUNT 8.3 x10^3/uL (4.8-10.8)
[2021-09-02 05:33] LABS: CALCIUM 8.5 mg/dL (8.5-10.3); CREATININE 0.9 mg/dL (0.6-1.2); POTASSIUM 3.8 mmol/L (3.5-5.0)
[2021-09-02] MEDS: ZINC OXIDE 20% OINT 30 GM TUBE TOP PRN ×2 (05:50→09:09)
--- NOTE | 2021-09-02 07:34 | PROVIDER PROGRESS NOTE ---
Subjective - Prog Note Date Prog Note Date: 09/02/21 - Subjective Subjective: He complains of pain when examining him. Otherwise history is limited due to his dementia. Current Medications - Current Medications Current Medications: Active Medications Acetaminophen (Acetaminophen 325 Mg Tablet) 650 mg PO Q4HR PRN PRN Reason: Pain 1 to 4, or Fever Acetaminophen/Codeine Phosphate (Acetaminophen/Codeine 300 Mg/30 Mg Tablet) 1 tab PO Q8HR PRN PRN Reason: Severe Pain Last Admin: 08/30/21 13:45 Dose: 1 tab Aspirin (Aspirin Ec 81 Mg Tablet) 81 mg PO DAILY [facility] Last Admin: 09/01/21 10:03 Dose: 81 mg Cholecalciferol (Cholecalciferol 25 Mcg Tablet) 50 mcg PO DAILY [facility] Last Admin: 09/01/21 10:03 Dose: 50 mcg Cyanocobalamin (Cyanocobalamin 500 Mcg Tablet) 1,000 mcg PO DAILY [facility] Last Admin: 09/01/21 10:03 Dose: 1,000 mcg Diltiazem HCl (Diltiazem Cd 240 Mg Capsule) 240 mg PO QPM [facility] Last Admin: 09/01/21 22:07 Dose: 240 mg Divalproex Sodium (Divalproex Dr 125 Mg Tablet) 125 mg PO QDLUNCH [facility] Last Admin: 09/01/21 14:14 Dose: 125 mg Divalproex Sodium (Divalproex Dr 125 Mg Tablet) 375 mg PO BID [facility] Last Admin: 09/01/21 22:01 Dose: 375 mg Folic Acid (Folic Acid 1 Mg Tablet) 1 mg PO DAILY [facility] Last Admin: 09/01/21 10:02 Dose: 1 mg Meropenem 1 gm/ Sodium (Chloride) 100 mls @ 200 mls/hr IV Q8H [facility] Last Infusion: 09/02/21 03:54 Dose: Infused Sodium Chloride (Normal Saline 0.9%) 250 mls @ 20 mls/hr IV Q24H PRN PRN Reason: TKO RATE Last Infusion: 08/31/21 19:00 Dose: 0 mls/hr Memantine (Memantine 5 Mg Tablet) 10 mg PO BID [facility] Last Admin: 09/01/21 22:04 Dose: 10 mg Metoprolol Succinate (Metoprolol Succinate 25 Mg Tablet) 25 mg PO BID [facility] Last Admin: 09/01/21 22:07 Dose: 25 mg Multi-Ingredient Ointment (Zinc Oxide 20% Oint 30 Gm Tube) 1 applic TOP PRN PRN PRN Reason: Skin Care Last Admin: 09/02/21 05:50 Dose: 1 applic Ondansetron HCl (Ondansetron 4 Mg/2 Ml Vial) 4 mg IVP Q6HR PRN PRN Reason: Nausea / Vomiting Quetiapine Fumarate (Quetiapine 25 Mg Tablet) 25 mg PO 1400,2000 [facility] Last Admin: 09/01/21 20:24 Dose: 25 mg Quetiapine Fumarate (Quetiapine 25 Mg Tablet) 50 mg PO 0800 [facility] Last Admin: 09/01/21 10:22 Dose: 50 mg Quetiapine Fumarate (Quetiapine 25 Mg Tablet) 50 mg PO TID PRN PRN Reason: Agitation Saccharomyces Boulardii (Saccharomyces Boulardii 250 Mg Capsule) 250 mg PO BIDWM [facility] Last Admin: 09/01/21 17:20 Dose: 250 mg Sodium Chloride (Sodium Chloride Flush 0.9% 10 Ml Syringe) 10 ml IVP PRN PRN PRN Reason: NEEDED PER PROVIDER ORDERS Last Admin: 09/02/21 03:25 Dose: 10 ml Sodium Chloride (Sodium Chloride Flush 0.9% 10 Ml Syringe) 10 ml IVP 0100,0900,1700 [facility] Last Admin: 09/02/21 01:15 Dose: 10 ml Tamsulosin HCl (Tamsulosin 0.4 Mg Capsule) 0.4 mg PO QPM [facility] Last Admin: 09/01/21 22:05 Dose: 0.4 mg Memantine [Namenda] 10 mg PO BID 03/19/20 Tamsulosin [Flomax] 0.4 mg PO QPM 03/19/20 Cyanocobalamin (Vitamin B-12) [Vitamin B-12 (1000 mcg sublingual)] 1,000 mcg SL DAILY 10/27/20 Folic Acid 1 mg PO DAILY 10/27/20 Acetaminophen [Acetaminophen Extra Strength] 1,000 mg PO BID 03/06/[address] [Carlie Mims] 125 mg PO QDLUNCH 03/06/[address] [Carlie Mims] 375 mg PO BID 03/06/21 dilTIAZem HCL [Diltiazem 24Hr ER (Xr)] 240 mg PO QPM 03/06/21 Melatonin 3 mg PO QPM 07/28/21 QUEtiapine [SEROquel] 25 mg PO 1400,2000 07/28/21 QUEtiapine [SEROquel] 50 mg PO 0800 07/28/21 QUEtiapine [SEROquel] 50 mg PO TID PRN 07/28/21 Objective - Vital Signs/Intake & Output Reviewed Vital Signs: Yes Vital Signs: Vital Signs x48h Temp Pulse Resp BP Pulse Ox 09/02/21 05:00 37.2 C 100 18 131/86 H 95 09/02/21 01:00 36.3 C L 67 18 108/59 L 96 Intake & Output: Intake & Output 08/30/21 08/31/21 09/01/21 09/02/21 23:59 23:59 23:59 23:59 Intake Total 3216.667 1394.637 0688.337 350 Output Total 4675 4150 1750 700 Balance -1458.333 -2250.332 537.337 -350 - Objective General Appearance: positive: No acute distress, Alert ENT: positive: ENT inspection nml Cardiovascular: positive: Irregularly irregular. negative: Tachycardia Rectal: positive: Other (Scrotum still erythematous without improvement over the past 24 hours. The lateral aspect over the left side is indurated and tender to palpation.) Extremities: positive: No pedal edema Neurologic/Psychiatric: positive: Disoriented to place, Disoriented to time, Other (Patient oriented to self but not to location or time). negative: Disoriented to person - Lab Results Fish Bones: 09/02/21 05:07 09/02/21 05:07 Other Labs: Lab Results x24hrs 09/02/21 09/02/21 Range/Units 05:07 05:07 WBC 8.3 (4.8-10.8) x10^3/uL RBC 4.37 L (4.70-6.10) 10^6/uL Hgb 13.5 L (14.0-18.0) g/dL Hct 38.9 L (42.0-52.0) % MCV 89.0 (80.0-94.0) fL MCH 30.9 (27.0-31.0) pg MCHC 34.7 (32.0-36.0) g/dL RDW 12.2 (12.0-15.0) % Plt Count 183 (130-450) 10^3/uL MPV 10.0 (7.4-11.4) fL Neut # (Auto) 5.3 (1.5-6.6) 10^3/uL Lymph # (Auto) 1.7 (1.5-3.5) 10^3/uL [place] # (Auto) 1.1 H (0.0-1.0) 10^3/uL Eos # (Auto) 0.1 (0.0-0.7) 10^3/uL Baso # (Auto) 0.0 (0.0-0.1) 10^3/uL Absolute Nucleated RBC 0.00 x10^3/uL Nucleated RBC % 0.0 /100WBC Sodium 135 (135-145) mmol/L Potassium 3.8 (3.5-5.0) mmol/L Chloride 102 (101-111) mmol/L Carbon Dioxide 23 (21-32) mmol/L Anion Gap 10.0 (6-13) BUN 16 (6-20) mg/dL Creatinine 0.9 (0.6-1.2) mg/dL Estimated GFR (MDRD) 81 L (>89) Glucose 99 (70-100) mg/dL Calcium 8.5 (8.5-10.3) mg/dL ABX Reporting Has patient been on IV antibiotics over the past 48 hours?: Yes Assessment/Plan - Problem List (1) Epididymitis, left Impression: Imaging yesterday continues to reveal evidence of epididymitis that may have slightly worsened as well as evidence of a pyocele which may have also slightly worsened since admission. This was discussed with urology who recommended ongoing antibiotics. He has remained afebrile with a normal white blood cell count. Urine cultures grew ESBL E. coli and Pseudomonas. He remains on merope nem IV with today being day 4. (2) Cellulitis of scrotum Impression: The erythema has not really improved over the past 24 hours.. He remains afebrile and normal white blood cell count. He will continue the meropenem IV for the epididymitis for a total of 2 weeks. We will add vancomycin given the lack of significant improvement. If there is no clinical improvement over next 24 hours we will discuss with urology again regarding potential need for zheng sfer. I discussed this with his sister who is his power of commercial real estate attorney. She is in agreement with the plan and would like to know if he does end up being transferred what would be the plan of intervention as she does not believe he would want aggressive measures at this point in his life with the advanced dementia. (3) Catheter-associated urinary tract infection Impression: Urine culture has grown ESBL E. coli and Pseudomonas. The Pseudomonas grew less than 50,000 colonies which makes me suspect that the E. coli is the cause of the infection. He is on meropenem IV and today is day 4. He will need 14 days of treatment given the epididymitis. The catheter was exchanged August 31. (4) COVID-19 Impression: There is no evidence of active infection. He was positive in May 2021. (5) Chronic systolic heart failure Impression: This is not an exacerbation. His last echocardiogram revealed ejection fraction of about 30%. He appears euvolemic. We will continue his home metoprolol. (6) Seizure disorder Impression: Stable. Continue home Depakote. (7) Atrial fibrillation with RVR Impression: This is controlled with the use of metoprolol and diltiazem. Will increase metoprolol today to 50 mg twice daily and discontinue the diltiazem. If he tolerates this well we will look to further increase the metoprolol up to 100 mg twice daily. Ideally he would not be on diltiazem given the chronic systolic heart failure. (8) Dementia with behavioral disturbance Impression: Stable. He remains cooperative at this time. We will continue his home Seroquel and Namenda. There is no need for one-to-one observation.
[2021-09-02] MEDS: CHOLECALCIFEROL 25 MCG TABLET PO SCH (09:07)
[2021-09-02] MEDS: CYANOCOBALAMIN 500 MCG TABLET PO SCH (09:08)
[2021-09-02] MEDS: QUEtiapine 25 MG TABLET PO SCH ×3 (09:08→20:23)
[2021-09-02] MEDS: DIVALPROEX DR 125 MG TABLET PO SCH ×3 (09:08→20:25)
[2021-09-02] MEDS: ASPIRIN EC 81 MG TABLET PO SCH (09:08)
[2021-09-02] MEDS: MEMANTINE 5 MG TABLET PO SCH ×2 (09:08→20:23)
[2021-09-02] MEDS: FOLIC ACID 1 MG TABLET PO SCH (09:08)
[2021-09-02] MEDS: SACCHAROMYCES BOULARDII 250 MG CAPSULE PO SCH ×2 (09:09→16:59)
[2021-09-02] MEDS: METOPROLOL SUCCINATE 25 MG TABLET PO SCH ×2 (09:09→20:24)
--- NOTE | 2021-09-02 17:17 | PHARMACY PROGRESS NOTE ---
- Therapy Status Vancomycin regimen day #: 1 Therapy status: Awaiting steady state Basis for treatment: Empirical Treatment indication: Epididymitis Trough goal: 15-20 Concurrent antibiotics: Meropenem - MAGALI Risk Risk level for Acute Kidney Injury: Low Acute Kidney Injury risk factors: Goal trough >15 - Monitoring and Recommendation Clinical response to treatment: I&O Previous 24 hours 08/31/21 09/01/21 09/02/21 23:59 23:59 23:59 Intake Total 3411.978 9919.337 1130 Output Total 4150 1750 1400 Balance -2250.332 537.337 -270 Lab Results 09/02/21 09/01/21 08/31/21 05:07 06:07 04:58 BUN 16 16 14 Creatinine 0.9 0.9 1.0 Estimated GFR (MDRD) 81 L 81 L 72 L 08/30/21 08/29/21 08/28/21 04:47 06:03 18:25 BUN 17 19 29 H Creatinine 0.9 0.9 1.1 Estimated GFR (MDRD) 81 L 81 L 65 L Cultures 08/28/21 19:50 Urine,Clean Catch Urine Culture - Final ESBL-producing E COLI Pseudomonas Aeruginosa 08/28/21 18:30 Blood - Right Arm Blood Culture - Preliminary NO GROWTH AFTER 2 DAYS 08/28/21 18:25 Blood - Left Iv Start Blood Culture - Preliminary NO GROWTH AFTER 2 DAYS Monitoring plan: Daily serum creatinine Next trough due prior to maintenance dose #: 4 Next trough due (date/time): 09/04/21 @ 1700 Areas for additional monitoring: IV to PO when appropriate
[2021-09-02] MEDS ORDERED: VANCOMYCIN INJ 1 GM, VANCOMYCIN INJ 500 MG in SODIUM CHLORIDE 0.9% 500 ML IV SCH (18:00)
[2021-09-02] MEDS: TAMSULOSIN 0.4 MG CAPSULE PO SCH (20:25)
[2021-09-03] MEDS: SODIUM CHLORIDE FLUSH 0.9% 10 ML SYRINGE IVP SCH ×3 (00:16→17:31)
[2021-09-03] MEDS: MEROPENEM 1 GM in SODIUM CHLORIDE 0.9% MINIBAG 100 ML IV SCH ×3 (02:56→19:02)
[2021-09-03] MEDS: VANCOMYCIN INJ 1 GM in SODIUM CHLORIDE 0.9% 250 ML IV SCH ×2 (06:18→17:31)
[2021-09-03 08:00] LABS: BASOPHILS # (AUTO) 0.1 10^3/uL (0.0-0.1); BASOPHILS % (AUTO) 0.7 %; EOSINOPHILS # (AUTO) 0.1 10^3/uL (0.0-0.7); EOSINOPHILS % (AUTO) 0.8 %; HCT - HEMATOCRIT 41.5 % (42.0-52.0); HGB - HEMOGLOBIN 14.3 g/dL (14.0-18.0); LYMPHOCYTES # (AUTO) 1.1 10^3/uL (1.5-3.5); LYMPHOCYTES % (AUTO) 14.9 %; MEAN CORPUSCULAR HEMOGLOBIN 30.9 pg (27.0-31.0); MEAN CORPUSCULAR HGB CONC 34.5 g/dL (32.0-36.0); MEAN CORPUSCULAR VOLUME 89.6 fL (80.0-94.0); MEAN PLATELET VOLUME 9.5 fL (7.4-11.4); MONOCYTES # (AUTO) 0.9 10^3/uL (0.0-1.0); MONOCYTES % (AUTO) 12.2 %; NEUTROPHILS # (AUTO) 5.3 10^3/uL (1.5-6.6); NEUTROPHILS % (AUTO) 70.7 %; PLT - PLATELET COUNT 218 10^3/uL (130-450); RED BLOOD COUNT 4.63 10^6/uL (4.70-6.10); RED CELL DISTRIBUTION WIDTH 12.2 % (12.0-15.0); WHITE BLOOD COUNT 7.5 x10^3/uL (4.8-10.8)
[2021-09-03 08:05] LABS: CALCIUM 8.3 mg/dL (8.5-10.3); CREATININE 0.9 mg/dL (0.6-1.2)
[2021-09-03] MEDS: QUEtiapine 25 MG TABLET PO SCH ×3 (08:51→21:18)
[2021-09-03] MEDS: SACCHAROMYCES BOULARDII 250 MG CAPSULE PO SCH ×2 (08:54→17:31)
[2021-09-03] MEDS: FOLIC ACID 1 MG TABLET PO SCH (08:54)
[2021-09-03] MEDS: CYANOCOBALAMIN 500 MCG TABLET PO SCH (08:55)
[2021-09-03] MEDS: CHOLECALCIFEROL 25 MCG TABLET PO SCH (08:55)
[2021-09-03] MEDS: MEMANTINE 5 MG TABLET PO SCH ×2 (08:55→21:18)
[2021-09-03] MEDS: DIVALPROEX DR 125 MG TABLET PO SCH (10:37)
[2021-09-03] MEDS: METOPROLOL SUCCINATE 25 MG TABLET PO SCH (10:37)
[2021-09-03] MEDS: ASPIRIN EC 81 MG TABLET PO SCH (10:37)
[2021-09-03] MEDS: ASPIRIN CHEW 81 MG TABLET PO SCH (11:20)
[2021-09-03] MEDS: METOPROLOL TARTRATE 50 MG TABLET PO SCH ×2 (11:20→21:18)
[2021-09-03] MEDS ORDERED: VALPROATE 250 MG/5 ML SOLUTION UDC PO SCH (12:00)
--- NOTE | 2021-09-03 12:17 | PROVIDER PROGRESS NOTE ---
Subjective - Prog Note Date Prog Note Date: 09/03/21 - Subjective Subjective: History is limited due to his dementia but he still appears to be in pain when examining his scrotum. Current Medications - Current Medications Current Medications: Active Medications Acetaminophen (Acetaminophen 325 Mg Tablet) 650 mg PO Q4HR PRN PRN Reason: Pain 1 to 4, or Fever Acetaminophen/Codeine Phosphate (Acetaminophen/Codeine 300 Mg/30 Mg Tablet) 1 tab PO Q8HR PRN PRN Reason: Severe Pain Last Admin: 08/30/21 13:45 Dose: 1 tab Aspirin (Aspirin Chew 81 Mg Tablet) 81 mg PO DAILY [facility] Last Admin: 09/03/21 11:20 Dose: 81 mg Cholecalciferol (Cholecalciferol 25 Mcg Tablet) 50 mcg PO DAILY [facility] Last Admin: 09/03/21 08:55 Dose: 50 mcg Cyanocobalamin (Cyanocobalamin 500 Mcg Tablet) 1,000 mcg PO DAILY [facility] Last Admin: 09/03/21 08:55 Dose: 1,000 mcg Folic Acid (Folic Acid 1 Mg Tablet) 1 mg PO DAILY [facility] Last Admin: 09/03/21 08:54 Dose: 1 mg Meropenem 1 gm/ Sodium (Chloride) 100 mls @ 200 mls/hr IV Q8H [facility] Last Admin: 09/03/21 11:23 Dose: 200 mls/hr Sodium Chloride (Normal Saline 0.9%) 250 mls @ 20 mls/hr IV Q24H PRN PRN Reason: TKO RATE Last Infusion: 09/02/21 22:34 Dose: Infused Vancomycin HCl 1 gm/ Sodium (Chloride) 250 mls @ 167 mls/hr IV Q12H [facility] Last Admin: 09/03/21 06:18 Dose: 167 mls/hr Memantine (Memantine 5 Mg Tablet) 10 mg PO BID [facility] Last Admin: 09/03/21 08:55 Dose: 10 mg Metoprolol Tartrate (Metoprolol Tartrate 50 Mg Tablet) 50 mg PO BID [facility] Last Admin: 09/03/21 11:20 Dose: 50 mg Multi-Ingredient Ointment (Zinc Oxide 20% Oint 30 Gm Tube) 1 applic TOP PRN PRN PRN Reason: Skin Care Last Admin: 09/02/21 09:09 Dose: 1 applic Ondansetron HCl (Ondansetron 4 Mg/2 Ml Vial) 4 mg IVP Q6HR PRN PRN Reason: Nausea / Vomiting Quetiapine Fumarate (Quetiapine 25 Mg Tablet) 25 mg PO 1400,2000 [facility] Last Admin: 09/02/21 20:23 Dose: 25 mg Quetiapine Fumarate (Quetiapine 25 Mg Tablet) 50 mg PO 0800 [facility] Last Admin: 09/03/21 08:51 Dose: 50 mg Quetiapine Fumarate (Quetiapine 25 Mg Tablet) 50 mg PO TID PRN PRN Reason: Agitation Saccharomyces Boulardii (Saccharomyces Boulardii 250 Mg Capsule) 250 mg PO BIDWM [facility] Last Admin: 09/03/21 08:54 Dose: 250 mg Sodium Chloride (Sodium Chloride Flush 0.9% 10 Ml Syringe) 10 ml IVP PRN PRN PRN Reason: NEEDED PER PROVIDER ORDERS Last Admin: 09/02/21 03:25 Dose: 10 ml Sodium Chloride (Sodium Chloride Flush 0.9% 10 Ml Syringe) 10 ml IVP 0100,0900,1700 [facility] Last Admin: 09/03/21 09:12 Dose: 10 ml Tamsulosin HCl (Tamsulosin 0.4 Mg Capsule) 0.4 mg PO QPM [facility] Last Admin: 09/02/21 20:25 Dose: 0.4 mg Valproic Acid (Valproate 250 Mg/5 Ml Solution Udc) 125 mg PO QDLUNCH [facility] Valproic Acid (Valproate 250 Mg/5 Ml Solution Udc) 375 mg PO BID@0800,2100 [facility] Memantine [Namenda] 10 mg PO BID 03/19/20 Tamsulosin [Flomax] 0.4 mg PO QPM 03/19/20 Cyanocobalamin (Vitamin B-12) [Vitamin B-12 (1000 mcg sublingual)] 1,000 mcg SL DAILY 10/27/20 Folic Acid 1 mg PO DAILY 10/27/20 Acetaminophen [Acetaminophen Extra Strength] 1,000 mg PO BID 03/06/21 Divalproex [Carlie Mims] 125 mg PO QDLUNCH 03/06/21 Divalproex [Carlie Mims] 375 mg PO BID 03/06/21 dilTIAZem HCL [Diltiazem 24Hr ER (Xr)] 240 mg PO QPM 03/06/21 Melatonin 3 mg PO QPM 07/28/21 QUEtiapine [SEROquel] 25 mg PO 1400,199907/28/21 QUEtiapine [SEROquel] 50 mg PO 0800 07/28/21 QUEtiapine [SEROquel] 50 mg PO TID PRN 07/28/21 Objective - Vital Signs/Intake & Output Reviewed Vital Signs: Yes Vital Signs: Vital Signs x48h Temp Pulse Resp BP BP Pulse Ox 09/03/21 11:29 36.6 C 93 18 107/68 94 09/03/21 11:20 107/67 09/03/21 08:32 36.6 C 74 16 118/75 96 Intake & Output: Intake & Output 08/31/21 09/01/21 09/02/21 09/03/21 23:59 23:59 23:59 23:59 Intake Total 0235.044 4785.337 2208.666 340 Output Total 4150 1750 1650 875 Balance -2250.332 537.337 558.666 -535 - Objective General Appearance: positive: No acute distress, Alert Eyes Bilateral: positive: Normal inspection ENT: positive: ENT inspection nml Neck: positive: Nml inspection Respiratory: positive: No respiratory distress Cardiovascular: positive: Irregularly irregular. negative: Tachycardia Rectal: positive: Other (Left scrotum still erythematous and indurated. The er ythema has not really improved but most definitely has not worsened over the past 24 hours. cutter tender to palpation.) Skin: positive: Warm, Dry Extremities: positive: No pedal edema Neurologic/Psychiatric: positive: Disoriented to place, Disoriented to time. negative: Disoriented to person - Lab Results Fish Bones: 09/03/21 07:51 09/03/21 07:51 Other Labs: Lab Results x24hrs 09/03/21 09/03/21 09/03/21 Range/Units 07:51 07:51 07:51 WBC 7.5 (4.8-10.8) x10^3/uL RBC 4.63 L (4.70-6.10) 10^6/uL Hgb 14.3 (14.0-18.0) g/dL Hct 41.5 L (42.0-52.0) % MCV 89.6 (80.0-94.0) fL MCH 30.9 (27.0-31.0) pg MCHC 34.5 (32.0-36.0) g/dL RDW 12.2 (12.0-15.0) % Plt Count 218 (130-450) 10^3/uL MPV 9.5 (7.4-11.4) fL Neut # (Auto) 5.3 (1.5-6.6) 10^3/uL Lymph # (Auto) 1.1 L (1.5-3.5) 10^3/uL [place] # (Auto) 0.9 (0.0-1.0) 10^3/uL Eos # (Auto) 0.1 (0.0-0.7) 10^3/uL Baso # (Auto) 0.1 (0.0-0.1) 10^3/uL Absolute Nucleated RBC 0.00 x10^3/uL Nucleated RBC % 0.0 /100WBC Sodium 135 (135-145) mmol/L Potassium 4.0 (3.5-5.0) mmol/L Chloride 101 (101-111) mmol/L Carbon Dioxide 24 (21-32) mmol/L Anion Gap 10.0 (6-13) BUN 18 (6-20) mg/dL Creatinine 0.9 (0.6-1.2) mg/dL Estimated GFR (MDRD) 81 L (>89) Glucose 95 (70-100) mg/dL Calcium 8.3 L (8.5-10.3) mg/dL C-Reactive Protein 4.2 H (0-1.0) mg/dL Assessment/Plan - Problem List (1) Epididymitis, left Impression: I spoke with urology again today at [facility] and at [facility] in [place]. The consensus is to treat with IV antibiotics alone and that it can take up to 2 weeks to see improvement in the cellulitis/epididymitis. It was felt there is no need for intervention or transfer. Urine culture has grown ESBL E. coli and Pseudomonas. We will keep him on meropenem IV with today being day 5. Today is day 2 of vancomycin which was added for the cellulitis. Given he remains afebrile with no white blood cell count, we will look to discharge him to swing bed tomorrow. (2) Cellulitis of scrotum Impression: This has not really improvement erythema standpoint but has not progressed either. Urology recommended just IV antibiotics for up to 2 weeks. We added vancomycin yesterday which we will continue with today being day 2. Continue meropenem with today being day 5. We will look to discharge him to a swing bed status tomorrow for a total of 2 weeks of antibiotics. We will check a MRSA screen and if this is negative we will discontinue vancomycin and use meropenem alone as that should provide adequate MSSA and streptococcus coverage. (3) Catheter-associated urinary tract infection Impression: Urine culture has grown ESBL E. coli and Pseudomonas. The Pseudomonas grew less than 50,000 colonies which makes me suspect that the E. coli is the cause of the infection. He is on meropenem IV and today is day 5. He will need 14 days of treatment given the epididymitis. The catheter was exchanged August 31. (4) COVID-19 Impression: There is no evidence of active infection. He was positive in May 2021. (5) Chronic systolic heart failure Impression: This is not in exacerbation. His last echocardiogram revealed ejection fraction of about 30%. He appears euvolemic. We will continue his home metoprolol. (6) Seizure disorder Impression: Stable. Continue home Depakote. (7) Atrial fibrillation with RVR Impression: We have discontinued his diltiazem given the chronic systolic heart failure and have him on metoprolol alone. He seems to be tolerating this well and we will continue to monitor. (8) Dementia with behavioral disturbance Impression: Stable. He remains cooperative at this time. We will continue his home Seroquel and Namenda. There is no need for one-to-one observation.
[2021-09-03] MEDS: TAMSULOSIN 0.4 MG CAPSULE PO SCH (21:17)
[2021-09-03] MEDS: VALPROATE 250 MG/5 ML SOLUTION UDC PO SCH (21:17)
[2021-09-04] MEDS: SODIUM CHLORIDE FLUSH 0.9% 10 ML SYRINGE IVP SCH ×2 (00:31→08:45)
[2021-09-04] MEDS: MEROPENEM 1 GM in SODIUM CHLORIDE 0.9% MINIBAG 100 ML IV SCH (02:20)
[2021-09-04 05:14] LABS: BASOPHILS % (AUTO) 0.4 %; EOSINOPHILS # (AUTO) 0.1 10^3/uL (0.0-0.7); EOSINOPHILS % (AUTO) 0.8 %; HCT - HEMATOCRIT 40.4 % (42.0-52.0); HGB - HEMOGLOBIN 13.8 g/dL (14.0-18.0); LYMPHOCYTES # (AUTO) 1.6 10^3/uL (1.5-3.5); LYMPHOCYTES % (AUTO) 20.9 %; MEAN CORPUSCULAR HEMOGLOBIN 30.7 pg (27.0-31.0); MEAN CORPUSCULAR HGB CONC 34.2 g/dL (32.0-36.0); MEAN CORPUSCULAR VOLUME 89.8 fL (80.0-94.0); MEAN PLATELET VOLUME 9.9 fL (7.4-11.4); MONOCYTES % (AUTO) 13.6 %; NEUTROPHILS # (AUTO) 4.8 10^3/uL (1.5-6.6); NEUTROPHILS % (AUTO) 63.8 %; PLT - PLATELET COUNT 241 10^3/uL (130-450); RED CELL DISTRIBUTION WIDTH 12.2 % (12.0-15.0); WHITE BLOOD COUNT 7.5 x10^3/uL (4.8-10.8)
[2021-09-04 05:34] LABS: CALCIUM 8.4 mg/dL (8.5-10.3); CREATININE 0.9 mg/dL (0.6-1.2); CRP - C-REACTIVE PROTEIN 2.8 mg/dL (0-1.0); POTASSIUM 3.9 mmol/L (3.5-5.0)
--- NOTE | 2021-09-04 07:35 | DISCHARGE SUMMARY ---
Discharge Summary Admit Date: 08/28/21 Discharge Date: 09/04/21 Discharging Provider: Mayo Charles Primary Care Provider: Siena Donato Code Status: Do Not Attempt Resuscitation Condition at Discharge: Stable Discharge Disposition: 61 Swing Bed DC/Xfer Discharge Facility Name: [facility] - DIAGNOSES Admission Diagnoses: Catheter associated urinary tract infection Cellulitis of scrotum Left hydrocele Epididymitis, left Atrial fibrillation with RVR Dementia with behavioral disturbance Seizure disorder Chronic systolic heart failure COVID-19 Discharge Diagnoses with Status of Each Condition: Epididymitis, left - improved. Cellulitis of scrotum - improved. Catheter associated UTI - improved. COVID-19 - resolved. Chronic systolic heart failure - stable. Seizure disorder - stable. Atrial fibrillation with RVR - resolved. Dementia with behavioral disturbance - stable. - HPI History of Present Illness: H&P per Dr. Patel: This is a 81-year-old white male with a history of Alzheimer's dementia with behavioral problems, seizure disorder, Afib, chronic systolic heart failure with LVEF 30%, BPH, chronic indwelling Morales, and multiple admissions here for UTI with agitated behavior. His UTIs have grown ESBL and Pseudomonas. His last admission here for a UTI was just 1 month ago. Today the staff at [facility] went to change his Morales catheter and he refused, said it is swollen and hurts to manipulate it and they noted swelling of the sc rotum and perineum, thus he was sent to the ER. In the ER, he had a low-grade fever 37.8 C, was in rapid A. fib with rates of 160-180 with a normal blood pressure of 140. He received IV Cardizem 10 mg boluses x2 and heart rate has decreased to 120. His exam showed scrotal swelling, white count 11, normal lactic acid level and abnormal urinalysis. He had imaging done. An ultrasound of the testes showed left epididymitis and a reactive hydrocele versus pyocele. He then had CT of the pelvis which showed subcutaneous edema consistent with cellulitis, no abscess and no gas was seen, and a hydrocele was confirmed. The ED provider reached out to the on-call Urologist at [facility] and reviewed the case. No transfer to Urology was recommended. The Urologist recommended Cefepime and if there is no improvement in 48 to 72 hours to reach out to urology again. The Morales catheter was not changed in the ED because of concern that a new Morales would not be able to be reinserted because of the swelling. Patient has a POLST in place requesting DNR. - HOSPITAL COURSE Hospital Course: He was admitted to the floor for catheter associated urinary tract infection, vitals the scrotum and left epididymitis. He also had A. fib with RVR which was felt to be secondary to the infection and potentially noncompliant with his medication. He was started on cefepime IV as recommended by urology for the catheter associated UTI and the cellulitis. He was resumed on oral Cardizem with IV Cardizem pushes as needed. Urine culture grew ESBL E. coli and Pseudomonas. His antibiotics were switched to meropenem IV. Despite this, he did not have improvement in the cellulitis or pain due to epididymitis. There was no worsening of the cellulitis but we did repeat an ultrasound to evaluate for potential abscess which showed that the likely pyocele and epididymitis appeared stable to mildly worse. This was discussed with urology again who felt there is no need for transfer and to discontinue IV antibiotics for 2 weeks. The patient then began to show improvement in the cellulitis and he will now be discharged to our swing bed to complete 2 weeks of IV antibiotics on September 12. - ALLERGIES Allergies/Adverse Reactions: Allergies Allergy/AdvReac Type Severity Reaction Status Date / Time No Known Drug Allergies Allergy Verified 08/14/21 20:13 - MEDICATIONS Home Medications: Ambulatory Orders Medication Instructions Recorded Confirmed Memantine [Namenda] 10 mg PO BID 03/19/20 09/04/21 Tamsulosin [Flomax] 0.4 mg PO QPM 03/19/20 09/04/21 Cyanocobalamin (Vitamin B-12) 1,000 mcg SL DAILY 10/27/20 09/04/21 [Vitamin B-12 (1000 mcg sublingual)] Folic Acid 1 mg PO DAILY 10/27/20 09/04/21 Acetaminophen [Acetaminophen Extra 1,000 mg PO BID 03/06/21 09/04/21 Strength] Divalproex [Carlie Mims] 125 mg PO QDLUNCH 03/06/21 09/04/[address] Susi Mims] 375 mg PO BID 03/06/21 09/04/21 dilTIAZem HCL [Diltiazem 24Hr ER 240 mg PO QPM 03/06/21 09/04/21 (Xr)] Melatonin 3 mg PO QPM 07/28/21 09/04/21 QUEtiapine [SEROquel] 25 mg PO 1400,199907/28/21 09/04/21 QUEtiapine [SEROquel] 50 mg PO 0800 07/28/21 09/04/21 QUEtiapine [SEROquel] 50 mg PO TID PRN 07/28/21 09/04/21 Cefdinir 300 mg PO BID #14 cap 08/14/21 09/04/21 - PHYSICAL EXAM AT DISCHARGE General Appearance: positive: No acute distress, Alert Eyes Bilateral: positive: Normal inspection ENT: positive: ENT inspection nml Neck: positive: Nml inspection Respiratory: positive: No respiratory distress. negative: Wheezes, Rales Cardiovascular: positive: Irregularly irregular. negative: Regular rate & rhythm, Tachycardia, Systolic murmur Skin: positive: Warm, Dry, Other (There is still erythema of the left scrotum with induration but this is improved over the past 24 hours. Less tender to palpation.) Extremities: positive: No pedal edema Neurologic/Psychiatric: positive: Disoriented to place, Disoriented to time. negative: Disoriented to person Physical Exam Other/Comments: Vital Signs - 24 hr 09/03/21 09/03/21 09/03/21 16:05 21:14 21:18 Temperature 36.9 C Heart Rate [ 84 71 Brachial] Respiratory 20 Rate Blood Pressure 106/70 Blood Pressure [Right Brachial artery] Blood Pressure 109/73 106/70 [Right Radial artery] O2 Saturation 99 09/04/21 09/04/21 09/04/21 01:29 07:39 08:44 Temperature 36.1 C L 36.6 C Heart Rate [ 77 82 Brachial] Respiratory 16 18 Rate Blood Pressure 125/84 H Blood Pressure 118/75 125/84 H [Right Brachial artery] Blood Pressure [Right Radial artery] O2 Saturation 98 98 Oxygen O2 Source Room air - LABS Result Diagrams: 09/04/21 04:45 09/04/21 04:45 - DIAGNOSTIC IMAGING Diagnostic Imaging Results: Final report reviewed - FOLLOW UP Follow Up: He will be evaluated by the hospitalist while he is in swing bed status. Once he is discharged from swing bed, he will need follow-up with urology and his primary care physician. - TIME SPENT Time Spent in Discharge (Minutes): 32
[2021-09-04 07:41] VITALS: BP 125/84
[2021-09-04] MEDS: SACCHAROMYCES BOULARDII 250 MG CAPSULE PO SCH (08:43)
[2021-09-04] MEDS: QUEtiapine 25 MG TABLET PO SCH (08:43)
[2021-09-04] MEDS: CYANOCOBALAMIN 500 MCG TABLET PO SCH (08:44)
[2021-09-04] MEDS: ASPIRIN CHEW 81 MG TABLET PO SCH (08:44)
[2021-09-04] MEDS: METOPROLOL TARTRATE 50 MG TABLET PO SCH (08:44)
[2021-09-04] MEDS: FOLIC ACID 1 MG TABLET PO SCH (08:44)
[2021-09-04] MEDS: CHOLECALCIFEROL 25 MCG TABLET PO SCH (08:44)
[2021-09-04] MEDS: MEMANTINE 5 MG TABLET PO SCH (08:45)
[2021-09-04] MEDS: VALPROATE 250 MG/5 ML SOLUTION UDC PO SCH (08:46)
== END 2021-09-04 12:04 | disposition swing bed (61) | DRG 698 ==
LOC: EDUNIT# → ED 17:48 → MS2 21:35
PROVIDERS: ADMIT Internal Medicine; ATTEND Internal Medicine
DX: N50.89 Other specified disorders of the male genital organs (principal); T83.511A Infection and inflammatory reaction due to indwelling urethral catheter, initial encounter; N43.3 Hydrocele, unspecified; U07.1 COVID-19; I50.22 Chronic systolic (congestive) heart failure; F02.81 Dementia in other diseases classified elsewhere, unspecified severity, with behavioral disturbance; N40.1 Benign prostatic hyperplasia with lower urinary tract symptoms; R33.8 Other retention of urine; Z96.0 Presence of urogenital implants; N30.90 Cystitis, unspecified without hematuria; I50.9 Heart failure, unspecified; B96.29 Other Escherichia coli [E. coli] as the cause of diseases classified elsewhere; B96.5 Pseudomonas (aeruginosa) (mallei) (pseudomallei) as the cause of diseases classified elsewhere; F03.91 Unspecified dementia, unspecified severity, with behavioral disturbance; N45.3 Epididymo-orchitis; I11.0 Hypertensive heart disease with heart failure; G40.909 Epilepsy, unspecified, not intractable, without status epilepticus; I48.91 Unspecified atrial fibrillation; G30.9 Alzheimer's disease, unspecified; Z66 Do not resuscitate; T46.1X6A Underdosing of calcium-channel blockers, initial encounter; Z78.1 Physical restraint status; Z91.128 Patient's intentional underdosing of medication regimen for other reason; N40.0 Benign prostatic hyperplasia without lower urinary tract symptoms
CPT/HCPCS: 36415; 71045; 74177; 76870; 80048; 80053; 81001; 82306; 83605; 83735; 83880; 84100; 84436; 84443; 84484; 85025; 86140; 87040; 87086; 87181; 87635; 87640; 93005; 93975; 93976; 96365; 96375; 96376; 99283; 99285; A9270; J2185; J3370; J3490; J7120; Q9967

== ENCOUNTER 2021-09-04 10:23 | Inpatient (IN) | payer MEDICARE, BC ==
[2021-09-04] MEDS: DIVALPROEX DR 125 MG TABLET PO SCH ×2 (12:30→20:57)
[2021-09-04] MEDS: MEROPENEM 1 GM in SODIUM CHLORIDE 0.9% MINIBAG 100 ML IV SCH ×2 (12:38→20:58)
[2021-09-04] MEDS: QUEtiapine 25 MG TABLET PO SCH ×2 (14:40→20:58)
[2021-09-04] MEDS: SODIUM CHLORIDE FLUSH 0.9% 10 ML SYRINGE IVP SCH (16:47)
--- NOTE | 2021-09-04 17:06 | HISTORY & PHYSICAL EXAMINATION ---
Chief Complaint - Chief Complaint Chief Complaint: Unable to obtain due to dementia History of Present Illness - Admitted From Admitted From:: [facility] inpatient status - History Obtained From Records Reviewed: [facility] History obtained from: EMR Exam Limitations: Patient has advanced dementia and is a poor historian. - History of Present Illness HPI Comment/Other: This is a 81-year-old male with past medical history significant for atrial fibrillation, dementia with behavioral disturbance, seizure disorder, chronic indwelling Morales catheter for BPH who was admitted at [facility] from August 28 until the for left epididymitis, catheter associated UTI and cellulitis of the scrotum. Imaging during the admission revealed epididymitis and cellulitis with a possible pyocele. He was treated initially with cefepime IV as recommended by urology but this was later transitioned to meropenem given urine cultures grew ESBL E. coli and Pseudomonas. Repeat imaging was obtained midway through the hospitalization and showed that the epididymitis and pyocele pill stable to mildly worse. It was discussed again with urology but it was felt that there was no need to transfer and they recommended IV antibiotics for a total of 2 weeks. The patient has now had improvement in the erythema and pain. He is being discharged to swing bed status to complete 2 weeks of antibiotics on September 12. History from the patient is limited as he has advanced dementia. History - Past Medical History Cardiovascular: reports: Congestive heart failure, Hypertension, Atrial fibrillation Respiratory: reports: None Neuro: reports: Dementia, Seizure disorder Endocrine/Autoimmune: reports: None GI: reports: None : reports: Benign prostate hypertrophy, Indwelling catheter HEENT: reports: None Psych: reports: Anxiety Musculoskeletal: reports: None Derm: reports: None MRSA Hx?: No - Family & Social History Family History Comment/Other: Unable to obtain due to his dementia. Social History Notes: [facility]. - Substance History Use: Uses substance without health or social issues: NONE - POLST Patient has POLST: Yes POLST Status: DNR Meds/Allgy - Home Medications Home Medications: Ambulatory Orders Medication Instructions Recorded Confirmed Memantine [Namenda] 10 mg PO BID 03/19/20 09/04/21 Tamsulosin [Flomax] 0.4 mg PO QPM 03/19/20 09/04/21 Cyanocobalamin (Vitamin B-12) 1,000 mcg SL DAILY 10/27/20 09/04/21 [Vitamin B-12 (1000 mcg sublingual)] Folic Acid 1 mg PO DAILY 10/27/20 09/04/21 Acetaminophen [Acetaminophen Extra 1,000 mg PO BID 03/06/21 09/04/21 Strength] Divalproex [Carlie Mims] 125 mg PO QDLUNCH 03/06/21 09/04/[address] [Carlie Mims] 375 mg PO BID 03/06/21 09/04/21 dilTIAZem HCL [Diltiazem 24Hr ER 240 mg PO QPM 03/06/21 09/04/21 (Xr)] Melatonin 3 mg PO QPM 07/28/21 09/04/21 QUEtiapine [SEROquel] 25 mg PO 1400,199907/28/21 09/04/21 QUEtiapine [SEROquel] 50 mg PO 0800 07/28/21 09/04/21 QUEtiapine [SEROquel] 50 mg PO TID PRN 07/28/21 09/04/21 Cefdinir 300 mg PO BID #14 cap 08/14/21 09/04/21 - Allergies Allergies/Adverse Reactions: Allergies Allergy/AdvReac Type Severity Reaction Status Date / Time No Known Drug Allergies Allergy Verified 08/14/21 20:13 Review of Systems - All Other Systems All Other Systems: reports: Other (Unable to obtain due to dementia.) Prior Level of Functionality: He is dependent on his ADLs due to his advanced dementia. Exam - Vital Signs Reviewed Vital Signs: Yes Vital Signs: Vital Signs x48h Temp Pulse Pulse Resp BP Pulse Ox 09/04/21 15:29 36.7 C 75 16 108/67 98 09/04/21 12:46 37 C 88 20 104/82 H 98 - Physical Exam General Appearance: positive: No acute distress, Alert Eyes Bilateral: positive: Conjunctivae nml ENT: positive: ENT inspection nml Neck: positive: Nml inspection Respiratory: positive: No respiratory distress. negative: Wheezes, Rales Cardiovascular: positive: Irregularly irregular. negative: Tachycardia Abdomen: positive: Non-tender, No distention. negative: Tenderness Rectal: positive: Other (The scrotum is still erythematous and there is an area of induration over the left scrotum but this is improved. dry house tender to palpation but improved.) Skin: positive: Warm, Dry Extremities: positive: No pedal edema Neurologic/Psychiatric: positive: Disoriented to place, Disoriented to time, Other (He is oriented to person but not to location or time. He is minimally verbal.). negative: Disoriented to person Conclusion/Plan - Problem List (1) Epididymitis, left Conclusion/Plan: This is slowly improving. Urology is recommended 2 weeks of IV antibiotics and we will keep him on meropenem IV until September 12. He will need outpatient fol low-up with urology on discharge. (2) Cellulitis of scrotum Conclusion/Plan: This is slowly improving. He will be on the meropenem until September 12 given the epididymitis. MRSA screen was negative and so he is no longer on vancomycin. (3) Catheter-associated urinary tract infection Conclusion/Plan: Urine cultures grew ESBL E. coli and Pseudomonas. The Morales catheter was exchanged on August 31. He will continue the meropenem IV until September 12 to complete 2 weeks of therapy given the epididymitis. (4) Atrial fibrillation Conclusion/Plan: He remains rate controlled after we discontinue the diltiazem. We did increase his metoprolol to 50 mg twice daily and he has been tolerating this well. The diltiazem was discontinued given his chronic systolic heart failure. Qualifiers: Atrial fibrillation type: longstanding persistent Qualified Code(s): I48.11 - Longstanding persistent atrial fibrillation (5) Seizure disorder Conclusion/Plan: Stable. Continue Depakote. (6) Chronic systolic heart failure Conclusion/Plan: His last echocardiogram revealed an ejection fraction of 30%. This is not an exacerbation and he appears euvolemic. We are continuing metoprolol. We will add low-dose lisinopril given the low ejection fraction. (7) Dementia with behavioral disturbance Conclusion/Plan: This is stable and he is at his baseline. Continue Seroquel and Namenda. (8) COVID-19 Conclusion/Plan: He was first diagnosed in May 2021. There is no evidence of active infection. Core Measures - Anticipated LOS I expect patient to be DC'd or transferred within 96 hours.: Yes - Issues Hospital Issues and Management Plan: 81-year-old male who was admitted under inpatient status for cellulitis of the scrotum and epididymitis. He will not be admitted under swing bed status to complete IV meropenem for total of 2 weeks which will be on September 12. - DVT/VTE - Prophylaxis VTE/DVT Device ordered at admit?: Yes VTE/DVT Prophylaxis med ordered at admit?: Yes
[2021-09-04] MEDS: TAMSULOSIN 0.4 MG CAPSULE PO SCH (20:58)
[2021-09-04] MEDS: ZINC OXIDE 20% OINT 30 GM TUBE TOP PRN (20:58)
[2021-09-04] MEDS: MEMANTINE 5 MG TABLET PO SCH (20:59)
[2021-09-04] MEDS: METOPROLOL TARTRATE 50 MG TABLET PO SCH (21:00)
[2021-09-05] MEDS: SODIUM CHLORIDE FLUSH 0.9% 10 ML SYRINGE IVP SCH ×3 (00:11→18:10)
[2021-09-05] MEDS: MEROPENEM 1 GM in SODIUM CHLORIDE 0.9% MINIBAG 100 ML IV SCH ×3 (03:26→20:49)
[2021-09-05] MEDS: CYANOCOBALAMIN 500 MCG TABLET PO SCH (08:45)
[2021-09-05] MEDS: DIVALPROEX DR 125 MG TABLET PO SCH ×3 (08:45→20:56)
[2021-09-05] MEDS: MEMANTINE 5 MG TABLET PO SCH ×2 (08:45→20:56)
[2021-09-05] MEDS: CHOLECALCIFEROL 25 MCG TABLET PO SCH (08:45)
[2021-09-05] MEDS: FOLIC ACID 1 MG TABLET PO SCH (08:45)
[2021-09-05] MEDS: ENOXAPARIN 40 MG/0.4 ML SYRINGE SUBQ SCH (08:45)
[2021-09-05] MEDS: lisinopriL 5 MG TABLET PO SCH (08:46)
[2021-09-05] MEDS: QUEtiapine 25 MG TABLET PO SCH ×3 (08:46→20:56)
[2021-09-05] MEDS: METOPROLOL TARTRATE 50 MG TABLET PO SCH ×2 (08:56→20:56)
[2021-09-05] MEDS: SODIUM CHLORIDE FLUSH 0.9% 10 ML SYRINGE IVP PRN (20:49)
[2021-09-05] MEDS: TAMSULOSIN 0.4 MG CAPSULE PO SCH (20:57)
[2021-09-06] MEDS: SODIUM CHLORIDE FLUSH 0.9% 10 ML SYRINGE IVP SCH ×3 (00:53→17:12)
[2021-09-06] MEDS: MEROPENEM 1 GM in SODIUM CHLORIDE 0.9% MINIBAG 100 ML IV SCH ×3 (04:30→19:54)
[2021-09-06] MEDS: DIVALPROEX DR 125 MG TABLET PO SCH ×3 (08:23→21:34)
[2021-09-06] MEDS: METOPROLOL TARTRATE 50 MG TABLET PO SCH ×2 (08:23→21:39)
[2021-09-06] MEDS: CHOLECALCIFEROL 25 MCG TABLET PO SCH (08:23)
[2021-09-06] MEDS: ENOXAPARIN 40 MG/0.4 ML SYRINGE SUBQ SCH (08:24)
[2021-09-06] MEDS: lisinopriL 5 MG TABLET PO SCH (08:24)
[2021-09-06] MEDS: FOLIC ACID 1 MG TABLET PO SCH (08:24)
[2021-09-06] MEDS: CYANOCOBALAMIN 500 MCG TABLET PO SCH (08:24)
[2021-09-06] MEDS: QUEtiapine 25 MG TABLET PO SCH ×3 (08:24→19:54)
[2021-09-06] MEDS: MEMANTINE 5 MG TABLET PO SCH ×2 (08:24→21:31)
[2021-09-06] MEDS: ZINC OXIDE 20% OINT 30 GM TUBE TOP PRN (11:47)
[2021-09-06] MEDS: SODIUM CHLORIDE FLUSH 0.9% 10 ML SYRINGE IVP PRN ×2 (11:48→19:56)
[2021-09-06] MEDS: TAMSULOSIN 0.4 MG CAPSULE PO SCH (21:31)
[2021-09-06] MEDS: DIVALPROEX DR 250 MG TABLET PO SCH (21:33)
[2021-09-07] MEDS: SODIUM CHLORIDE FLUSH 0.9% 10 ML SYRINGE IVP SCH ×3 (00:39→20:03)
[2021-09-07] MEDS: MEROPENEM 1 GM in SODIUM CHLORIDE 0.9% MINIBAG 100 ML IV SCH ×3 (04:00→20:03)
[2021-09-07] MEDS: DIVALPROEX DR 250 MG TABLET PO SCH (08:03)
[2021-09-07] MEDS: DIVALPROEX DR 125 MG TABLET PO SCH (08:03)
[2021-09-07] MEDS: ENOXAPARIN 40 MG/0.4 ML SYRINGE SUBQ SCH (08:10)
[2021-09-07] MEDS: FOLIC ACID 1 MG TABLET PO SCH (08:10)
[2021-09-07] MEDS: CYANOCOBALAMIN 500 MCG TABLET PO SCH (08:10)
[2021-09-07] MEDS: CHOLECALCIFEROL 25 MCG TABLET PO SCH (08:10)
[2021-09-07] MEDS: lisinopriL 5 MG TABLET PO SCH (08:11)
[2021-09-07] MEDS: QUEtiapine 25 MG TABLET PO SCH ×3 (08:11→20:03)
[2021-09-07] MEDS: MEMANTINE 5 MG TABLET PO SCH ×2 (08:11→20:02)
[2021-09-07] MEDS: METOPROLOL TARTRATE 50 MG TABLET PO SCH ×2 (08:12→20:03)
[2021-09-07] MEDS ORDERED: SODIUM CHLORIDE 0.9% MINIBAG 100 ML IV ONE (12:11)
[2021-09-07] MEDS: SODIUM CHLORIDE FLUSH 0.9% 10 ML SYRINGE IVP PRN ×2 (12:20→20:02)
[2021-09-07] MEDS: VALPROATE 250 MG/5 ML SOLUTION UDC PO SCH ×2 (12:21→20:04)
[2021-09-07] MEDS: TAMSULOSIN 0.4 MG CAPSULE PO SCH (20:03)
[2021-09-08] MEDS: SODIUM CHLORIDE FLUSH 0.9% 10 ML SYRINGE IVP SCH ×3 (00:03→20:21)
[2021-09-08] MEDS: MEROPENEM 1 GM in SODIUM CHLORIDE 0.9% MINIBAG 100 ML IV SCH ×3 (03:36→20:21)
[2021-09-08] MEDS: QUEtiapine 25 MG TABLET PO SCH ×3 (08:48→20:22)
[2021-09-08] MEDS: CHOLECALCIFEROL 25 MCG TABLET PO SCH (08:48)
[2021-09-08] MEDS: MEMANTINE 5 MG TABLET PO SCH ×2 (08:49→20:21)
[2021-09-08] MEDS: FOLIC ACID 1 MG TABLET PO SCH (08:53)
[2021-09-08] MEDS: lisinopriL 5 MG TABLET PO SCH (08:57)
[2021-09-08] MEDS: METOPROLOL TARTRATE 50 MG TABLET PO SCH ×2 (08:58→20:21)
[2021-09-08] MEDS: VALPROATE 250 MG/5 ML SOLUTION UDC PO SCH ×3 (08:59→20:20)
[2021-09-08] MEDS: ENOXAPARIN 40 MG/0.4 ML SYRINGE SUBQ SCH (09:02)
[2021-09-08] MEDS: TAMSULOSIN 0.4 MG CAPSULE PO SCH (20:21)
[2021-09-09] MEDS: SODIUM CHLORIDE FLUSH 0.9% 10 ML SYRINGE IVP SCH ×3 (00:02→16:51)
[2021-09-09] MEDS: MEROPENEM 1 GM in SODIUM CHLORIDE 0.9% MINIBAG 100 ML IV SCH ×3 (03:27→20:13)
[2021-09-09] MEDS: FOLIC ACID 1 MG TABLET PO SCH (08:14)
[2021-09-09] MEDS: ENOXAPARIN 40 MG/0.4 ML SYRINGE SUBQ SCH (08:14)
[2021-09-09] MEDS: QUEtiapine 25 MG TABLET PO SCH ×3 (08:14→20:13)
[2021-09-09] MEDS: METOPROLOL TARTRATE 50 MG TABLET PO SCH ×2 (08:15→20:12)
[2021-09-09] MEDS: CHOLECALCIFEROL 25 MCG TABLET PO SCH (08:15)
[2021-09-09] MEDS: CYANOCOBALAMIN 500 MCG TABLET PO SCH (08:15)
[2021-09-09] MEDS: lisinopriL 5 MG TABLET PO SCH (08:15)
[2021-09-09] MEDS: VALPROATE 250 MG/5 ML SOLUTION UDC PO SCH ×3 (08:24→20:15)
[2021-09-09] MEDS: MEMANTINE 5 MG TABLET PO SCH ×2 (08:24→20:13)
[2021-09-09] MEDS: ACETAMINOPHEN 325 MG TABLET PO PRN (18:34)
[2021-09-09] MEDS: TAMSULOSIN 0.4 MG CAPSULE PO SCH (20:14)
[2021-09-09] MEDS: SODIUM CHLORIDE FLUSH 0.9% 10 ML SYRINGE IVP PRN (20:15)
[2021-09-10] MEDS: SODIUM CHLORIDE FLUSH 0.9% 10 ML SYRINGE IVP SCH ×4 (02:11→23:25)
[2021-09-10] MEDS: MEROPENEM 1 GM in SODIUM CHLORIDE 0.9% MINIBAG 100 ML IV SCH ×3 (03:47→20:41)
[2021-09-10] MEDS: CHOLECALCIFEROL 25 MCG TABLET PO SCH (09:23)
[2021-09-10] MEDS: CYANOCOBALAMIN 500 MCG TABLET PO SCH (09:24)
[2021-09-10] MEDS: QUEtiapine 25 MG TABLET PO SCH ×3 (09:24→20:40)
[2021-09-10] MEDS: FOLIC ACID 1 MG TABLET PO SCH (09:25)
[2021-09-10] MEDS: lisinopriL 5 MG TABLET PO SCH (09:26)
[2021-09-10] MEDS: MEMANTINE 5 MG TABLET PO SCH ×2 (09:30→20:40)
[2021-09-10] MEDS: METOPROLOL TARTRATE 50 MG TABLET PO SCH ×2 (09:31→20:41)
[2021-09-10] MEDS: VALPROATE 250 MG/5 ML SOLUTION UDC PO SCH ×3 (09:35→20:41)
[2021-09-10] MEDS: ENOXAPARIN 40 MG/0.4 ML SYRINGE SUBQ SCH (09:54)
[2021-09-10] MEDS: ACETAMINOPHEN 325 MG TABLET PO PRN (20:40)
[2021-09-10] MEDS: TAMSULOSIN 0.4 MG CAPSULE PO SCH (20:41)
[2021-09-10] MEDS: QUEtiapine 25 MG TABLET PO PRN (21:30)
[2021-09-10] MEDS ORDERED: HALOPERIDOL 5 MG/ML VIAL IM STA (23:03)
[2021-09-11] MEDS: MEROPENEM 1 GM in SODIUM CHLORIDE 0.9% MINIBAG 100 ML IV SCH ×3 (04:11→20:45)
[2021-09-11] MEDS: SODIUM CHLORIDE FLUSH 0.9% 10 ML SYRINGE IVP PRN ×3 (04:12→13:12)
[2021-09-11] MEDS: QUEtiapine 25 MG TABLET PO SCH ×3 (09:05→20:44)
[2021-09-11] MEDS: CYANOCOBALAMIN 500 MCG TABLET PO SCH (09:05)
[2021-09-11] MEDS: ENOXAPARIN 40 MG/0.4 ML SYRINGE SUBQ SCH (09:05)
[2021-09-11] MEDS: CHOLECALCIFEROL 25 MCG TABLET PO SCH (09:05)
[2021-09-11] MEDS: FOLIC ACID 1 MG TABLET PO SCH (09:05)
[2021-09-11] MEDS: lisinopriL 5 MG TABLET PO SCH (09:06)
[2021-09-11] MEDS: MEMANTINE 5 MG TABLET PO SCH ×2 (09:07→20:44)
[2021-09-11] MEDS: METOPROLOL TARTRATE 50 MG TABLET PO SCH ×2 (09:07→20:44)
[2021-09-11] MEDS: SODIUM CHLORIDE FLUSH 0.9% 10 ML SYRINGE IVP SCH ×2 (09:10→17:23)
[2021-09-11] MEDS: VALPROATE 250 MG/5 ML SOLUTION UDC PO SCH ×3 (09:11→20:45)
--- NOTE | 2021-09-11 12:55 | PROVIDER PROGRESS NOTE ---
Assessment/Plan - Problem List (1) Epididymitis, left Assessment/Plan: He was admitted to [facility] 1 week ago for a long course if iv antibiotics for a complex UTI/epidiymitis/scrotal cellulitis, in a pt with chronic indwelling Morales, after Inpt hospitalization. This area was very tender and swollen and is slowly improving. Urology recommended 2 weeks of IV antibiotics and we will keep him on meropenem IV until last dose which will be morning of September 13. While here, he has started to participate with PT and OT. He will need outpatient follow-up with Urology after discharge. (2) Cellulitis of scrotum Conclusion/Plan: This is slowly improving. He will be on the meropenem until September 13 (as above) given the epididymitis. MRSA screen was negative and so he is not on vancomycin. (3) Catheter-associated urinary tract infection Conclusion/Plan: Urine cultures grew ESBL E. coli and Pseudomonas when he was an inpatient recently. The Morales catheter was exchanged on August 31. He will continue the meropenem IV until September 13 (as above) to complete 2 weeks of therapy given the epididymitis. (4) Atrial fibrillation Conclusion/Plan: He remains rate controlled after we discontinue the diltiazem when he was an Inpt recently. The diltiazem was discontinued given his chronic systolic heart failure. We did increase his metoprolol to 50 mg twice daily then, and he has been tolerating this well. Qualifiers: Atrial fibrillation type: longstanding persistent Qualified Code(s): I48.11 - Longstanding persistent atrial fibrillation (5) Seizure disorder Conclusion/Plan: Stable. Continue Depakote. (6) Chronic systolic heart failure Conclusion/Plan: His last Echocardiogram revealed an ejection fraction of 30%. He is not in an exacerbation and he appears euvolemic. We are continuing metoprolol and we added low-dose lisinopril, given the low ejection fraction. (7) Dementia with behavioral disturbance Conclusion/Plan: This is stable and he is at his baseline. Continue Seroquel and Namenda. A dose of Haldol im was needed once for agitation. (8) Deconditioning He has become deconditioned because of his prolonged hospital stay and now his stay at SNF for IV antibiotics. While here in [facility] (Swing bed) he has started to participate with PT and OT, follows cues, needs a walker which is new for him. Will order Home Health for PT, OT and Nursing, for after his DCh back to his residence at [facility]. - Current Meds Current Meds: Current Medications Generic Name Dose Route Start Last Admin Trade Name Freq PRN Reason Stop Dose Admin Acetaminophen 650 mg 09/04/21 11:26 09/10/21 20:40 Acetaminophen 325 Mg Tablet PO 650 mg Q4HR PRN Administration Pain 1 to 4, or Fever Cholecalciferol 50 mcg 09/05/21 09:00 09/11/21 09:05 Cholecalciferol 25 Mcg Tablet PO 50 mcg DAILY ADALBERTO Administration Cyanocobalamin 1,000 mcg 09/05/21 09:00 09/11/21 09:05 Cyanocobalamin 500 Mcg Tablet PO 1,000 mcg DAILY ADALBERTO Administration Enoxaparin Sodium 40 mg 09/05/21 09:00 09/11/21 09:05 Enoxaparin 40 Mg/0.4 Ml Syringe SUBQ 40 mg DAILY ADALBERTO Administration Folic Acid 1 mg 09/05/21 09:00 09/11/21 09:05 Folic Acid 1 Mg Tablet PO 1 mg DAILY ADALBERTO Administration Meropenem 1 gm/ Sodium 100 mls @ 200 mls/hr 09/04/21 12:00 09/11/21 12:23 Chloride IV 200 mls/hr Q8H ADALBERTO Administration Lisinopril 5 mg 09/05/21 09:00 09/11/21 09:06 Lisinopril 5 Mg Tablet PO 5 mg DAILY ADALBERTO Administration Memantine 10 mg 09/04/21 21:00 09/11/21 09:07 Memantine 5 Mg Tablet PO 10 mg BID ADALBERTO Administration Metoprolol Tartrate 50 mg 09/04/21 21:00 09/11/21 09:07 Metoprolol Tartrate 50 Mg Tablet PO 50 mg BID ADALBERTO Administration Multi-Ingredient Ointment 1 applic 09/04/21 19:33 09/06/21 11:47 Zinc Oxide 20% Oint 30 Gm Tube TOP 1 applic PRN PRN Administration Skin Care Quetiapine Fumarate 25 mg 09/04/21 14:00 09/10/21 20:40 Quetiapine 25 Mg Tablet PO 25 mg 1400,2000 ADALBERTO Administration Quetiapine Fumarate 50 mg 09/05/21 08:00 09/11/21 09:05 Quetiapine 25 Mg Tablet PO 50 mg 0800 ADALBERTO Administration Quetiapine Fumarate 50 mg 09/04/21 11:28 09/10/21 21:30 Quetiapine 25 Mg Tablet PO 50 mg TID PRN Administration Agitation Sodium Chloride 10 ml 09/04/21 17:00 09/11/21 09:10 Sodium Chloride Flush 0.9% 10 Ml Syringe IVP 10 ml 0100,0900,1700 ADALBERTO Administration Sodium Chloride 10 ml 09/04/21 16:46 09/11/21 12:28 Sodium Chloride Flush 0.9% 10 Ml Syringe IVP 10 ml PRN PRN Administration Per Line Care protocol Tamsulosin HCl 0.4 mg 09/04/21 21:00 09/10/21 20:41 Tamsulosin 0.4 Mg Capsule PO 0.4 mg QPM ADALBERTO Administration Valproic Acid 125 mg 09/07/21 12:00 09/11/21 12:23 Valproate 250 Mg/5 Ml Solution Udc PO 125 mg QDLUNCH ADALBERTO Administration Valproic Acid 375 mg 09/07/21 21:00 09/11/21 09:11 Valproate 250 Mg/5 Ml Solution Udc PO 375 mg BID ADALBERTO Administration - Additional Planning My Orders: My Active Orders 09/11/21 Home Health Referral [CONS] Routine Subjective - Subjective Patient Reports: No Complaints, Other (sitting up in chair, appears comfortable.) Objective Vital Signs: Vital Signs - 24 hr 09/10/21 09/11/21 09/11/21 18:26 07:21 09:07 Temperature 36.8 C 36.4 C L Heart Rate [ 67 78 Brachial] Respiratory 18 18 Rate Blood Pressure 131/85 H Blood Pressure 100/70 119/58 L [Right Brachial artery] O2 Saturation 100 99 Oxygen O2 Source Room air I&O (Last 24 Hrs): Intake and Output Totals x24h 09/09/21 09/10/21 09/11/21 23:59 23:59 23:59 Intake Total 620 1010 260 Output Total 1250 1800 800 Balance -207 -790 -540 General: Alert HEENT: Mucous membr. moist/pink Neck: Supple Neuro: Alert (Non-focal but speaks very little.) Cardiovascular: No murmurs Respiratory: No respiratory distress Abdomen: Soft Extremities: No clubbing, No edema
[2021-09-11] MEDS: QUEtiapine 25 MG TABLET PO PRN (15:45)
[2021-09-11] MEDS: TAMSULOSIN 0.4 MG CAPSULE PO SCH (20:44)
[2021-09-12] MEDS: QUEtiapine 25 MG TABLET PO PRN ×2 (00:37→16:38)
[2021-09-12] MEDS: SODIUM CHLORIDE FLUSH 0.9% 10 ML SYRINGE IVP SCH ×3 (00:45→18:42)
[2021-09-12] MEDS: MEROPENEM 1 GM in SODIUM CHLORIDE 0.9% MINIBAG 100 ML IV SCH ×3 (04:24→20:27)
[2021-09-12] MEDS: QUEtiapine 25 MG TABLET PO SCH ×3 (07:32→20:27)
[2021-09-12] MEDS: METOPROLOL TARTRATE 50 MG TABLET PO SCH ×2 (08:07→20:26)
[2021-09-12] MEDS: lisinopriL 5 MG TABLET PO SCH (08:07)
[2021-09-12] MEDS: VALPROATE 250 MG/5 ML SOLUTION UDC PO SCH ×3 (08:11→20:27)
[2021-09-12] MEDS: CHOLECALCIFEROL 25 MCG TABLET PO SCH (08:12)
[2021-09-12] MEDS: FOLIC ACID 1 MG TABLET PO SCH (08:12)
[2021-09-12] MEDS: CYANOCOBALAMIN 500 MCG TABLET PO SCH (08:12)
[2021-09-12] MEDS: MEMANTINE 5 MG TABLET PO SCH ×2 (08:13→20:26)
[2021-09-12] MEDS: ENOXAPARIN 40 MG/0.4 ML SYRINGE SUBQ SCH (08:14)
[2021-09-12] MEDS: ZINC OXIDE 20% OINT 30 GM TUBE TOP PRN (11:49)
[2021-09-12] MEDS: ACETAMINOPHEN 325 MG TABLET PO PRN ×2 (11:49→16:37)
[2021-09-12] MEDS: TAMSULOSIN 0.4 MG CAPSULE PO SCH (20:28)
[2021-09-13] MEDS: MEROPENEM 1 GM in SODIUM CHLORIDE 0.9% MINIBAG 100 ML IV SCH (03:40)
[2021-09-13] MEDS: SODIUM CHLORIDE FLUSH 0.9% 10 ML SYRINGE IVP SCH ×2 (03:41→07:59)
--- NOTE | 2021-09-13 07:34 | Discharge Plan ---
"Discharge Plan for SNF / ME[facility]UL - Discharge Plan And Transition Orders Problem Reviewed?: Yes Disposition: SNF DC/Xfer Allergies and Adverse Reactions: Allergies Allergy/AdvReac Type Severity Reaction Status Date / Time No Known Drug Allergies Allergy Verified 08/14/21 20:13 Health Concerns: Patient was recently hospitalized for cellulitis of the scrotum, epididimytis and Morales catheter-induced UTI. He was then in [facility] bed (SNF) for a prolonged course of IV antibiotics which she has completed. His cardiac meds have changed. He has participated with physical therapy, and able to walk without assistive devices. His dementia remains the same and medications for dementia remain the same. Patient is a DNR. Plan of Treatment: Continue with present medications and management. Care Goals: Improvement in any symptoms and stabilization are the goals. Assessment: Discharge orders to [facility] are being provided. - SNF / LONG TERM Transition Orders Admit to (Facility): [facility] Under the care of (Name): Siena Henriquez NP Discharge Diagnosis: (1) Epididymitis, left Treatment completed. (2) Cellulitis of scrotum Treatment completed. (3) Catheter-associated urinary tract infection His urine culture grew Pseudomonas and ESBL-producing E coli. Antibiotic treatment has been completed. (4) Atrial fibrillation We discontinued the diltiazem since he has chronic systolic heart failure, and used Metoprolol. Please consider 1 baby aspirin daily, if not contraindicated, for stroke prophylaxis. (5) Seizure disorder Stable on his meds. (6) Chronic systolic heart failure He was not in CHF exacerbation. His last Echo revealed an ejection fraction of 30%. We changed his Cardizem to Metoprolol and started Lisinopril and he is being discharged on this. (7) Dementia with behavioral disturbances Stable on his meds. (8) Deconditioning Improved with PT. (9) Chronic indwelling Morales Needed due to BPH. Medicare Certification Statement: I certify that [facility] al[facility] care is medically necessary on a continuing basis for any of the conditions for which she/he is receiving care during hospitalization. Notify PCP of admission and forward orders to primary provider for signature. Other Notification Orders: Call PCP immediately if patient develops dyspnea, chest pain/tightness or edema. House Bowel Program: Yes Additional Bowel Program Orders: If no BM after 2 days, nurse may give M.O.M. 30ml PO PRN and/or ducolax Supp 1 NE and/or THOM 250mg P.O., and/or senna 1-2 tabs PO. On day 3 nurse may give repeat above order until residents constipation is resolved. Annual Influenza Vaccine (between Jan 21 and August 20): Yes Two-step PPD per [facility] [phone] or approved exception documents: Yes Medication Orders: PLEASE REFER TO THE DISCHARGE MEDICATION LIST. Insulin Orders?: No - Medications New Prescriptions: Metoprolol Tartrate [Lopressor] 50 mg PO BID #60 tablet Cholecalciferol [Vitamin D3] 50 mcg PO DAILY #30 tablet lisinopriL [Zestril] 5 mg PO DAILY #30 tablet - Diet Type: Geriatric Texture: Mech soft Liquids: Thin May have monthly special meal: Yes - Therapies | Activity Therapy: Evaluation | Treat if indicated: PT Rehabilitation Potential: Maintain present ADL Functional Activity: Activity as Tolerated Weight Bearing: Full Weight Follow Up: See PCP in 1-2 weeks for a hospital follow-up visit."
--- NOTE | 2021-09-13 07:54 | DISCHARGE SUMMARY ---
Discharge Summary Admit Date: 09/05/21 Discharge Date: 09/13/21 Discharging Provider: Dr Yusra Patel Primary Care Provider: VINCE Henriquez Code Status: Do Not Attempt Resuscitation Condition at Discharge: Stable Discharge Disposition: Home Health Service Discharge Facility Name: [facility] History of Present Illness: From the admission H&P of Dr. Mayo Wong: This is a 81-year-old male with past medical history significant for chronic systolic heart failure with EF 30%, atrial fibrillation, dementia with behavio ral disturbance, seizure disorder, chronic indwelling Morales catheter for BPH, who was admitted at [facility] from August 28 until September 04 for left epididymitis, catheter associated UTI and cellulitis of the scrotum. Imaging during that admission revealed epididymitis and cellulitis with a possible pyocele vs hydrocele. He was treated initially with cefepime IV as recommended by Urology but this was later transitioned to meropenem, since his urine cultures grew ESBL E. coli and Pseudomonas. Repeat imaging was obtained midway through that hospitalization and showed that the epididymitis and pyocele or hydrocele were stable to mildly worse. His case was discussed again with Urology but it was felt that there was no need to transfer and they recommended IV antibiotics for a total of 2 weeks. The patient has now had improvement in the erythema and pain. He is being discharged to [facility] (Swing bed status) to complete 2 weeks of antibiotics on September 13. History from the patient is limited as he has advanced dementia. He is a DNR. - HOSPITAL COURSE Hospital Course: (1) Epididymitis, left He was admitted to [facility] after Inpt hospitalization, for a long course if iv antibiotics for a complex UTI/epidiymitis/scrotal cellulitis, in this patient with a chronic indwelling Morales. Urology recommended 2 weeks of IV antibiotic Meropenam, which was completed on 09/13/21, and he was discharged back to [facility]. (2) Cellulitis of scrotum This improved. (3) Catheter-associated urinary tract infection Urine cultures had grown Pseudomonas and ESBL-producing E. coli. The Morales catheter was exchanged on August 31, 2021. He completed a 2 week course of Meropenem IV. (4) Atrial fibrillation He had good rate control on metoprolol 50 mg twice daily and was discharged on this. It is unknown why he is not on anticoagulants or even an aspirin daily. (5) Seizure disorder Stable on his usual meds. (6) Chronic systolic heart failure His last Echocardiogram (done elsewhere) revealed an ejection fraction of 30%. He was not in CHF exacerbation, he was euvolemic. We continued his metoprolol and lisinopril. (7) Dementia with behavioral disturbance This was stable on his Seroquel and Namenda. A dose of Haldol im was needed once for agitation., follows cues, needs a walker which is new for him. We ordered Home Health for PT, OT and Nursing, for after his Ddischarge back to his residence at [facility]. (9) Chronic indwelling Morales The Morales catheter was changed on August 31, 2021. - ALLERGIES Allergies/Adverse Reactions: Allergies Allergy/AdvReac Type Severity Reaction Status Date / Time No Known Drug Allergies Allergy Verified 08/14/21 20:13 - MEDICATIONS Home Medications: Ambulatory Orders Medication Instructions Recorded Confirmed Memantine [Namenda] 10 mg PO BID 03/19/20 09/04/21 Tamsulosin [Flomax] 0.4 mg PO QPM 03/19/20 09/04/21 Cyanocobalamin (Vitamin B-12) 1,000 mcg SL DAILY 10/27/20 09/04/21 [Vitamin B-12 (1000 mcg sublingual)] Folic Acid 1 mg PO DAILY 10/27/20 09/04/21 Acetaminophen [Acetaminophen Extra 1,000 mg PO BID 03/06/21 09/04/21 Strength] Divalproex Dr Susi Mims] 125 mg PO QDLUNCH 03/06/21 09/04/[address] Susi Mims] 375 mg PO BID 03/06/21 09/04/21 Melatonin 3 mg PO QPM 07/28/21 09/04/21 QUEtiapine [SEROquel] 25 mg PO 1400,199907/28/21 09/04/21 QUEtiapine [SEROquel] 50 mg PO 0800 07/28/21 09/04/21 QUEtiapine [SEROquel] 50 mg PO TID PRN 07/28/21 09/04/21 Cholecalciferol [Vitamin D3] 50 mcg PO DAILY #30 tablet 09/13/21 Metoprolol Tartrate [Lopressor] 50 mg PO BID #60 tablet 09/13/21 lisinopriL [Zestril] 5 mg PO DAILY #30 tablet 09/13/21 - PHYSICAL EXAM AT DISCHARGE General Appearance: positive: No acute distress, Alert, Other (Tall, thin white male, disheveled.) Eyes Bilateral: positive: Normal inspection, EOMI ENT: positive: ENT inspection nml, No signs of dehydration Neck: positive: Nml inspection, No JVD Respiratory: positive: No respiratory distress Cardiovascular: positive: No murmur Abdomen: positive: Non-tender, No distention Skin: positive: Warm, Dry Extremities: positive: Non-tender, No pedal edema Neurologic/Psychiatric: positive: Other (Non-focal, oriented to self only, is minimally communicative, has a resting tremor of R hand.) - FOLLOW UP Follow Up: See PCP in 1-2 weeks for a hospital follow-up visit. - TIME SPENT Time Spent in Discharge (Minutes): 50
[2021-09-13] MEDS: QUEtiapine 25 MG TABLET PO SCH (07:59)
[2021-09-13] MEDS: CHOLECALCIFEROL 25 MCG TABLET PO SCH (07:59)
[2021-09-13] MEDS: METOPROLOL TARTRATE 50 MG TABLET PO SCH (07:59)
[2021-09-13] MEDS: CYANOCOBALAMIN 500 MCG TABLET PO SCH (07:59)
[2021-09-13] MEDS: MEMANTINE 5 MG TABLET PO SCH (07:59)
[2021-09-13] MEDS: lisinopriL 5 MG TABLET PO SCH (07:59)
[2021-09-13] MEDS: VALPROATE 250 MG/5 ML SOLUTION UDC PO SCH (08:00)
[2021-09-13] MEDS: FOLIC ACID 1 MG TABLET PO SCH (08:00)
[2021-09-13] MEDS: ENOXAPARIN 40 MG/0.4 ML SYRINGE SUBQ SCH (08:00)
[2021-09-13 09:37] VITALS: BP 95/61
== END 2021-09-13 10:16 | disposition home health service (06) | DRG 728 ==
LOC: MS2 11:26
PROVIDERS: ADMIT Internal Medicine; ATTEND Internal Medicine
DX: N45.1 Epididymitis (principal); T83.518A Infection and inflammatory reaction due to other urinary catheter, initial encounter; N39.0 Urinary tract infection, site not specified; I48.11 Longstanding persistent atrial fibrillation; I50.22 Chronic systolic (congestive) heart failure; F03.91 Unspecified dementia, unspecified severity, with behavioral disturbance; B96.29 Other Escherichia coli [E. coli] as the cause of diseases classified elsewhere; B96.5 Pseudomonas (aeruginosa) (mallei) (pseudomallei) as the cause of diseases classified elsewhere; I11.0 Hypertensive heart disease with heart failure; Z20.822 Contact with and (suspected) exposure to COVID-19; Z66 Do not resuscitate; N40.0 Benign prostatic hyperplasia without lower urinary tract symptoms; G40.909 Epilepsy, unspecified, not intractable, without status epilepticus; Z96.0 Presence of urogenital implants; R53.1 Weakness; Z86.16 Personal history of COVID-19

== ENCOUNTER 2021-09-13 10:18 | Outpatient (CLI) | payer MEDICARE, BC | END 2021-09-13 10:19 | disposition home or self-care (01) | LOC: EMS 10:18 | PROVIDERS: ATTEND Internal Medicine | DX: R41.0 Disorientation, unspecified (principal); N49.2 Inflammatory disorders of scrotum | CPT/HCPCS: A0425; A0428 ==

== ENCOUNTER 2021-10-19 13:52 | Outpatient (CLI) | payer MEDICARE, BC | END 2021-10-19 13:53 | disposition critical access hospital (66) | LOC: EMS 13:52 | DX: N50.89 Other specified disorders of the male genital organs (principal); R45.1 Restlessness and agitation | CPT/HCPCS: A0425; A0429 ==

== ENCOUNTER 2021-10-19 14:10 | Emergency (ER) | payer MEDICARE, BC ==
[2021-10-19 15:00] VITALS: BP 126/76
--- NOTE | 2021-10-19 15:18 | ED Physician Documentation ---
History of Present Illness - Stated complaint Stated Complaint: - Chief complaint Chief Complaint: General - History obtained from History obtained from: EMS - Additonal information Additional information: The patient is brought to the emergency department by EMS for chief complaint of swollen testicles. The patient has severe dementia and is not able to offer any information on his own. He is chronically catheterized with a Morales for unclear reasons and apparently, staff at his assisted living facility noticed that his testicles looked possibly swollen. They were not sure how long this has been going on and patient is not able to offer any information. No other complaints at this time reported via EMS. Review of Systems Unable to obtain: Confused, Dementia PD PAST MEDICAL HISTORY - Past Medical History Past Medical History: Yes Cardiovascular: Congestive heart failure, Hypertension, Atrial fibrillation Respiratory: None Neuro: Dementia, Seizure disorder Endocrine/Autoimmune: None GI: None : Benign prostate hypertrophy, Indwelling catheter HEENT: None Psych: Anxiety Musculoskeletal: None Derm: None - Past Surgical History Past Surgical History: No - Present Medications Home Medications: Ambulatory Orders Medication Instructions Recorded Confirmed Memantine [Namenda] 10 mg PO BID 03/19/20 09/04/21 Tamsulosin [Flomax] 0.4 mg PO QPM 03/19/20 09/04/21 Cyanocobalamin (Vitamin B-12) 1,000 mcg SL DAILY 10/27/20 09/04/21 [Vitamin B-12 (1000 mcg sublingual)] Folic Acid 1 mg PO DAILY 10/27/20 09/04/21 Acetaminophen [Acetaminophen Extra 1,000 mg PO BID 03/06/21 09/04/21 Strength] Divalproex Dr Susi Mims] 125 mg PO QDLUNCH 03/06/21 09/04/[address] Susi Mims] 375 mg PO BID 03/06/21 09/04/21 Melatonin 3 mg PO QPM 07/28/21 09/04/21 QUEtiapine [SEROquel] 25 mg PO 1400,2000 07/28/21 09/04/21 QUEtiapine [SEROquel] 50 mg PO 0800 07/28/21 09/04/21 QUEtiapine [SEROquel] 50 mg PO TID PRN 07/28/21 09/04/21 Cholecalciferol [Vitamin D3] 50 mcg PO DAILY #30 tablet 09/13/21 Metoprolol Tartrate [Lopressor] 50 mg PO BID #60 tablet 09/13/21 lisinopriL [Zestril] 5 mg PO DAILY #30 tablet 09/13/21 - Allergies Allergies/Adverse Reactions: Allergies Allergy/AdvReac Type Severity Reaction Status Date / Time No Known Drug Allergies Allergy Verified 10/19/21 14:30 - Social History Does the pt smoke?: No Smoking Status: Never smoker Does the pt drink ETOH?: No Does the pt have substance abuse?: No - Immunizations Immunizations are current?: No - POLST Patient has POLST: Yes POLST Status: DNR PD ED PE NORMAL - Vitals Vital signs reviewed: Yes - General General: No acute distress, Well developed/nourished, Other (Alert, confused) - HEENT HEENT: Atraumatic, PERRL, EOMI, Moist mucous membranes - Neck Neck: Supple, no meningeal sign - Respiratory Respiratory: No respiratory distress - Abdomen Abdomen: Soft, Non tender, Non distended - Male Male : Other (No scrotal or penile lesions. No obvious edema of the scrotum or testicles. No erythema or induration. No fluctuance. Morales catheter in place.) - Derm Derm: Normal color, Warm and dry, No rash - Extremities Extremities: No deformity, No edema - Neuro Neuro: Other (Awake, Confused, constantly trying to get out of bed in the ED and ambulating aimlessly on a slow, but narrow-based gait.) - Psych Psych: Normal mood, Normal affect Results - Vitals Vitals: Vital Signs - 24 hr 10/19/21 10/19/21 14:30 14:33 Temperature 36.5 C 36.9 C Heart Rate 70 52 L Respiratory 18 18 Rate Blood Pressure 116/80 126/76 O2 Saturation 94 99 Oxygen O2 Source Room air PD MEDICAL DECISION MAKING - ED course Complexity details: considered differential ED course: On examination I did not find anything abnormal about the patient's testicles or the rest of his exam. He did not seem to be ill in any other way and I felt he was stable for discharge home. Departure - Departure Disposition: 01 Home, Self Care Clinical Impression: Normal testicular exam Condition: Stable Instructions: ED Catheter Care Morales Comments: There is no evidence of abnormal swelling, redness, or any sign of mass or infection of Mr. Gomez's testicle/scrotum. There are no penile lesions of concern. Please have him follow-up with his primary care physician for any further concerns.
== END 2021-10-19 15:35 | disposition home or self-care (01) ==
LOC: EDUNIT# → ED 14:10
DX: N50.89 Other specified disorders of the male genital organs (principal); Z66 Do not resuscitate
CPT/HCPCS: 99281; 99283

== ENCOUNTER 2021-10-19 15:28 | Outpatient (CLI) | payer MEDICARE, BC | END 2021-10-19 15:29 | disposition home or self-care (01) | LOC: EMS 15:28 | PROVIDERS: ATTEND Emergency Medicine | DX: R41.0 Disorientation, unspecified (principal); N50.89 Other specified disorders of the male genital organs | CPT/HCPCS: A0425; A0428 ==

== ENCOUNTER 2021-11-02 18:48 | Outpatient (CLI) | payer MEDICARE, BC | END 2021-11-02 18:49 | disposition critical access hospital (66) | LOC: EMS 18:48 | DX: R46.89 Other symptoms and signs involving appearance and behavior (principal) | CPT/HCPCS: A0425; A0429 ==

== ENCOUNTER 2021-11-02 19:06 | Emergency (ER) | payer MEDICARE, BC ==
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
[2021-11-02 19:39] LABS: BILIRUBIN,URINE NEGATIVE (NEGATIVE); GLUCOSE, URINE (UA) NEGATIVE (NEGATIVE); KETONES,URINE (UA) NEGATIVE (NEGATIVE); LEUKOCYTE ESTERASE, URINE LARGE (NEGATIVE); NITRITE,URINE POSITIVE (NEGATIVE); OCCULT BLOOD,URINE MODERATE (NEGATIVE); PH,URINE 5.5 PH (5.0-7.5); PROTEIN,URINE TRACE mg/dL (NEGATIVE); UROBILINOGEN,URINE 0.2 (NORMAL) E.U./dL (NORMAL)
[2021-11-02 19:44] LABS: CLARITY,URINE CLOUDY (CLEAR)
[2021-11-02 19:51] LABS: BACTERIA,URINE Many /HPF (None Seen); SQUAMOUS EPITHELIAL CELL,UR FEW Squamous (<= Few); WBC,URINE >25 /HPF (0-3)
[2021-11-02] MEDS ORDERED: AMOX/CLAV 875 MG/125 MG TABLET PO STA (19:55)
[2021-11-02 20:50] VITALS: BP 110/62
== END 2021-11-02 20:49 | disposition home or self-care (01) ==
LOC: EDUNIT# → ED 19:06
DX: T83.511A Infection and inflammatory reaction due to indwelling urethral catheter, initial encounter (principal); F03.90 Unspecified dementia, unspecified severity, without behavioral disturbance, psychotic disturbance, mood disturbance, and anxiety; I10 Essential (primary) hypertension
CPT/HCPCS: 51702; 81001; 87086; 99281; 99283; A9270; 81003

== ENCOUNTER 2021-11-02 20:52 | Outpatient (CLI) | payer MEDICARE, BC | END 2021-11-02 20:53 | disposition home or self-care (01) | LOC: EMS 20:52 | PROVIDERS: ATTEND Emergency Medicine | DX: N39.0 Urinary tract infection, site not specified (principal); R41.0 Disorientation, unspecified | CPT/HCPCS: A0425; A0428 ==

== ENCOUNTER 2021-11-27 08:58 | Outpatient (CLI) | payer MEDICARE, BC | END 2021-11-27 08:59 | disposition critical access hospital (66) | LOC: EMS 08:58 | DX: R46.89 Other symptoms and signs involving appearance and behavior (principal); R45.1 Restlessness and agitation; R45.6 Violent behavior; Z78.1 Physical restraint status | CPT/HCPCS: A0425; A0429 ==

== ENCOUNTER 2021-11-27 09:18 | Emergency (ER) | payer MEDICARE, BC ==
[2021-11-27] MEDS ORDERED: HALOPERIDOL 5 MG/ML VIAL IM STA (09:40)
[2021-11-27] MEDS ORDERED: LORazepam 2 MG/ML VIAL IM STA ×2 (09:40→11:20)
--- NOTE | 2021-11-27 09:46 | ED Physician Documentation ---
History of Present Illness - Stated complaint Stated Complaint: COMBATIVE - Chief complaint Chief Complaint: Neuro - History obtained from History obtained from: EMS - Additonal information Additional information: Patient sent from home place for chief complaint of agitation and violent behavior. Apparently he was so belligerent that it took 4 police officers to restrain him there. Patient has been seen for agitation and belligerence a number of times before in our emergency department. He has a history of severe dementia. Home place reports no fevers. Patient has not seemed ill with anything recently. Patient is unable to offer any information and is just yelling. Review of Systems Unable to obtain: Dementia Immunocompromised: reports: Reviewed and negative PD PAST MEDICAL HISTORY - Past Medical History Cardiovascular: Congestive heart failure, Hypertension, Atrial fibrillation Respiratory: None Neuro: Dementia, Seizure disorder Endocrine/Autoimmune: None GI: None : Benign prostate hypertrophy, Indwelling catheter HEENT: None Psych: Anxiety Musculoskeletal: None Derm: None - Past Surgical History Past Surgical History: No - Present Medications Home Medications: Ambulatory Orders Medication Instructions Recorded Confirmed Memantine [Namenda] 10 mg PO BID 03/19/20 11/27/21 Tamsulosin [Flomax] 0.4 mg PO QPM 03/19/20 11/27/21 Cyanocobalamin (Vitamin B-12) 1,000 mcg SL DAILY 10/27/20 11/27/21 [Vitamin B-12 (1000 mcg sublingual)] Folic Acid 1 mg PO DAILY 10/27/20 11/27/21 Divalproex [Carlie Mims] 125 mg PO BID 03/06/21 11/27/21 Divalproex [Carlie Mims] 125 mg PO QDLUNCH 03/06/21 11/27/21 Melatonin 5 mg PO QPM 07/28/21 11/27/21 QUEtiapine [SEROquel] 25 mg PO 1400,199907/28/21 11/27/21 Metoprolol Tartrate [Lopressor] 50 mg PO BID #60 tablet 09/13/21 11/27/21 lisinopriL [Zestril] 5 mg PO DAILY #30 tablet 09/13/21 11/27/21 - Allergies Allergies/Adverse Reactions: Allergies Allergy/AdvReac Type Severity Reaction Status Date / Time No Known Drug Allergies Allergy Verified 11/27/21 09:30 - Social History Does the pt smoke?: No Smoking Status: Never smoker Does the pt drink ETOH?: No Does the pt have substance abuse?: No - Immunizations Immunizations are current?: No - POLST Patient has POLST: Yes POLST Status: DNR PD ED PE NORMAL - Vitals Vital signs reviewed: Yes - General General: Other (Patient is agitated, yelling, and singing.) - HEENT HEENT: Atraumatic, PERRL, EOMI, Moist mucous membranes - Neck Neck: Supple, no meningeal sign - Cardiac Cardiac: RRR, No murmur, Strong equal pulses - Respiratory Respiratory: No respiratory distress, Clear bilaterally - Abdomen Abdomen: Soft, Non tender, Non distended - Derm Derm: Normal color, Warm and dry, No rash - Extremities Extremities: No deformity - Neuro Neuro: Other (Grossly intact strength and motor capabilities. No cranial nerve deficits grossly. Speech is clear.) - Psych Psych: Normal mood, Normal affect Results - Vitals Vitals: Oxygen O2 Source Room air PD MEDICAL DECISION MAKING - ED course Complexity details: reviewed results, re-evaluated patient, considered differential, d/w patient ED course: The patient was treated symptomatically with Haldol and Ativan, after which he did become quite a bit collar. The patient was afebrile and hemodynamically stable. He had a chronic indwelling Morales catheter which would result in a chronically positive urinalysis. In the absence of fever or vomiting, Given that the patient has a history of frequent outburst such as he is having today, I did not feel that urinalysis is indicated at this time. The patient is stable for discharge home. We have discussed the usual indications for return with the staff. Departure - Departure Disposition: 01 Home, Self Care Clinical Impression: Outbursts of explosive behavior Condition: Stable Instructions: ED Dementia Caregiver Support Comments: Mr. Gomez has stabilized well with medications. He has no fever or abdominal pain/tenderness to indicate a urinary tract infection at this time. Given his indwelling catheter, the urinalysis will always come back positive, and so other indicators of infection must dictate use of antibiotics. Please be sure he gets plenty of fluids to drink and that he gets his regular medications. Discharge Date/Time: 11/27/21 11:49
[2021-11-27] MEDS ORDERED: OLANZapine 10 MG VIAL IM STA (10:20)
[2021-11-27 11:49] VITALS: BP 135/86
--- NOTE | 2021-11-30 15:07 | ED Physician Documentation ---
ED Addendum - Addendum Addendum: 11/30/21 15:07 Urine culture from the ED visit on November 27 has grown Pseudomonas and E. coli. Sensitive to cephalosporins therefore patient will be started on Vantin 100 mg p.o. twice daily x10 days.
== END 2021-11-27 11:49 | disposition home or self-care (01) ==
LOC: EDUNIT# → ED 09:18
DX: R45.6 Violent behavior (principal); F03.91 Unspecified dementia, unspecified severity, with behavioral disturbance; Z66 Do not resuscitate
CPT/HCPCS: 96372; 99283; 99285; J2060

== ENCOUNTER 2021-11-27 11:46 | Outpatient (CLI) | payer MEDICARE, BC | END 2021-11-27 11:47 | disposition home or self-care (01) | LOC: EMS 11:46 | PROVIDERS: ATTEND Emergency Medicine | DX: R41.0 Disorientation, unspecified (principal); R45.1 Restlessness and agitation | CPT/HCPCS: A0425; A0428 ==

== ENCOUNTER 2021-11-27 14:12 | Outpatient (CLI) | payer MEDICARE, BC | END 2021-11-27 14:13 | disposition critical access hospital (66) | LOC: EMS 14:12 | DX: S00.10XA Contusion of unspecified eyelid and periocular area, initial encounter (principal); S00.01XA Abrasion of scalp, initial encounter; S51.812A Laceration without foreign body of left forearm, initial encounter; W19.XXXA Unspecified fall, initial encounter; Y92.099 Unspecified place in other non-institutional residence as the place of occurrence of the external cause | CPT/HCPCS: A0425; A0429 ==

== ENCOUNTER 2021-11-27 14:54 | Emergency (ER) | payer MEDICARE, BC ==
[2021-11-27 15:49] LABS: BILIRUBIN,URINE NEGATIVE (NEGATIVE); GLUCOSE, URINE (UA) NEGATIVE (NEGATIVE); KETONES,URINE (UA) NEGATIVE (NEGATIVE); LEUKOCYTE ESTERASE, URINE LARGE (NEGATIVE); NITRITE,URINE POSITIVE (NEGATIVE); OCCULT BLOOD,URINE SMALL (NEGATIVE); PH,URINE 7.5 PH (5.0-7.5); PROTEIN,URINE NEGATIVE (NEGATIVE); UROBILINOGEN,URINE 1 (NORMAL) E.U./dL (NORMAL)
[2021-11-27 16:00] LABS: BASOPHILS % (AUTO) 0.7 %; EOSINOPHILS # (AUTO) 0.1 10^3/uL (0.0-0.7); EOSINOPHILS % (AUTO) 0.9 %; HCT - HEMATOCRIT 41.3 % (42.0-52.0); HGB - HEMOGLOBIN 13.6 g/dL (14.0-18.0); LYMPHOCYTES # (AUTO) 1.3 10^3/uL (1.5-3.5); LYMPHOCYTES % (AUTO) 23.2 %; MEAN CORPUSCULAR HEMOGLOBIN 30.5 pg (27.0-31.0); MEAN CORPUSCULAR HGB CONC 32.9 g/dL (32.0-36.0); MEAN CORPUSCULAR VOLUME 92.6 fL (80.0-94.0); MEAN PLATELET VOLUME 10.2 fL (7.4-11.4); MONOCYTES # (AUTO) 0.7 10^3/uL (0.0-1.0); MONOCYTES % (AUTO) 12.5 %; NEUTROPHILS # (AUTO) 3.6 10^3/uL (1.5-6.6); NEUTROPHILS % (AUTO) 62.5 %; PLT - PLATELET COUNT 149 10^3/uL (130-450); RED BLOOD COUNT 4.46 10^6/uL (4.70-6.10); WHITE BLOOD COUNT 5.7 x10^3/uL (4.8-10.8)
[2021-11-27 16:00] LABS: CLARITY,URINE SL. CLOUDY (CLEAR)
[2021-11-27 16:01] LABS: ALBUMIN 4.1 g/dL (3.2-5.5); ALBUMIN/GLOBULIN RATIO 1.5 (1.0-2.2); BILIRUBIN,TOTAL 1.1 mg/dL (0.2-1.0); CALCIUM 9.3 mg/dL (8.5-10.3); POTASSIUM 3.8 mmol/L (3.5-5.0); TOTAL PROTEIN 6.8 g/dL (6.7-8.2)
[2021-11-27 16:10] LABS: BACTERIA,URINE Moderate /HPF (None Seen); CRYSTALS,URINE 3-5 Calcium Oxalate /LPF; RBC,URINE 0-5 /HPF (0-5); SQUAMOUS EPITHELIAL CELL,UR RARE Squamous (<= Few); WBC CLUMPS,URINE PRESENT; WBC,URINE >25 /HPF (0-3)
--- NOTE | 2021-11-27 16:17 | CT Report ---
PROCEDURE: HEAD WO INDICATIONS: fall/head injury TECHNIQUE: Noncontrast 4.5 mm thick angled axial sections acquired from the foramen magnum to the vertex. For r adiation dose reduction, the following was used: automated exposure control, adjustment of mA and/or kV according to patient size. COMPARISON: 09/09/2019. FINDINGS: Image quality: Excellent. CSF spaces: Basal cisterns are patent. No extra-axial fluid collections. Ventriculomegaly is noted. Brain: No midline shift. No intracranial masses or hemorrhage. Doonnell-white matter interface is norm al. Skull and face: Calvarium and visualized facial bones are intact, without suspicious lesions. Sinuses: Scattered opacities in the ethmoid air cells. Small mucous retention cysts noted in the righ t maxillary sinus. Postsurgical changes compatible with canal wall down left mastoidectomy. Right mas toid air cells are clear. IMPRESSION: 1. No acute intracranial disease process. 2. Ventriculomegaly which could be due to central volume loss versus normal pressure hydrocephalus. P lease correlate with clinical findings. 3. No intracranial hemorrhage. 4. No fracture. Reviewed by: Kassandra Larkin MD, PhD on 11/27/2021 4:16 PM PDT Approved by: Kassandra Larkin MD, PhD on 11/27/2021 4:16 PM PDT Station ID: [id number]
--- NOTE | 2021-11-27 16:29 | CT Report ---
PROCEDURE: CERVICAL SPINE WO INDICATIONS: fall/head injry TECHNIQUE: Noncontrast 3 mm thick sections acquired from the skull base to the T4 level. Sagittal and coronal r eformats were then constructed. For radiation dose reduction, the following was used: automated exp osure control, adjustment of mA and/or kV according to patient size. COMPARISON: None. FINDINGS: Image quality: Excellent. Bones: No fractures or dislocations. Visualized superior ribs are intact. Spine degenerative disc d isease and facet arthropathy are noted. 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 Soft tissues: Prevertebral soft tissues are normal in thickness. No paravertebral hematomas. No ap ical pneumothoraces. Calcified granulomas noted in the lungs. IMPRESSION: No fracture. No acute osseous lesion. If there is continued clinical concern for pathology, then MRI should be considered for further evaluation. Reviewed by: Kassandra Larkin MD, PhD on 11/27/2021 4:28 PM PDT Approved by: Kassandra Larkin MD, PhD on 11/27/2021 4:28 PM PDT Station ID: [id number]
[2021-11-27] MEDS ORDERED: SODIUM CHLORIDE 0.9% 1,000 ML IV STA (16:51)
--- NOTE | 2021-11-27 17:07 | ED Physician Documentation ---
History of Present Illness - Stated complaint Stated Complaint: GLF - Chief complaint Chief Complaint: Laceration - History obtained from History obtained from: EMS - Additonal information Additional information: The patient returns to the emergency department for chief complaint of ground- level fall. He was seen earlier this morning for agitation and after treatment with Ativan, Haldol, and Zyprexa, he was found to still be alert and very vocal, but less agitated than he had been. He was stable for return back to the assisted living facility where he lives. However, sometime after he got there, he had a ground-level fall. The details of this are not clear, but patient was returned to the emergency department with abrasions on his head and his skin tear on his arm. The patient is once again severely demented and unable to offer any coherent information on his own. Per medics, he was placed in a c- collar in route and has been moving all 4 extremities strongly and without difficulty. Review of Systems Unable to obtain: Dementia PD PAST MEDICAL HISTORY - Past Medical History Cardiovascular: Congestive heart failure, Hypertension, Atrial fibrillation Respiratory: None Neuro: Dementia, Seizure disorder Endocrine/Autoimmune: None GI: None : Benign prostate hypertrophy, Indwelling catheter HEENT: None Psych: Anxiety Musculoskeletal: None Derm: None - Past Surgical History Past Surgical History: No - Present Medications Home Medications: Ambulatory Orders Medication Instructions Recorded Confirmed Memantine [Namenda] 10 mg PO BID 03/19/20 11/27/21 Tamsulosin [Flomax] 0.4 mg PO QPM 03/19/20 11/27/21 Cyanocobalamin (Vitamin B-12) 1,000 mcg SL DAILY 10/27/20 11/27/21 [Vitamin B-12 (1000 mcg sublingual)] Folic Acid 1 mg PO DAILY 10/27/20 11/27/21 Divalproex [Carlie Mims] 125 mg PO BID 03/06/21 11/27/21 Divalproex [Carlie Mims] 125 mg PO QDLUNCH 03/06/21 11/27/21 Melatonin 5 mg PO QPM 07/28/21 11/27/21 QUEtiapine [SEROquel] 25 mg PO 1400,2000 07/28/21 11/27/21 Metoprolol Tartrate [Lopressor] 50 mg PO BID #60 tablet 09/13/21 11/27/21 lisinopriL [Zestril] 5 mg PO DAILY #30 tablet 09/13/21 11/27/21 - Allergies Allergies/Adverse Reactions: Allergies Allergy/AdvReac Type Severity Reaction Status Date / Time No Known Drug Allergies Allergy Verified 11/27/21 09:30 - Social History Does the pt smoke?: No Smoking Status: Never smoker Does the pt drink ETOH?: No Does the pt have substance abuse?: No - Immunizations Immunizations are current?: No - POLST Patient has POLST: Yes POLST Status: DNR PD ED PE NORMAL - Vitals Vital signs reviewed: Yes - General General: No acute distress, Well developed/nourished, Other (The patient is intermittently somnolent and agitated, pulling at his c-collar.) - HEENT HEENT: PERRL, EOMI, Moist mucous membranes, Other (Abrasion on right orthodox and over anterior scalp the apex of his head. No bony deformity or step-off.) - Neck Neck: No bony TTP - Cardiac Cardiac: RRR, No murmur, Strong equal pulses - Respiratory Respiratory: No respiratory distress, Clear bilaterally - Abdomen Abdomen: Soft, Non tender, Non distended - Derm Derm: Normal color, Warm and dry, No rash, Other (Small skin tear right forearm.) - Extremities Extremities: No deformity, Normal ROM s pain, No edema - Neuro Neuro: Other (Moving x4 extremities. Awake and agitated. No gross deficits otherwise.) - Psych Psych: Normal mood, Normal affect Results - Vitals Vitals: Vital Signs - 24 hr 11/27/21 14:46 Temperature 36.7 C Heart Rate 99 Respiratory 17 Rate Blood Pressure 140/118 H O2 Saturation 97 Oxygen O2 Source Room air - Labs Labs: Laboratory Tests 11/27/21 11/27/21 11/27/21 15:35 15:43 15:43 WBC 5.7 RBC 4.46 L Hgb 13.6 L Hct 41.3 L MCV 92.6 MCH 30.5 MCHC 32.9 RDW 13.0 Plt Count 149 MPV 10.2 Neut # (Auto) 3.6 Lymph # (Auto) 1.3 L [place] # (Auto) 0.7 Eos # (Auto) 0.1 Baso # (Auto) 0.0 Absolute Nucleated RBC 0.00 Nucleated RBC % 0.0 Sodium 143 Potassium 3.8 Chloride 104 Carbon Dioxide 28 Anion Gap 11.0 BUN 21 H Creatinine 1.0 Estimated GFR (MDRD) 72 L Glucose 96 Lactic Acid Calcium 9.3 Total Bilirubin 1.1 H AST 20 ALT 17 Alkaline Phosphatase 72 Total Protein 6.8 Albumin 4.1 Globulin 2.7 Albumin/Globulin Ratio 1.5 Lipase 27 Urine Color YELLOW Urine Clarity SL. CLOUDY Urine pH 7.5 Ur Specific [place] 1.015 Urine Protein NEGATIVE Urine Glucose (UA) NEGATIVE Urine Ketones NEGATIVE Urine Occult Blood SMALL H Urine Nitrite POSITIVE H Urine Bilirubin NEGATIVE Urine Urobilinogen 1 (NORMAL) Ur Leukocyte Esterase LARGE H Urine RBC 0-5 Urine WBC >25 H Urine WBC Clumps PRESENT Ur Squamous Epith Cells RARE Squamous Urine Crystals 3-5 Calcium Oxalate Urine Bacteria Moderate H Ur Microscopic Review INDICATED Urine Culture Comments INDICATED 11/27/21 11/27/21 15:43 16:41 WBC RBC Hgb Hct MCV MCH MCHC RDW Plt Count MPV Neut # (Auto) Lymph # (Auto) [place] # (Auto) Eos # (Auto) Baso # (Auto) Absolute Nucleated RBC Nucleated RBC % Sodium Potassium Chloride Carbon Dioxide Anion Gap BUN Creatinine Estimated GFR (MDRD) Glucose Lactic Acid 3.3 H* 1.6 Calcium Total Bilirubin AST ALT Alkaline Phosphatase Total Protein Albumin Globulin Albumin/Globulin Ratio Lipase Urine Color Urine Clarity Urine pH Ur Specific [place] Urine Protein Urine Glucose (UA) Urine Ketones Urine Occult Blood Urine Nitrite Urine Bilirubin Urine Urobilinogen Ur Leukocyte Esterase Urine RBC Urine WBC Urine WBC Clumps Ur Squamous Epith Cells Urine Crystals Urine Bacteria Ur Microscopic Review Urine Culture Comments - Rads (name of study) CT head Radiology: Final report received, EMP read indepedently, See rad report (No acute findings) CT C-spine Radiology: Final report received, EMP read indepedently, See rad report (Negative) PD MEDICAL DECISION MAKING - ED course Complexity details: reviewed results, re-evaluated patient, considered differential ED course: The patient was given IV fluids and worked up with CT scans of the head and neck, which were unremarkable. Labs were also unremarkable except for an initial lactate level of 3.3. Prior to fluids, this was repeated and found to be 1.6. A urine sample was taken from the patient's chronic indwelling Morales and was positive. However, given that the patient does not have a fever, white count, or truly elevated lactic acid level, and has normal vital signs otherwise, no antibiotics have been given at this time. If the patient develops fever or is increasingly ill, then we will consider the possibility of a urinary tract infection. At this point, the patient is finishing fluids and the plan is to discharge him back to his assisted living facility when he is finished. Departure - Departure Clinical Impression: Fall from ground level Dementia with behavioral disturbance Qualifiers: Dementia type: unspecified type Qualified Code(s): F03.91 - Unspecified dementia with behavioral disturbance Condition: Stable Instructions: ED Prevention Fall, Dementia
[2021-11-27 18:33] VITALS: BP 138/98
== END 2021-11-27 18:33 | disposition home or self-care (01) ==
LOC: ED 14:54
DX: S00.01XA Abrasion of scalp, initial encounter (principal); S00.81XA Abrasion of other part of head, initial encounter; S41.119A Laceration without foreign body of unspecified upper arm, initial encounter; W18.30XA Fall on same level, unspecified, initial encounter; Y92.199 Unspecified place in other specified residential institution as the place of occurrence of the external cause; F03.90 Unspecified dementia, unspecified severity, without behavioral disturbance, psychotic disturbance, mood disturbance, and anxiety; Z66 Do not resuscitate
CPT/HCPCS: 36415; 80053; 81001; 81003; 83605; 83690; 85025; 87077; 87086; 87181; 96360; 99282

== ENCOUNTER 2021-11-27 18:33 | Outpatient (CLI) | payer MEDICARE, BC | END 2021-11-27 18:34 | disposition home or self-care (01) | LOC: EMS 18:33 | PROVIDERS: ATTEND Emergency Medicine | DX: R41.0 Disorientation, unspecified (principal) | CPT/HCPCS: A0425; A0428 ==

== ENCOUNTER 2022-02-13 10:40 | Outpatient (CLI) | payer MEDICARE, BC, MEDICAID | END 2022-02-13 10:41 | disposition critical access hospital (66) | LOC: EMS 10:40 | DX: N48.89 Other specified disorders of penis (principal); Z96.0 Presence of urogenital implants | CPT/HCPCS: A0425; A0429 ==

== ENCOUNTER 2022-02-13 10:57 | Emergency (ER) | payer MEDICARE, BC, MEDICAID ==
--- NOTE | 2022-02-13 11:11 | ED Physician Documentation ---
PD HPI MALE - Stated complaint Stated Complaint: MALE - History obtained from History obtained from: Patient (poor historian due to dementia), EMS, Caregiver - History of Present Illness Timing - onset: Today Timing - details: Abrupt onset, Now resolved Associated symptoms: Other (Caregivers reported to EMS that the patient had complained of some discomfort in the genital area and on exam they noticed some blood at the meatus. No fevers, no belly pain, no vomiting. The Morales drainage appears clear. Sent to the ER for evaluation.) PD HPI MALE CONTRIB FACTORS: Indwelling catheter Recently seen: Not recently seen Review of Systems Unable to obtain: Dementia PD PAST MEDICAL HISTORY - Past Medical History Cardiovascular: Congestive heart failure, Hypertension, Atrial fibrillation Respiratory: None Neuro: Dementia, Seizure disorder Endocrine/Autoimmune: None GI: None : Benign prostate hypertrophy, Indwelling catheter HEENT: None Psych: Anxiety Musculoskeletal: None Derm: None - Past Surgical History Past Surgical History: No - Present Medications Home Medications: Ambulatory Orders Medication Instructions Recorded Confirmed Memantine [Namenda] 10 mg PO BID 03/19/20 02/13/22 Tamsulosin [Flomax] 0.4 mg PO QPM 03/19/20 02/13/22 Cyanocobalamin (Vitamin B-12) 1,000 mcg SL DAILY 10/27/20 02/13/22 [Vitamin B-12 (1000 mcg sublingual)] Folic Acid 1 mg PO DAILY 10/27/20 02/13/22 Divalproex [Carlie Mims] 125 mg PO QDLUNCH 03/06/21 02/13/[address] Susi Mims] 375 mg PO BID 03/06/21 02/13/22 Melatonin 5 mg PO QPM 07/28/21 02/13/22 QUEtiapine [SEROquel] 25 mg PO 1400,199907/28/21 02/13/22 Metoprolol Tartrate [Lopressor] 50 mg PO BID #60 tablet 09/13/21 02/13/22 lisinopriL [Zestril] 5 mg PO DAILY #30 tablet 09/13/21 02/13/22 Acetaminophen [Tylenol] 1,000 mg PO BID 02/13/22 02/13/22 Cholecalciferol [Vitamin D3] 25 mcg PO DAILY 02/13/22 02/13/22 Mirtazapine 15 mg PO HS 02/13/22 02/13/22 - Allergies Allergies/Adverse Reactions: Allergies Allergy/AdvReac Type Severity Reaction Status Date / Time No Known Drug Allergies Allergy Verified 02/13/22 11:15 - Social History Does the pt smoke?: No Smoking Status: Never smoker Does the pt drink ETOH?: No Does the pt have substance abuse?: No - Immunizations Immunizations are current?: No - POLST Patient has POLST: Yes POLST Status: DNR PD ED PE NORMAL - Vitals Vital signs reviewed: Yes - General General: No acute distress - Cardiac Cardiac: RRR, No murmur - Respiratory Respiratory: Clear bilaterally - Abdomen Abdomen: Soft, Non tender - Back Back: No CVA TTP - Derm Derm: Normal color, Warm and dry - Extremities Extremities: Normal ROM s pain, No edema, No calf tenderness / cord - Neuro Neuro: No motor deficit, No sensory deficit. No: Alert and oriented X 3 (oriented to name. Otherwise confused c/w dementia. ) Results - Vitals Vitals: Vital Signs - 24 hr 02/13/22 02/13/22 11:15 12:23 Temperature 36.6 C Heart Rate 71 66 Respiratory 16 16 Rate Blood Pressure 110/69 122/110 H O2 Saturation 100 100 Oxygen O2 Source Room air - Labs Labs: Laboratory Tests 02/13/22 02/13/22 11:47 11:47 WBC 6.0 RBC 4.27 L Hgb 13.2 L Hct 39.0 L MCV 91.3 MCH 30.9 MCHC 33.8 RDW 13.1 Plt Count 140 MPV 10.4 Neut # (Auto) 3.7 Lymph # (Auto) 1.5 [place] # (Auto) 0.8 Eos # (Auto) 0.0 Baso # (Auto) 0.0 Absolute Nucleated RBC 0.00 Nucleated RBC % 0.0 Sodium 142 Potassium 4.4 Chloride 104 Carbon Dioxide 32 Anion Gap 6.0 BUN 23 H Creatinine 0.9 Estimated GFR (MDRD) 81 L Glucose 96 Calcium 9.2 PD MEDICAL DECISION MAKING - ED course Complexity details: considered differential (report of bleeding from urethral meatus. Has couple drops dried bolood in Depends. No blood at meatus. ) Departure - Departure Disposition: 01 Home, Self Care Clinical Impression: Urethral irritation, Indwelling Morales catheter present Condition: Stable Record reviewed to determine appropriate education?: Yes Comments: There is not any bleeding evident from the meatus of the penis at this time. Blood count is good. I presume there is some mild irritation of the urethra. It does not look like a urethral infection without any discharge. Continue with the normal Morales catheter care. Follow-up for recheck if recurring problems. Discharge Date/Time: 02/13/22 13:35
[2022-02-13 11:59] LABS: BASOPHILS % (AUTO) 0.5 %; EOSINOPHILS % (AUTO) 0.7 %; HGB - HEMOGLOBIN 13.2 g/dL (14.0-18.0); LYMPHOCYTES # (AUTO) 1.5 10^3/uL (1.5-3.5); LYMPHOCYTES % (AUTO) 24.9 %; MEAN CORPUSCULAR HEMOGLOBIN 30.9 pg (27.0-31.0); MEAN CORPUSCULAR HGB CONC 33.8 g/dL (32.0-36.0); MEAN CORPUSCULAR VOLUME 91.3 fL (80.0-94.0); MEAN PLATELET VOLUME 10.4 fL (7.4-11.4); MONOCYTES # (AUTO) 0.8 10^3/uL (0.0-1.0); MONOCYTES % (AUTO) 12.6 %; NEUTROPHILS # (AUTO) 3.7 10^3/uL (1.5-6.6); NEUTROPHILS % (AUTO) 61.1 %; PLT - PLATELET COUNT 140 10^3/uL (130-450); RED BLOOD COUNT 4.27 10^6/uL (4.70-6.10); RED CELL DISTRIBUTION WIDTH 13.1 % (12.0-15.0)
[2022-02-13 12:09] LABS: CALCIUM 9.2 mg/dL (8.5-10.3); CREATININE 0.9 mg/dL (0.6-1.2); POTASSIUM 4.4 mmol/L (3.5-5.0)
[2022-02-13 12:24] VITALS: BP 122/110
== END 2022-02-13 13:35 | disposition home or self-care (01) ==
LOC: EDUNIT# → ED 10:57
DX: N36.9 Urethral disorder, unspecified (principal); Z96.0 Presence of urogenital implants; Z66 Do not resuscitate
CPT/HCPCS: 36415; 80048; 85025; 99281; 99283

== ENCOUNTER 2022-02-13 13:33 | Outpatient (CLI) | payer MEDICARE, BC, MEDICAID | END 2022-02-13 13:34 | disposition home or self-care (01) | LOC: EMS 13:33 | PROVIDERS: ATTEND Emergency Medicine | DX: R45.1 Restlessness and agitation (principal); F03.90 Unspecified dementia, unspecified severity, without behavioral disturbance, psychotic disturbance, mood disturbance, and anxiety; R41.0 Disorientation, unspecified | CPT/HCPCS: A0425; A0428 ==

== ENCOUNTER 2022-02-24 09:38 | Outpatient (CLI) | payer MEDICARE, BC, MEDICAID | END 2022-02-24 09:39 | disposition critical access hospital (66) | LOC: EMS 09:38 | DX: R39.89 Other symptoms and signs involving the genitourinary system (principal); R41.0 Disorientation, unspecified | CPT/HCPCS: A0425; A0429 ==

== ENCOUNTER 2022-02-24 10:00 | Emergency (ER) | payer MEDICARE, BC, MEDICAID ==
--- NOTE | 2022-02-24 10:11 | ED Physician Documentation ---
History of Present Illness - Stated complaint Stated Complaint: CATH ISSUE - Additonal information Additional information: Patient is 81-year-old male presenting to the emergency department with acute urinary obstruction. Comes from home [facility]. Past medical significant for demen tia, DNR, limited treatment measures. [facility] nursing staff attempted catheter exchange this morning but was unable to advance the catheter secondary to pain. Patient allegedly became combative with nursing staff. Subsequently sent to the emergency department. History limited by patient's dementia. Review of Systems Unable to obtain: Dementia PD PAST MEDICAL HISTORY - Past Medical History Cardiovascular: Congestive heart failure, Hypertension, Atrial fibrillation Respiratory: None Neuro: Dementia, Seizure disorder Endocrine/Autoimmune: None GI: None : Benign prostate hypertrophy, Indwelling catheter HEENT: None Psych: Anxiety Musculoskeletal: None Derm: None - Past Surgical History Past Surgical History: No - Present Medications Home Medications: Ambulatory Orders Medication Instructions Recorded Confirmed Memantine [Namenda] 10 mg PO BID 03/19/20 02/13/22 Tamsulosin [Flomax] 0.4 mg PO QPM 03/19/20 02/13/22 Cyanocobalamin (Vitamin B-12) 1,000 mcg SL DAILY 10/27/20 02/13/22 [Vitamin B-12 (1000 mcg sublingual)] Folic Acid 1 mg PO DAILY 10/27/20 02/13/22 Divalproex [Carlie Mims] 125 mg PO QDLUNCH 03/06/21 02/13/[address] Susi Mims] 375 mg PO BID 03/06/21 02/13/22 Melatonin 5 mg PO QPM 07/28/21 02/13/22 QUEtiapine [SEROquel] 25 mg PO 1400,199907/28/21 02/13/22 Metoprolol Tartrate [Lopressor] 50 mg PO BID #60 tablet 09/13/21 02/13/22 lisinopriL [Zestril] 5 mg PO DAILY #30 tablet 09/13/21 02/13/22 Acetaminophen [Tylenol] 1,000 mg PO BID 02/13/22 02/13/22 Cholecalciferol [Vitamin D3] 25 mcg PO DAILY 02/13/22 02/13/22 Mirtazapine 15 mg PO HS 02/13/22 02/13/22 - Allergies Allergies/Adverse Reactions: Allergies Allergy/AdvReac Type Severity Reaction Status Date / Time No Known Drug Allergies Allergy Verified 02/13/22 11:15 - Social History Does the pt smoke?: No Smoking Status: Never smoker Does the pt drink ETOH?: No Does the pt have substance abuse?: No - Immunizations Immunizations are current?: No - POLST Patient has POLST: Yes POLST Status: DNR PD ED PE NORMAL - General General: No acute distress - HEENT HEENT: Atraumatic - Neck Neck: Supple, no meningeal sign - Cardiac Cardiac: RRR - Respiratory Respiratory: No respiratory distress - Abdomen Abdomen: Normal bowel sounds, Soft, Non tender Results - Vitals Vitals: Oxygen O2 Source Room air PD MEDICAL DECISION MAKING - ED course Complexity details: reviewed results ED course: Patient is 81-year-old male presenting to the emergency department with longstanding history of chronic indwelling Morales catheter needing catheter exchange. Afebrile, hemodynamically stable. At baseline mentally. DNR, DNI. Per documentation prefers to avoid antibiotics except in cases where they would be necessary for symptom control. Catheter exchanged in the ED. Discharge for follow-up with primary care as needed. Departure - Departure Disposition: 01 Home, Self Care Clinical Impression: Urinary retention Comments: Please follow-up with your primary care doctor soon as possible. If it anytime you have any new or worsening symptoms please not hesitate to return.
[2022-02-24 10:14] VITALS: BP 115/84
== END 2022-02-24 10:26 | disposition home or self-care (01) ==
LOC: EDUNIT# → ED 10:00
DX: T83.098A Other mechanical complication of other urinary catheter, initial encounter (principal); N13.9 Obstructive and reflux uropathy, unspecified; Z66 Do not resuscitate; I10 Essential (primary) hypertension; I48.91 Unspecified atrial fibrillation
CPT/HCPCS: 51702; 99281; 99283

== ENCOUNTER 2022-02-24 10:33 | Outpatient (CLI) | payer MEDICARE, BC, MEDICAID | END 2022-02-24 10:34 | disposition home or self-care (01) | LOC: EMS 10:33 | PROVIDERS: ATTEND Student in an Organized Health Care Education/Training Program | DX: R41.0 Disorientation, unspecified (principal); R53.83 Other fatigue | CPT/HCPCS: A0425; A0428 ==

== ENCOUNTER 2022-02-26 02:12 | Outpatient (CLI) | payer MEDICARE, BC, MEDICAID | END 2022-02-26 02:13 | disposition critical access hospital (66) | LOC: EMS 02:12 | DX: R45.6 Violent behavior (principal); R45.1 Restlessness and agitation; Z78.1 Physical restraint status | CPT/HCPCS: A0425; A0429 ==

== ENCOUNTER 2022-02-26 11:43 | Outpatient (CLI) | payer MEDICARE, BC, MEDICAID | END 2022-02-26 11:44 | disposition home or self-care (01) | LOC: EMS 11:43 | PROVIDERS: ATTEND Emergency Medicine | DX: R41.0 Disorientation, unspecified (principal); N39.0 Urinary tract infection, site not specified | CPT/HCPCS: A0425; A0428 ==

== ENCOUNTER 2022-04-16 06:48 | Outpatient (CLI) | payer MEDICARE, BC, MEDICAID | END 2022-04-16 23:59 | disposition critical access hospital (66) | LOC: EMS 06:48 | DX: T83.021A Displacement of indwelling urethral catheter, initial encounter (principal); N48.89 Other specified disorders of penis | CPT/HCPCS: A0425; A0429 ==

== ENCOUNTER 2022-04-16 07:09 | Emergency (ER) | payer MEDICARE, BC, MEDICAID ==
--- NOTE | 2022-04-16 07:20 | ED Physician Documentation ---
History of Present Illness - Stated complaint Stated Complaint: CATHETER ISSUE - History obtained from History obtained from: EMS - History of Present Illness Timing: Today Pain level max: 0 Pain level now: 0 - Additonal information Additional information: Patient has a chronic indwelling Morales catheter. Has dementia. He [facility] here for placement of a new catheter. No other complaints Review of Systems Unable to obtain: Dementia PD PAST MEDICAL HISTORY - Past Medical History Cardiovascular: Congestive heart failure, Hypertension, Atrial fibrillation Respiratory: None Neuro: Dementia, Seizure disorder Endocrine/Autoimmune: None GI: None : Benign prostate hypertrophy, Indwelling catheter HEENT: None Psych: Anxiety Musculoskeletal: None Derm: None - Past Surgical History Past Surgical History: No - Present Medications Home Medications: Ambulatory Orders Medication Instructions Recorded Confirmed Memantine [Namenda] 10 mg PO BID 03/19/20 02/26/22 Tamsulosin [Flomax] 0.4 mg PO QPM 03/19/20 02/26/22 Cyanocobalamin (Vitamin B-12) 1,000 mcg SL DAILY 10/27/20 02/26/22 [Vitamin B-12 (1000 mcg sublingual)] Folic Acid 1 mg PO DAILY 10/27/20 02/26/22 Divalproex [Carlie Mims] 125 mg PO QDLUNCH 03/06/21 02/26/[address] Susi Mims] 375 mg PO BID 03/06/21 02/26/22 Melatonin 5 mg PO QPM 07/28/21 02/26/22 QUEtiapine [SEROquel] 25 mg PO 1400,2000 07/28/21 02/26/22 Metoprolol Tartrate [Lopressor] 50 mg PO BID #60 tablet 09/13/21 02/26/22 lisinopriL [Zestril] 5 mg PO DAILY #30 tablet 09/13/21 02/26/22 Acetaminophen [Tylenol] 1,000 mg PO BID 02/13/22 02/26/22 Cholecalciferol [Vitamin D3] 25 mcg PO DAILY 02/13/22 02/26/22 Mirtazapine 15 mg PO HS 02/13/22 02/26/22 Cefdinir 300 mg PO BID #14 cap 02/26/22 - Allergies Allergies/Adverse Reactions: Allergies Allergy/AdvReac Type Severity Reaction Status Date / Time No Known Drug Allergies Allergy Verified 02/26/22 02:35 - Social History Does the pt smoke?: No Smoking Status: Never smoker Does the pt drink ETOH?: No Does the pt have substance abuse?: No - Immunizations Immunizations are current?: No - POLST Patient has POLST: Yes POLST Status: DNR PD ED PE NORMAL - Vitals Vital signs reviewed: Yes - General General: Other (Alert, in no distress) - HEENT HEENT: Moist mucous membranes - Cardiac Cardiac: RRR - Respiratory Respiratory: No respiratory distress - Abdomen Abdomen: Soft, Non tender, Non distended - Derm Derm: Warm and dry - Neuro Neuro: Other (Alert) Results - Vitals Vitals: Vital Signs - 24 hr 04/16/22 07:23 Heart Rate 74 Respiratory 16 Rate Blood Pressure 120/88 H O2 Saturation 99 Oxygen O2 Source Room air PD MEDICAL DECISION MAKING - ED course Complexity details: considered differential ED course: Morales catheter was replaced. Draining clear urine. No other complaints. This document was made in part using voice recognition software. While efforts are made to proofread this document, sound alike and grammatical errors may occur. Departure - Departure Disposition: 01 Home, Self Care Clinical Impression: Dislodged Morales catheter Qualifiers: Encounter type: initial encounter Qualified Code(s): T83.021A - Displacement of indwelling urethral catheter, initial encounter Condition: Good Instructions: ED Catheter Care Morales Follow-Up: your,doctor as needed [Other] Comments: Please follow-up with your doctor for further care as needed. Your catheter was replaced today Discharge Date/Time: 04/16/22 07:28
[2022-04-16 07:23] VITALS: BP 120/88
== END 2022-04-16 07:28 | disposition home or self-care (01) ==
LOC: EDUNIT# → ED 07:09
DX: Z46.6 Encounter for fitting and adjustment of urinary device (principal); T83.021A Displacement of indwelling urethral catheter, initial encounter
CPT/HCPCS: 51702; 99281; 99283

== ENCOUNTER 2022-04-16 07:39 | Outpatient (CLI) | payer MEDICARE, BC, MEDICAID | END 2022-04-16 07:40 | disposition home or self-care (01) | LOC: EMS 07:39 | PROVIDERS: ATTEND Emergency Medicine | DX: T83.021A Displacement of indwelling urethral catheter, initial encounter (principal); F03.90 Unspecified dementia, unspecified severity, without behavioral disturbance, psychotic disturbance, mood disturbance, and anxiety | CPT/HCPCS: A0425; A0428 ==

== ENCOUNTER 2022-04-24 14:05 | Emergency (ER) | payer MEDICARE, BC, MEDICAID ==
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
[2022-04-24 14:39] LABS: BASOPHILS % (AUTO) 0.4 %; EOSINOPHILS % (AUTO) 0.1 %; HCT - HEMATOCRIT 38.3 % (42.0-52.0); HGB - HEMOGLOBIN 12.7 g/dL (14.0-18.0); LYMPHOCYTES # (AUTO) 0.9 10^3/uL (1.5-3.5); LYMPHOCYTES % (AUTO) 11.6 %; MEAN CORPUSCULAR HEMOGLOBIN 30.5 pg (27.0-31.0); MEAN CORPUSCULAR HGB CONC 33.2 g/dL (32.0-36.0); MEAN CORPUSCULAR VOLUME 92.1 fL (80.0-94.0); MEAN PLATELET VOLUME 10.1 fL (7.4-11.4); MONOCYTES # (AUTO) 0.8 10^3/uL (0.0-1.0); MONOCYTES % (AUTO) 10.4 %; NEUTROPHILS # (AUTO) 6.2 10^3/uL (1.5-6.6); NEUTROPHILS % (AUTO) 77.3 %; PLT - PLATELET COUNT 150 10^3/uL (130-450); RED BLOOD COUNT 4.16 10^6/uL (4.70-6.10); RED CELL DISTRIBUTION WIDTH 12.9 % (12.0-15.0)
[2022-04-24 14:55] LABS: ALBUMIN 3.8 g/dL (3.2-5.5); ALBUMIN/GLOBULIN RATIO 1.5 (1.0-2.2); BILIRUBIN,TOTAL 1.6 mg/dL (0.2-1.0); CALCIUM 8.9 mg/dL (8.5-10.3); CREATININE 1.1 mg/dL (0.6-1.2); POTASSIUM 3.8 mmol/L (3.5-5.0); TOTAL PROTEIN 6.4 g/dL (6.7-8.2)
[2022-04-24 14:56] LABS: LACTIC ACID, VENOUS 2.5 mmol/L (0.5-2.2)
[2022-04-24 15:02] LABS: BILIRUBIN,URINE NEGATIVE (NEGATIVE); GLUCOSE, URINE (UA) NEGATIVE (NEGATIVE); KETONES,URINE (UA) 15 mg/dL (NEGATIVE); LEUKOCYTE ESTERASE, URINE SMALL (NEGATIVE); NITRITE,URINE POSITIVE (NEGATIVE); OCCULT BLOOD,URINE SMALL (NEGATIVE); PH,URINE 8.5 PH (5.0-7.5); PROTEIN,URINE TRACE mg/dL (NEGATIVE); UROBILINOGEN,URINE 1 (NORMAL) E.U./dL (NORMAL)
[2022-04-24 15:03] LABS: CLARITY,URINE CLOUDY (CLEAR)
[2022-04-24] MEDS ORDERED: SODIUM CHLORIDE 0.9% 500 ML IV STA (15:04)
[2022-04-24] MEDS ORDERED: cefTRIAXone 2 GM in SODIUM CHLORIDE 0.9% MINIBAG 100 ML IV STA (15:05)
[2022-04-24 15:08] LABS: AMORPHOUS SEDIMENT,UR Few /LPF; BACTERIA,URINE Many /HPF (None Seen); MUCUS,URINE Few Strands; SQUAMOUS EPITHELIAL CELL,UR RARE Squamous (<= Few); WBC,URINE >25 /HPF (0-3)
[2022-04-24 15:30] LABS: B. PARAPERTUSSIS- RESP PCR PAN NOT DETECTED; B. PERTUSSIS- RESP PCR PANEL NOT DETECTED; C. PNEUMONIAE- RESP PCR PANEL NOT DETECTED; CORONAVIRUS 229E-RESP PCR NOT DETECTED; CORONAVIRUS HKU1-RESP PCR NOT DETECTED; CORONAVIRUS NL63-RESP PCR NOT DETECTED; CORONAVIRUS OC43-RESP PCR NOT DETECTED; HUMAN METAPNEUMOVIRUS NOT DETECTED; INFLUENZA A- RESP PCR PANEL NOT DETECTED; INFLUENZA B - RESP PCR PANEL NOT DETECTED; M. PNEUMONIAE- RESP PCR PANEL NOT DETECTED; PARAINFLUENZA VIRUS 1 NOT DETECTED; PARAINFLUENZA VIRUS 2 NOT DETECTED; PARAINFLUENZA VIRUS 3 NOT DETECTED; PARAINFLUENZA VIRUS 4 NOT DETECTED; RHINOVIRUS/ENTEROVIRUS NOT DETECTED; RSV- RESP PCR PANEL NOT DETECTED; SARS-CoV-2 -RESP PCR PANEL NOT DETECTED
[2022-04-24 17:13] VITALS: BP 120/70
--- NOTE | 2022-04-27 12:02 | ED Physician Documentation ---
ED Addendum - Addendum Addendum: 04/27/22 12:00 Patient's urine culture came back positive for Pseudomonas aeruginosa and ESBL producing E. coli. The Pseudomonas is susceptible to cefepime. We will add Augmentin to cover the ESBL E. coli. Rx sent to [facility] Departure - Departure Disposition: 01 Home, Self Care Clinical Impression: Dementia with behavioral disturbance Catheter-associated urinary tract infection Qualifiers: Indwelling urinary catheter type: indwelling urethral catheter Encounter type: initial encounter Qualified Code(s): T83.511A - Infection and inflammatory reaction due to indwelling urethral catheter, initial encounter Condition: Good Instructions: ED UTI Cystitis Male Prescriptions: Amox/Clav 875/125 [Augmentin] 1 tab PO Q12H #20 tablet Cefdinir 300 mg PO BID #20 cap Discharge Date/Time: 04/24/22 17:58
== END 2022-04-24 17:58 | disposition home or self-care (01) ==
LOC: EDUNIT# → ED 14:05
DX: T83.511A Infection and inflammatory reaction due to indwelling urethral catheter, initial encounter (principal); B96.23 Unspecified Shiga toxin-producing Escherichia coli [E. coli] [STEC] as the cause of diseases classified elsewhere; F03.911 Unspecified dementia, unspecified severity, with agitation; Z20.822 Contact with and (suspected) exposure to COVID-19
CPT/HCPCS: 36415; 80053; 81001; 83605; 85025; 87040; 87086; 87181; 87633; 96365; 99284

== ENCOUNTER → 2022-04-24 | Outpatient (CLI) | payer MEDICARE, BC, MEDICAID | END | disposition critical access hospital (66) | LOC: EMS 10:14 | DX: F03.911 Unspecified dementia, unspecified severity, with agitation (principal); Z78.1 Physical restraint status | CPT/HCPCS: A0425; A0429 ==

== ENCOUNTER → 2022-04-24 | Outpatient (CLI) | payer MEDICARE, BC, MEDICAID | END | disposition home or self-care (01) | LOC: EMS 17:58 | DX: R45.1 Restlessness and agitation (principal); N39.0 Urinary tract infection, site not specified; F03.911 Unspecified dementia, unspecified severity, with agitation | CPT/HCPCS: A0425; A0428 ==

== ENCOUNTER 2022-06-27 18:27 | Outpatient (CLI) | payer MEDICARE, BC, MEDICAID | END 2022-06-27 18:28 | disposition critical access hospital (66) | LOC: EMS 18:27 | DX: S01.01XA Laceration without foreign body of scalp, initial encounter (principal); S61.411A Laceration without foreign body of right hand, initial encounter; W18.30XA Fall on same level, unspecified, initial encounter; Y92.098 Other place in other non-institutional residence as the place of occurrence of the external cause; U07.1 COVID-19 | CPT/HCPCS: A0425; A0429 ==

== ENCOUNTER 2022-06-27 18:49 | Emergency (ER) | payer MEDICARE, BC, MEDICAID ==
--- NOTE | 2022-06-27 19:46 | ED Physician Documentation ---
PD HPI HEAD INJURY - Stated complaint Stated Complaint: FELL - HIT HEAD - History obtained from History obtained from: EMS - Additional information Additional information: 82-year-old gentleman with severe dementia got up and then fell and hit the back of his head on his walker. No reported loss of consciousness. He is at his baseline which is severely demented. Review of Systems Unable to obtain: Confused, Dementia PD PAST MEDICAL HISTORY - Past Medical History Cardiovascular: Congestive heart failure, Hypertension, Atrial fibrillation Respiratory: None Neuro: Dementia, Seizure disorder Endocrine/Autoimmune: None GI: None : Benign prostate hypertrophy, Indwelling catheter HEENT: None Psych: Anxiety Musculoskeletal: None Derm: None - Past Surgical History Past Surgical History: No - Present Medications Home Medications: Ambulatory Orders Medication Instructions Recorded Confirmed Memantine [Namenda] 10 mg PO BID 03/19/20 02/26/22 Tamsulosin [Flomax] 0.4 mg PO QPM 03/19/20 02/26/22 Cyanocobalamin (Vitamin B-12) 1,000 mcg SL DAILY 10/27/20 02/26/22 [Vitamin B-12 (1000 mcg sublingual)] Folic Acid 1 mg PO DAILY 10/27/20 02/26/22 Divalproex [Carlie Mims] 125 mg PO QDLUNCH 03/06/21 02/26/[address] Susi Mims] 375 mg PO BID 03/06/21 02/26/22 Melatonin 5 mg PO QPM 07/28/21 02/26/22 QUEtiapine [SEROquel] 25 mg PO 1400,2000 07/28/21 02/26/22 Metoprolol Tartrate [Lopressor] 50 mg PO BID #60 tablet 09/13/21 02/26/22 lisinopriL [Zestril] 5 mg PO DAILY #30 tablet 09/13/21 02/26/22 Acetaminophen [Tylenol] 1,000 mg PO BID 02/13/22 02/26/22 Cholecalciferol [Vitamin D3] 25 mcg PO DAILY 02/13/22 02/26/22 Mirtazapine 15 mg PO HS 02/13/22 02/26/22 Cefdinir 300 mg PO BID #14 cap 02/26/22 Cefdinir 300 mg PO BID #20 cap 04/24/22 Amox/Clav 875/125 [Augmentin] 1 tab PO Q12H #20 tablet 04/27/22 - Allergies Allergies/Adverse Reactions: Allergies Allergy/AdvReac Type Severity Reaction Status Date / Time No Known Drug Allergies Allergy Verified 02/26/22 02:35 - Social History Does the pt smoke?: No Smoking Status: Never smoker Does the pt drink ETOH?: No Does the pt have substance abuse?: No - Immunizations Immunizations are current?: No - POLST Patient has POLST: Yes POLST Status: DNR PD ED PE NORMAL - Vitals Vital signs reviewed: Yes - General General: No acute distress, Other (Nonverbal) - HEENT HEENT: PERRL, EOMI, Other (There is an abrasion on the occiput) - Abdomen Abdomen: Non tender - Male Male : Other (Morales in place) - Neuro Eye Opening: To Voice Motor: Localizes to Pain Verbal: Incomprehensible GCS Score: 10 Results - Vitals Vitals: Oxygen O2 Source Room air PD Medical Decision Making - ED course ED course: I discussed the case by phone with his sister/POA. We discussed advanced imaging of his head. She declined feeling that he was at the end of his life and any positive imaging would not be intervened upon. We did discuss hospice and she would like a hospice referral and this is put into [facility]. Departure - Departure Disposition: 01 Home, Self Care Clinical Impression: Dementia with behavioral disturbance Head injury Qualifiers: Encounter type: initial encounter Qualified Code(s): S09.90XA - Unspecified injury of head, initial encounter Scalp abrasion Qualifiers: Encounter type: initial encounter Qualified Code(s): S00.01XA - Abrasion of scalp, initial encounter Condition: Good Record reviewed to determine appropriate education?: Yes Instructions: ED Dementia Caregiver Support, ED Head Injury Closed Comments: David did not have any diagnostic testing tonight after discussion with his sister/POA. We did order a hospice consult.
[2022-06-27 20:21] VITALS: BP 99/74
== END 2022-06-27 20:06 | disposition home or self-care (01) ==
LOC: EDUNIT# → ED 18:49
DX: S09.90XA Unspecified injury of head, initial encounter (principal); S00.01XA Abrasion of scalp, initial encounter; W07.XXXA Fall from chair, initial encounter; Y93.89 Activity, other specified; Y92.191 Dining room in other specified residential institution as the place of occurrence of the external cause; F03.918 Unspecified dementia, unspecified severity, with other behavioral disturbance; Z66 Do not resuscitate
CPT/HCPCS: 99283; 99284

== ENCOUNTER 2022-06-27 20:10 | Outpatient (CLI) | payer MEDICARE, BC, MEDICAID | END 2022-06-27 20:11 | disposition home or self-care (01) | LOC: EMS 20:10 | PROVIDERS: ATTEND Emergency Medicine | DX: R41.0 Disorientation, unspecified (principal); S01.01XA Laceration without foreign body of scalp, initial encounter; S61.411A Laceration without foreign body of right hand, initial encounter; W18.30XA Fall on same level, unspecified, initial encounter; Y92.099 Unspecified place in other non-institutional residence as the place of occurrence of the external cause; F03.90 Unspecified dementia, unspecified severity, without behavioral disturbance, psychotic disturbance, mood disturbance, and anxiety | CPT/HCPCS: A0425; A0428 ==

== ENCOUNTER 2022-06-29 09:01 | Outpatient (CLI) | payer MEDICARE, BC, MEDICAID | END 2022-06-29 09:02 | disposition E | LOC: EMS 09:01 ==